=== PATIENT | male | born 1990 | race Asian ===

== ENCOUNTER 2016-03-28 11:44 | Emergency (ER) | payer MEDICAID ==
[~2016-03-28] VITALS: Wt 100.0 kg
[~2016-03-28 11:44] MED LIST: ASPI-664 PO; DOXA4TAB2 PO; HYDR-3671 PO; LAB200 PO; NIFE60TA11 PO; POTA8CAP PO
--- NOTE | 2016-03-28 14:29 | RADRPT ---
PROCEDURE: XR Chest. CLINICAL INDICATION: Shortness of breath. TECHNIQUE: Single PA chest x-ray. COMPARISON: None available FINDINGS: The lungs are clear. No focal opacification is seen. No pneumothorax or pleural effusion is seen. The cardiomediastinal silhouette is unremarkable. The osseous structures are grossly unremarkable. IMPRESSION: No evidence of acute cardiopulmonary disease. RPTAT: JJ .Lee Lipscomb MD, MD Date Time Electronically viewed and signed by .Lee Lipscomb MD, on 03/28/2016 14:29 .A/
[2016-03-28 15:39] LABS: BASOPHILS % 0.2 % (0.0-2.0); EOSINOPHILS # 0.1 10^3/ul (0.0-0.5); EOSINOPHILS % 0.9 % (0.0-7.0); HEMATOCRIT 44.4 % (42.0-52.0); HEMOGLOBIN 14.9 g/dl (14.0-18.0); LYMPHOCYTES # 0.9 10^3/ul (0.8-2.9); MEAN CORPUSCULAR HGB CONC 33.6 g/dl (32.0-37.0); MEAN CORPUSCULAR VOLUME 83.3 fl (82.0-101.0); MEAN PLATELET VOLUME 9.1 fl (7.4-10.4); MONOCYTES % 7.9 % (0.0-11.0); PLATELET COUNT 266 10^3/UL (140-440); RED BLOOD COUNT 5.33 10^6/ul (4.70-6.10); RED CELL DISTRIBUTION WIDTH 15.6 % (11.5-14.5); UNCORRECTED WBC 13.1 10^3/ul (4.8-10.8); WHITE BLOOD COUNT 13.1 10^3/ul (4.8-10.8)
[2016-03-28 15:41] LABS: CONDITION 1; LH ANALYZER COMMENTS 1
[2016-03-28 15:50] LABS: INR 0.94; PROTIME 12.6 Sec (12.2-14.2)
[2016-03-28 15:51] LABS: PARTIAL THROMBOPLASTIN TIME 26.6 Sec (25.0-35.0)
[2016-03-28 15:53] LABS: CHLORIDE 102 mmol/L (97-110); POTASSIUM 3.9 mmol/L (3.5-5.1); SODIUM 143 mmol/L (135-144)
[2016-03-28 15:55] LABS: ANION GAP 18 (8-16); BILIRUBIN,INDIRECT 0.9 mg/dl (0-1.1); BILIRUBIN,TOTAL 0.9 mg/dl (0.2-1.3); CARBON DIOXIDE 27 mmol/L (21-31); CREATININE 2.58 mg/dl (0.61-1.24)
[2016-03-28 15:56] LABS: ALANINE AMINOTRANSFERASE 23 IU/L (13-69); ALBUMIN/GLOBULIN RATIO 1.05; ALKALINE PHOSPHATASE 140 IU/L (42-121); ASPARTATE AMINO TRANSFERASE 21 IU/L (15-46); BLOOD UREA NITROGEN 23 mg/dl (7-20); CALCIUM 9.4 mg/dl (8.4-10.2); GLUCOSE 101 mg/dl (70-220); TOTAL PROTEIN 7.8 g/dl (6.1-8.1)
[2016-03-28 16:05] LABS: TROPONIN-I < 0.012 ng/ml (0.00-0.12)
[2016-03-28] MEDS ORDERED: ASPI325T4 PO (16:27)
--- NOTE | 2016-03-28 17:52 | ERD ---
DATE OF SERVICE: 03/28/2016 HISTORY OF PRESENT ILLNESS: The patient is a 25-year-old male complaining of chest pain with mild s hortness of breath since this morning. Patient has a history of NSTEMI and kidney disease. He feel s that his blood pressure is high. He has had a history of admissions with hypertensive emergency i n the past. Patient states he has had a productive cough, no history of pneumonia or asthma. He martinez s also had a runny nose. He states that he has had chest pain intermittently over the last 3 days w ith associated shortness of breath. He states that he occasionally has some numbness down his left arm and it was concerning because he has a history of cardiac problems in the past. He states he fe els mildly dizzy. Denies any changes in urination or bowel movements. No fevers, no vomiting. MEDICAL HISTORY: Cardiomegaly and kidney disease. ALLERGIES TO MEDICATIONS: Denies. SURGICAL HISTORY: Denies. SOCIAL HISTORY: Smokes marijuana. REVIEW OF SYSTEMS: A 12-point review of systems was done. Refer to HPI for positives, all other sy stems negative. PHYSICAL EXAMINATION VITAL SIGNS: Temperature is 98.4, pulse 94, blood pressure is 133/81, respiratory rate 20, O2 sat 9 5% on room air. Pain intensity is 6/10. GENERAL: Patient is well-appearing, well-nourished, no acute distress. HEENT: Atraumatic. Conjunctivae are pink. Pupils equal, round, and reactive to light. There is no s cleral icterus. Tympanic membranes clear bilaterally. Oropharynx clear. No nystagmus or photophobia . NECK: C-spine is soft and supple. There is no meningismus. There is no cervical lymphadenopathy. No JVD. No bruits. No goiter. CHEST: Clear to auscultation bilaterally. There are no rales, wheezes or rhonchi. HEART: Regular rate and rhythm. No murmurs, clicks, rubs or gallops. No S3 or S4. ABDOMEN: Soft, nontender and nondistended. Good bowel sounds. No rebound or guarding. No gross sae tonitis. No gross organomegaly or masses. No Silva sign or McBurney point tenderness. EXTREMITIES: Equal pulses bilaterally. There is no peripheral clubbing, cyanosis or edema. No focal swelling or erythema. Full range of motion. Grossly neurovascularly intact. NEURO: Alert and oriented. Cranial nerves 2-12 intact. Motor strength in all 4 extremities with 5/5 strength. Sensation grossly intact. Normal speech and gait. Babinski negative. DTR 2+ throughout. SKIN: There is no apparent rash or petechia. The skin is warm and dry. HEMATOLOGIC AND LYMPHATIC: There is no evidence of excessive bruising or lymphedema. No gross cervi camilla, axillary, or inguinal lymphadenopathy. PSYCHIATRIC: The patient does not appear anxious or depressed. Normal orientation and judgment. EMERGENCY ROOM COURSE: The patient had an EKG done in the ER which showed normal sinus rhythm. He does have some T-wave abnormality, although when compared to EKG on 10/18/2015, T-wave inversions ar e the same. No ST elevations, no T-wave inversions, reviewed and signed off by Dr. Adams and again reviewed and signed off by Dr. Mercedes. The patient had blood work done in the ER. CBC showed an el evated white count of 13.1 with a shift of 84. CMP showed elevated creatinine of 2.58 but when comp ared to previous creatinines that were similar, his troponin was less than 0.012 and otherwise wendie l CMP. Coags were within normal limits. The patient had a 1-view chest x-ray done in the ER which showed no evidence of acute cardiopulmonary disease. The case was reviewed with Dr. Mercedes and toget her we reevaluated the patient. The states he no longer felt symptoms and no longer felt chest pres sure or chest pain. Patient does not have reproducible chest pain. DIAGNOSIS: Chest pain, atypical. MEDICAL DECISION MAKING: I have low suspicion for acute cardiac syndrome at this time. Low suspici on for pulmonary emergency. Low suspicion for hypertension emergency, as the patient's vital signs are stable. The patient's symptoms have improved and vitals are stable while in the ER. Patient martinez s a history of kidney disease and I do not feel that there is concern for acute changes at this time as his creatinine is similar to previous visits. The case was discussed extensively with Dr. Mercedes upon discharge and felt that patient was stable for discharge and not admission. DISCHARGE: The patient is discharged stable. Patient given prescription for aspirin and told to fo llow up with primary care within 1 to 2 days for reevaluation. The patient was told if symptoms garo nge or worsen, to return to the ER. The patient was given strict ER precautions. All other questio ns answered at time of discharge. Discharge summary given at the time of departure. Patient unders tood and complied with plan. Dictated By: DANY PICKARD for GABINO COYNE/AMELIE Conf#: [id number] DID#: [id number]
== END 2016-03-28 16:50 | disposition home or self-care (01) ==
LOC: FTE 11:44
DX: R07.89 Other chest pain (principal); I12.9 Hypertensive chronic kidney disease with stage 1 through stage 4 chronic kidney disease, or unspecified chronic kidney disease; N18.9 Chronic kidney disease, unspecified; E66.9 Obesity, unspecified
CPT/HCPCS: 71010; 80053; 84484; 85025; 85610; 85730; 93005; Z7502

== ENCOUNTER 2016-07-14 14:58 | Emergency (ER) | payer SELFPAY ==
[~2016-07-14] VITALS: Wt 97.5 kg
[~2016-07-14 14:58] MED LIST changes: +ASPI325T4 PO; -LAB200 PO; +LABE200T43 PO
[2016-07-14] MEDS ORDERED: LABE200T25 PO (23:52)
[2016-07-14] MEDS ORDERED: BENA20TA48 PO (23:52)
[2016-07-14] MEDS ORDERED: ATOR80TA75 PO (23:52)
[2016-07-14] MEDS ORDERED: HYDR-3672 PO (23:52)
[2016-07-14] MEDS ORDERED: NIFE60TA7 PO (23:52)
== END 2016-07-14 21:37 | disposition left against medical advice (07) ==
LOC: E/R 14:58
DX: Z53.21 Procedure and treatment not carried out due to patient leaving prior to being seen by health care provider (principal)

== ENCOUNTER 2016-07-14 21:30 | Inpatient (IN) | payer MEDICAID, OTHER ==
[~2016-07-14] VITALS: Ht 170.2 cm; Wt 97.2 kg
[2016-07-14 22:52] LABS: ADD SCAN DIFF NO
[2016-07-14 22:53] LABS: BASOPHIL # 0.1 10^3/ul (0.0-0.1); BASOPHILS % 0.4 % (0.0-2.0); EOSINOPHILS # 0.6 10^3/ul (0.0-0.5); EOSINOPHILS % 4.4 % (0.0-7.0); HEMATOCRIT 45.7 % (42.0-52.0); HEMOGLOBIN 14.8 g/dl (14.0-18.0); LYMPHOCYTES % 21.5 % (15.0-51.0); MEAN CORPUSCULAR HEMOGLOBIN 27.9 pg (29.0-33.0); MEAN CORPUSCULAR HGB CONC 32.4 g/dl (32.0-37.0); MEAN CORPUSCULAR VOLUME 86.2 fl (82.0-101.0); MEAN PLATELET VOLUME 10.9 fl (7.4-10.4); MONOCYTES % 7.1 % (0.0-11.0); NEUTROPHIL # 9.2 10^3/ul (1.6-7.5); NEUTROPHILS % 66.2 % (39.0-77.0); PLATELET COUNT 251 10^3/UL (140-415); RED CELL DISTRIBUTION WIDTH 13.8 % (11.5-14.5); WHITE BLOOD COUNT 13.9 10^3/ul (4.8-10.8)
[2016-07-14] MEDS ORDERED: LABETALOL HCL 20MG INJ IV ONE (23:00)
[2016-07-14 23:07] LABS: ALBUMIN 4.3 g/dl (3.3-4.9); POTASSIUM 3.2 mmol/L (3.5-5.1)
[2016-07-14 23:09] LABS: BILIRUBIN,INDIRECT 1.2 mg/dl (0-1.1); BILIRUBIN,TOTAL 1.2 mg/dl (0.2-1.3); CREATININE 3.03 mg/dl (0.61-1.24)
[2016-07-14 23:10] LABS: ALBUMIN/GLOBULIN RATIO 1.07; TOTAL PROTEIN 8.3 g/dl (6.1-8.1)
[2016-07-14 23:11] LABS: CALCIUM 9.1 mg/dl (8.4-10.2)
[2016-07-14 23:13] LABS: INR 0.98
[2016-07-14 23:14] LABS: PARTIAL THROMBOPLASTIN TIME 26.5 Sec (25.0-35.0)
[2016-07-14 23:22] LABS: TROPONIN-I 0.015 ng/ml (0.00-0.12)
--- NOTE | 2016-07-14 23:25 | RADRPT ---
PROCEDURE: CT Brain without contrast. CLINICAL INDICATION: Headache and numbness. TECHNIQUE: A multiplanar CT of the brain was performed on a CT scanner utilizing axial imaging fro m the skull base through the vertex without IV contrast. The CTDIvol is 43.95 mGy and the DLP is 72 0.23 mGycm. One or more of the following dose reduction techniques were utilized: Automated exposu re control, adjustment of the mA and/or kV according to patient size, use of iterative reconstructio n technique. COMPARISON: None FINDINGS: No evidence of intracranial hemorrhage or abnormal extra-axial fluid collection. The brain parenchyma is normal attenuation morphology with preservation of boss white differentiatio n and age appropriate size of the ventricles and subarachnoid spaces. The basal cisterns, posterior fossa contents, brainstem, craniocervical junction, orbits, pituitary axis, paranasal sinuses, mastoid air cells, and calvarium are unremarkable. IMPRESSION: 1. No intracranial hemorrhage or acute intracranial abnormality. MRI may be considered for further evaluation. RPTAT:AAJJ Physician Lindsey Date Time Electronically viewed and signed by Physician Lindsey on 07/14/2016 23:25 LOI/
--- NOTE | 2016-07-14 23:25 | RADRPT ---
PROCEDURE: XR Chest. CLINICAL INDICATION: Chest pain TECHNIQUE: Single AP portable chest COMPARISON: 03/28/2016 Chest x-ray FINDINGS: The cardiomediastinal silhouette is within normal limits of size. Atherosclerotic calcification of t he aorta. The lungs are clear without pleural effusion or focal consolidation. No pneumothorax. The osseous structures and soft tissues are unremarkable. IMPRESSION: 1. No evidence for active cardiopulmonary disease. RPTAT:AAJJ Marlen Orozco Physician Date Time Electronically viewed and signed by Marlen Orozco Physician on 07/14/2016 23:25 LOI/
[2016-07-14] MEDS ORDERED: morphine 4 MG/ML VIAL IV STA (23:40)
[2016-07-14] MEDS ORDERED: ONDANSETRON 4 MG INJ IV STA (23:40)
[2016-07-14] MEDS ORDERED: ATOR80TA75 PO (23:52)
[2016-07-14] MEDS ORDERED: BENA20TA48 PO (23:52)
[2016-07-14] MEDS ORDERED: NIFE60TA7 PO (23:52)
[2016-07-14] MEDS ORDERED: LABE200T25 PO (23:52)
[2016-07-14] MEDS ORDERED: HYDR-3672 PO (23:52)
[2016-07-15] VITALS (13 sets, daily range): BP systolic 159–243; BP diastolic 81–144; PULSE 75–105; RESP 17–20; Ht 170.2 cm; Wt 97.2 kg
--- NOTE | 2016-07-15 01:21 | ERA ---
ER Documentation Chief Complaint Date/Time DATE: 07/15/16 TIME: 01:19 Chief Complaint RT FACIAL NUMBNESS X1 DAY. HX HTN NO MEDS TODAY. DENIES CP/SOB HPI 25-year-old male with right facial numbness for 1 day. Patient has a history of high blood pressure but did not take his meds today. Blood pressure was noted to be near 250 systolic in triage. Denies any sandra chest pain. Denies any shortness of breath. Denies any nausea vomiting. Denies any other current issues. ROS All systems reviewed and are negative except as per history of present illness. Medications Home Meds Active Scripts Potassium Chloride* (Potassium Chloride*) 8 Meq Capsule.er, 8 MEQ PO DAILY for 30 Days, CAP Prov:MANINDER MCMANUS NP 10/22/15 Reported Medications Benazepril Hcl* (Benazepril Hcl*) 20 Mg Tablet, 20 MG PO DAILY for HTN, #30 TAB 07/14/16 Atorvastatin* (Atorvastatin*) 80 Mg Tablet, 80 MG PO QHS, #30 TAB 07/14/16 Nifedipine* (Nifedipine ER*) 60 Mg Tablet.sa, 60 MG PO DAILY, TAB.SA 07/14/16 Hydralazine Hcl* (Hydralazine Hcl*) 50 Mg Tab, 50 MG PO Q8, #90 TAB 07/14/16 Labetalol Hcl* (Labetalol Hcl*) 200 Mg Tablet, 400 MG PO BID, TAB 07/14/16 Discontinued Scripts Aspirin* (Aspirin*) 325 Mg Tablet, 325 MG PO DAILY, #30 TAB Prov:LONG RAHMAN PA-C 03/28/16 Nifedipine (Nifedical Xl) 60 Mg Tab.er.24, 60 MG PO BID for 30 Days, TAB Prov:MANINDER MCMANUS NP 10/22/15 Hydralazine Hcl* (Hydralazine Hcl*) 25 Mg Tab, 75 MG PO TID for 30 Days, TAB Prov:MANINDER MCMANUS NP 10/22/15 Doxazosin Mesylate* (Cardura*) 4 Mg Tablet, 4 MG PO HS for 30 Days, TAB Prov:MANINDER MCMANUS NP 10/22/15 Aspirin* (Aspirin* EC) 81 Mg Tablet.dr, 81 MG PO DAILY for 30 Days Prov:MANINDER MCMANUS NP 10/22/15 Labetalol Hcl* (Normodyne*) 200 Mg Tab, 600 MG PO BID, #60 TAB 3 Refills Prov:ASTER DRAKE 11/09/14 Hydralazine Hcl* (Hydralazine Hcl*) 25 Mg Tab, 75 MG PO BID, #60 TAB 3 Refills Prov:ASTER DRAKE 11/09/14 Allergies Allergies: Coded Allergies: No Known Allergies (Unverified Allergy, Unknown, 07/14/16) PMhx/Soc History of Surgery: No Anesthesia Reaction: No Hx Neurological Disorder: No Hx Respiratory Disorders: No Hx Cardiac Disorders: Yes (htn, high cholesterol) Hx Psychiatric Problems: No Hx Miscellaneous Medical Probl: Yes (obesity) Hx Alcohol Use: Yes (socially) Hx Substance Use: Yes (pot, used meth a yr ago) Hx Tobacco Use: No Smoking Status: Former smoker Physical Exam Vitals Vital Signs Date Time Temp Pulse Resp B/P Pulse Ox O2 Delivery O2 Flow Rate FiO2 07/14/16 23:27 73 17 203/124 98 07/14/16 21:32 98.2 76 18 248/154 97 Physical Exam Const: [] Head: Atraumatic Eyes: Normal Conjunctiva ENT: Normal External Ears, Nose and Mouth. Neck: Full range of motion..~ No meningismus. Resp: Clear to auscultation bilaterally Cardio: Regular rate and rhythm, no murmurs Abd: Soft, non tender, non distended. Normal bowel sounds Skin: No petechiae or rashes Back: No midline or flank tenderness Ext: No cyanosis, or edema Neur: Awake and alert Psych: Normal Mood and Affect Result Diagram: 07/14/16223907/14/162239 Results 24 hrs Laboratory Tests Test 07/14/16 22:40 White Blood Count 13.910^3/ul Red Blood Count 5.3010^6/ul Hemoglobin 14.8g/dl Hematocrit 45.7% Mean Corpuscular Volume 86.2fl Mean Corpuscular Hemoglobin 27.9pg Mean Corpuscular Hemoglobin Concent 32.4g/dl Red Cell Distribution Width 13.8% Platelet Count 32032^3/UL Mean Platelet Volume 10.9fl Neutrophils % 66.2% Lymphocytes % 21.5% Monocytes % 7.1% Eosinophils % 4.4% Basophils % 0.4% Nucleated Red Blood Cells % 0.0/100WBC Neutrophils # 9.210^3/ul Lymphocytes # 3.010^3/ul Monocytes # 1.010^3/ul Eosinophils # 0.610^3/ul Basophils # 0.110^3/ul Nucleated Red Blood Cells # 0.010^3/ul Prothrombin Time 13.0Sec Prothrombin Time Ratio 1.0 INR International Normalized Ratio 0.98 Activated Partial Thromboplast Time 26.5Sec Sodium Level 142mmol/L Potassium Level 3.2mmol/L Chloride Level 105mmol/L Carbon Dioxide Level 26mmol/L Anion Gap 14 Blood Urea Nitrogen 20mg/dl Creatinine 3.03mg/dl Glucose Level 90mg/dl Calcium Level 9.1mg/dl Total Bilirubin 1.2mg/dl Direct Bilirubin 0.00mg/dl Indirect Bilirubin 1.2mg/dl Aspartate Amino Transf (AST/SGOT) 25IU/L Alanine Aminotransferase (ALT/SGPT) 35IU/L Alkaline Phosphatase 124IU/L Troponin I 0.015ng/ml B-Type Natriuretic Peptide 901PG/ML Total Protein 8.3g/dl Albumin 4.3g/dl Globulin 4.00g/dl Albumin/Globulin Ratio 1.07 Current Medications Medications (Trade) Dose Ordered Sig/Lm Route PRN Reason Start Time Stop Time Status Last Admin Dose Admin Labetalol HCl (Labetalol) 20 mg ONCE ONCE IV 07/14/16 23:00 07/14/16 23:01 DC 07/14/16 22:52 Morphine Sulfate (morphine) 4 mg ONCE STAT IV 07/14/16 23:40 07/14/16 23:42 DC 07/14/16 23:48 Ondansetron HCl (Zofran Inj) 4 mg ONCE STAT IV 07/14/16 23:40 07/14/16 23:42 DC 07/14/16 23:47 Procedures/MDM EKG: Rate/Rhythm: Normal Sinus Rhythm QRS, ST, T-waves: No changes consistent w/ acute ischemia Impression: No evidence of ischemia or arrhythmia Chest X-ray 1V Interpreted by me: Soft Tissue: No acute abnormalities Bones: No acute abnormalities Mediastinum/Cardiac Silhouette/Lungs: No acute abnormalities Medical decision making: This is a 25-year-old male who has what looks to be hypertensive emergency. His blood pressures been treated. At this point is clinically stable. He will be admitted for telemetric setting for observation. Hospitalist will be made aware. Critical Care: Time: 45 minutes Treatments/Evaluations: Close monitoring and treatment of unstable vital signs, cardiorespiratory, and neurologic status, while maintaining tight balance of fluid, respiratory, and cardiac interventions. Departure Diagnosis: Primary Impression: Hypertensive emergency Condition: Critical THAI WATTS July 15, 2016 01:21
[2016-07-15] MEDS ORDERED: hydrALAzine 20 MG INJ ONE (02:45)
[2016-07-15] MEDS: ACETAMINOPHEN 325 MG TAB PO PRN ×2 (02:56→20:17)
[2016-07-15] MEDS ORDERED: hydrALAzine 20 MG INJ IV ONE (03:00)
[2016-07-15] MEDS ORDERED: POTASSIUM CHLORIDE (SR) 20 MEQ TAB PO STA (03:23)
[2016-07-15] MEDS: LABETALOL 200 MG TAB PO SCH ×3 (03:43→20:17)
[2016-07-15] MEDS ORDERED: LABETALOL HCL 20MG INJ IV ONE (04:00)
[2016-07-15] MEDS: DEXAMETHASONE 4 MG/ML 1 ML INJ IV SCH ×3 (06:15→20:17)
[2016-07-15 07:46] LABS: ADD SCAN DIFF NO
[2016-07-15 07:50] LABS: BASOPHIL # 0.1 10^3/ul (0.0-0.1); BASOPHILS % 0.5 % (0.0-2.0); EOSINOPHILS # 0.6 10^3/ul (0.0-0.5); EOSINOPHILS % 4.9 % (0.0-7.0); HEMATOCRIT 46.4 % (42.0-52.0); HEMOGLOBIN 14.7 g/dl (14.0-18.0); LYMPHOCYTES # 2.3 10^3/ul (0.8-2.9); LYMPHOCYTES % 18.5 % (15.0-51.0); MEAN CORPUSCULAR HEMOGLOBIN 27.4 pg (29.0-33.0); MEAN CORPUSCULAR HGB CONC 31.7 g/dl (32.0-37.0); MEAN CORPUSCULAR VOLUME 86.4 fl (82.0-101.0); MEAN PLATELET VOLUME 11.5 fl (7.4-10.4); MONOCYTES % 8.4 % (0.0-11.0); NEUTROPHIL # 8.3 10^3/ul (1.6-7.5); NEUTROPHILS % 67.4 % (39.0-77.0); PLATELET COUNT 245 10^3/UL (140-415); RED BLOOD COUNT 5.37 10^6/ul (4.70-6.10); RED CELL DISTRIBUTION WIDTH 14.1 % (11.5-14.5); WHITE BLOOD COUNT 12.3 10^3/ul (4.8-10.8)
--- NOTE | 2016-07-15 07:54 | HP ---
DATE OF ADMISSION: 07/15/2016 TIME SEEN: 4 a.m. CHIEF COMPLAINT: "My right side of my face is weak." HISTORY OF PRESENT ILLNESS: The patient is a 25-year-old male with a history of hypertension and ch ronic kidney disease who presented to the emergency department with the above-stated chief complaint . He said on Thursday he noted that he is not able to move the right side of his face and also not able to close his right eye completely. He denied similar problems in the past. He also denied any arm or leg weakness, slurred speech, visual disturbance, any other symptom of stroke that mattered. He also denied seizure-like activity. He denied chest pain, shortness of breath, fevers, chills, nausea, vomiting, abdominal pain, or urinary symptoms. He also denied trauma to the face or head. When he presented to the ER, his blood pressure was severely elevated with a systolic blood pressure around 230. The patient was given IV antihypertensives in the ER without any significant improveme nt, actually with worsening blood pressure with systolic almost 250 at the time of examination. Hea d CT was done and it was negative for any acute processes. A chest x-ray also was negative for any acute processes. Laboratory value was notable for a WBC of almost 50,000, potassium 3.2, creatinine just a little over 3, and a BNP was around 900. The patient has resistant hypertension and he was actually admitted here a few times in the past, the last one being about a year ago. He has had a w orkup for renal artery stenosis which was negative. Abdominal MRI results, sign of pheochromocytoma . He also had a nuclear stress test in 2014 that was negative with an EF during the stress of 52%. His echocardiogram, however, showed a normal ejection fraction. He said he is compliant with his m edication, but he did not take any of his blood pressure medications on Thursday because of fear that it would make his right side facial weakness worse. Normally he said his blood pressure at home is around 200 and rarely his systolic is around /150. REVIEW OF SYSTEMS: A 12-point review was performed, negative except as mentioned in the HPI. PAST MEDICAL HISTORY: Hypertension and chronic kidney disease. SOCIAL HISTORY: He smokes marijuana. ALLERGIES: NO KNOWN DRUG ALLERGIES. HOME MEDICATIONS: Nifedipine 50 mg daily, hydralazine 50 mg t.i.d., and labetalol 400 mg twice a da y. PHYSICAL EXAMINATION: VITAL SIGNS: Blood pressure 248/120s. GENERAL: The patient was very sleepy, but arousable and he is answering questions appropriately and able to speak in full sentences. HEENT: Normocephalic, atraumatic. There is an asymmetric smile with notable paralysis over the rig ht side of his face. CARDIOVASCULAR: Slightly tachycardic with regular rhythm. LUNGS: Clear. ABDOMEN: Soft, nontender, nondistended. Positive bowel sounds. EXTREMITIES: No edema. NEUROLOGIC: No focal deficit. He has 5/5 strength in both upper and lower extremities, and sensati ons are intact and equal bilaterally. He does have right-sided facial paralysis. LABORATORY: Pertinent positive results as mentioned in the HPI. IMAGING: Brain CT and chest x-ray results as mentioned in the HPI. IMPRESSION: 1. 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 2. Hypertensive urgency. 3. Chronic kidney disease, likely secondary to hypertensive nephrosclerosis. 4. Leukocytosis. Likely stress-induced reaction. 5. Hypokalemia. PLAN: The patient's right-sided paralysis seems to be consistent with Bryant's palsy. He does not martinez ve any other symptom of stroke. Head CT is negative for any acute processes. Will consider MRI of the brain. We will place a neurology consult. I will put him on steroids. We will resume his home antihypertensives with additional on IV medications for a better blood pressure control. As far as kidney function is concerned, it has slightly worsened compared to last year. He has had a workup with renal artery stenosis which was negative in the past and a renal ultrasound previously shows bi lateral small kidneys consistent with chronic kidney disease. We will place and nephrology consult. I have advised him the importance of better blood pressure control and for him to follow up with h is primary care doctor closely. I did tell him that the possibility of him being dialysis dependent , his blood pressure continues to be severely elevated with resultant worsening of his kidney functi on. Further workup and management will be per clinical course. Dictated By: THAI GOLDSTEIN/AMELIE Conf#: [id number] DID#: [id number]
[2016-07-15 08:07] LABS: ALBUMIN 3.8 g/dl (3.3-4.9); BILIRUBIN,INDIRECT 1.2 mg/dl (0-1.1); BILIRUBIN,TOTAL 1.2 mg/dl (0.2-1.3); CREATININE 2.5 mg/dl (0.61-1.24); POTASSIUM 3.4 mmol/L (3.5-5.1); TOTAL PROTEIN 7.6 g/dl (6.1-8.1)
[2016-07-15] MEDS ORDERED: NIFEdipine (XL) 60 MG TAB PO SCH (09:00)
[2016-07-15] MEDS: ONDANSETRON 4 MG INJ IV PRN (09:15)
--- NOTE | 2016-07-15 15:15 | PN ---
Date/Time of Note Date/Time of Note DATE: 07/15/16 TIME: 15:08 Assessment/Plan VTE Prophylaxis VTE Prophylaxis Intervention: heparin Lines/Catheters IV Catheter Type (from Nrsg): Peripheral IV Assessment/Plan Assessment/Plan 1. Right Bryant's palsy, on steroid acyclovir 2. Hypertensive urgency. improving, increase procardia 3. Chronic kidney disease, likely secondary to hypertensive nephrosclerosis. 4. Leukocytosis. Likely stress-induced reaction. 5. Hypokalemia. Subjective 24 Hr Interval Summary Free Text/Dictation right facial weakness including the eye Exam/Review of Systems Vital Signs Vitals Vital Signs Date Time Temp Pulse Resp B/P Pulse Ox O2 Delivery O2 Flow Rate FiO2 07/15/16 12:31 85 07/15/16 11:47 97.5 17 159/81 98 07/15/16 07:50 Nasal Cannula 2.0 Exam Constitutional: alert, oriented, well developed Psych: nl mood/affect, no complaints Head: atraumatic, normocephalic Eyes: EOMI, PERRL, nl conjunctiva, nl lids ENMT: nl external ears & nose, nl lips & teeth, nl nasal mucosa & septum Neck: supple Respiratory: clear to auscultation, normal air movement, No congested cough, No crackles/rales, No diminished breath sounds, No intercostal retraction, No labored breathing, No other, No respirations, No tactile fremitus, No wheezing Cardiovascular: nl pulses, regular rate and rhythm, No S3, No S4, No bruits, No diastolic murmur, No edema, No gallop, No irregular rhythm, No jugular venous distention (JVD), No murmurs/extra sounds, No other, No rub, No systolic murmur Gastrointestinal: nl liver, spleen, non-tender, soft, No ascites, No bowel sounds, No distended, No firm, No hepatomegaly, No mass , No other, No rebound or guarding, No splenomegaly, No surgical scars, No tender Musculoskeletal: nl extremities to inspection Extremities: normal pulses, No calf tenderness, No clubbing, No cyanosis, No edema, No other, No palpable cord, No pitting pedal edema, No tenderness Neurological: nl mental status, nl speech, nl strength, other (weakness on right eye lids and right facial drooping) Skin: nl turgor Lymph: nl lymph nodes Results Result Diagram: 07/15/16 0626 07/15/16 0656 Results 24 hrs Laboratory Tests Test 07/14/16 22:40 07/15/16 06:26 07/15/16 06:56 White Blood Count 13.9 H 12.3 H Red Blood Count 5.30 5.37 Hemoglobin 14.8 14.7 Hematocrit 45.7 46.4 Mean Corpuscular Volume 86.2 86.4 Mean Corpuscular Hemoglobin 27.9 L 27.4 L Mean Corpuscular Hemoglobin Concent 32.4 31.7 L Red Cell Distribution Width 13.8 14.1 Platelet Count 251 245 Mean Platelet Volume 10.9 H 11.5 H Neutrophils % 66.2 67.4 Lymphocytes % 21.5 18.5 Monocytes % 7.1 8.4 Eosinophils % 4.4 4.9 Basophils % 0.4 0.5 Nucleated Red Blood Cells % 0.0 0.0 Neutrophils # 9.2 H 8.3 H Lymphocytes # 3.0 H 2.3 Monocytes # 1.0 H 1.0 H Eosinophils # 0.6 H 0.6 H Basophils # 0.1 0.1 Nucleated Red Blood Cells # 0.0 0.0 Prothrombin Time 13.0 Prothrombin Time Ratio 1.0 INR International Normalized Ratio 0.98 Activated Partial Thromboplast Time 26.5 Sodium Level 142 140 Potassium Level 3.2 L 3.4 L Chloride Level 105 107 Carbon Dioxide Level 26 26 Anion Gap 14 10 Blood Urea Nitrogen 20 18 Creatinine 3.03 H 2.50 H Glucose Level 90 101 Calcium Level 9.1 9.0 Total Bilirubin 1.2 1.2 Direct Bilirubin 0.00 0.00 Indirect Bilirubin 1.2 H 1.2 H Aspartate Amino Transf (AST/SGOT) 25 22 Alanine Aminotransferase (ALT/SGPT) 35 34 Alkaline Phosphatase 124 H 105 Troponin I 0.015 B-Type Natriuretic Peptide 901 H Total Protein 8.3 H 7.6 Albumin 4.3 3.8 Globulin 4.00 H 3.80 H Albumin/Globulin Ratio 1.07 1.00 Medications Medications Current Medications Atorvastatin Calcium (Lipitor) 80 mg QHS PO ; Start 07/15/16 at 21:00 Hydralazine HCl (Apresoline) 50 mg Q8 PO Last administered on 07/15/16t 12:51; Admin Dose 50 MG; Start 07/15/16 at 06:00 Labetalol HCl (Normodyne) 400 mg BID PO Last administered on 07/15/16 08:29; Admin Dose 400 MG; Start 07/15/16 at 02:30 Nifedipine (Procardia Xl) 60 mg DAILY PO Last administered on 07/15/16 08:29; Admin Dose 60 MG; Start 07/15/16 at 09:00 Ondansetron HCl (Zofran Inj) 4 mg Q6H PRN IV NAUSEA AND/OR VOMITING Last administered on 07/15/16 09:15; Admin Dose 4 MG; Start 07/15/16 at 03:00 Acetaminophen (Tylenol Tab) 650 mg Q6H PRN PO PAIN AND OR ELEVATED TEMP Last administered on 07/15/16 02:56; Admin Dose 650 MG; Start 07/15/16 at 03:00 Dexamethasone (Decadron) 4 mg Q8 IV Last administered on 07/15/16 12:51; Admin Dose 4 MG; Start 07/15/16 at 06:00 LAYNE MALIN MD July 15, 2016 15:15
[2016-07-15] MEDS: HEPARIN 5,000 UNIT/0.5 ML VIAL SC SCH (20:17)
[2016-07-15] MEDS: ACYCLOVIR 400 MG TAB PO SCH (20:17)
[2016-07-15] MEDS: ATORVASTATIN 80 MG TAB PO SCH (20:17)
[2016-07-16] VITALS (19 sets, daily range): BP systolic 159–208; BP diastolic 86–110; PULSE 76–114; RESP 18–20
[2016-07-16] MEDS: hydrALAzine 20 MG INJ IV PRN ×5 (01:33→23:06)
[2016-07-16] MEDS: DEXAMETHASONE 4 MG/ML 1 ML INJ IV SCH ×2 (05:51→11:54)
[2016-07-16] MEDS: ONDANSETRON 4 MG INJ IV PRN ×2 (05:55→12:05)
[2016-07-16 07:35] LABS: ADD SCAN DIFF NO
[2016-07-16 07:41] LABS: ABNORMAL IP MESSAGE 1; BASOPHILS % 0.1 % (0.0-2.0); HEMOGLOBIN 14.9 g/dl (14.0-18.0); LYMPHOCYTES # 1.2 10^3/ul (0.8-2.9); LYMPHOCYTES % 5.3 % (15.0-51.0); MEAN CORPUSCULAR HGB CONC 31.7 g/dl (32.0-37.0); MEAN CORPUSCULAR VOLUME 85.3 fl (82.0-101.0); MEAN PLATELET VOLUME 11.1 fl (7.4-10.4); MONOCYTE # 0.8 10^3/ul (0.3-0.9); MONOCYTES % 3.7 % (0.0-11.0); NEUTROPHILS % 90.3 % (39.0-77.0); PLATELET COUNT 283 10^3/UL (140-415); RED BLOOD COUNT 5.51 10^6/ul (4.70-6.10); RED CELL DISTRIBUTION WIDTH 14.1 % (11.5-14.5); WHITE BLOOD COUNT 22.2 10^3/ul (4.8-10.8)
[2016-07-16 08:04] LABS: CALCIUM 9.5 mg/dl (8.4-10.2); CREATININE 2.64 mg/dl (0.61-1.24)
[2016-07-16] MEDS: ACYCLOVIR 400 MG TAB PO SCH ×3 (09:00→19:29)
[2016-07-16] MEDS ORDERED: NIFEdipine (XL) 60 MG TAB PO SCH (09:00)
[2016-07-16] MEDS: LABETALOL 200 MG TAB PO SCH ×2 (09:00→19:30)
[2016-07-16] MEDS: NIFEdipine (XL) 90 MG TAB PO SCH (09:00)
[2016-07-16] MEDS: HEPARIN 5,000 UNIT/0.5 ML VIAL SC SCH ×2 (09:01→19:30)
--- NOTE | 2016-07-16 14:30 | PN ---
Date/Time of Note Date/Time of Note DATE: 07/16/16 TIME: 14:27 Assessment/Plan VTE Prophylaxis VTE Prophylaxis Intervention: heparin Lines/Catheters IV Catheter Type (from Nrsg): Peripheral IV Assessment/Plan Assessment/Plan 1. ight facial weakness with vision change on right, MRI 2. Hypertensive urgency. improving, procardia 3. Chronic kidney disease, likely secondary to hypertensive nephrosclerosis. 4. Leukocytosis. Likely steroid-induced reaction. 5. Hypokalemia. corrected Subjective 24 Hr Interval Summary Free Text/Dictation still with facial weakness on right Exam/Review of Systems Vital Signs Vitals Vital Signs Date Time Temp Pulse Resp B/P Pulse Ox O2 Delivery O2 Flow Rate FiO2 07/16/16 12:00 98 07/16/16 11:58 98.4 20 181/99 95 07/15/16 07:50 Nasal Cannula 2.0 Intake and Output 07/15/16 07/15/16 07/16/16 15:00 23:00 07:00 Intake Total 950 ml 500 ml Balance 950 ml 500 ml Exam Constitutional: alert, oriented, well developed Psych: nl mood/affect, no complaints Head: atraumatic, normocephalic Eyes: EOMI, PERRL, nl conjunctiva, nl lids ENMT: nl external ears & nose, nl lips & teeth, nl nasal mucosa & septum Neck: non-tender, supple Respiratory: clear to auscultation, normal air movement, No congested cough, No crackles/rales, No diminished breath sounds, No intercostal retraction, No labored breathing, No other, No respirations, No tactile fremitus, No wheezing Cardiovascular: nl pulses, regular rate and rhythm, No S3, No S4, No bruits, No diastolic murmur, No edema, No gallop, No irregular rhythm, No jugular venous distention (JVD), No murmurs/extra sounds, No other, No rub, No systolic murmur Gastrointestinal: nl liver, spleen, soft, No ascites, No bowel sounds, No distended, No firm, No hepatomegaly, No mass , No non-tender, No other, No rebound or guarding, No splenomegaly, No surgical scars, No tender Musculoskeletal: nl extremities to inspection Extremities: normal pulses, No calf tenderness, No clubbing, No cyanosis, No edema, No other, No palpable cord, No pitting pedal edema, No tenderness Neurological: nl mental status, nl speech, nl strength, other (facial drooping on right) Results Result Diagram: 07/16/16 0715 07/16/16 0715 Results 24 hrs Laboratory Tests Test 07/16/16 07:15 White Blood Count 22.2 #H Red Blood Count 5.51 Hemoglobin 14.9 Hematocrit 47.0 Mean Corpuscular Volume 85.3 Mean Corpuscular Hemoglobin 27.0 L Mean Corpuscular Hemoglobin Concent 31.7 L Red Cell Distribution Width 14.1 Platelet Count 283 Mean Platelet Volume 11.1 H Neutrophils % 90.3 H Lymphocytes % 5.3 L Monocytes % 3.7 Eosinophils % 0.0 Basophils % 0.1 Nucleated Red Blood Cells % 0.0 Neutrophils # 20.0 H Lymphocytes # 1.2 Monocytes # 0.8 Eosinophils # 0.0 Basophils # 0.0 Nucleated Red Blood Cells # 0.0 Sodium Level 139 Potassium Level 4.0 Chloride Level 108 Carbon Dioxide Level 24 Anion Gap 11 Blood Urea Nitrogen 25 H Creatinine 2.64 H Glucose Level 127 Calcium Level 9.5 Medications Medications Current Medications Atorvastatin Calcium (Lipitor) 80 mg QHS PO Last administered on 07/15/16 20: 17; Admin Dose 80 MG; Start 07/15/16 at 21:00 Hydralazine HCl (Apresoline) 50 mg Q8 PO Last administered on 07/16/16 12:02; Admin Dose 50 MG; Start 07/15/16 at 06:00 Labetalol HCl (Normodyne) 400 mg BID PO Last administered on 07/16/16 09:00; Admin Dose 400 MG; Start 07/15/16 at 02:30 Ondansetron HCl (Zofran Inj) 4 mg Q6H PRN IV NAUSEA AND/OR VOMITING Last administered on 07/16/16 12:05; Admin Dose 4 MG; Start 07/15/16 at 03:00 Acetaminophen (Tylenol Tab) 650 mg Q6H PRN PO PAIN AND OR ELEVATED TEMP Last administered on 07/15/16 20:17; Admin Dose 650 MG; Start 07/15/16 at 03:00 Acyclovir (Zovirax) 400 mg TID PO Last administered on 07/16/16 12:02; Admin Dose 400 MG; Start 07/15/16 at 21:00 Heparin Sodium (Porcine) (Heparin (5000 Units/0.5 ml)) 5,000 unit BID SC Last administered on 07/16/16 09:01; Admin Dose 5,000 UNIT; Start 07/15/16 at 21:00 Nifedipine (Procardia Xl) 90 mg DAILY PO Last administered on 07/16/16 09:00; Admin Dose 90 MG; Start 07/16/16 at 09:00 Hydralazine HCl (Apresoline) 5 mg Q4H PRN IV ELEVATED SYSTOLIC BP Last administered on 07/16/16 11:55; Admin Dose 5 MG; Start 07/16/16 at 01:00 Prednisone (Prednisone) 60 mg DAILY PO ; Start 07/17/16 at 09:00; Status LAYNE DAVIS MD July 16, 2016 14:30
--- NOTE | 2016-07-16 16:42 | RADRPT ---
PROCEDURE: MRI Brain without contrast. CLINICAL INDICATION: Hypertensive crisis. Right facial weakness. TECHNIQUE: MRI of the brain was performed with the following sequences obtained: Sagittal, coronal and axial T1-weighted, axial T2-weighted, axial FLAIR, axial diffusion weighted (with ADC map), and coronal GRE. COMPARISON: CT brain 07/14/2016 FINDINGS: The diffusion sequence is normal with no evidence for acute infarct. No hemorrhage, mass effect or mass lesion is present. The extraaxial spaces are clear of collections. The ventricular system and sulci are normal. The axial and sagittal FLAIR sequences demonstrate subtle foci of hyperintense si gnal within the subcortical white matter of the centrum semiovale bilaterally. These findings are n on specific with possibilities including a manifestation of hypertension, small vessel chronic ische alphonse changes, vasculitis, migraine disorder and demyelination. No signal alteration is present within the brainstem or cerebellum. The fourth ventricle is midline and the craniocervical junction lesion is intact. The area of the sella is normal. The bony calvarium and skull base are intact. Trace amount of hyperintense T2 signal within the inf erior left mastoid air cells is present. The included paranasal sinuses and right mastoid air cells are clear. Physiologic flow voids within the internal carotid and vertebral arteries are maintaine d. RPTAT:HJJR IMPRESSION: 1. Tiny subtle hyperintense FLAIR foci within the centrum semiovale white matter bilaterally are no nspecific with possibilities including small vessel ischemic changes, vasculitis, migraine disorder and less likely demyelination. 2. Trace amount of fluid signal in the inferior left mastoid air cells. 3. Remainder of the examination is unremarkable. Physician Aislinn Date Time Electronically viewed and signed by Physician Aislinn on 07/16/2016 16:42 /
[2016-07-16] MEDS: ACETAMINOPHEN 325 MG TAB PO PRN ×2 (16:56→23:56)
[2016-07-16] MEDS ORDERED: LABETALOL HCL 20MG INJ IV PRN (18:30)
[2016-07-16] MEDS ORDERED: morphine 2 MG INJ IV PRN (18:30)
[2016-07-16] MEDS: ATORVASTATIN 80 MG TAB PO SCH (19:29)
[2016-07-17] VITALS (9 sets, daily range): BP systolic 146–159; BP diastolic 73–97; PULSE 86–153; RESP 16–18
[2016-07-17] MEDS: ONDANSETRON 4 MG INJ IV PRN (05:15)
[2016-07-17] MEDS: HEPARIN 5,000 UNIT/0.5 ML VIAL SC SCH (09:00)
[2016-07-17] MEDS ORDERED: predniSONE 20 MG TAB PO SCH (09:00)
[2016-07-17] MEDS: NIFEdipine (XL) 90 MG TAB PO SCH (09:57)
[2016-07-17] MEDS: ACYCLOVIR 400 MG TAB PO SCH ×2 (09:57→13:08)
[2016-07-17] MEDS: LABETALOL 200 MG TAB PO SCH (09:58)
[2016-07-17] MEDS ORDERED: MED4DP PO (13:26)
[2016-07-17] MEDS ORDERED: NIFEdipine (XL) PO (13:26)
--- NOTE | 2016-07-17 13:35 | DS ---
Date/Time of Note Date/Time of Note DATE: 07/17/16 TIME: 13:28 Discharge Summary Admission/Discharge Info Admit Date/Time July 15, 2016 at 00:56 Discharge Date/Time Final Diagnosis 1. Right side Bryant's Palsy, improving, steroid, follow up with PCP 2. Hypertensive urgency. better controlled, follow up with PCP 3. Chronic kidney disease, hypertensive nephrosclerosis. follow up with PCP 4. Leukocytosis. Likely steroid-induced reaction. Patient Condition: Stable Hospital Course The patient is a 25-year-old male with a history of hypertension and chronic kidney disease who presented to the emergency department with the above-stated chief complaint. He said on Thursday he noted that he is not able to move the right side of his face and also not able to close his right eye completely. He denied similar problems in the past. He also denied any arm or leg weakness, slurred speech, visual disturbance, any other symptom of stroke that mattered. He also denied seizure-like activity. He denied chest pain, shortness of breath , fevers, chills, nausea, vomiting, abdominal pain, or urinary symptoms. He also denied trauma to the face or head. When he presented to the ER, his blood pressure was severely elevated with a systolic blood pressure around 230. The patient was given IV antihypertensives in the ER without any significant improvement, actually with worsening blood pressure with systolic almost 250 at the time of examination. Head CT was done and it was negative for any acute processes. A chest x-ray also was negative for any acute processes. Laboratory value was notable for a WBC of almost 50, 000, potassium 3.2, creatinine just a little over 3, and a BNP was around 900. The patient has resistant hypertension and he was actually admitted here a few times in the past, the last one being about a year ago. He has had a workup for renal artery stenosis which was negative. Abdominal MRI results, sign of pheochromocytoma. He also had a nuclear stress test in 2014 that was negative with an EF during the stress of 52%. His echocardiogram, however, showed a normal ejection fraction. He said he is compliant with his medication, but he did not take any of his blood pressure medications on Thursday because of fear that it would make his right side facial weakness worse. Normally he said his blood pressure at home is around 200 and rarely his systolic is around /150. The right side facial weakness is considered Bryant's Palsy, that he is on steroid. He will be on Medrol dase pack and follow up with PCP. MRI brain does no show evidence of acute stroke. For hypertension, procardia is increased wot 90 mg po daily. Blood pressure has been stable at 150s. I will resume his benazepril that was held on admission. Patient has chronic kidney disease from chronic hypertension. Cr is 2.64 on 07/16. [place] [id number] Radiology Main Line: [phone] DIAGNOSTIC IMAGING REPORT Patient: GERALD BLOOD : 1990 Age: 25 Sex: M MR #: [id number] DOS: 07/16/16 0000 Ordering MD: LAYNE MALIN MD [place] [facility] [place] Room[place]Bed: [facility] PROCEDURE: MRI Brain without contrast. CLINICAL INDICATION: Hypertensive crisis. Right facial weakness. TECHNIQUE: MRI of the brain was performed with the following sequences obtained : Sagittal, coronal and axial T1-weighted, axial T2-weighted, axial FLAIR, axial diffusion weighted (with ADC map), and coronal GRE. COMPARISON: CT brain 07/14/2016 FINDINGS: The diffusion sequence is normal with no evidence for acute infarct. No hemorrhage, mass effect or mass lesion is present. The extraaxial spaces are clear of collections. The ventricular system and sulci are normal. The axial and sagittal FLAIR sequences demonstrate subtle foci of hyperintense signal within the subcortical white matter of the centrum semiovale bilaterally. These findings are non specific with possibilities including a manifestation of hypertension, small vessel chronic ischemic changes, vasculitis, migraine disorder and demyelination. No signal alteration is present within the brainstem or cerebellum. The fourth ventricle is midline and the craniocervical junction lesion is intact. The area of the sella is normal. The bony calvarium and skull base are intact. Trace amount of hyperintense T2 signal within the inferior left mastoid air cells is present. The included paranasal sinuses and right mastoid air cells are clear. Physiologic flow voids within the internal carotid and vertebral arteries are maintained. RPTAT:HJJR IMPRESSION: 1. Tiny subtle hyperintense FLAIR foci within the centrum semiovale white matter bilaterally are nonspecific with possibilities including small vessel ischemic changes, vasculitis, migraine disorder and less likely demyelination. 2. Trace amount of fluid signal in the inferior left mastoid air cells. 3. Remainder of the examination is unremarkable. Giovanni Shepherd Physician Date Time Electronically viewed and signed by Giovanni Shepherd Physician on 07/16/2016 16:42 JR/ Home Meds Active Scripts Methylprednisolone* (Medrol* DOSE PACK) 4 Mg/Dose-Pack Tab.ds.pk, 4 MG PO . DIRECTED, #1 PACKET Prov:LAYNE MALIN MD 07/17/16 [NIFEdipine (XL)] 90 MG TABSR No Conflict Check, 90 MG PO DAILY for 30 Days Prov:LAYNE MALIN MD 07/17/16 Potassium Chloride* (Potassium Chloride*) 8 Meq Capsule.er, 8 MEQ PO DAILY for 30 Days, CAP Prov:MANINDER MCMANUS NP 10/22/15 Reported Medications Benazepril Hcl* (Benazepril Hcl*) 20 Mg Tablet, 20 MG PO DAILY for HTN, #30 TAB 07/14/16 Atorvastatin* (Atorvastatin*) 80 Mg Tablet, 80 MG PO QHS, #30 TAB 07/14/16 Hydralazine Hcl* (Hydralazine Hcl*) 50 Mg Tab, 50 MG PO Q8, #90 TAB 07/14/16 Labetalol Hcl* (Labetalol Hcl*) 200 Mg Tablet, 400 MG PO BID, TAB 07/14/16 Discontinued Reported Medications Nifedipine* (Nifedipine ER*) 60 Mg Tablet.sa, 60 MG PO DAILY, TAB.SA 07/14/16 Discontinued Scripts Aspirin* (Aspirin*) 325 Mg Tablet, 325 MG PO DAILY, #30 TAB Prov:LONG RAHMAN PA-C 03/28/16 Nifedipine (Nifedical Xl) 60 Mg Tab.er.24, 60 MG PO BID for 30 Days, TAB Prov:MANINDER MCMANUS NP 10/22/15 Hydralazine Hcl* (Hydralazine Hcl*) 25 Mg Tab, 75 MG PO TID for 30 Days, TAB Prov:MCMANUS,MANINDER V. PROPERTY MAINTENANCE TECHNICIAN 10/22/15 Doxazosin Mesylate* (Cardura*) 4 Mg Tablet, 4 MG PO HS for 30 Days, TAB Prov:MANINDER MCMANUS V. PROPERTY MAINTENANCE TECHNICIAN 10/22/15 Aspirin* (Aspirin* EC) 81 Mg Tablet.dr, 81 MG PO DAILY for 30 Days Prov:MANINDER MCMANUS V. PROPERTY MAINTENANCE TECHNICIAN 10/22/15 Labetalol Hcl* (Normodyne*) 200 Mg Tab, 600 MG PO BID, #60 TAB 3 Refills Prov:ASTER DRAKE 11/09/14 Hydralazine Hcl* (Hydralazine Hcl*) 25 Mg Tab, 75 MG PO BID, #60 TAB 3 Refills Prov:ASTER DRAKE 11/09/14 Follow-up Plan PCP in one week Primary Care Provider [facility] LAYNE Bustamante MD July 17, 2016 13:35
== END 2016-07-17 15:25 | disposition home or self-care (01) | DRG 305 ==
LOC: E/R 21:30 → MS4 07-15 00:56
PROVIDERS: ADMIT Internal Medicine; ATTEND Internal Medicine
DX: I16.1 Hypertensive emergency (principal); N18.4 Chronic kidney disease, stage 4 (severe); I12.9 Hypertensive chronic kidney disease with stage 1 through stage 4 chronic kidney disease, or unspecified chronic kidney disease; E87.6 Hypokalemia; G51.0 Bell's palsy
CPT/HCPCS: 36415; 70450; 70551; 71010; 80048; 80053; 83880; 84484; 85025; 85610; 85730; 93005; 96374; 96375; J0360; J1100; J1644; J2270; J2405; J7512

== ENCOUNTER 2017-02-08 16:11 | Inpatient (IN) | payer MEDICAID, OTHER ==
[~2017-02-08] VITALS: Ht 170.2 cm; Wt 96.5 kg
[~2017-02-08 16:11] MED LIST changes: -ASPI-664 PO; -ASPI325T4 PO; +ATOR80TA75 PO; +BENA20TA48 PO; -DOXA4TAB2 PO; -HYDR-3671 PO; +HYDR-3672 PO; +LABE200T25 PO; -LABE200T43 PO; +MED4DP PO; -NIFE60TA11 PO; +NIFEdipine (XL) PO; -POTA8CAP PO
--- NOTE | 2017-02-08 16:48 | ERD ---
ER Documentation Chief Complaint Chief Complaint chest pain only when walks HPI The patient is a 26-year-old male, presenting to the ER because of left-sided chest pain with exertion for 1 week, dyspnea on exertion, no radiation. He had similar symptoms previously. He denies fever, chills, palpitation, diaphoresis , abdominal pain, vomiting, dysuria, diarrhea. He does not smoke denies drinking denies any illicit drug Medical history: Chronic kidney disease, hypertension, CAD, history of non-STEMI , dyslipidemia Surgical history: Stent PCI ROS All systems reviewed and are negative except as per history of present illness. Medications Home Meds Reported Medications Nifedipine* (Nifedipine ER*) 90 Mg Tablet.er, 90 MG PO DAILY, TAB 02/08/17 Atorvastatin* (Atorvastatin*) 80 Mg Tablet, 80 MG PO QHS, #30 TAB 07/14/16 Hydralazine Hcl* (Hydralazine Hcl*) 50 Mg Tab, 50 MG PO Q8, #90 TAB 07/14/16 Labetalol Hcl* (Labetalol Hcl*) 200 Mg Tablet, 400 MG PO BID, TAB 07/14/16 Discontinued Reported Medications Benazepril Hcl* (Benazepril Hcl*) 20 Mg Tablet, 20 MG PO DAILY for HTN, #30 TAB 07/14/16 Discontinued Scripts Methylprednisolone* (Medrol* DOSE PACK) 4 Mg/Dose-Pack Tab.ds.pk, 4 MG PO . DIRECTED, #1 PACKET Prov:LAYNE MALIN MD 07/17/16 [NIFEdipine (XL)] 90 MG TABSR No Conflict Check, 90 MG PO DAILY for 30 Days Prov:LAYNE MALIN MD 07/17/16 Allergies Allergies: Coded Allergies: No Known Allergies (Unverified Allergy, Unknown, 02/08/17) PMhx/Soc History of Surgery: No Anesthesia Reaction: No Hx Neurological Disorder: No Hx Respiratory Disorders: No Hx Cardiac Disorders: Yes (HTN) Hx Psychiatric Problems: No Hx Miscellaneous Medical Probl: No Hx Alcohol Use: Yes (occasionally) Hx Substance Use: No Hx Tobacco Use: No Physical Exam Vitals Vital Signs Date Time Temp Pulse Resp B/P Pulse Ox O2 Delivery O2 Flow Rate FiO2 02/08/17 16:26 98.5 110 18 184/121 99 Physical Exam Const: No acute distress. Head: Atraumatic. Eyes: Normal Conjunctiva. ENT: Normal External Ears, Nose and Mouth. Neck: Full range of motion. No meningismus. Resp: Clear to auscultation bilaterally. Cardio: Regular rate and rhythm. Abd: Soft, non distended, normal bowel sounds, non tender. Skin: No petechiae or rashes. Back: No midline or flank tenderness. Ext: No cyanosis, or edema. Neur: Awake and alert. No focal deficit Psych: Normal Mood and Affect. Result Diagram: 02/08/17 1700 02/08/17 1700 Results 24 hrs Laboratory Tests Test 02/08/17 17:00 White Blood Count 18.010^3/ul Red Blood Count 5.1210^6/ul Hemoglobin 14.5g/dl Hematocrit 43.7% Mean Corpuscular Volume 85.4fl Mean Corpuscular Hemoglobin 28.3pg Mean Corpuscular Hemoglobin Concent 33.2g/dl Red Cell Distribution Width 13.4% Platelet Count 99331^3/UL Mean Platelet Volume 10.0fl Neutrophils % 70.1% Lymphocytes % 16.7% Monocytes % 7.2% Eosinophils % 4.6% Basophils % 0.8% Nucleated Red Blood Cells % 0.0/100WBC Neutrophils # 12.610^3/ul Lymphocytes # 3.010^3/ul Monocytes # 1.310^3/ul Eosinophils # 0.810^3/ul Basophils # 0.210^3/ul Nucleated Red Blood Cells # 0.010^3/ul Sodium Level 138mmol/L Potassium Level 3.1mmol/L Chloride Level 100mmol/L Carbon Dioxide Level 26mmol/L Anion Gap 15 Blood Urea Nitrogen 28mg/dl Creatinine 3.25mg/dl Glucose Level 104mg/dl Calcium Level 9.0mg/dl Troponin I 0.017ng/ml Current Medications Medications (Trade) Dose Ordered Sig/Lm Route PRN Reason Start Time Stop Time Status Last Admin Dose Admin Aspirin (Aspirin) 162 mg ONCE ONCE PO 02/08/17 17:00 02/08/17 17:01 DC 02/08/17 17:17 Nitroglycerin (Nitroglycerin 2% Oint) 1 inch ONCE ONCE TD 02/08/17 17:00 02/08/17 17:01 DC 02/08/17 17:17 Procedures/MDM [place] [address] Rad[place] Main Line: [phone] DIAGNOSTIC IMAGING REPORT Patient: GERALD BLOOD : 1990 Age: 26 Sex: M MR #: [id number] DOS: 02/08/17 1648 Ordering MD: EUFEMIA WALSH MD Location: E/R Room/Bed: PROCEDURE: XR Chest. CLINICAL INDICATION: Chest Pain. TECHNIQUE: Single frontal view of the chest was obtained COMPARISON: 07/14/2016 FINDINGS: The heart and mediastinum are within normal limits. The lungs are clear. There is no pleural effusion or pneumothorax. The bones and soft tissue show no acute change. IMPRESSION: No definite abnormalities are identified. RPTAT:AAJJ Tomas Her Physician Date Time Electronically viewed and signed by Tomas Her Physician on 02/08/2017 17: 24 MC/ CC: EUFEMIA WALSH MD EKG: Read by emergency physician Rate/Rhythm: Normal Sinus Rhythm 89 beats/min QRS, ST, T-waves: No ST elevation, no T inversion, RWA, inferolateral ST and T abnormality Impression: Abnormal EKG MEDICAL MAKING DECISION: The patient is a 26-year-old male, presenting with acute chest pain, acute hypokalemia, acute leukocytosis of unclear significance , substance abuse. He was treated with aspirin 160 mg p.o., insulin nitroglycerin ointment for acute chest pain and potassium chloride 10 mEq p.o. for acute hypokalemia The differential diagnoses considered include but are not limited to acute coronary syndrome, acute myocardial infarction, pericarditis, pulmonary embolism , aortic dissection, pneumonia, pleural effusion, pneumothorax, GERD, chest wall pain, endocarditis. Departure Diagnosis: Primary Impression: Chest pain Additional Impressions: Hypokalemia Leukocytosis Substance abuse Condition: Stable Comments I discussed the findings with the patient. I discussed the patient with the hospitalist Dr. Christensen at 6 PM who was made aware of the lab, the treatment, the patient condition. The patient is admitted to [facility] Disclaimer: Inadvertent spelling and grammatical errors are likely due to EHR/ dictation software use and do not reflect on the overall quality of patient care. Also, please note that the electronic time recorded on this note does not necessarily reflect the actual time of the patient encounter. EUFEMIA WALSH MD Feb 08, 2017 16:48
[2017-02-08] MEDS ORDERED: NITROGLYCERIN 2% 1 GM OINT PKT TD ONE (17:00)
[2017-02-08] MEDS ORDERED: ASPIRIN 81 MG TAB PO ONE (17:00)
[2017-02-08 17:07] LABS: BASOPHIL # 0.2 10^3/ul (0.0-0.1); BASOPHILS % 0.8 % (0.0-2.0); EOSINOPHILS # 0.8 10^3/ul (0.0-0.5); EOSINOPHILS % 4.6 % (0.0-7.0); HEMATOCRIT 43.7 % (42.0-52.0); HEMOGLOBIN 14.5 g/dl (14.0-18.0); LYMPHOCYTES % 16.7 % (15.0-51.0); MEAN CORPUSCULAR HEMOGLOBIN 28.3 pg (29.0-33.0); MEAN CORPUSCULAR HGB CONC 33.2 g/dl (32.0-37.0); MEAN CORPUSCULAR VOLUME 85.4 fl (82.0-101.0); MONOCYTE # 1.3 10^3/ul (0.3-0.9); MONOCYTES % 7.2 % (0.0-11.0); NEUTROPHIL # 12.6 10^3/ul (1.6-7.5); NEUTROPHILS % 70.1 % (39.0-77.0); PLATELET COUNT 372 10^3/UL (140-415); RED BLOOD COUNT 5.12 10^6/ul (4.70-6.10); RED CELL DISTRIBUTION WIDTH 13.4 % (11.5-14.5)
--- NOTE | 2017-02-08 17:24 | RADRPT ---
PROCEDURE: XR Chest. CLINICAL INDICATION: Chest Pain. TECHNIQUE: Single frontal view of the chest was obtained COMPARISON: 07/14/2016 FINDINGS: The heart and mediastinum are within normal limits. The lungs are clear. There is no pleural effusion or pneumothorax. The bones and soft tissue show no acute change. IMPRESSION: No definite abnormalities are identified. RPTAT:AAJJ Physician Silviano Date Time Electronically viewed and signed by Tomas Her Physician on 02/08/2017 17:24 /
[2017-02-08] MEDS ORDERED: NIFE90TA11 PO (17:26)
[2017-02-08 17:27] LABS: CREATININE 3.25 mg/dl (0.61-1.24); POTASSIUM 3.1 mmol/L (3.5-5.1)
[2017-02-08 17:38] LABS: TROPONIN-I 0.017 ng/ml (0.00-0.12)
[2017-02-08] MEDS ORDERED: POTASSIUM CHLORIDE (SR) 10 MEQ TAB PO ONE (18:30)
[2017-02-08 18:58] LABS: BARBITURATES Negative (NEGATIVE); BENZODIAZEPINES Negative (NEGATIVE); CANNABINOIDS Positive (NEGATIVE); COCAINE Positive (NEGATIVE); OPIATES Negative (NEGATIVE)
[2017-02-08 19:47] VITALS: PULSE 90
[2017-02-08 20:00] VITALS: BP 192/116; PULSE 90; RESP 20
[2017-02-08] MEDS ORDERED: ACETAMINOPHEN 325 MG TAB PO PRN (20:00)
[2017-02-08] MEDS ORDERED: NITROGLYCERIN (SL) 0.4 MG TAB SL PRN (20:00)
[2017-02-08] MEDS ORDERED: BISACODYL (EC) 5 MG TAB PO PRN (20:00)
[2017-02-08] MEDS ORDERED: NACL 0.9% 3 ML SYG IV SCH (20:00)
[2017-02-08] MEDS ORDERED: ONDANSETRON 4 MG INJ IV PRN (20:00)
[2017-02-08] MEDS ORDERED: LORAZEPAM 2 MG INJ IV PRN (20:00)
[2017-02-08] MEDS ORDERED: DOCUSATE SODIUM 100 MG CAP PO PRN (20:00)
[2017-02-08 20:30] VITALS: Ht 170.2 cm; Wt 96.5 kg
[2017-02-08] MEDS: ATORVASTATIN 80 MG TAB PO SCH (21:09)
[2017-02-08] MEDS ORDERED: POTASSIUM CHLORIDE (SR) 20 MEQ TAB PO STA (21:18)
[2017-02-08] MEDS: NIFEdipine (XL) 90 MG TAB PO SCH (22:26)
--- NOTE | 2017-02-08 23:06 | HP ---
Date/Time of Note Date/Time of Note DATE: 02/08/17 TIME: 23:06 Assessment/Plan VTE Prophylaxis VTE Prophylaxis Intervention: SCD's Lines/Catheters IV [facility]ter [facility] (from [facility] Saline Lock Assessment/Plan Chief Complaint/Hosp Course This is a 26-year-old male being admitted to the telemetry floor for: #1 chest pain: ACS versus exertional angina versus secondary to drug use. Patient was found to be positive for marijuana and cocaine though he denies use of cocaine. At the current time will trend cardiac enzymes 3. First set was negative. Will check an echocardiogram. Findings will consult cardiology if indicated. #2 acute on chronic kidney disease: Creatinine today is 3.25 which is elevated from his previous one in June. Likely is a component of mild dehydration in this as well. At the current time provide patient with IV fluid hydration with normal saline. Will obtain a renal ultrasound. Will order urine/renal studies. Will consult nephrology. Will avoid nephrotoxic agents. #3 Uncontrolled hypertension: At the current time patient's blood pressure is elevated as well however I do feel like this may be secondary to patient's withdrawal symptoms from his drug use. Patient though does state that at home his blood pressures are not well-controlled either at times. At the current time will provide as needed hydralazine. Will continue the patient's home Procardia. As well as hydralazine. Will hold off labetalol right now secondary to patient's positive cocaine In his urine drug screen. will also provide as needed hydralazine. Of note patient was also seen by endocrinology during the point of his previous visits and workup for hyperaldosteronism was also supposed to be initiated and possibly followed up as an outpatient. Patient at this time does not endorse this. We will need to review the medical chart in the a.m. to see if any workup was done or whether this could be done as an outpatient. He did of note have arterial studies done at that time did not show any signs of renal artery stenosis. #4 polypharmacy abuse: Patient appears to be withdrawing to a certain degree from his medication at this time. He does appear to be jittery and anxious. Will provide him with as needed Ativan's. We will also manage his blood pressures as indicated per #3. #5 hyperlipidemia: We will check a panel. Continue atorvastatin #6: Coronary artery disease: This was seen based on the patient's medical record however patient did not endorse this to be himself. Will continue at the current time the workup as per #1. Will consult cardiology if indicated. #7 hypokalemia: Etiology of this at this time is unknown. There was mention in the medical record that this could be secondary to hyperaldosteronism however I am unsure whether this was worked up as an outpatient. Again this could be a definite consideration for his uncontrolled hypertension. He did of note have arterial studies done at that time did not show any signs of renal artery stenosis. #7: Leukocytosis: At the current time I do not see any signs of infection. He does not have any fevers. Chest x-ray within normal values. Will check a urinalysis. Will also order a blood cultures. This likely could could be reactive in nature and stress related. Nonetheless we will follow this and monitor for any signs of infection. #7 DVT GI prophylaxis: SCDs, no GI prophylaxis indicated Further treatment strategy will be implemented as per the clinical course Problems: HPI/ROS Admit Date/Time Admit Date/Time Feb 08, 2017 at 18:13 Hx of Present Illness cc: chest pain The patient is a 26-year-old male, presenting to the ER because of left-sided chest pain with exertion for 1 week, dyspnea on exertion, no radiation. He had similar symptoms previously. He denies fever, chills, palpitation, diaphoresis , abdominal pain, vomiting, dysuria, diarrhea. Of note his urine drug screen was positive for cocaine and marijuana. When questioned about this patient states that he was smoking marijuana but denied cocaine states that it may have been "laced." Allergies: NKDA Medications: See GRABIEL BYERS Const: Negative for fever, chills, weight gain or weight loss, fatigue, or diaphoresis Eyes : No pain discharge or redness or change in visual acuity ENT: No pain, sore throat, congestion, congestion, dysphagia or discharge Respiratory: No shortness of breath, cough, sputum, wheezing, or pleuritic pain Cardiovascular: No chest pain, palpitation, PND, or edema GI : no change in appetite, abdominal pain, nausea, vomiting, diarrhea, constipation, or change in the color his stool Genitourinary: No dysuria, hematuria, flank pain , discharge or CVA tenderness Musculoskeletal: No joint pain, back pain, neck pain, restricted range of motion in neck or joints Skin: No rash, bruising or hives Neuro: No headache, dizziness, syncope, seizure, focal weakness Endocrine: No polyuria, polydipsia, temperature intolerance Psych: No hallucination, depression, anxiety or suicidal ideation PMH/Family/Social Past Medical History Chronic kidney disease, hypertension, CAD, history of non-STEMI, dyslipidemia Past Surgical History Past Surgical Hx: no surgical history Family History Significant Family History: no pertinent family hx Social History Alcohol Use: none Smoking Status: Never smoker Drug Use: cocaine, marijuana Exam/Review of Systems Vital Signs Vitals Vital Signs Date Time Temp Pulse Resp B/P Pulse Ox O2 Delivery O2 Flow Rate FiO2 02/08/17 20:00 97.7 84 20 192/116 96 02/08/17 18:56 Room Air Exam Exam General: Currently lying in bed in no acute distress, he does appear slightly jittery. HEENT: Atraumatic, normocephalic. The pupils are equal, round and reactive. Extraocular motor are intact Neck: Supple with full range of motion. No rigidity or meningismus Chest: Nontender Lungs: Clear to auscultation bilaterally no crackles rales or wheezing Heart: Sinus tachycardia, no overt murmurs appreciated Abdomen: Soft , nontender, nondistended , bowel sounds are present. No guarding no rebound tenderness , No masses or organomegaly. No costovertebral temporal angle mass Extremities: Normal to inspection, no edema no cyanosis Neurologic: Normal mental status, speech normal, cranial nerves II through XII are intact, motor and sensory are intact, no focal weakness, Psych: Patient does appear slightly jittery/anxious. he does not appear to have be having any hallucinations. Additional Comments PROCEDURE: XR Chest. CLINICAL INDICATION: Chest Pain. TECHNIQUE: Single frontal view of the chest was obtained COMPARISON: 07/14/2016 FINDINGS: The heart and mediastinum are within normal limits. The lungs are clear. There is no pleural effusion or pneumothorax. The bones and soft tissue show no acute change. IMPRESSION: No definite abnormalities are identified. RPTAT:AAJJ Tomas Her, Physician Date Time Electronically viewed and signed by Tomas Her Physician on 02/08/2017 17: 24 MC/ CC: EUFEMIA WALSH MD EKG: Rate/Rhythm: Normal Sinus Rhythm 89 beats/min QRS, ST, T-waves: No ST elevation, no T inversion, RWA, inferolateral ST and T abnormality Above as per ED physician documentation Labs Result Diagram: 02/08/17 1700 02/08/17 1700 Medications Medications Current Medications Ondansetron HCl (Zofran Inj) 4 mg Q6H PRN IV NAUSEA AND/OR VOMITING; Start at 20:00 Nitroglycerin (Nitroglycerin (Sl Tab) 0.4 Mg) 1 tab Q5M PRN SL CHEST PAIN; Start 02/08/17 at 20:00 Acetaminophen (Tylenol Tab) 650 mg Q6H PRN PO PAIN LEVEL 1-3 OR FEVER; Start 02/08/17 at 20:00 Docusate Sodium (Colace) 100 mg Q12H PRN PO CONSTIPATION; Start 02/08/17 at 20 :00 Bisacodyl (Dulcolax) 5 mg DAILY PRN PO CONSTIPATION; Start 02/08/17 at 20:00 Atorvastatin Calcium (Lipitor) 80 mg QHS PO Last administered on 02/08/17 21: 09; Admin Dose 80 MG; Start 02/08/17 at 21:00 Hydralazine HCl (Apresoline) 50 mg Q8 PO Last administered on 02/08/17 21:09 ; Admin Dose 50 MG; Start 02/08/17 at 22:00 Nifedipine (Procardia Xl) 90 mg DAILY PO Last administered on 02/08/17 22:26 ; Admin Dose 90 MG; Start 02/08/17 at 20:00 Lorazepam (Ativan) 2 mg Q2H PRN PO WITHDRAWAL/AGITATION; Start 02/08/17 at 20: 30 DONOVAN QUISPE Feb 08, 2017 23:06
[2017-02-08 23:35] VITALS: BP 171/101; PULSE 92; RESP 18
[2017-02-09] VITALS (15 sets, daily range): BP systolic 157–176; BP diastolic 83–104; PULSE 100–158; RESP 18–20
[2017-02-09] MEDS ORDERED: LORAZEPAM 1 MG TAB PO ONE
[2017-02-09 00:21] LABS: CALCIUM 8.8 mg/dl (8.4-10.2); CREATININE 2.99 mg/dl (0.61-1.24); MAGNESIUM 2.2 mg/dl (1.7-2.5); POTASSIUM 3.3 mmol/L (3.5-5.1)
[2017-02-09 00:32] LABS: TROPONIN-I 0.021 ng/ml (0.00-0.12)
[2017-02-09 00:43] LABS: CK-MB 1.59 ng/ml (0.0-2.4)
[2017-02-09] MEDS: hydrALAzine 20 MG INJ IV PRN ×3 (02:45→20:25)
[2017-02-09 03:20] LABS: ADD UMIC YES; UR ASCORBIC ACID NEGATIVE (NEGATIVE); UR BILIRUBIN (Dip) NEGATIVE (NEGATIVE); UR BLOOD (Dip) 1+ mg/dL (NEGATIVE); UR CLARITY CLEAR (CLEAR); UR COLOR YELLOW (YELLOW); UR GLUCOSE (Dip) 1+ mg/dL (NEGATIVE); UR KETONES (Dip) NEGATIVE (NEGATIVE); UR LEUKOCYTE ESTERASE (Dip) NEGATIVE Leu/ul (NEGATIVE); UR NITRITE (Dip) NEGATIVE (NEGATIVE); UR RBC 1 /HPF (0-5); UR TOTAL PROTEIN (Dip) 3+ mg/dl (NEGATIVE); UR UROBILINOGEN (Dip) NEGATIVE (NEGATIVE)
[2017-02-09] MEDS: LORAZEPAM 1 MG TAB PO PRN ×2 (04:39→22:45)
[2017-02-09] MEDS: NIFEdipine (XL) 90 MG TAB PO SCH ×2 (08:19→20:25)
[2017-02-09 09:25] LABS: BASOPHIL # 0.2 10^3/ul (0.0-0.1); BASOPHILS % 0.9 % (0.0-2.0); EOSINOPHILS # 0.9 10^3/ul (0.0-0.5); EOSINOPHILS % 4.8 % (0.0-7.0); HEMATOCRIT 43.4 % (42.0-52.0); HEMOGLOBIN 14.6 g/dl (14.0-18.0); LYMPHOCYTES # 1.8 10^3/ul (0.8-2.9); LYMPHOCYTES % 10.3 % (15.0-51.0); MEAN CORPUSCULAR HEMOGLOBIN 28.3 pg (29.0-33.0); MEAN CORPUSCULAR HGB CONC 33.6 g/dl (32.0-37.0); MEAN CORPUSCULAR VOLUME 84.3 fl (82.0-101.0); MEAN PLATELET VOLUME 10.1 fl (7.4-10.4); MONOCYTE # 0.9 10^3/ul (0.3-0.9); MONOCYTES % 5.2 % (0.0-11.0); NEUTROPHIL # 13.8 10^3/ul (1.6-7.5); NEUTROPHILS % 78.2 % (39.0-77.0); PLATELET COUNT 368 10^3/UL (140-415); RED BLOOD COUNT 5.15 10^6/ul (4.70-6.10); RED CELL DISTRIBUTION WIDTH 13.4 % (11.5-14.5); WHITE BLOOD COUNT 17.6 10^3/ul (4.8-10.8)
[2017-02-09 09:36] LABS: ALBUMIN 3.9 g/dl (3.3-4.9); ALBUMIN/GLOBULIN RATIO 1.08; BILIRUBIN,INDIRECT 0.8 mg/dl (0-1.1); BILIRUBIN,TOTAL 0.8 mg/dl (0.2-1.3); CALCIUM 9.2 mg/dl (8.4-10.2); CREATININE 2.67 mg/dl (0.61-1.24); MAGNESIUM 2.2 mg/dl (1.7-2.5); POTASSIUM 3.5 mmol/L (3.5-5.1); TOTAL PROTEIN 7.5 g/dl (6.1-8.1)
[2017-02-09 09:48] LABS: TROPONIN-I 0.016 ng/ml (0.00-0.12)
[2017-02-09 09:51] LABS: CK-MB 1.69 ng/ml (0.0-2.4)
--- NOTE | 2017-02-09 11:43 | RADRPT ---
PROCEDURE: US Renal CLINICAL INDICATION: Acute renal insufficiency. TECHNIQUE: Multiple sonographic images of the kidneys and bladder were obtained. Evaluation of th e kidneys and bladder was performed as well with boss scale and color and Doppler evaluation using a curved array transducer. The images were reviewed on a high-resolution PACS workstation. COMPARISON: 10/21/2015. FINDINGS: The right kidney measures 8.5 cm. The left kidney measures 9.7 cm. There is normal echogenicity within the parenchyma of the kidneys bilaterally. There is no mass, calculus, or obstructive uropathy. No perinephric fluid collection is seen. Evaluation of the urinary bladder is unremarkable. IMPRESSION: 1. Unremarkable renal ultrasound. RPTAT: [facility] Physician Kwabena Date Time Electronically viewed and signed by Physician Kwabena on 02/09/2017 11:43 /
[2017-02-09 12:55] LABS: THYROID STIMULATING HORMONE 1.35 MIU/L (0.465-4.680)
[2017-02-09] MEDS ORDERED: LABETALOL HCL 20MG INJ IV ONE (13:30)
--- NOTE | 2017-02-09 15:08 | RADRPT ---
Echocardiogram Report Patient Name: GERALD BLOOD Gender: Male Date: 1990 Study Date: 09-Feb-2017 Client Account Representative: Analy Platt [facility] Location: 5554 Ref. Physician: DONOVAN QUISPE Quality: Good Procedures: Transthoracic echocardiogram with complete 2D, M-Mode, and doppler examination. Indications: Chest Pain. 2D/M Mode Doppler Measurement Value Normal Ranges Measurement Value Normal Ranges LVIDd 2D 4.3 3.5 - 5.6 cm AV Peak Jaime 1.6 m/sec LVIDs 2D 2.3 2.1 - 4.1 cm AV Peak PG 10.4 mmHg LVPWd 2D 1.3 0.6 - 1.1 cm LVOT Peak Jaime 1.5 m/sec IVSd 2D 1.3 0.6 - 1.1 cm LVOT Peak PG 9.0 mmHg AoR Diam 2D 2.9 2.0 - 3.7 cm EDV 2D 83.6 cm3 ESV 2D 11.5 cm3 LA Dimen 2D 4.1 2.3 - 4.0 cm Findings Left Ventricle: Hyperdynamic left ventricular systolic function. Normal left ventricular cavity size. Mild concentric left ventricular hypertrophy. Ejection fraction is visually estimated at 65 %. Abnormal Diastolic Function. Right Ventricle: Normal right ventricular size. Normal right ventricular systolic function. Left Atrium: The left atrium is normal in size. Right Atrium: The right atrium is normal in size. Mitral Valve: Normal appearance and function of the mitral valve with trace physiologic regurgitation. Aortic Valve: Normal appearance of the aortic valve. No significant aortic stenosis or insufficiency. Tricuspid Valve: Normal appearance of the tricuspid valve. Unable to obtain RVSP due to minimal presence of tricuspid regurgitation. Pulmonic Valve: Normal pulmonic valve appearance. Pericardium: Normal pericardium with no significant pericardial effusion. Aorta: Normal aortic root. IVC: Normal size and normal respiratory collapse consistent with normal right atrial pressure. Conclusions 1.Hyperdynamic left ventricular systolic function. Normal left ventricular cavity size. Mild concentric left ventricular hypertrophy. Ejection fraction is visually estimated at 65 %. Abnormal Diastolic Function. 2.Normal appearance and function of the mitral valve with trace physiologic regurgitation. 3.Normal appearance of the tricuspid valve. Unable to obtain RVSP due to minimal presence of tricuspid regurgitation. Electronically Signed By: Marvin Merchant 09-Feb-2017 15:08:24 -0800 Patient Name: GERALD BLOOD Study Date: 09-Feb-2017 [id number]
[2017-02-09] MEDS ORDERED: NIFEdipine (XL) 90 MG TAB PO SCH (16:00)
--- NOTE | 2017-02-09 16:04 | PN ---
Date/Time of Note Date/Time of Note DATE: 02/09/17 TIME: 16:03 Assessment/Plan VTE Prophylaxis VTE Prophylaxis Intervention: ambulation, SCD's Lines/Catheters IV Catheter Type (from Nrs): Saline Lock Urinary Cath still in place: No Assessment/Plan Assessment/Plan This is a 26-year-old male being admitted to the telemetry floor for: #1 chest pain: likely starin from HTN + drug use : improved #2 acute on chronic kidney disease: nephro following, indices improved, continue current regimen, Will avoid nephrotoxic agents. #3 Uncontrolled hypertension: control still suboptimal, titrate meds for improved control. 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 #4 polysubstance abuse: counselling done for >3mins #5 hyperlipidemia: continue atorvastatin #6: Leukocytosis: reactive, f/u cultures #7 DVT GI prophylaxis: SCDs, no GI prophylaxis indicated Further treatment strategy will be implemented as per the clinical course Subjective 24 Hr Interval Summary Free Text/Dictation No further chest pain Exam/Review of Systems Vital Signs Vitals Vital Signs Date Time Temp Pulse Resp B/P Pulse Ox O2 Delivery O2 Flow Rate FiO2 02/09/17 15:50 98.1 107 20 176/95 96 02/09/17 04:42 Room Air Intake and Output 02/08/17 02/08/17 02/09/17 15:00 23:00 07:00 Intake Total 900 ml Balance 900 ml Exam GENERAL: Patient is alert, oriented x 3, in no apparent distress; does not appear acutely or chronically ill. Patient is able to sit up unassisted.Patient makes good eye contact, is conversant, interactive, coherent. Patient appears calm and comfortable and is able to follow commands. HEENT: Oropharynx is clear. There is no carotid bruit, no masses. Patient's pupils are equal, round and reactive to light bilaterally. Extraocular motions are intact. There is no scleral icterus. There is no facial asymmetry. NECK: Supple. LUNGS: Clear to auscultation bilaterally with good air entry. No Wheezes or crackles. HEART: S1, S2. No murmur, gallops or rubs. Regular rhythm with tachycardia. ABDOMEN: Soft, nontender. Normoactive bowel sounds. There are no stigmata of chronic liver disease. BACK: no costovertebral angle tenderness. GENITOURINARY: Deferred. EXTREMITIES: No edema. There is no cyanosis, clubbing. There are 2+ pulses bilaterally distally. NEUROLOGIC: The patient has no lateralizing signs. Cranial nerves II-XII are intact. SKIN: Otherwise, unremarkable. Results Result Diagram: 02/09/17 0834 02/09/17 0834 Results 24 hrs Laboratory Tests Test 02/08/17 17:00 02/08/17 18:20 02/08/17 23:24 02/09/17 08:34 White Blood Count 18.0 H 17.6 H Red Blood Count 5.12 5.15 Hemoglobin 14.5 14.6 Hematocrit 43.7 43.4 Mean Corpuscular Volume 85.4 84.3 Mean Corpuscular Hemoglobin 28.3 L 28.3 L Mean Corpuscular Hemoglobin Concent 33.2 33.6 Red Cell Distribution Width 13.4 13.4 Platelet Count 372 # 368 Mean Platelet Volume 10.0 10.1 Neutrophils % 70.1 78.2 H Lymphocytes % 16.7 10.3 L Monocytes % 7.2 5.2 Eosinophils % 4.6 4.8 Basophils % 0.8 0.9 Nucleated Red Blood Cells % 0.0 0.0 Neutrophils # 12.6 H 13.8 H Lymphocytes # 3.0 H 1.8 Monocytes # 1.3 H 0.9 Eosinophils # 0.8 H 0.9 H Basophils # 0.2 H 0.2 H Nucleated Red Blood Cells # 0.0 0.0 Sodium Level 138 140 141 Potassium Level 3.1 L 3.3 L 3.5 Chloride Level 100 102 104 Carbon Dioxide Level 26 29 27 Anion Gap 15 12 14 Blood Urea Nitrogen 28 H 29 H 25 H Creatinine 3.25 H 2.99 H 2.67 H Glucose Level 104 95 89 Calcium Level 9.0 8.8 9.2 Troponin I 0.017 0.021 0.016 Urine Color YELLOW Urine Clarity CLEAR Urine pH 5.0 Urine Specific [place] 1.010 Urine Ketones NEGATIVE Urine Nitrite NEGATIVE Urine Bilirubin NEGATIVE Urine Urobilinogen NEGATIVE Urine Leukocyte Esterase NEGATIVE Urine Microscopic RBC 1 Urine Microscopic WBC 0 Urine Hemoglobin 1+ H Urine Glucose 1+ H Urine Total Protein 3+ H Urine Opiates Screen Negative Urine Barbiturates Negative Urine Amphetamines Screen Negative Urine Benzodiazepines Screen Negative Urine Cocaine Screen Positive Urine Cannabinoids Positive Magnesium Level 2.2 2.2 Creatine Kinase 139 140 Creatine Kinase Index 1.1 1.2 Creatinine Kinase MB (Mass) 1.59 1.69 C-Reactive Protein 1.2 H Erythrocyte Sedimentation Rate 18 H Hemoglobin A1c 5.0 Total Bilirubin 0.8 Direct Bilirubin 0.00 Indirect Bilirubin 0.8 Aspartate Amino Transf (AST/SGOT) 21 Alanine Aminotransferase (ALT/SGPT) 36 Alkaline Phosphatase 115 Total Protein 7.5 Albumin 3.9 Globulin 3.60 H Albumin/Globulin Ratio 1.08 Triglycerides Level 102 Cholesterol Level 198 LDL Cholesterol, Calculated 129 HDL Cholesterol 49 Cholesterol/HDL Ratio 4.0 Thyroid Stimulating Hormone (TSH) 1.350 Medications Medications Current Medications Ondansetron HCl (Zofran Inj) 4 mg Q6H PRN IV NAUSEA AND/OR VOMITING; Start at 20:00 Nitroglycerin (Nitroglycerin (Sl Tab) 0.4 Mg) 1 tab Q5M PRN SL CHEST PAIN; Start 02/08/17 at 20:00 Acetaminophen (Tylenol Tab) 650 mg Q6H PRN PO PAIN LEVEL 1-3 OR FEVER; Start 02/08/17 at 20:00 Docusate Sodium (Colace) 100 mg Q12H PRN PO CONSTIPATION; Start 02/08/17 at 20 :00 Bisacodyl (Dulcolax) 5 mg DAILY PRN PO CONSTIPATION; Start 02/08/17 at 20:00 Atorvastatin Calcium (Lipitor) 80 mg QHS PO Last administered on 02/08/17 21: 09; Admin Dose 80 MG; Start 02/08/17 at 21:00 Hydralazine HCl (Apresoline) 50 mg Q8 PO Last administered on 02/08/17 21:09 ; Admin Dose 50 MG; Start 02/08/17 at 22:00; Status Future Hold Lorazepam (Ativan) 2 mg Q2H PRN PO WITHDRAWAL/AGITATION Last administered on 04:39; Admin Dose 2 MG; Start 02/08/17 at 20:30 Hydralazine HCl (Apresoline) 10 mg Q4H PRN IV HIGH BLOOD PRESSURE Last administered on 02/09/17 11:53; Admin Dose 10 MG; Start 02/09/17 at 02:30 Nifedipine (Procardia Xl) 90 mg DAILY PO ; Start 02/09/17 at 16:00; Status UNV Labetalol HCl (Normodyne) 400 mg BID PO ; Start 02/09/17 at 21:00; Status CÉSAR NASH Feb 09, 2017 16:04 Thyroid Stimulating Hormone (TSH) 1.350 Medications Medications Current Medications Ondansetron HCl (Zofran Inj) 4 mg Q6H PRN IV NAUSEA AND/OR VOMITING; Start at 20:00 Nitroglycerin (Nitroglycerin (Sl Tab) 0.4 Mg) 1 tab Q5M PRN SL CHEST PAIN; Start 02/08/17 at 20:00 Acetaminophen (Tylenol Tab) 650 mg Q6H PRN PO PAIN LEVEL 1-3 OR FEVER; Start 02/08/17 at 20:00 Docusate Sodium (Colace) 100 mg Q12H PRN PO CONSTIPATION; Start 02/08/17 at 20 :00 Bisacodyl (Dulcolax) 5 mg DAILY PRN PO CONSTIPATION; Start 02/08/17 at 20:00 Atorvastatin Calcium (Lipitor) 80 mg QHS PO Last administered on 02/08/17 21: 09; Admin Dose 80 MG; Start 02/08/17 at 21:00 Hydralazine HCl (Apresoline) 50 mg Q8 PO Last administered on 02/08/17 21:09 ; Admin Dose 50 MG; Start 02/08/17 at 22:00; Status Future Hold Lorazepam (Ativan) 2 mg Q2H PRN PO WITHDRAWAL/AGITATION Last administered on 04:39; Admin Dose 2 MG; Start 02/08/17 at 20:30 Hydralazine HCl (Apresoline) 10 mg Q4H PRN IV HIGH BLOOD PRESSURE Last administered on 02/09/17 11:53; Admin Dose 10 MG; Start 02/09/17 at 02:30 Nifedipine (Procardia Xl) 90 mg DAILY PO ; Start 02/09/17 at 16:00; Status UNV Labetalol HCl (Normodyne) 400 mg BID PO ; Start 02/09/17 at 21:00; Status CÉSAR NASH Feb 09, 2017 16:04
[2017-02-09] MEDS: SOD CHLORIDE 0.45% 1,000 ML IV SCH (16:20)
--- NOTE | 2017-02-09 20:22 | CONS ---
DATE OF ADMISSION: 02/08/2017 DATE OF CONSULTATION: NEPHROLOGY CONSULTATION REASON FOR CONSULTATION: Acute kidney injury. PHYSICIAN REQUESTING CONSULT: Dr. Quispe HISTORY OF PRESENT ILLNESS: This is a 26-year-old male with an unknown past medical history, who pr esents to [facility] Emergency Room with left-sided chest pain on exertion for 1 w [place], dyspnea on exertion. The patient states that he has been using narcotics, cocaine, marijuana. The patient's symptoms have been ongoing intermittently. There has been no associated hemoptysis, hematemesis, hematochezia. The patient, upon arrival to the emergency room, was noted to be hyperte nsive with systolic pressures in the 170s. The patient's urinalysis shows +3 proteinuria, no pyuria , no hematuria. In the emergency room, the patient was given antihypertensive medications. He was also given potassium chloride and admitted to telemetry for evaluation. Upon my evaluation of the patient at this time, he currently is lethargic, able to answer minimal qu estions. Denies any previous history of kidney disease. Denies any family history of kidney diseas e. Denies any frothy urine, any rashes. PAST MEDICAL HISTORY: None. ALLERGIES: NO KNOWN DRUG ALLERGIES. FAMILY HISTORY: Noncontributory. SOCIAL HISTORY: Positive drug abuse. MEDICATIONS: The patient's medications were reviewed. REVIEW OF SYSTEMS: A 14-point review of systems was conducted. Pertinent positives stated in HPI, otherwise negative. PHYSICAL EXAMINATION: VITALS: Blood pressure is 165/72, respirations 16, temperature 98.6. HEENT: Head is normocephalic. NECK: Supple. HEART: Regular rate. LUNGS: Show diminished breath sounds at the base. ABDOMEN: Soft, nontender to palpation. No rebound or guarding. EXTREMITIES: Negative for clubbing, cyanosis, no edema. DERMATOLOGIC: No rashes. MUSCULOSKELETAL: No joint effusions. NEUROLOGIC: No change in exam. LABORATORY DATA: Shows sodium 140, potassium 3.3, chloride 102, BUN 29, creatinine 2.99. Repeat BM P shows BUN 25, creatinine 2.67. CBC was reviewed. IMAGING STUDIES: Reviewed. The renal ultrasound was unremarkable. ASSESSMENT AND PLAN: This is a 26-year-old male who presents with: 1. Nonoliguric acute kidney injury with unknown baseline creatinine. Etiology of acute kidney inju ry is unclear, possibly related to hemodynamics. The possibility of cocaine-associated acute tubula r necrosis is a consideration. Other possibilities include interstitial nephritis. The patient's i nitial urinalysis does show positive proteinuria, but no pyuria or hematuria. Plan at this point, i s to get a renal ultrasound. We will follow up patient's urine electrolytes. Would recommend to co ntinue current treatment plan, continue supportive care. Continue current blood pressure medication s. However, would monitor closely to avoid significant hemodynamic fluctuations. Would otherwise c ontinue supportive care and renally dose all meds. 2. Hypertension. Etiology is likely secondary to cocaine. Continue current blood pressure regimen . Avoid CURT inhibitor at this time. Monitor for hemodynamic fluctuations. 3. Mineral bone disorder. Monitor calcium and phosphorus levels. 4. Chest pain, etiology is likely due to demand ischemia from cocaine use. Continue current medica l management. Follow up with cardiology. Check serial troponins. 5. Polypharmacy abuse. Continue supportive care. 6. Leukocytosis . Etiology is likely reactive. Continue to monitor. Follow up cultures. 7. Hypokalemia. Replete potassium chloride. 8. Dyslipidemia. Continue statin therapy. Thank you, Dr. Quispe, for this interesting consult. It will be a pleasure to follow patient with you throughout the hospital course. Dictated By: SOPHIA COLIN DO NR/NTS Conf#: [id number] DID#: [id number] CC: TANESHA ZAYAS MD; DONOVAN QUISPE MD;*End*
[2017-02-09] MEDS: ATORVASTATIN 80 MG TAB PO SCH (20:25)
[2017-02-09] MEDS ORDERED: LABETALOL 200 MG TAB PO SCH (21:00)
[2017-02-10] VITALS (13 sets, daily range): BP systolic 152–176; BP diastolic 87–109; PULSE 79–130; RESP 19–21
[2017-02-10] MEDS: SOD CHLORIDE 0.45% 1,000 ML IV SCH (02:48)
[2017-02-10] MEDS: NIFEdipine (XL) 90 MG TAB PO SCH (08:37)
[2017-02-10 09:08] LABS: BASOPHIL # 0.2 10^3/ul (0.0-0.1); EOSINOPHILS # 0.6 10^3/ul (0.0-0.5); EOSINOPHILS % 3.7 % (0.0-7.0); HEMATOCRIT 41.9 % (42.0-52.0); HEMOGLOBIN 14.1 g/dl (14.0-18.0); LYMPHOCYTES # 2.2 10^3/ul (0.8-2.9); LYMPHOCYTES % 14.2 % (15.0-51.0); MEAN CORPUSCULAR HEMOGLOBIN 28.3 pg (29.0-33.0); MEAN CORPUSCULAR HGB CONC 33.7 g/dl (32.0-37.0); MEAN CORPUSCULAR VOLUME 84.1 fl (82.0-101.0); MEAN PLATELET VOLUME 10.2 fl (7.4-10.4); MONOCYTES % 6.4 % (0.0-11.0); NEUTROPHIL # 11.6 10^3/ul (1.6-7.5); NEUTROPHILS % 74.3 % (39.0-77.0); PLATELET COUNT 377 10^3/UL (140-415); RED BLOOD COUNT 4.98 10^6/ul (4.70-6.10); RED CELL DISTRIBUTION WIDTH 13.6 % (11.5-14.5); WHITE BLOOD COUNT 15.6 10^3/ul (4.8-10.8)
[2017-02-10 09:28] LABS: CALCIUM 9.3 mg/dl (8.4-10.2); CREATININE 2.44 mg/dl (0.61-1.24); MAGNESIUM 2.2 mg/dl (1.7-2.5); POTASSIUM 3.5 mmol/L (3.5-5.1)
--- NOTE | 2017-02-10 11:46 | PN ---
Date/Time of Note Date/Time of Note DATE: 02/10/17 TIME: 11:43 Assessment/Plan Lines/Catheters IV Catheter Type (from Nrs): Peripheral IV Urinary Cath still in place: No Assessment/Plan Assessment/Plan This is a 26-year-old male being admitted to the telemetry floor for: #1 chest pain: likely from uncontrolled HTN + drug use : improved #2 acute on chronic kidney disease: nephro following, indices improved, continue current regimen, Will avoid nephrotoxic agents. #3 Uncontrolled hypertension: control still suboptimal, titrate meds for improved control. patient has had usp hx of difficult to control BP reviewed case with cardiology: they recommend d/c procardia, use diltiazem instead to help with tachycardia and add minoxidil for further BP control agree with avoid hydralazine for reflex tachycardia and avoid BB in setting of cocaine use. #4 polysubstance abuse: counselling done for >3mins #5 hyperlipidemia: continue atorvastatin #6: Leukocytosis: reactive, improving / no evidence of infection #7 DVT GI prophylaxis: SCDs, no GI prophylaxis indicated Further treatment strategy will be implemented as per the clinical course Exam/Review of Systems Vital Signs Vitals Vital Signs Date Time Temp Pulse Resp B/P Pulse Ox O2 Delivery O2 Flow Rate FiO2 02/10/17 08:01 97.4 103 20 176/109 93 02/09/17 04:42 Room Air Intake and Output 02/09/17 02/09/17 02/10/17 15:00 23:00 07:00 Intake Total 960 ml 2800 ml Balance 960 ml 2800 ml Results Result Diagram: 02/10/1718 02/10/17 0818 Results 24 hrs Laboratory Tests Test 02/10/17 08:18 White Blood Count 15.6 H Red Blood Count 4.98 Hemoglobin 14.1 Hematocrit 41.9 L Mean Corpuscular Volume 84.1 Mean Corpuscular Hemoglobin 28.3 L Mean Corpuscular Hemoglobin Concent 33.7 Red Cell Distribution Width 13.6 Platelet Count 377 Mean Platelet Volume 10.2 Neutrophils % 74.3 Lymphocytes % 14.2 L Monocytes % 6.4 Eosinophils % 3.7 Basophils % 1.0 Nucleated Red Blood Cells % 0.0 Neutrophils # 11.6 H Lymphocytes # 2.2 Monocytes # 1.0 H Eosinophils # 0.6 H Basophils # 0.2 H Nucleated Red Blood Cells # 0.0 Sodium Level 141 Potassium Level 3.5 Chloride Level 103 Carbon Dioxide Level 28 Anion Gap 14 Blood Urea Nitrogen 21 H Creatinine 2.44 H Glucose Level 94 Calcium Level 9.3 Phosphorus Level 4.0 Magnesium Level 2.2 Medications Medications Current Medications Ondansetron HCl (Zofran Inj) 4 mg Q6H PRN IV NAUSEA AND/OR VOMITING; Start at 20:00 Nitroglycerin (Nitroglycerin (Sl Tab) 0.4 Mg) 1 tab Q5M PRN SL CHEST PAIN; Start 02/08/17 at 20:00 Acetaminophen (Tylenol Tab) 650 mg Q6H PRN PO PAIN LEVEL 1-3 OR FEVER; Start 02/08/17 at 20:00 Docusate Sodium (Colace) 100 mg Q12H PRN PO CONSTIPATION; Start 02/08/17 at 20 :00 Bisacodyl (Dulcolax) 5 mg DAILY PRN PO CONSTIPATION; Start 02/08/17 at 20:00 Atorvastatin Calcium (Lipitor) 80 mg QHS PO Last administered on 02/09/17 20: 25; Admin Dose 80 MG; Start 02/08/17 at 21:00 Lorazepam (Ativan) 2 mg Q2H PRN PO WITHDRAWAL/AGITATION Last administered on 22:45; Admin Dose 2 MG; Start 02/08/17 at 20:30 Hydralazine HCl (Apresoline) 10 mg Q4H PRN IV HIGH BLOOD PRESSURE Last administered on 02/09/17 20:25; Admin Dose 10 MG; Start 02/09/17 at 02:30 Nifedipine (Procardia Xl) 90 mg BID PO Last administered on 02/10/17 08:37; Admin Dose 90 MG; Start 02/09/17 at 21:00 Hydralazine HCl (Apresoline) 75 mg TID PO ; Start 02/09/17 at 21:00; Status Future Hold Clonidine (Catapres) 0.1 mg Q4H PRN PO HIGH BLOOD PRESSURE Last administered on 02/10/17 03:09; Admin Dose 0.1 MG; Start 02/09/17 at 22:00 Clonidine (Catapres) 0.2 mg Q6 PO Last administered on 02/10/17 06:41; Admin Dose 0.2 MG; Start 02/10/17 at 06:00 CÉSAR GOYAL Feb 10, 2017 11:46
[2017-02-10] MEDS: DILTIAZEM 60 MG TAB PO SCH ×2 (13:13→21:29)
[2017-02-10] MEDS: MINOXIDIL 2.5 MG TAB PO SCH ×2 (13:14→21:28)
[2017-02-10] MEDS: ATORVASTATIN 80 MG TAB PO SCH (21:29)
[2017-02-11] VITALS (7 sets, daily range): BP systolic 135–155; BP diastolic 84–93; PULSE 65–75; RESP 17–21
[2017-02-11] MEDS ORDERED: AL HYDROX/MG HYDROX/SIMETH 30 ML CUP PO PRN (02:00)
--- NOTE | 2017-02-11 07:16 | PN ---
DATE: 02/10/2017 SUBJECTIVE: The patient is stable. No events overnight. No fevers, chills, nausea, vomiting. No shortness of breath. OBJECTIVE: VITAL SIGNS: Blood pressure is 176/109, respirations 20, pulse 103, temperature 97.4. HEENT: Head is normocephalic. NECK: Supple. HEART: Regular rate. LUNGS: Show diminished breath sounds at the base. ABDOMEN: Soft, nontender to palpation. No rebound or guarding. EXTREMITIES: Negative for clubbing, cyanosis. No edema. DERMATOLOGIC: No rashes. MUSCULOSKELETAL: No joint effusions. NEUROLOGIC: No change in exam. MEDICATIONS: The patient's medications have been reviewed. LABORATORY DATA: From 02/10/2017 is pending. ASSESSMENT AND PLAN: 1. Nonoliguric acute kidney injury with unknown baseline creatinine. Etiology of acute kidney inju ry is concerning for possible acute tubular necrosis, hemodynamics, nephrotoxicity from cocaine. Th e patient's renal function has been improving with supportive care. Lower suspicion for acute glome rulonephritis or vasculitis given the patient's clinical presentation. The patient's renal ultrasou nd was reviewed and unremarkable. Plan at this point would be to continue current treatment plan, s upportive care, renally dose all meds, monitor blood pressure closely, avoid significant hemodynamic fluctuations, avoid angiotensin-converting enzyme inhibitor at this time in the setting of acute ki dney injury. 2. Hypertension. Etiology is likely multifactorial secondary to underlying cocaine. Continue curr ent blood pressure regimen, avoiding angiotensin-converting enzyme inhibitor. Will discontinue intr avenous fluids and monitor. 3. Mineral bone disorder. Monitor calcium and phosphorus levels. 4. Leukocytosis, likely reactive. Continue to monitor. 5. Chest pain secondary to demand ischemia, cocaine use. Continue to monitor. 6. Polysubstance abuse. Continue supportive care. Dictated By: SOPHIA COLIN DO NR/NTS Conf#: [id number] DID#: [id number] CC: TANESHA ZAYAS MD;*EndCC*
[2017-02-11] MEDS: MINOXIDIL 2.5 MG TAB PO SCH ×2 (08:54→13:22)
[2017-02-11] MEDS: DILTIAZEM 60 MG TAB PO SCH ×2 (08:54→13:22)
[2017-02-11 09:23] LABS: BASOPHIL # 0.1 10^3/ul (0.0-0.1); EOSINOPHILS # 0.7 10^3/ul (0.0-0.5); EOSINOPHILS % 5.6 % (0.0-7.0); HEMATOCRIT 41.5 % (42.0-52.0); MEAN CORPUSCULAR HEMOGLOBIN 28.4 pg (29.0-33.0); MEAN CORPUSCULAR HGB CONC 33.7 g/dl (32.0-37.0); MEAN CORPUSCULAR VOLUME 84.2 fl (82.0-101.0); MONOCYTE # 0.9 10^3/ul (0.3-0.9); MONOCYTES % 7.6 % (0.0-11.0); NEUTROPHIL # 8.1 10^3/ul (1.6-7.5); NEUTROPHILS % 68.4 % (39.0-77.0); PLATELET COUNT 379 10^3/UL (140-415); RED BLOOD COUNT 4.93 10^6/ul (4.70-6.10); RED CELL DISTRIBUTION WIDTH 13.4 % (11.5-14.5); WHITE BLOOD COUNT 11.9 10^3/ul (4.8-10.8)
--- NOTE | 2017-02-11 09:51 | PN ---
DATE: 02/11/2017 SUBJECTIVE: The patient is stable. No events overnight. OBJECTIVE: VITAL SIGNS: Blood pressure is 137/84, pulse 65, respirations 18, temperature 98.5. HEENT: Head is normocephalic. NECK: Supple. HEART: Regular rate. LUNGS: Show diminished breath sounds at the base. ABDOMEN: Soft, nontender to palpation. No rebound or guarding. EXTREMITIES: Negative for clubbing, cyanosis, edema. DERMATOLOGIC: No rashes. MUSCULOSKELETAL: No joint effusions. NEUROLOGIC: No change in exam. MEDICATIONS: The patient's medications have been reviewed. LABORATORY DATA: From 02/10/2017, shows BUN 21, creatinine 2.44. MEDICATIONS: The patient's medications have been reviewed. ASSESSMENT AND PLAN: 1. Nonoliguric acute kidney injury with unknown baseline creatinine. Etiology is likely secondary to acute tubular necrosis due to hemodynamics and nephrotoxicity from recent cocaine abuse. The pat ient's renal function has slowly been improving with supportive care. At this point, will continue current treatment plan, continue to renally dose all medications, avoid nephrotoxins. 2. Hypertension. Blood pressure is slowly improving. Continue current medical management. Contin ue current blood pressure regimen. Avoid CURT inhibitor or ARB. 3. Mineral bone disorder. Monitor calcium and phosphorus levels. 4. Leukocytosis, improved. 5. Chest pain secondary to demand ischemia, improving. 6. Polysubstance abuse. Continue supportive care. Dictated By: SOPHIA COLIN DO NR/NTS Conf#: [id number] DID#: [id number] CC: TANESHA ZAYAS MD;*EndCC*
[2017-02-11 09:58] LABS: CALCIUM 9.4 mg/dl (8.4-10.2); CREATININE 2.76 mg/dl (0.61-1.24); MAGNESIUM 2.2 mg/dl (1.7-2.5); POTASSIUM 3.6 mmol/L (3.5-5.1)
[2017-02-11] MEDS ORDERED: MINO2.5T16 PO (11:34)
[2017-02-11] MEDS ORDERED: DILT60TA29 PO (11:34)
--- NOTE | 2017-02-11 11:40 | PDOCDIS ---
Discharge Instructions DIAGNOSIS Discharge Diagnosis This is a 26-year-old male being admitted to the telemetry floor for: #1 chest pain: likely from uncontrolled HTN + drug use : improved #2 acute on chronic kidney disease: nephro following, indices improved, continue current regimen, Will avoid nephrotoxic agents. #3 Uncontrolled hypertension: control still suboptimal, titrate meds for improved control. patient has had alf hx of difficult to control BP reviewed case with cardiology: they recommend d/c procardia, use diltiazem instead to help with tachycardia and add minoxidil for further BP control agree with avoid hydralazine for reflex tachycardia and avoid BB in setting of cocaine use. #4 polysubstance abuse: counselling done for >3mins #5 hyperlipidemia: continue atorvastatin #6: Leukocytosis: reactive, improving / no evidence of infection CONDITION Patient Condition: Stable HOME CARE INSTRUCTIONS: Diet Instructions: Low Fat /CholesterolYour diet recommendation is: renal OTHER ORDERS: Other Orders: Please ensure you follow-up with your primary care doctor within 1-2 weeks. You need close monitoring of your blood pressure as well as of your renal function. Also please quit cocaine use as well as smoking in general. You have chronic kidney disease as well as difficult to control blood pressure, and the use of these agents and these actions may further deteriorate your overall health status. You may call Dr Roberth Wesley's office if he does not have a primary care doctor. he's accepting new patients Name, Degree: Roberth Wesley MD Specialty: Internal Medicine Comments: Office Address: [address] [place] [address] Office Office Review your medication list with your nurse before leaving and if you need new prescriptions please let your nurse know. I have made changes to your home medications or given you new prescriptions, please let your primary doctor know as well. Stay compliant with your medications and report any side effects to your PCP or pharmacist. Return to the ER if you have any concerns and cannot reach your doctors or call your insurance company, they usually have a nurse that can help you. CÉSAR GOYAL Feb 11, 2017 11:40
--- NOTE | 2017-02-11 13:59 | DS ---
Date/Time of Note Date/Time of Note DATE: 02/11/17 TIME: 13:58 Discharge Summary Admission/Discharge Info Admit Date/Time Feb 10, 2017 at 13:13 Discharge Date/Time 02/11/17 . Discharge Diagnosis This is a 26-year-old male being admitted to the telemetry floor for: #1 chest pain: likely from uncontrolled HTN + drug use : improved #2 acute on chronic kidney disease: nephro following, indices improved, continue current regimen, Will avoid nephrotoxic agents. #3 Uncontrolled hypertension: control still suboptimal, titrate meds for improved control. patient has had halfway hx of difficult to control BP reviewed case with cardiology: they recommend d/c procardia, use diltiazem instead to help with tachycardia and add minoxidil for further BP control agree with avoid hydralazine for reflex tachycardia and avoid BB in setting of cocaine use. #4 polysubstance abuse: counselling done for >3mins #5 hyperlipidemia: continue atorvastatin #6: Leukocytosis: reactive, improving / no evidence of infection Patient Condition: Stable Consults Nephrology: Cait . Procedures See hospital course . Hospital Course 26-year-old male who had presented to the emergency room with complaints of left -sided chest pain on exertion as well as some dyspnea found to be with severely uncontrolled hypertension, elevated creatinine from baseline, as well as the drug screen positive for cocaine and marijuana. Patient was admitted and seen by nephrology, he underwent repeat renal ultrasound was unremarkable chest x- ray that also did not show any acute deficits as well as a 2D echocardiogram showed ejection fraction of 65% with abnormal diastolic function but no significant valvular deficits. Of note is that there was hyperdynamic left ventricular systolic function. Patient is difficult to control blood pressure was likely attributable to a combination of his chronic kidney disease as well as other drug use. However when advised about this the patient disagreed. Of note is the patient was also found to be significantly tachycardic in the 130s. He was maintained on IV fluids to help clean out his system, but also had to have reevaluation of his antihypertensives based on his history and physical condition. Hydralazine was held because of concern for reflex tachycardia, and patient was not started on a beta-jazmín because of his history of cocaine use. His regimen was switched to a combination of minoxidil as well as diltiazem, and patient responded to this quite well. At this time we have good blood pressure control, renal function seems back to baseline, patient is physically in the lateral stable condition, chest pain has resolved, and patient is stable for discharge at this time. . Home Meds Active Scripts Minoxidil* (Lonitin*) 2.5 Mg Tab, 5 MG PO TID for 30 Days, #90 TAB 2 Refills Prov:CÉSAR GOYAL. 02/11/17 Diltiazem Hcl* (Cardizem*) 60 Mg Tablet, 60 MG PO TID for 30 Days, #90 TAB 2 Refills Prov:CÉSAR GOYAL. 02/11/17 Reported Medications Atorvastatin* (Atorvastatin*) 80 Mg Tablet, 80 MG PO QHS, #30 TAB 07/14/16 Discontinued Reported Medications Nifedipine* (Nifedipine ER*) 90 Mg Tablet.er, 90 MG PO DAILY, TAB 02/08/17 Hydralazine Hcl* (Hydralazine Hcl*) 50 Mg Tab, 50 MG PO Q8, #90 TAB 07/14/16 Labetalol Hcl* (Labetalol Hcl*) 200 Mg Tablet, 400 MG PO BID, TAB 07/14/16 Benazepril Hcl* (Benazepril Hcl*) 20 Mg Tablet, 20 MG PO DAILY for HTN, #30 TAB 07/14/16 Discontinued Scripts Methylprednisolone* (Medrol* DOSE PACK) 4 Mg/Dose-Pack Tab.ds.pk, 4 MG PO . DIRECTED, #1 PACKET Prov:LAYNE MALIN MD 07/17/16 [NIFEdipine (XL)] 90 MG TABSR No Conflict Check, 90 MG PO DAILY for 30 Days Prov:LAYNE MALIN MD 07/17/16 Follow-up Plan Followup with your primary doctor within the next 1-2 weeks. If you don't have one please let someone know, we can give you resources that may help you pick one. You may call Dr Roberth Wesley's office. he's accepting new patients Name, Degree: Roberth Wesley MD Specialty: Internal Medicine Comments: Office Address: [address] [place], [place] [id number] Office Office You may also call your insurance company to assign one to you. Review your medication list with your nurse before leaving and if you need new prescriptions please let your nurse know. I may have made changes to your home medications or given you new prescriptions, please let your primary doctor know as well. Stay compliant with your medications and report any side effects to your PCP or pharmacist. Return to the ER if you have any concerns and cannot reach your doctors or call your insurance company, they usually have a nurse that can help you. Primary Care Provider Care Physician No Primary Time spent on discharge: > 30 minutes Pending Labs Laboratory Tests Test 02/11/17 08:41 White Blood Count 11.910^3/ul (4.8-10.8) Red Blood Count 4.9310^6/ul (4.70-6.10) Hemoglobin 14.0g/dl (14.0-18.0) Hematocrit 41.5% (42.0-52.0) Mean Corpuscular Volume 84.2fl (82.0-101.0) Mean Corpuscular Hemoglobin 28.4pg (29.0-33.0) Mean Corpuscular Hemoglobin Concent 33.7g/dl (32.0-37.0) Red Cell Distribution Width 13.4% (11.5-14.5) Platelet Count 45254^3/UL (140-415) Mean Platelet Volume 10.0fl (7.4-10.4) Neutrophils % 68.4% (39.0-77.0) Lymphocytes % 17.0% (15.0-51.0) Monocytes % 7.6% (0.0-11.0) Eosinophils % 5.6% (0.0-7.0) Basophils % 1.0% (0.0-2.0) Nucleated Red Blood Cells % 0.0/100WBC (0.0-0.0) Neutrophils # 8.110^3/ul (1.6-7.5) Lymphocytes # 2.010^3/ul (0.8-2.9) Monocytes # 0.910^3/ul (0.3-0.9) Eosinophils # 0.710^3/ul (0.0-0.5) Basophils # 0.110^3/ul (0.0-0.1) Nucleated Red Blood Cells # 0.010^3/ul (0.0-0.0) Sodium Level 141mmol/L (135-144) Potassium Level 3.6mmol/L (3.5-5.1) Chloride Level 103mmol/L (97-110) Carbon Dioxide Level 27mmol/L (21-31) Anion Gap 15 (8-16) Blood Urea Nitrogen 25mg/dl (7-20) Creatinine 2.76mg/dl (0.61-1.24) Glucose Level 95mg/dl (70-220) Calcium Level 9.4mg/dl (8.4-10.2) Phosphorus Level 4.0mg/dl (2.5-4.9) Magnesium Level 2.2mg/dl (1.7-2.5) CÉSAR GOYAL Feb 11, 2017 13:59
[2017-02-12] MEDS ORDERED: DILT180C75 PO (11:29)
== END 2017-02-11 14:20 | disposition home or self-care (01) | DRG 683 ==
LOC: E/R 16:11 → MS4 18:13 → OBSVTOIN 02-10 13:13
PROVIDERS: ADMIT Internal Medicine; ATTEND Internal Medicine
DX: I12.9 Hypertensive chronic kidney disease with stage 1 through stage 4 chronic kidney disease, or unspecified chronic kidney disease (principal); N17.9 Acute kidney failure, unspecified; I24.8 Other forms of acute ischemic heart disease; N25.0 Renal osteodystrophy; N18.9 Chronic kidney disease, unspecified; E78.5 Hyperlipidemia, unspecified; I25.10 Atherosclerotic heart disease of native coronary artery without angina pectoris; D72.829 Elevated white blood cell count, unspecified; I25.2 Old myocardial infarction; F12.10 Cannabis abuse, uncomplicated; F14.10 Cocaine abuse, uncomplicated; E83.89 Other disorders of mineral metabolism; E87.6 Hypokalemia
CPT/HCPCS: 36415; 71010; 76775; 80048; 80053; 80061; 80307; 81001; 82550; 82553; 83036; 83735; 84100; 84443; 84484; 85025; 85651; 86140; 93005; 93306; G0378; J0360

== ENCOUNTER 2017-09-02 02:14 | Inpatient (IN) | END 2017-09-04 15:18 | disposition home or self-care (01) | DRG 280 ==

== ENCOUNTER 2018-03-13 20:58 | Inpatient (IN) | payer OTHER ==
[~2018-03-13] VITALS: Ht 170.2 cm; Wt 106.1 kg
[~2018-03-13 20:58] MED LIST changes: -ATOR80TA75 PO; -BENA20TA48 PO; +LEVO500T48 PO; -MED4DP PO; +NIFE60TA2 PO; -NIFEdipine (XL) PO
[2018-03-13] MEDS ORDERED: LORAZEPAM 2 MG INJ IV STA (21:25)
[2018-03-13] MEDS ORDERED: hydrALAzine 20 MG INJ IV ONE (21:30)
[2018-03-13] MEDS ORDERED: IPRATROPIUM (NEB) 0.5 MG/2.5 ML AMP NEB ONE (21:40)
[2018-03-13] MEDS ORDERED: ALBUTEROL 0.5% (NEB) 2.5 MG/0.5 ML AMP NEB ONE (21:40)
[2018-03-13] MEDS ORDERED: NITROGLYCERIN 50 MG/D5W (PMX) 250 ML IV STA (21:40)
[2018-03-13] MEDS ORDERED: FUROSEMIDE 40 MG INJ IV ONE (22:00)
[2018-03-13] MEDS ORDERED: morphine 4 MG/ML VIAL IV ONE (23:00)
[2018-03-13] MEDS ORDERED: ONDANSETRON 4 MG INJ IV ONE (23:00)
--- NOTE | 2018-03-13 23:06 | HP ---
Date/Time of Note Date/Time of Note DATE: 03/13/18 TIME: 23:06 Assessment/Plan VTE Prophylaxis SCD applied (from Nsg): Yes Pharmacological prophylaxis: NA/contraindicated Pharm contraindication: other (Severely elevated blood pressure and headache. Fear of bleeding) Lines/Catheters IV Catheter Type (from Nrsg): Saline Lock Assessment/Plan Assessment/Plan 1. Hypertensive emergency -Continue nitro drip. -Continue his oral medication and also additional medication as needed 2. Possible sepsis, as evidenced by leukocytosis and tachycardia: Possibly from community-acquired pneumonia -IV antibiotic -Follow-up culture results 3. Diastolic CHF: Exacerbated by severely elevated blood pressure -Monitor blood pressure for now 4. CKD: Nephrology consult Result Diagram: 03/13/18215103/13/182151 Results 24hrs Laboratory Tests Test 03/13/18 21:52 03/13/18 21:53 White Blood Count 15.5 H Red Blood Count 4.20 L Hemoglobin 11.9 L Hematocrit 36.9 L Mean Corpuscular Volume 87.9 Mean Corpuscular Hemoglobin 28.3 L Mean Corpuscular Hemoglobin Concent 32.2 Red Cell Distribution Width 14.6 H Platelet Count 232 # Mean Platelet Volume 11.0 H Immature Granulocytes % 0.400 Neutrophils % 72.3 Lymphocytes % 14.5 L Monocytes % 7.1 Eosinophils % 5.0 Basophils % 0.7 Nucleated Red Blood Cells % 0.0 Immature Granulocytes # 0.060 H Neutrophils # 11.2 H Lymphocytes # 2.3 Monocytes # 1.1 H Eosinophils # 0.8 H Basophils # 0.1 Nucleated Red Blood Cells # 0.0 Urine Color YELLOW Urine Clarity CLEAR Urine pH 5.0 Urine Specific Tracy 1.011 Urine Ketones NEGATIVE Urine Nitrite NEGATIVE Urine Bilirubin NEGATIVE Urine Urobilinogen NEGATIVE Urine Leukocyte Esterase NEGATIVE Urine Microscopic RBC 2 Urine Microscopic WBC 2 Urine Hemoglobin 1+ H Urine Glucose NEGATIVE Urine Total Protein 3+ H Sodium Level 138 Potassium Level 3.4 L Chloride Level 106 Carbon Dioxide Level 23 Anion Gap 9 Blood Urea Nitrogen 44 H Creatinine 4.44 H Est Glomerular Filtrat Rate mL/min 16 L Glucose Level 113 Calcium Level 8.4 Total Bilirubin 1.2 Direct Bilirubin 0.00 Indirect Bilirubin 1.2 H Aspartate Amino Transf (AST/SGOT) 18 Alanine Aminotransferase (ALT/SGPT) 14 Alkaline Phosphatase 107 B-Type Natriuretic Peptide 7540 H Total Protein 7.0 Albumin 3.6 Globulin 3.40 H Albumin/Globulin Ratio 1.05 Amylase Level 83 Lipase 115 Salicylates Level < 1.0 L Urine Opiates Screen Negative Acetaminophen Level < 10.0 L Urine Barbiturates Negative Urine Amphetamines Screen Negative Urine Benzodiazepines Screen Negative Urine Cocaine Screen Negative Urine Cannabinoids Positive Ethyl Alcohol Level < 10.0 H Prothrombin Time 12.3 Prothrombin Time Ratio 1.0 INR International Normalized Ratio 0.90 Activated Partial Thromboplast Time 27.5 HPI/ROS Admit Date/Time Admit Date/Time Hx of Present Illness This is a 27-year-old male with a history of resistant hypertension and CKD, non-compliant with meds who presented to ER complaining of shortness of breath and headache. Symptoms been progressively when getting worse for the past few days. Patient has been admitted here multiple times, last admission was in September of last year related to elevated blood pressure. When he presented to ER today, BP was 266/173 with a heart rate of around 120. He said he only takes his BP meds occasionally. Head CT was negative for acute findings. Labs shows a creatinine greater than 4 and WBC around 15,000. Chest x-ray shows mild cardiomegaly with pulmonary vascular congestion and bilateral perihilar and lower lobe infiltrates. U tox only positive for marijuana. PMH/Family/Social Past Medical History Medical History: hypertension, renal disease Medications Current Medications Nitroglycerin/ Dextrose 250 ml @ 12 mls/hr ONCE STAT IV Last administered on 03/13/18at 22:19; Admin Dose 12 MLS/HR; Start 03/13/18 at 21:40; Stop 03/14/18 at 18:29 Coded Allergies: No Known Allergies (Unverified Allergy, Unknown, 09/02/17) Past Surgical History Past Surgical Hx: no surgical history Family History Significant Family History: no pertinent family hx Social History Smoking Status: Current every day smoker Drug Use: marijuana Exam/Review of Systems Vital Signs Vitals Vital Signs Date Temp Pulse Resp B/P (MAP) Pulse Ox O2 O2 Flow FiO2 Time Delivery Rate 03/13/18 98 2.0 22:19 03/13/18 117 22 22:18 03/13/18 Nasal 22:08 Cannula 03/13/18 99.3 266/173 21:00 (204) Exam Constitutional: other (Mild distress from headache) Head: normocephalic, atraumatic Eyes: EOMI, PERRL Respiratory: other (Slightly decreased breath sounds at the bases) Cardiovascular: other (Tachycardic regular rhythm) Gastrointestinal: soft, non-tender Extremities: normal pulses THAI EVANS MD Mar 13, 2018 23:06
--- NOTE | 2018-03-13 23:28 | ERD ---
ER Documentation Chief Complaint Chief Complaint SOB X'S 2 DAYS, HYPER TENSION HPI This is a 19-year-old male with a history of hypertension and renal failure not on dialysis. The patient indicates for the past 2 days he has been experiencing severe difficulty breathing and shortness of breath. He states his had swelling of his lower extremities. He denies any chest pain or pressure. He has had no recent travel or prolonged immobilization. He denies tobacco use but utilizes cannabinoids. He denies alcohol use. The patient indicated in August 2017 he had similar symptoms and had been admitted to the hospital. He did get his blood pressure was very difficult to control during his hospital stay but he has been compliant with his medications at home. Indicates that he has been having a bandlike headache but denies neck pain, changes in vision and states this is not the worst headache of his life. Indicates that shortness of breath is worse with exertion. ROS All systems reviewed and are negative except as per history of present illness. Medications Home Meds Active Scripts Levofloxacin* (Levaquin*) 500 Mg Tablet, 500 MG PO Q48H for 4 Days, #3 TAB Prov:NOEL ESCOBAR MD 09/04/17 Hydralazine Hcl* (Apresoline*) 50 Mg Tab, 50 MG PO Q8 for 30 Days, #90 TAB 5 Refills Prov:NOEL ESCOBAR MD 09/04/17 Nifedipine (Procardia Xl) 60 Mg Tab.er.24, 60 MG PO BID for 60 Days, #120 TAB 5 Refills Prov:NOEL ESCOBAR MD 09/04/17 Labetalol Hcl* (Labetalol Hcl*) 200 Mg Tablet, 400 MG PO BID for 60 Days, #120 TAB 5 Refills Prov:NOEL ESCOBAR MD 09/04/17 Allergies Allergies: Coded Allergies: No Known Allergies (Unverified Allergy, Unknown, 09/02/17) PMhx/Soc Medical and Surgical Hx: pt denies Surgical Hx History of Surgery: No Anesthesia Reaction: No Hx Neurological Disorder: No Hx Respiratory Disorders: No Hx Cardiac Disorders: Yes (HTN, HLD, CHF) Hx Psychiatric Problems: No Hx 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 Well-nourished. HEENT:Normocephalic. Atraumatic.Pupils were equal round reactive to light. Moist mucous membranes.No tonsillar exudates. Funduscopy exam shows sharp optic disks and venous pulsations are present Neck: No nuchal rigidity. No lymphadenopathy. No posterior cervical spine tenderness or step-offs. Respiratory: Not using accessory muscles of respiration.Lungs were clear to auscultation bilaterally. Bilateral rhonchi. No rales. No wheezing. Cardiovascular: Regular rate regular rhythm.No murmurs. No rubs were appreciated .S1, S2 normal. Distal pulses are palpable 2+ bilaterally. GI: Abdomen was soft. Nontender. Non Distended. No pulsatile abdominal masses or bruits. No rebound. No guarding. Bowel sounds were present and normal. Muscle skeletal: Full range of motion of both the upper and lower extremities bilaterally.Normal muscle tone.No assymetrical calf tenderness however there is 2+ pitting edema. Skin: No petechia, no purpura. No lesions on the palms or the soles of the feet. No maculopapular rash. NEURO: Patient was alert, awake, orientated x3.No facial droop. Gait observed and normal with no ataxia.Speech had regular rate and rhythm. No focal neurological deficits. Result Diagram: 03/13/18215103/13/182151 Results 24 hrs Laboratory Tests Test 03/13/18 21:52 03/13/18 21:53 White Blood Count 15.5 10^3/ul Red Blood Count 4.20 10^6/ul Hemoglobin 11.9 g/dl Hematocrit 36.9 % Mean Corpuscular Volume 87.9 fl Mean Corpuscular Hemoglobin 28.3 pg Mean Corpuscular Hemoglobin Concent 32.2 g/dl Red Cell Distribution Width 14.6 % Platelet Count 232 10^3/UL Mean Platelet Volume 11.0 fl Immature Granulocytes % 0.400 % Neutrophils % 72.3 % Lymphocytes % 14.5 % Monocytes % 7.1 % Eosinophils % 5.0 % Basophils % 0.7 % Nucleated Red Blood Cells % 0.0 /100WBC Immature Granulocytes # 0.060 10^3/ul Neutrophils # 11.2 10^3/ul Lymphocytes # 2.3 10^3/ul Monocytes # 1.1 10^3/ul Eosinophils # 0.8 10^3/ul Basophils # 0.1 10^3/ul Nucleated Red Blood Cells # 0.0 10^3/ul Urine Color YELLOW Urine Clarity CLEAR Urine pH 5.0 Urine Specific [place] 1.011 Urine Ketones NEGATIVE mg/dL Urine Nitrite NEGATIVE mg/dL Urine Bilirubin NEGATIVE mg/dL Urine Urobilinogen NEGATIVE mg/dL Urine Leukocyte Esterase NEGATIVE Samantha/ul Urine Microscopic RBC 2 /HPF Urine Microscopic WBC 2 /HPF Urine Hemoglobin 1+ mg/dL Urine Glucose NEGATIVE mg/dL Urine Total Protein 3+ mg/dl Sodium Level 138 mmol/L Potassium Level 3.4 mmol/L Chloride Level 106 mmol/L Carbon Dioxide Level 23 mmol/L Anion Gap 9 Blood Urea Nitrogen 44 mg/dl Creatinine 4.44 mg/dl Est Glomerular Filtrat Rate mL/min 16 mL/min Glucose Level 113 mg/dl Calcium Level 8.4 mg/dl Total Bilirubin 1.2 mg/dl Direct Bilirubin 0.00 mg/dl Indirect Bilirubin 1.2 mg/dl Aspartate Amino Transf (AST/SGOT) 18 IU/L Alanine Aminotransferase (ALT/SGPT) 14 IU/L Alkaline Phosphatase 107 IU/L B-Type Natriuretic Peptide 7540 PG/ML Total Protein 7.0 g/dl Albumin 3.6 g/dl Globulin 3.40 g/dl Albumin/Globulin Ratio 1.05 Amylase Level 83 U/L Lipase 115 U/L Salicylates Level < 1.0 mg/dl Urine Opiates Screen Negative Acetaminophen Level < 10.0 ug/ml Urine Barbiturates Negative Urine Amphetamines Screen Negative Urine Benzodiazepines Screen Negative Urine Cocaine Screen Negative Urine Cannabinoids Positive Ethyl Alcohol Level < 10.0 mg/dl Prothrombin Time 12.3 Sec Prothrombin Time Ratio 1.0 INR International Normalized Ratio 0.90 Activated Partial Thromboplast Time 27.5 Sec Current Medications Medications Dose Sig/Lm Start Time Status Last (Trade) Ordered Route PRN Stop Time Admin Dose Reason Admin Lorazepam 1 mg ONCE STAT 03/13/18 DC 03/13/18 (Ativan) IV 21:25 22:01 03/13/18 21:26 Hydralazine 20 mg ONCE ONCE 03/13/18 DC 03/13/18 HCl IV 21:30 22:01 (Apresoline) 03/13/18 21:31 250 ml @ ONCE STAT 03/13/18 03/13/18 Nitroglycerin 12 mls/hr IV 21:40 22:19 / Dextrose 03/14/18 18:29 Albuterol 10 mg ONCE ONCE 03/13/18 DC 03/13/18 (Proventil NEB 21:40 22:18 0.5% (Neb)) 03/13/18 21:43 Ipratropium 0.5 mg ONCE ONCE 03/13/18 DC 03/13/18 [place] NEB 21:40 22:18 (Atrovent 03/13/18 21:43 0.02% (Neb)) Furosemide 40 mg ONCE ONCE 03/13/18 DC 03/13/18 (Lasix) IV 22:00 22:01 03/13/18 22:01 Morphine 4 mg ONCE ONCE 03/13/18 DC 03/13/18 Sulfate IV 23:00 23:06 (morphine) 03/13/18 23:01 Ondansetron 4 mg ONCE ONCE 03/13/18 DC 03/13/18 HCl (Zofran IV 23:00 23:07 Inj) 03/13/18 23:01 Ondansetron 4 mg Q6H PRN 03/13/18 HCl (Zofran IV NAUSEA 23:30 Inj) AND/OR VOMITING Albuterol/ 3 ml Q2H RESP 03/13/18 Ipratropium THERAPY PRN 23:30 (Duoneb) NEB SHORTNESS OF BREATH 650 mg Q6H PRN 03/13/18 Acetaminophen PO PAIN 23:30 (Tylenol LEVEL 1-3 OR Liquid) FEVER 250 ml @ PER 03/13/18 Nitroglycerin 1.5 mls/hr PROTOCOL IV 23:30 / Dextrose Procedures/MDM The patient presented to the emergency department with shortness of breath. My differential diagnosis included but was not limited to upper airway obstruction, CHF, pulmonary embolism, cardiac ischemia, pneumonia, pneumothorax, anemia, drug overdose, pulmonary edema, COPD or asthma. The patient was immediately placed on a playground monitor continuous pulse oximetry and IV access was stopped by nursing. The patient's physical exam findings did appear to be result of a congestive heart failure exacerbation. The patient was immediately given IV Lasix and started on nebulizer treatments. Was also given aspirin and nitroglycerin. This patient also presented to the emergency department with severely elevated blood pressure. My differential diagnosis included but was not limited to conditions that could end-organ damage such as acute coronary syndrome, acute pulmonary edema, aortic dissection, subarachnoid hemorrhage, intracerebral hemorrhage, cerebral infarction, withdrawal syndromes from beta blockers, or states of catecholamine excess such as pheochromocytoma or drug intoxication. The patient had uncontrolled hypertensive with end-organ damage to suggest hy pertensive emergency. The treatment goal was immediate reduction of the mean arterial blood pressure. This was done in a controlled, graded manor, using improvement of the patient's condition as a guide. The patient's blood pressure reduction did not exceed more then a 20-25 percent reduction within the first 30 to 60 minutes. The patient was put on a playground monitor, continuous pulse oximetry, and IV access was established by nursing staff. The antihypertensive agent used was nitroglycerin which significantly improved his blood pressure. I did obtain a CT scan of the patient's head but there is no signs of intracerebral hemorrhage mass-effect or malacia. The patient was given morphine and Zofran and his headache had resolved. 12 Lead EKG tracing ordered and reviewed by myself showed: Sinus tachycardia 105 bpm and no arrhythmia. OH interval normal. QRS duration normal. No ST segment elevation No ST segment depression. No changes consistent with acute ischemia. The patient will be admitted to the intensive care unit in serious condition to the hospitalist Dr. Hernandez Critical Care: Time: 80 minutes Treatments/Evaluations: Close monitoring and treatment of unstable vital signs, cardiorespiratory, and neurologic status, while maintaining tight balance of fluid, respiratory, and cardiac interventions. Time does not include performing any of the above billable procedures. Departure Diagnosis: Primary Impression: CHF exacerbation Heart failure type: unspecified Qualified Codes: I50.9 - Heart failure, unspecified Additional Impressions: Hypertensive emergency Renal failure (ARF), acute on chronic Acute renal failure type: unspecified Chronic kidney disease stage: unspecified stage Qualified Codes: N17.9 - Acute kidney failure, unspecified; N18.9 - Chronic kidney disease, unspecified Condition: Serious IKER ALEGRE MD Mar 13, 2018 23:28
[2018-03-14] VITALS (82 sets, daily range): BP systolic 109–217; BP diastolic 47–143; PULSE 93–133; RESP 13–38; Ht 170.2 cm; Wt 106.1 kg
[2018-03-14] MEDS: ACETAMINOPHEN 650MG/20.3ML CUP PO PRN ×2 (00:11→13:41)
[2018-03-14] MEDS ORDERED: LABETALOL HCL 20MG INJ IV ONE (00:30)
[2018-03-14] MEDS: niCARdipine-NS 0.1MG/ML DRIP 200 ML IV SCH ×3 (02:24→08:12)
[2018-03-14] MEDS ORDERED: METOPROLOL 5 MG INJ IV ONE ×2 (03:00→04:42)
[2018-03-14] MEDS: NITROGLYCERIN 50 MG/D5W (PMX) 250 ML IV SCH ×2 (03:29→07:56)
[2018-03-14] MEDS ORDERED: LORAZEPAM 2 MG INJ IV ONE (03:39)
--- NOTE | 2018-03-14 04:40 | NUR ---
ADMIT TO ICU ROOM 102 Pt. arrived on unit @ 0055 escorted by RN and transportation services. Dr. Hernandez made aware of pts. arrival Pt. A&Ox4, saturating well on 2L NC, complaints of headache. Upon arrival BP @ 194/130 on Nitro drip max @ 200. Will continue to monitor for remainder of shift.
[2018-03-14] MEDS ORDERED: LEVOFLOXACIN 500MG/D5W (PMX) 100 ML IVPB ONE (07:00)
--- NOTE | 2018-03-14 07:48 | NUR ---
EOSS: Pt. is A&Ox4, sinus tachy 110's-120's. Pts. lungs sound clear but diminished at bases, saturating well on 2L NC, pt. did desaturate from +98% to 92% while sleeping. During admission questions pt. told me that he does have sleep apnea and wears a BiPAP at night however he was unsure of his settings. Pt. had one bowel movement shortly after admission. Pt. has been voiding via urinal since admit to ICU and has voided x2. Noticed Kidney function labs were elevated, pt. stated that he was told his "kidney labs were increasing a while back" but nothing was ever done or followed up. Pt. had some complaints of a headache upon arrival to the unit however it has since been relieved (ER had administered medications). Current drips: NITROGLYCERIN @ 200 and CARDENE @ [address] Hernandez frequently overnight. Per pt. he was unsure if CARDENE was the medication that makes his heart race, he was hospitalized last year for similar diagnosis. Heart Rate became slightly elevated however there were no changes when we stopped medication from [id number]. Pt. was complaining of some anxiety, 0.5mls of Ativan given per Dr. Hernandez. Pt. said he felt more relax after administration but could still feel heart pounding. Metoprolol 5mg IV push was given x2 per Dr. Hernandez @ [address] Hernandez made aware that pt. consistently shakes legs, asked pt. about it and said "i just always do it, if I stop I feel a numb feeling," Dr. Hernandez also made aware of his sleep apnea. All information has been endorsed to day shift nurse- HARISH ROY
[2018-03-14] MEDS: NIFEdipine (XL) 60 MG TAB PO SCH ×2 (08:15→20:26)
[2018-03-14] MEDS: ONDANSETRON 4 MG INJ IV PRN (08:47)
[2018-03-14] MEDS ORDERED: POTASSIUM CHLORIDE (SR) 20 MEQ TAB PO STA (08:48)
--- NOTE | 2018-03-14 08:58 | PN ---
Date/Time of Note Date/Time of Note DATE: 03/14/18 TIME: 08:47 Assessment/Plan VTE Prophylaxis SCD applied (from Nsg): Yes Pharmacological prophylaxis: other Lines/Catheters IV Catheter Type (from Nrsg): Peripheral IV Urinary Cath still in place: No Assessment/Plan Hospital Course S: Patient still on antihypertensive drips. Blood pressure appears to be improved. Still with some headache symptoms. Waiting to be seen by renal team. O: VS - see below PE: General:, Lying in bed HEENT:Normocephalic. Atraumatic.Pupils were equal round reactive to light. Neck: Supple Respiratory:Lungs were clear to auscultation bilaterally. No wheezing. Cardiovascular: Regular rate regular rhythm, S1, S2 normal. Distal pulses are palpable 2+ bilaterally. GI: Abdomen was soft. Nontender. Non Distended. No rebound. No guarding. Bowel sounds were present and normal. Muscle skeletal: Full range of motion of both the upper and lower extremities bilaterally.1+ pitting edema. Skin: No petechia, no purpura. No maculopapular rash. NEURO: No focal neurological deficits. 2D echo August 2017: Conclusions Normal left ventricular systolic function. Normal left ventricular cavity size. Moderate concentric left ventricular hypertrophy. Ejection fraction is visually estimated at 60-65 %. Tissue Doppler/Mitral Doppler indices are consistent with impaired relaxation (Stage I diastolic dysfunction). Mitral valve leaflets appear mildly thickened. Mild mitral annular calcification. Trace mitral regurgitation. Normal appearance of the tricuspid valve. Unable to obtain RVSP due to minimal presence of tricuspid regurgitation. Assessment/Plan: 27-year-old male who presents with: 1. Hypertensive emergency -improving now, patient admitted back in August 2017 f or similar issue. -For now continue nitro drip and Cardene drips -Continue his oral medication and also additional medication as needed 2. Mild sepsis- as evidenced by leukocytosis and tachycardia: Possibly from community-acquired pneumonia -based on chest x-ray findings. White blood cell count is elevated, however no fevers. -For now continue IV antibiotic -Follow-up final culture results 3. Possible diastolic CHF: BNP elevated this admission 6-7,000 range. CHF exacerbated by severely elevated blood pressure most likely. Echo results from September 2017 reviewed. Ejection fraction 60-65% at that time -Monitor blood pressure for now, continue current medications, consider IV Lasix. 4. CKD: Creatinine more elevated this admission, however patient making urine. -Monitor urine output, BUN/creatinine levels, will obtain nephrology consult Critical care time spent on patient care today equals 45 minutes. Result Diagram: 03/14/1820 03/14/18 0520 Results 24hrs Laboratory Tests Test 03/13/18 21:52 03/13/18 21:53 03/14/18 05:20 White Blood Count 15.5 H 16.8 H Red Blood Count 4.20 L 4.08 L Hemoglobin 11.9 L 11.6 L Hematocrit 36.9 L 35.8 L Mean Corpuscular Volume 87.9 87.7 Mean Corpuscular Hemoglobin 28.3 L 28.4 L Mean Corpuscular Hemoglobin Concent 32.2 32.4 Red Cell Distribution Width 14.6 H 14.6 H Platelet Count 232 # 242 Mean Platelet Volume 11.0 H 11.2 H Immature Granulocytes % 0.400 0.600 H Neutrophils % 72.3 74.3 Lymphocytes % 14.5 L 12.1 L Monocytes % 7.1 9.1 Eosinophils % 5.0 3.3 Basophils % 0.7 0.6 Nucleated Red Blood Cells % 0.0 0.0 Immature Granulocytes # 0.060 H 0.100 H Neutrophils # 11.2 H 12.5 H Lymphocytes # 2.3 2.0 Monocytes # 1.1 H 1.5 H Eosinophils # 0.8 H 0.6 H Basophils # 0.1 0.1 Nucleated Red Blood Cells # 0.0 0.0 Urine Color YELLOW Urine Clarity CLEAR Urine pH 5.0 Urine Specific [place] 1.011 Urine Ketones NEGATIVE Urine Nitrite NEGATIVE Urine Bilirubin NEGATIVE Urine Urobilinogen NEGATIVE Urine Leukocyte Esterase NEGATIVE Urine Microscopic RBC 2 Urine Microscopic WBC 2 Urine Hemoglobin 1+ H Urine Glucose NEGATIVE Urine Total Protein 3+ H Sodium Level 138 137 Potassium Level 3.4 L 3.2 L Chloride Level 106 103 Carbon Dioxide Level 23 23 Anion Gap 9 11 Blood Urea Nitrogen 44 H 45 H Creatinine 4.44 H 4.49 H Est Glomerular Filtrat Rate mL/min 16 L 16 L Glucose Level 113 106 Calcium Level 8.4 8.4 Total Bilirubin 1.2 1.1 Direct Bilirubin 0.00 0.00 Indirect Bilirubin 1.2 H 1.1 Aspartate Amino Transf (AST/SGOT) 18 14 L Alanine Aminotransferase (ALT/SGPT) 14 15 Alkaline Phosphatase 107 91 Troponin I 0.054 B-Type Natriuretic Peptide 7540 H Total Protein 7.0 7.0 Albumin 3.6 3.6 Globulin 3.40 H 3.40 H Albumin/Globulin Ratio 1.05 1.05 Amylase Level 83 Lipase 115 Salicylates Level < 1.0 L Urine Opiates Screen Negative Acetaminophen Level < 10.0 L Urine Barbiturates Negative Urine Amphetamines Screen Negative Urine Benzodiazepines Screen Negative Urine Cocaine Screen Negative Urine Cannabinoids Positive Ethyl Alcohol Level < 10.0 H Prothrombin Time 12.3 Prothrombin Time Ratio 1.0 INR International Normalized Ratio 0.90 Activated Partial Thromboplast Time 27.5 Exam/Review of Systems Vital Signs Vitals Vital Signs Date Temp Pulse Resp B/P (MAP) Pulse Ox O2 O2 Flow FiO2 Time Delivery Rate 03/14/18 127 25 157/80 98 06:45 (105) 03/14/18 Nasal 2.0 06:00 Cannula 03/14/18 98.2 04:00 Intake and Output 03/13/18 03/13/18 03/14/18 1515:00 23:00 07:00 IntakeIntake Total 1350 ml OutputOutput Total 750 ml BalanceBalance 600 ml Medications Medications Current Medications Nitroglycerin/ Dextrose 250 ml @ 12 mls/hr ONCE STAT IV Last administered on 03/13/18at 22:19; Admin Dose 12 MLS/HR; Start 03/13/18 at 21:40; Stop 03/14/18 at 18:29 Ondansetron HCl (Zofran Inj) 4 mg Q6H PRN IV NAUSEA AND/OR VOMITING; Start 03/13/18 at 23:30 Albuterol/ Ipratropium (Duoneb) 3 ml Q2H RESP THERAPY PRN NEB SHORTNESS OF BREATH; Start 03/13/18 at 23:30 Acetaminophen (Tylenol Liquid) 650 mg Q6H PRN PO PAIN LEVEL 1-3 OR FEVER Last administered on 03/14/18at 00:11; Admin Dose 650 MG; Start 03/13/18 at 23:30 Nitroglycerin/ Dextrose 250 ml @ 1.5 mls/hr PER PROTOCOL IV Last administered on 03/14/18at 07:56; Admin Dose 60 MLS/HR; Start 03/13/18 at 23:30 Nicardipine HCl 200 ml @ 50 mls/hr TITRATE IV Last administered on 03/14/18at 08:12; Admin Dose 100 MLS/HR; Start 03/14/18 at 00:30 Hydralazine HCl (Apresoline) 50 mg Q8 PO Last administered on 03/14/18at 07:47; Admin Dose 50 MG; Start 03/14/18 at 07:00 Labetalol HCl (Normodyne) 400 mg BID PO Last administered on 03/14/18at 08:15; Admin Dose 400 MG; Start 03/14/18 at 09:00 Nifedipine (Procardia Xl) 60 mg BID PO Last administered on 03/14/18at 08:15; Admin Dose 60 MG; Start 03/14/18 at 09:00 Levofloxacin/ Dextrose 50 ml @ 50 mls/hr Q24H IVPB ; Start 03/15/18 at 07:00 ABDI WILSON Mar 14, 2018 08:57
[2018-03-14] MEDS ORDERED: LABETALOL 200 MG TAB PO SCH (09:00)
--- NOTE | 2018-03-14 10:10 | CONS ---
Date/Time of Note Date/Time of Note DATE: 03/14/18 TIME: 10:04 Assessment/Plan Assessment/Plan Hospital Course TYPE OF CONSULTATION: Nephrology. REASON FOR CONSULTATION: Acute kidney injury, hypertensive urgency. PHYSICIAN REQUESTING CONSULT: Dr Kidd HISTORY OF PRESENT ILLNESS: This is a 27-year-old male with a past medical history of hypertension, history of chronic kidney disease with a baseline creatinine around 2.5 to 3 mg/dL, history of polysubstance abuse, who presents to [facility] with complaints dyspnea and headache. The patient also describes having elevated blood pressure at home. The patient has been noncompliant with his blood pressure medications. Upon arrival to the emergency room, the patient had a blood pressure of 260/140. He denies any hemoptysis, hemetemesis or hematochezia. The patient in the emergency room was given antihypertensive medication and was admitted to telemetry for further evaluation. The patient has underlying CKD likely due to hypertensive nephrosclerosis. The patient's baseline creatinine is around 2.5 to 3 mg/dL. The patient currently denies any frothy urine, any hematuria, any rashes. on this admission he has ARF on ckd. has good uop with lasix PAST MEDICAL HISTORY: As stated above, history of chronic kidney disease, history of hypertension, history of anemia. PAST SURGICAL HISTORY: None. ALLERGIES: NO KNOWN DRUG ALLERGIES. SOCIAL HISTORY: History of marijuana use. FAMILY HISTORY: No family history of kidney disease. MEDICATIONS: Have been reviewed. REVIEW OF SYSTEMS: A 14-point review of systems was conducted. Pertinent positives as stated in HPI, otherwise negative. PHYSICAL EXAMINATION: HEENT: Head is normocephalic. NECK: Supple. HEART: Regular rate. LUNGS: Show diminished breath sounds at base. ABDOMEN: Soft, nontender to palpation without rebound or guarding. EXTREMITIES: Negative for clubbing, cyanosis. No edema. DERMATOLOGIC: No rashes. MUSCULOSKELETAL: No joint effusion. NEUROLOGIC: No change in exam. ASSESSMENT AND PLAN: This is a 26-year-old male who presents with: 1. Nonoliguric acute kidney injury on top of chronic kidney disease stage IV with a baseline creatinine of 2.5 to 3.0 mg/dL. Etiology of acute kidney injury is secondary to hemodynamics, questionable tubular injury due to hypertensive urgency. His BP is decreasing during appropriate intervals. will wean off NGT drip. I had a long discussion with the patient regarding medication compliance and fluid restriction. no indication for acute HD yet. continue supportive care, renally dose meds, avoid nephrotoxins. We would defer any CURT inhibitor at this time. 2. Severe hypertension. In the past the patient had CT scan of abdomen and pelvis which was negative for any adrenal adenoma. We will monitor closely to avoid hypotensive episode and to prevent a decrease of greater than 25% of systolic blood pressure. will wean off NTG drip. no acei or arb at this point 3. Leukocytosis and systemic inflammatory response syndrome. Etiology is unclear. The patient had underlying viral syndrome. Follow up cultures. Thank you, Dr. Kidd for the consult. It will be a pleasure to follow the patient with you throughout the hospital course. Result Diagram: 03/14/18 0520 03/14/18 0520 Results 24hrs Laboratory Tests Test 03/13/18 21:52 03/13/18 21:53 03/14/18 05:20 White Blood Count 15.5 H 16.8 H Red Blood Count 4.20 L 4.08 L Hemoglobin 11.9 L 11.6 L Hematocrit 36.9 L 35.8 L Mean Corpuscular Volume 87.9 87.7 Mean Corpuscular Hemoglobin 28.3 L 28.4 L Mean Corpuscular Hemoglobin Concent 32.2 32.4 Red Cell Distribution Width 14.6 H 14.6 H Platelet Count 232 # 242 Mean Platelet Volume 11.0 H 11.2 H Immature Granulocytes % 0.400 0.600 H Neutrophils % 72.3 74.3 Lymphocytes % 14.5 L 12.1 L Monocytes % 7.1 9.1 Eosinophils % 5.0 3.3 Basophils % 0.7 0.6 Nucleated Red Blood Cells % 0.0 0.0 Immature Granulocytes # 0.060 H 0.100 H Neutrophils # 11.2 H 12.5 H Lymphocytes # 2.3 2.0 Monocytes # 1.1 H 1.5 H Eosinophils # 0.8 H 0.6 H Basophils # 0.1 0.1 Nucleated Red Blood Cells # 0.0 0.0 Urine Color YELLOW Urine Clarity CLEAR Urine pH 5.0 Urine Specific Delano 1.011 Urine Ketones NEGATIVE Urine Nitrite NEGATIVE Urine Bilirubin NEGATIVE Urine Urobilinogen NEGATIVE Urine Leukocyte Esterase NEGATIVE Urine Microscopic RBC 2 Urine Microscopic WBC 2 Urine Hemoglobin 1+ H Urine Glucose NEGATIVE Urine Total Protein 3+ H Sodium Level 138 137 Potassium Level 3.4 L 3.2 L Chloride Level 106 103 Carbon Dioxide Level 23 23 Anion Gap 9 11 Blood Urea Nitrogen 44 H 45 H Creatinine 4.44 H 4.49 H Est Glomerular Filtrat Rate mL/min 16 L 16 L Glucose Level 113 106 Calcium Level 8.4 8.4 Total Bilirubin 1.2 1.1 Direct Bilirubin 0.00 0.00 Indirect Bilirubin 1.2 H 1.1 Aspartate Amino Transf (AST/SGOT) 18 14 L Alanine Aminotransferase (ALT/SGPT) 14 15 Alkaline Phosphatase 107 91 Troponin I 0.054 B-Type Natriuretic Peptide 7540 H Total Protein 7.0 7.0 Albumin 3.6 3.6 Globulin 3.40 H 3.40 H Albumin/Globulin Ratio 1.05 1.05 Amylase Level 83 Lipase 115 Salicylates Level < 1.0 L Urine Opiates Screen Negative Acetaminophen Level < 10.0 L Urine Barbiturates Negative Urine Amphetamines Screen Negative Urine Benzodiazepines Screen Negative Urine Cocaine Screen Negative Urine Cannabinoids Positive Ethyl Alcohol Level < 10.0 H Prothrombin Time 12.3 Prothrombin Time Ratio 1.0 INR International Normalized Ratio 0.90 Activated Partial Thromboplast Time 27.5 Consultation Date/Type/Reason Admit Date/Time Past Medical History Medical History: hypertension, renal disease Medications Current Medications Nitroglycerin/ Dextrose 250 ml @ 12 mls/hr ONCE STAT IV Last administered on 03/13/18at 22:19; Admin Dose 12 MLS/HR; Start 03/13/18 at 21:40; Stop 03/14/18 at 18:29 Ondansetron HCl (Zofran Inj) 4 mg Q6H PRN IV NAUSEA AND/OR VOMITING Last administered on 03/14/18at 08:47; Admin Dose 4 MG; Start 03/13/18 at 23:30 Albuterol/ Ipratropium (Duoneb) 3 ml Q2H RESP THERAPY PRN NEB SHORTNESS OF BREATH; Start 03/13/18 at 23:30 Acetaminophen (Tylenol Liquid) 650 mg Q6H PRN PO PAIN LEVEL 1-3 OR FEVER Last administered on 03/14/18at 00:11; Admin Dose 650 MG; Start 03/13/18 at 23:30 Nitroglycerin/ Dextrose 250 ml @ 1.5 mls/hr PER PROTOCOL IV Last administered on 03/14/18 07:56; Admin Dose 60 MLS/HR; Start 03/13/18 at 23:30 Nicardipine HCl 200 ml @ 50 mls/hr TITRATE IV Last administered on 03/14/18at 08:12; Admin Dose 100 MLS/HR; Start 03/14/18 at 00:30 Hydralazine HCl (Apresoline) 50 mg Q8 PO Last administered on 03/14/18at 07:47; Admin Dose 50 MG; Start 03/14/18 at 07:00 Labetalol HCl (Normodyne) 400 mg BID PO Last administered on 03/14/18 08:15; Admin Dose 400 MG; Start 03/14/18 at 09:00 Nifedipine (Procardia Xl) 60 mg BID PO Last administered on 03/14/18at 08:15; Admin Dose 60 MG; Start 03/14/18 at 09:00 Levofloxacin/ Dextrose 50 ml @ 50 mls/hr Q24H IVPB ; Start 03/15/18 at 07:00 Allergies: Coded Allergies: No Known Allergies (Unverified Allergy, Unknown, 09/02/17) Past Surgical History Past Surgical Hx: no surgical history Social History Smoking Status: Never smoker Drug Use: marijuana Exam/Review of Systems Vital Signs Vitals Vital Signs Date Temp Pulse Resp B/P (MAP) Pulse Ox O2 O2 Flow FiO2 Time Delivery Rate 03/14/18 93 21 122/68 99 Nasal 09:00 (86) Cannula 03/14/18 98.9 08:00 03/14/18 2.0 08:00 Intake and Output 03/13/18 03/13/18 03/14/18 1515:00 23:00 07:00 IntakeIntake Total 1350 ml OutputOutput Total 750 ml BalanceBalance 600 ml Medications Medications Current Medications Nitroglycerin/ Dextrose 250 ml @ 12 mls/hr ONCE STAT IV Last administered on 03/13/18at 22:19; Admin Dose 12 MLS/HR; Start 03/13/18 at 21:40; Stop 03/14/18 at 18:29 Ondansetron HCl (Zofran Inj) 4 mg Q6H PRN IV NAUSEA AND/OR VOMITING Last administered on 03/14/18at 08:47; Admin Dose 4 MG; Start 03/13/18 at 23:30 Albuterol/ Ipratropium (Duoneb) 3 ml Q2H RESP THERAPY PRN NEB SHORTNESS OF BREATH; Start 03/13/18 at 23:30 Acetaminophen (Tylenol Liquid) 650 mg Q6H PRN PO PAIN LEVEL 1-3 OR FEVER Last administered on 03/14/18at 00:11; Admin Dose 650 MG; Start 03/13/18 at 23:30 Nitroglycerin/ Dextrose 250 ml @ 1.5 mls/hr PER PROTOCOL IV Last administered on 03/14/18at 07:56; Admin Dose 60 MLS/HR; Start 03/13/18 at 23:30 Nicardipine HCl 200 ml @ 50 mls/hr TITRATE IV Last administered on 03/14/18at 08:12; Admin Dose 100 MLS/HR; Start 03/14/18 at 00:30 Hydralazine HCl (Apresoline) 50 mg Q8 PO Last administered on 03/14/18at 07:47; Admin Dose 50 MG; Start 03/14/18 at 07:00 Labetalol HCl (Normodyne) 400 mg BID PO Last administered on 03/14/18 08:15; Admin Dose 400 MG; Start 03/14/18 at 09:00 Nifedipine (Procardia Xl) 60 mg BID PO Last administered on 03/14/18 08:15; Admin Dose 60 MG; Start 03/14/18 at 09:00 Levofloxacin/ Dextrose 50 ml @ 50 mls/hr Q24H IVPB ; Start 03/15/18 at 07:00 JOSEPH NIX DO Mar 14, 2018 10:09
[2018-03-14] MEDS ORDERED: hydrALAzine 20 MG INJ IV PRN (16:00)
[2018-03-14] MEDS ORDERED: LABETALOL HCL 20MG INJ IV PRN (16:00)
[2018-03-14] MEDS: HYDROCODONE/APAP (5/325) TAB PO PRN (16:16)
--- NOTE | 2018-03-14 20:25 | NUR ---
END OF SHIFT: All needs attended. Patient's condition improved. Nitroglycerine & Cardene drip discontinued as ordered. Patient's SBP < 160 maintained. Patient's vital signs stable. All needs attended. No significant change in condition. Endorse to incoming RN: Mike.
[2018-03-14] MEDS: LABETALOL 200 MG TAB PO SCH (20:26)
[2018-03-14] MEDS ORDERED: NIFEdipine (XL) 60 MG TAB PO SCH (22:00)
[2018-03-15] VITALS (27 sets, daily range): BP systolic 132–165; BP diastolic 61–100; PULSE 81–119; RESP 16–39
[2018-03-15] MEDS ORDERED: LORAZEPAM 2 MG INJ IV ONE (02:00)
[2018-03-15] MEDS: ALBUTEROL/IPRATROPIUM (NEB) 3 ML AMP NEB PRN (04:04)
[2018-03-15] MEDS: LEVOFLOXACIN 250MG/D5W (PMX) 50 ML IVPB SCH (06:09)
--- NOTE | 2018-03-15 06:28 | NUR ---
EOSS: PATIENT REMAINED STABLE THIS SHIFT. A+O X4, NSR/ST ON THE MONITOR, ORDER FOR BIPAP PUT IN,PATIENT ON AND OFF BIPAP AND NC ALL NIGHT. DESATURATES PRETTY QUICKLY ONCE HE FALLS ASLEEP IF THE BIPAP IS NOT ON. PATIENT HAD AN EPISODE OF PANIC A ATTACK AND FEELING ANXIOUS, DR EVANS NOTIFIED AND ADMIN ATIVAN ONCE. BP HAS BEEN OKAY, NO NEED FOR PRN HYDRALAZINE THIS SHIFT. ALL QUESTIONS AND CONCERNS ADDRESSED AT THIS TIME. CHECKED ON PATIENT HOURLY AND PRN BY NURSING STAFF.
--- NOTE | 2018-03-15 08:51 | PN ---
Date/Time of Note Date/Time of Note DATE: 03/15/18 TIME: 08:39 Assessment/Plan VTE Prophylaxis Risk score (from Ns)>0 risk: 2 SCD applied (from Ns): No SCD contraindicated: low risk/ambulating Pharmacological prophylaxis: NA/contraindicated Pharm contraindication: low risk/ambulating Lines/Catheters IV [facility]from [facility] Peripheral IV Urinary Cath still in place: No Assessment/Plan Assessment/Plan 27 yo man presents in hypertensive urgency. # Hypertensive emergency - improving now, patient admitted back in August 2017 for similar issue. - Now off nitro gtt, will transfer to [facility]. - Continue his oral medication and also additional medication as needed #Hemoptysis - With history of homelessness, hemoptysis, night sweats, there is mild to moderate risk of tuberculosis - Airborne isolation, AFB sputum x3, PCR x2, culture x1. - Also will repeat CT chest to eval for upper lobe scarring. # Mild sepsis- as evidenced by leukocytosis and tachycardia: - Possibly from community-acquired pneumonia based on chest x-ray findings. - White blood cell count is elevated, however no fevers. - For now continue IV antibiotics - Follow-up final culture results # Possible diastolic CHF: - BNP elevated this admission 6-7,000 range. CHF exacerbated by severely elevated blood pressure most likely. Echo results from September 2017 reviewed. Ejection fraction 60-65% at that time - Monitor blood pressure for now, continue current medications. Currently appears euvolemic, will hold off on diuresis. # CKD: Creatinine more elevated this admission, however patient making urine. - Monitor urine output, BUN/creatinine levels, nephrology is following. Result Diagram: 03/15/1870403/15/18704 Results 24hrs Laboratory Tests Test 03/14/18 23:30 03/15/18 07:05 Blood Gas Specimen Source Blood arterial Arterial Blood Date Drawn 03/15/2018 12:00:02 AM Arterial Blood pH (Temp corrected) 7.394 Arterial Blood pCO2 (Temp correct) 39.1 Arterial Blood pO2 (Temp corrected) 75.9 L Arterial Blood HCO3 23.4 Arterial Blood Base Excess -1.3 Arterial Blood Oxygen Saturation 94.7 L Cesar Test ACCEPTAB Arterial Blood Gas Puncture Site Right Radial Arterial Blood Carboxyhemoglobin 0.4 Arterial Blood Methemoglobin 0.3 Blood Gas A-a O2 Differential 128.2 H Oxyhemoglobin Percent 94.0 Blood Gas Temperature 37.0 Blood Gas Respiration Rate 12.0 Blood Gas Actual Respiration Rate 23 Blood Gas Modality MASK - BIPAP FiO2 35.0 Blood Gas Pressure Support 10 Blood Gas IPAP/EPAP Ratio 15/5 Blood Gas Notified Whom PAULA LUO Blood Gas Notified Time 03/15/2018 12:09:31 AM White Blood Count 22.2 #H Red Blood Count 4.03 L Hemoglobin 11.5 L Hematocrit 35.4 L Mean Corpuscular Volume 87.8 Mean Corpuscular Hemoglobin 28.5 L Mean Corpuscular Hemoglobin Concent 32.5 Red Cell Distribution Width 14.3 Platelet Count 245 Mean Platelet Volume 10.9 H Immature Granulocytes % 0.600 H Neutrophils % 84.6 H Lymphocytes % 4.2 L Monocytes % 7.9 Eosinophils % 2.3 Basophils % 0.4 Nucleated Red Blood Cells % 0.0 Immature Granulocytes # 0.130 H Neutrophils # 18.7 H Lymphocytes # 0.9 Monocytes # 1.8 H Eosinophils # 0.5 Basophils # 0.1 Nucleated Red Blood Cells # 0.0 Sodium Level 137 Potassium Level 3.9 Chloride Level 105 Carbon Dioxide Level 21 Anion Gap 11 Blood Urea Nitrogen 45 H Creatinine 4.64 H Est Glomerular Filtrat Rate mL/min 15 L Glucose Level 120 Calcium Level 9.2 Phosphorus Level 4.1 Magnesium Level 2.1 Subjective 24 Hr Interval Summary Free Text/Dictation Patient went hypoxic last night to mid 80s, placed on BiPAP (which he uses at home) with good response. This morning the patient complains of coughing up blood. Says he has had episodes of this for the past few months which last a few days and resolve spontaneously. Also complains of occasional drenching night sweats. He has been homeless in the past. He was born in [place], never travelled outside of the country. Exam/Review of Systems Vital Signs Vitals Vital Signs Date Temp Pulse Resp B/P (MAP) Pulse Ox O2 O2 Flow FiO2 Time Delivery Rate 03/15/18 Nasal 4.0 08:00 Cannula 03/15/18 98.0 119 34 152/68 96 08:00 (96) 03/15/18 31 04:59 Intake and Output 03/14/18 03/14/18 03/15/18 1515:00 23:00 07:00 IntakeIntake Total 1920 ml 680 ml 200 ml OutputOutput Total 1250 ml 300 ml 700 ml BalanceBalance 670 ml 380 ml -500 ml Exam General: Well developed man lying in bed in no acute distress. HEENT:Normocephalic. Atraumatic.Pupils were equal round reactive to light. Neck: Supple Respiratory:Lungs were clear to auscultation bilaterally. No wheezing. Cardiovascular: Regular rate regular rhythm, S1, S2 normal. Distal pulses are palpable 2+ bilaterally. GI: Abdomen was soft. Nontender. Non Distended. No rebound. No guarding. Bowel sounds were present and normal. Muscle skeletal: Full range of motion of both the upper and lower extremities bilaterally.1+ pitting edema. Skin: No petechia, no purpura. No maculopapular rash. Medications Medications Current Medications Ondansetron HCl (Zofran Inj) 4 mg Q6H PRN IV NAUSEA AND/OR VOMITING Last administered on 03/14/18 08:47; Admin Dose 4 MG; Start 03/13/18 at 23:30 Albuterol/ Ipratropium (Duoneb) 3 ml Q2H RESP THERAPY PRN NEB SHORTNESS OF AWILDA TH Last administered on 03/15/18 04:04; Admin Dose 3 ML; Start 03/13/18 at 23:30 Acetaminophen (Tylenol Liquid) 650 mg Q6H PRN PO PAIN LEVEL 1-3 OR FEVER Last administered on 03/14/18 13:41; Admin Dose 650 MG; Start 03/13/18 at 23:30 Nifedipine (Procardia Xl) 60 mg BID PO Last administered on 03/14/18 20:26; Admin Dose 60 MG; Start 03/14/18 at 09:00 Levofloxacin/ Dextrose 50 ml @ 50 mls/hr Q24H IVPB Last administered on 03/15/18 06:09; Admin Dose 50 MLS/HR; Start 03/15/18 at 07:00 Acetaminophen/ Hydrocodone Bitart ([place] (5/325)) 1 tab Q6H PRN PO MODERATE PAIN LEVEL 4-6 Last administered on 03/14/18 16:16; Admin Dose 1 TAB; Start 03/14/18 at 14:00 Labetalol HCl (Normodyne) 400 mg TID PO Last administered on 1/20/19at 20:26; Admin Dose 400 MG; Start 03/14/18 at 21:00 Labetalol HCl (Labetalol) 10 mg Q4H PRN IV ELEVATED SYSTOLIC BP >160 Last administered on 03/14/18at 16:14; Admin Dose 10 MG; Start 03/14/18 at 16:00 Hydralazine HCl (Apresoline) 10 mg Q4H PRN IV ELEVATED BLOOD PRESSURE; Start 03/14/18 at 16:00 Hydralazine HCl (Apresoline) 75 mg Q8 PO Last administered on 03/14/18at 21:21; Admin Dose 75 MG; Start 03/14/18 at 22:00 MARTHA AVILA MD Mar 15, 2018 08:51
--- NOTE | 2018-03-15 09:14 | NUR ---
CM NOTES: PT IS A 28 YRS OLD WIING H ADMITTING DX OF HYPERTENSIVE EMERGENCY AND CHF. PT HAD H/O HOMELESSNESS. INFORMED ASSIGNED ALANNA LEAL ABOUT THE PT AND SHE WILL FOLLOW UP. THIS CM FAXED CLINICAL UPDATE TO [facility], INCLUDING ALL MD NOTES. PT IS CURRENTLY BEING R/O TB AND STILL ON BIPAP. TALIA RUELAS CM [id number] Addendum: 03/15/18 at 0916 by TALIA GARCIA CM Amended: Links added.
[2018-03-15] MEDS: LABETALOL 200 MG TAB PO SCH ×3 (09:40→20:54)
[2018-03-15] MEDS: NIFEdipine (XL) 60 MG TAB PO SCH ×2 (09:41→20:54)
--- NOTE | 2018-03-15 11:00 | NUR ---
SS NOTE: THIS SW MET WITH PT WHO HAS A H/O OF HOMELESSNESS PER REPORT. PT ALERT & ORIENTED X 4. PT SHARES THAT HE LIVES WITH HIS MOTHER HARSHAL TURCIOS LOCATED AT [address] [place] [address] [address] [place] [address], DENIES HOMELESSNESS. PT IS UNMARRIED, WITH NO CHILDREN. PT HAS APPOINTED HIS MOTHER HARSHAL TURCIOS THE SURROGATE DECISION MAKER. 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 PT DENIES ANY ILLICIT DRUG USE, TOBACCO OR ETOH. PT SHARES THAT HE USES MEDICATION MARIJUANA FOR ANXIETY. PT DENIES ANY OTHER MENTAL HEALTH ISSUES. PT DECLINED ANY MENTAL HEALTH RESOURCES. SW PROVIDED SUPPORT & ENCOURAGEMENT AND WILL FOLLOW UP NEEDED. PLAN: PT WILL TRANSFER TO TELEMETRY. PT SAY HIS FRIEND WILL PROVIDE TRANSPORATION WHEN DISCHARGED.
[2018-03-15] MEDS: ONDANSETRON 4 MG INJ IV PRN (13:18)
--- NOTE | 2018-03-15 13:46 | PN ---
DATE: 03/15/2018 SUBJECTIVE: The patient is currently stable. No events overnight. I spoke with the patient about h is current renal history and his acute kidney injury. The patient himself denies any uremic signs or symptoms. Denies any fatigue. Denies any metallic taste in his mouth. OBJECTIVE: VITAL SIGNS: Blood pressure is 144/86, pulse is 93, respirations 29, temperature 98.0. HEENT: Head is normocephalic. NECK: Supple. HEART: Regular rate. LUNGS: Show diminished breath sounds at the base. ABDOMEN: Soft, nontender to palpation without rebound or guarding. EXTREMITIES: Negative for clubbing, cyanosis. Positive edema. DERMATOLOGIC: No rashes. MUSCULOSKELETAL: No joint effusions. NEUROLOGIC: No change in exam. MEDICATIONS: Reviewed. LABORATORY DATA: Shows a sodium of 137, potassium 3.9, BUN 45, creatinine 4.64. White count 22, hem oglobin 11.5, platelet count is 245. IMAGING STUDIES: Reviewed. CT scan of the chest is reviewed. It shows diffuse ground glass opaciti es indicative of infectious inflammatory process including atypical pneumonia pneumocystis, CMV pneum onitis. Urinalysis showed no pyuria, no hematuria +3 proteinuria. ASSESSMENT AND PLAN: 1. Nonoliguric acute kidney injury on top of chronic kidney disease stage IV with previous baseline creatinine around 3.0 mg/dL in August of 2017. Etiology of current acute kidney injury is concerning f or ATN due to hypertensive urgency, hemodynamics. The possibility of an acute glomerulonephritis is less likely as the patient has a bland urinary sediment. However, the patient's CT findings does lucita w evidence of possible pneumonitis as well as hilar adenopathy. Plan at this point would be to repea t UA with microanalysis. Will evaluate the urine under microscopy. Will check urine electrolytes. We will discuss the findings with pulmonary and consider serological workup. Will otherwise continue current blood pressure regimen. Monitor hemodynamics closely, avoiding hypotensive episodes. Will c onsider starting patient on low-dose diuretic therapy. The patient denies any overt signs of uremia. Please note I spoke in detail with the patient about his progression of chronic kidney disease, acu te kidney injury and the possibility of dialysis if patient should develop signs of uremia and worsen ing renal function. We will continue to monitor closely. 2. Hypertensive urgency. The patient has had refractory hypertension, concerning for secondary caus es i.e., renal vascular disease, hyperaldosteronism. The patient had previous CT scan of abdomen and pelvis which was negative for any adrenal adenoma. Additionally, aldosterone and rennin levels have been checked and have been within normal limits. However, given the patient's refractory hypertensi on, will repeat a random aldosterone level. We will check a cortisol level. Continue current blood pressure regimen, consider adding Aldactone and as stated above, will monitor blood pressures closely to avoid significant hemodynamic fluctuations. 4. Anemia. Monitor hemoglobin and hematocrit levels. 5. Mineral bone disorder. We will check calcium and phosphorus level, check PTH, vitamin D25 level. 6. Acute hypoxemic respiratory failure secondary to pneumonia. Continue supplemental oxygen. Yu nue current antibiotic therapy. 7. Hemoptysis, likely secondary to underlying pneumonia. Continue current treatment plan. A CT sca n was reviewed. 8. Sepsis secondary to bilateral pneumonia. The patient's CT scan was reviewed. Continue current b road spectrum antibiotics. Will discuss with pulmonary. May consider a bronchoscopy. 9. History of diastolic heart dysfunction. The patient appears euvolemic on exam. There is noted l ower extremity edema. This may be secondary to calcium channel blockers. We will continue medical m anagement. Dictated By: SOPHIA COLIN DO NR/NTS Conf#: [id number] DID#: [id number] CC: THAI EVANS MD; MARTHA AVILA MD;*End*
[2018-03-15] MEDS: CALCIUM CARBONATE 500 MG CHEW TAB PO PRN (18:32)
[2018-03-15] MEDS: ACETAMINOPHEN 650MG/20.3ML CUP PO PRN (18:32)
--- NOTE | 2018-03-15 19:39 | NUR ---
END OF SHIFT: Patient transferred from 102 to 113 (due to airborne isolation precaution r/o TB). AFB culture & smear sputum collected and sent #1, sputum #2 endorsed to incoming RN: Nicola to collect. Patient stable during the shift. Vital stable. Tele status at this time. No room available at this time.
[2018-03-15] MEDS ORDERED: traZODone 50 MG TAB PO ONE (20:00)
[2018-03-16] VITALS (25 sets, daily range): BP systolic 125–160; BP diastolic 70–99; PULSE 79–111; RESP 15–31
[2018-03-16] MEDS: LEVOFLOXACIN 250MG/D5W (PMX) 50 ML IVPB SCH (06:04)
--- NOTE | 2018-03-16 08:02 | PN ---
DATE: 03/16/2018 SUBJECTIVE: The patient currently is in isolation room being ruled out for tuberculosis. The patien t's blood pressures have improved. Urinary output has been adequate per patient. He denies any over t uremic symptoms of lethargy, weakness, metallic taste in his mouth. No other events noted. The pa sigrid continues to have episodes of hemoptysis. OBJECTIVE: VITAL SIGNS: Blood pressure is 142/77, pulse 99, respirations 23, temperature 97.5. HEENT: Head is normocephalic. NECK: Supple. HEART: Regular rate. LUNGS: Show diminished breath sounds at the base. ABDOMEN: Soft, nontender to palpation. No rebound or guarding. EXTREMITIES: Negative for clubbing, cyanosis, no edema. DERMATOLOGIC: No rashes. MUSCULOSKELETAL: No joint effusion. NEUROLOGIC: No change in exam. MEDICATIONS: Reviewed. LABORATORY DATA: Shows white count 6.9, hemoglobin 10.8, platelet count is 268. Sodium 137, potassi um 3.6, chloride 105, BUN 51, creatinine 5.48. Urinalysis shows a protein creatinine ratio approxima tely 3 grams per gram of creatinine, FENa of approximately 1%. IMAGING STUDIES: Reviewed. MICROBIOLOGY: Pending. ASSESSMENT AND PLAN: 1. Nonoliguric acute kidney injury on top of chronic kidney disease stage IV with previous baseline creatinine of 3.0 mg/dL in 08/2017. Etiology of current acute kidney injury is likely secondary to a cute tubular necrosis due to hypertensive urgency, hemodynamic fluctuations. The possibility of acut e glomerulonephritis or vasculitis is less likely given the patient's bland urinary sediment and clin ical presentation. However, the patient's CT scan does show possibility of pneumonitis in conjunctio n with hemoptysis. These findings raised the possibility of pulmonary renal type syndrome, i.e. ANCA vasculitis. We will therefore check serologies. The patient still remains in injury phase of acute tubular necrosis as renal function continues to decline. The patient denies overt uremic symptoms. There is no immediate need for renal replacement therapy at this time. At this point, continue curr ent treatment plan, continue antibiotic therapy, continue blood pressure medications, avoiding signif icant hemodynamic fluctuations. Monitor renal function closely. Otherwise, continue supportive care , renally dose all medicines and avoid nephrotoxins. 2. Hypertensive urgency. The patient has history of refractory hypertension, etiology may be multif actorial secondary to medical noncompliance, i.e. secondary causes including renal vascular disease, chronic kidney disease, and pheochromocytoma are considerations. The patient's previous CT scan show ed no evidence of adrenal adenoma; however, this does not rule out the possibility of the bilateral u nilateral adrenal hyperplasia. Currently, a repeat random aldosterone level is pending. Also, check cortisol level, urine fractionated metanephrines. Continue current blood pressure regimen, consider adding Aldactone. Monitor closely. 3. Anemia. Continue to monitor hemoglobin and hematocrit levels. 4. Mineral bone disorder. Monitor calcium and phosphorus levels. 5. Hemoptysis concerning for pneumonia, the patient being ruled out for TB. Follow up sputum AFB sm ears. Continue to monitor. Continue antibiotic therapy. 6. Sepsis secondary to pneumonia. Continue current antibiotic regimen. Consider pulmonary evaluati on. 7. Acute hypoxemic respiratory failure secondary to pneumonia. Continue to monitor. 8. Diastolic dysfunction. Continue medical management. 9. Questionable history of sleep apnea, consider a pulmonary evaluation. Dictated By: SOPHIA COLIN DO NR/NTS Conf#: [id number] DID#: [id number] CC: THAI EVANS MD; MARTHA AVILA MD;*EndCC*
[2018-03-16] MEDS: LABETALOL 200 MG TAB PO SCH ×3 (08:49→23:23)
[2018-03-16] MEDS: NIFEdipine (XL) 60 MG TAB PO SCH ×2 (08:49→21:19)
[2018-03-16] MEDS: HYDROCODONE/APAP (5/325) TAB PO PRN (11:17)
--- NOTE | 2018-03-16 13:29 | PN ---
Date/Time of Note Date/Time of Note DATE: 03/16/18 TIME: 13:25 Assessment/Plan VTE Prophylaxis Risk score (from Ns)>0 risk: 1 SCD applied (from Ns): No SCD contraindicated: other (none) Pharmacological prophylaxis: NA/contraindicated Pharm contraindication: low risk/ambulating Lines/Catheters IV Catheter Type (from [facility] Peripheral IV Urinary Cath still in place: No Assessment/Plan Assessment/Plan 27 yo man presents in hypertensive urgency. #LUCIA - With LUCIA and hemoptysis, a pulmonary-renal syndrome like anti-GBM or GPA is very possible. Appreciate workup done by Dr. Chavira. - Currently not requiring dialysis, but renal function continues to worsen. # Hypertension - improving now, patient admitted back in August 2017 for similar issue. - Now off nitro gtt, stable for transfer to [facility] - Continue his oral medication, doses increased. #Hemoptysis - With history of homelessness, hemoptysis, night sweats, there is mild to mode rate risk of tuberculosis - Airborne isolation, AFB sputum x3, PCR x2, culture x1. - CT chest with diffuse bilateral ground-glass opacities. - With LUCIA and hemoptysis, a pulmonary-renal syndrome like anti-GBM or GPA is very possible. Appreciate workup done by Dr. Chavira. # Mild sepsis- as evidenced by leukocytosis and tachycardia: - Possibly from community-acquired pneumonia based on chest x-ray findings. - White blood cell count is elevated, however no fevers. - For now continue IV antibiotics, will complete 7-10 day course. # Possible diastolic CHF: - BNP elevated this admission 6-7,000 range. CHF exacerbated by severely elevated blood pressure most likely. Echo results from September 2017 reviewed. Ejection fraction 60-65% at that time - Monitor blood pressure for now, continue current medications. Currently appears euvolemic, will hold off on diuresis. DVT: SCDs, ambulation GI: None Result Diagram: 03/16/18 0438 03/16/18 0438 Results 24hrs Laboratory Tests Test 03/16/18 04:38 03/16/18 08:10 03/16/18 08:15 White Blood Count 16.9 #H Red Blood Count 3.80 L Hemoglobin 10.8 L Hematocrit 33.8 L Mean Corpuscular Volume 88.9 Mean Corpuscular Hemoglobin 28.4 L Mean Corpuscular Hemoglobin Concent 32.0 Red Cell Distribution Width 14.5 Platelet Count 268 Mean Platelet Volume 11.5 H Immature Granulocytes % 0.500 H Neutrophils % 69.3 Lymphocytes % 12.5 L Monocytes % 9.7 Eosinophils % 7.5 H Basophils % 0.5 Nucleated Red Blood Cells % 0.0 Immature Granulocytes # 0.080 H Neutrophils # 11.7 H Lymphocytes # 2.1 Monocytes # 1.6 H Eosinophils # 1.3 H Basophils # 0.1 Nucleated Red Blood Cells # 0.0 Sodium Level 137 Potassium Level 3.6 Chloride Level 104 Carbon Dioxide Level 25 Anion Gap 8 Blood Urea Nitrogen 51 H Creatinine 5.48 H Est Glomerular Filtrat Rate mL/min 12 L Glucose Level 99 Calcium Level 8.8 Phosphorus Level 6.6 #H Magnesium Level 2.4 Random Cortisol 8.5 Complement C3 116 Complement C4 40 Hepatitis B Surface Antigen NEGATIVE Hepatitis B Core Total Antibody NEGATIVE Hepatitis C Antibody NEGATIVE Subjective 24 Hr Interval Summary Free Text/Dictation No acute overnight events. The patient does have copious yellow and blood-streaked sputum in emesis bag at bedside. Currently denies any chest pain, hematuria, dysuria, SOB. Able to ambulate without problems. Exam/Review of Systems Vital Signs Vitals Vital Signs Date Temp Pulse Resp B/P (MAP) Pulse Ox O2 O2 Flow FiO2 Time Delivery Rate 03/16/18 91 12:00 03/16/18 23 133/74 90 Nasal 11:00 (93) Cannula 03/16/18 98.8 08:00 03/16/18 4.0 08:00 03/16/18 35 03:01 Intake and Output 03/15/18 03/15/18 03/16/18 1414:59 22:59 06:59 IntakeIntake Total 725 ml 920 ml 200 ml OutputOutput Total 450 ml 0 ml 400 ml BalanceBalance 275 ml 920 ml -200 ml Exam General: Well developed man lying in bed in no acute distress. HEENT:Normocephalic. Atraumatic.Pupils were equal round reactive to light. Neck: Supple Respiratory:Lungs were clear to auscultation bilaterally. No wheezing. Cardiovascular: Regular rate regular rhythm, S1, S2 normal. Distal pulses are palpable 2+ bilaterally. GI: Abdomen was soft. Nontender. Non Distended. No rebound. No guarding. Bowel sounds were present and normal. Muscle skeletal: Full range of motion of both the upper and lower extremities bilaterally.1+ pitting edema. Skin: No petechia, no purpura. No maculopapular rash. Medications Medications Current Medications Ondansetron HCl (Zofran Inj) 4 mg Q6H PRN IV NAUSEA AND/OR VOMITING Last administered on 03/15/18 13:18; Admin Dose 4 MG; Start 03/13/18 at 23:30 Albuterol/ Ipratropium (Duoneb) 3 ml Q2H RESP THERAPY PRN NEB SHORTNESS OF BREATH Last administered on 03/15/18 04:04; Admin Dose 3 ML; Start 03/13/18 at 23:30 Acetaminophen (Tylenol Liquid) 650 mg Q6H PRN PO PAIN LEVEL 1-3 OR FEVER Last administered on 03/15/18 18:32; Admin Dose 650 MG; Start 03/13/18 at 23:30 Nifedipine (Procardia Xl) 60 mg BID PO Last administered on 03/16/18 08:49; Admin Dose 60 MG; Start 03/14/18 at 09:00 Levofloxacin/ Dextrose 50 ml @ 50 mls/hr Q24H IVPB Last administered on 03/16/18 06:04; Admin Dose 50 MLS/HR; Start 03/15/18 at 07:00 Acetaminophen/ Hydrocodone Bitart ([place] (5/325)) 1 tab Q6H PRN PO MODERATE PAIN LEVEL 4-6 Last administered on 03/16/18 11:17; Admin Dose 1 TAB; Start 03/14/18 at 14:00 Labetalol HCl (Normodyne) 400 mg TID PO Last administered on 03/16/18 08:49; Admin Dose 400 MG; Start 03/14/18 at 21:00 Labetalol HCl (Labetalol) 10 mg Q4H PRN IV ELEVATED SYSTOLIC BP >160 Last administered on 03/14/18 16:14; Admin Dose 10 MG; Start 03/14/18 at 16:00 Hydralazine HCl (Apresoline) 10 mg Q4H PRN IV ELEVATED BLOOD PRESSURE; Start 03/14/18 at 16:00 Hydralazine HCl (Apresoline) 75 mg Q8 PO Last administered on 03/16/18 06:04; Admin Dose 75 MG; Start 03/14/18 at 22:00 Calcium Carbonate (Tums) 500 mg Q4H PRN PO DYSPEPSIA Last administered on 03/15/18at 18:32; Admin Dose 500 MG; Start 03/15/18 at 18:00 MARTHA AVILA MD Mar 16, 2018 13:29
--- NOTE | 2018-03-16 17:12 | NUR ---
GAVE REPORT RN GAVE REPORT RAQUEL RN IN TELE. PT IN STABLE CONDITION. PT IS AO4, SR, HEMODYNAMICALLY STABLE, AFEBRILE, AND IN NO RESPIRATORY DISTRESS. NO SIGNIFICANT EVENTS OCCURRED DURING SHIFT. ALL OF PT NEEDS CARED FOR. ENDORSING CARE TO RAQUEL IN TELE.
--- NOTE | 2018-03-16 18:50 | NUR ---
EOSS: Pt AO x 4, transferred from ICU. VSS, NSR on tele. Accompanied by family, oriented to unit and updated on POC. All questions answered. Ambulates with steady gait. Skin pictures done. Will endorse accordingly to oncoming shift.
[2018-03-16] MEDS: CALCIUM CARBONATE 500 MG CHEW TAB PO PRN (21:27)
[2018-03-16] MEDS ORDERED: LORAZEPAM 2 MG INJ IV ONE (22:00)
[2018-03-17] VITALS (15 sets, daily range): BP systolic 140–154; BP diastolic 80–90; PULSE 85–107; RESP 17–20
[2018-03-17] MEDS: ALBUTEROL/IPRATROPIUM (NEB) 3 ML AMP NEB PRN (04:34)
[2018-03-17] MEDS: LEVOFLOXACIN 250MG/D5W (PMX) 50 ML IVPB SCH (06:03)
--- NOTE | 2018-03-17 07:07 | NUR ---
Pt. was on the BIpap since around 2300, got Ativan 1 mg IV X1 & Slept; at around 0500 , pt. complained of difficulty breathing, RT gave breathing tx w/ some relief. No untoward rxn to IV Levaquin, agreed to SCD's, had around 900 cc urine output, BP 150's systolic, SR.
--- NOTE | 2018-03-17 08:19 | PN ---
DATE: 03/17/2018 SUBJECTIVE: The patient was transferred from intensive care unit to telemetry. The patient continue s to have shortness of breath. The patient is also now describing poor p.o. and appetite. He denies any metallic taste in his mouth. I discussed again with the patient about the possibility of dialys is if renal function does not stabilize or improve. The patient understood. All questions were answ ered. OBJECTIVE: VITAL SIGNS: Blood pressure is 159/90, respirations 20, temperature 98.3, pulse 96. HEENT: Head is normocephalic. NECK: Supple. HEART: Regular rate. LUNGS: Show diminished breath sounds at the base. ABDOMEN: Soft, nontender to palpation. No rebound or guarding. EXTREMITIES: Negative for clubbing, cyanosis, no edema. DERMATOLOGIC: No rashes. MUSCULOSKELETAL: No joint effusions. NEUROLOGIC: No change in exam. MEDICATIONS: The patient's medications have been reviewed. LABORATORY DATA: From 03/17/2018 is pending. The patient's neurologic workup has been negative to fidelina ate. ASSESSMENT AND PLAN: 1. Nonoliguric acute kidney injury on top of chronic kidney disease stage IV with previous baseline creatinine of 3.0 mg/dL. Etiology of acute kidney injury is likely secondary to acute tubular necros is due to hypertensive urgency, hemodynamic fluctuations. The possibility of an acute glomerulonephr itis or vasculitis is less likely given the patient's bland urinary sediment. However, as the patien t has developed hemoptysis, possible pulmonary renal syndrome is a consideration. Serologies have be en sent out for KIRSTEN, ANCA and anti-GBM antibody. The patient currently continues to remain in injury phase of acute tubular necrosis. As stated above if patient should continue to develop worsening ur emic symptoms, we would consider initiating renal replacement therapy. Otherwise, continue current t reatment plan, supportive care, renally dose all medicines. 2. Hypertensive urgency. The patient's blood pressures have improved with reintroduction of blood p ressure medications. This raises a strong consideration that the patient was not compliant with his medications. Secondary workup is ongoing. The patient's cortisol level is within normal limits. Re peat random aldosterone levels are pending. Urinary metanephrines are pending. Continue current blo od pressure regimen. Monitor closely. Avoid significant and rapid improvement in blood pressure, wh ich would further hyper perfuse kidneys and exacerbate acute kidney injury. 3. Anemia. Monitor hemoglobin and hematocrit levels. 4. Mineral bone disorder. Monitor calcium and phosphorus levels. 5. Hemoptysis, likely secondary to pneumonia. The patient is being ruled out for TB. Continue to m onitor. 6. Acute hypoxemic respiratory failure secondary to pneumonia. 7. Diastolic dysfunction. Continue medical management. 8. Questionable history of sleep apnea, possibly related to underlying hypertension. Continue to mo nitor. Consider pulmonary evaluation. Dictated By: SOPHIA COLIN DO NR/NTS Conf#: [id number] DID#: [id number] CC: MARTHA AVILA MD; THAI EVANS MD;*EndCC*
[2018-03-17] MEDS: NIFEdipine (XL) 60 MG TAB PO SCH ×2 (09:06→21:51)
--- NOTE | 2018-03-17 11:24 | CONS ---
Date/Time of Note Date/Time of Note DATE: 03/17/18 TIME: 11:16 Assessment/Plan Assessment/Plan Assessment/Plan Chest x-ray was reviewed which is showing cardiomegaly with pulmonary vascular congestion. CT chest showing sandra pulmonary edema. Assessment recommendations; 1. Patient with history of severe hypertension as well as chronic renal insufficiency admitted for shortness of breath with chest x-ray and CT scan findings suggestive of pulmonary edema with interval improvement based upon symptoms. 2. Currently there is no indication to suggest pulmonary renal syndrome. Like vasculitis etc. 3. History of sleep apnea. 4. Diastolic dysfunction exacerbating pulmonary edema. Continue current supportive care. Optimize blood pressure control. Obtain follow-up chest x-ray in 48 hours. Result Diagram: 03/17/18 0749 03/17/18 0749 Results 24hrs Laboratory Tests Test 03/17/18 07:49 White Blood Count 17.0 H Red Blood Count 3.85 L Hemoglobin 11.0 L Hematocrit 34.0 L Mean Corpuscular Volume 88.3 Mean Corpuscular Hemoglobin 28.6 L Mean Corpuscular Hemoglobin Concent 32.4 Red Cell Distribution Width 14.6 H Platelet Count 302 Mean Platelet Volume 13.3 H Immature Granulocytes % 0.500 H Neutrophils % 78.5 H Lymphocytes % 6.0 L Monocytes % 8.5 Eosinophils % 6.0 Basophils % 0.5 Nucleated Red Blood Cells % 0.0 Immature Granulocytes # 0.080 H Neutrophils # 13.3 H Lymphocytes # 1.0 Monocytes # 1.5 H Eosinophils # 1.0 H Basophils # 0.1 Nucleated Red Blood Cells # 0.0 Sodium Level 137 Potassium Level 3.9 Chloride Level 105 Carbon Dioxide Level 20 L Anion Gap 12 Blood Urea Nitrogen 50 H Creatinine 5.39 H Est Glomerular Filtrat Rate mL/min 13 L Glucose Level 102 Calcium Level 9.1 Phosphorus Level 4.8 Consultation Date/Type/Reason Admit Date/Time Date of Consultation: Mar 17, 2018 Type of Consult Pulmonary Reason for Consultation Patient is a pleasant 27-year-old male who came into the hospital 3 days ago with complaints of shortness of breath and coughing up of reddish sputum. Patient was found to be quite hypertensive and was admitted and started on nicardipine drip. Patient has improved significantly and according to him shor tness of breath has resolved, there is no further hemoptysis with only minimal amount of avis colored sputum now. Patient denies any fever, chills, chest pain, wheezing. Past medical history; 1. History of severe hypertension. History of noncompliance with medications due to lack of health care. 2. Chronic renal insufficiency with baseline creatinine of 3. 3. Likely underlying sleep apnea. Medications; reviewed. Allergies; none. Social history; patient smokes marijuana. Family history; noncontributory. 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 Review of systems; denies any headache, seizures, visual changes. Denies any further hemoptysis. Denies any shortness of breath. Denies any coughing, wheezing, chest pain. Denies any abdominal pain, nausea vomiting. Patient passing adequate amounts of urine. Denies any edema, orthopnea. Denies any weight gain. Complains of snoring and excessive daytime sleepiness. Denies any epistaxis. General exam; young male, morbidly obese. Awake alert. Currently in no distress. Past Medical History Medical History: hypertension, renal disease Medications Current Medications Ondansetron HCl (Zofran Inj) 4 mg Q6H PRN IV NAUSEA AND/OR VOMITING Last administered on 03/15/18 13:18; Admin Dose 4 MG; Start 03/13/18 at 23:30 Albuterol/ Ipratropium (Duoneb) 3 ml Q2H RESP THERAPY PRN NEB SHORTNESS OF BREATH Last administered on 03/17/18 04:34; Admin Dose 3 ML; Start 03/13/18 at 23:30 Acetaminophen (Tylenol Liquid) 650 mg Q6H PRN PO PAIN LEVEL 1-3 OR FEVER Last administered on 03/15/18 18:32; Admin Dose 650 MG; Start 03/13/18 at 23:30 Nifedipine (Procardia Xl) 60 mg BID PO Last administered on 03/17/18 09:06; Admin Dose 60 MG; Start 03/14/18 at 09:00 Levofloxacin/ Dextrose 50 ml @ 50 mls/hr Q24H IVPB Last administered on 03/17/18 06:03; Admin Dose 50 MLS/HR; Start 03/15/18 at 07:00 Acetaminophen/ Hydrocodone Bitart ([place] (5/325)) 1 tab Q6H PRN PO MODERATE PAIN LEVEL 4-6 Last administered on 03/16/18 11:17; Admin Dose 1 TAB; Start 03/14/18 at 14:00 Labetalol HCl (Normodyne) 400 mg TID PO Last administered on 03/16/18at 23:23; Admin Dose 400 MG; Start 03/14/18 at 21:00 Labetalol HCl (Labetalol) 10 mg Q4H PRN IV ELEVATED SYSTOLIC BP >160 Last administered on 03/14/18at 16:14; Admin Dose 10 MG; Start 03/14/18 at 16:00 Hydralazine HCl (Apresoline) 10 mg Q4H PRN IV ELEVATED BLOOD PRESSURE; Start 03/14/18 at 16:00 Hydralazine HCl (Apresoline) 75 mg Q8 PO Last administered on 03/17/18at 06:03; Admin Dose 75 MG; Start 03/14/18 at 22:00 Calcium Carbonate (Tums) 500 mg Q4H PRN PO DYSPEPSIA Last administered on 03/16/18at 21:27; Admin Dose 500 MG; Start 03/15/18 at 18:00 Allergies: Coded Allergies: No Known Allergies (Unverified Allergy, Unknown, 09/02/17) Past Surgical History Past Surgical Hx: no surgical history Social History Smoking Status: Never smoker Drug Use: marijuana Exam/Review of Systems Vital Signs Vitals Vital Signs Date Temp Pulse Resp B/P (MAP) Pulse Ox O2 O2 Flow FiO2 Time Delivery Rate 03/17/18 107 24 09:43 03/17/18 98.6 140/86 89 07:58 (104) 03/17/18 21 04:38 03/17/18 3.0 04:34 03/17/18 Room Air 04:26 Intake and Output 03/16/18 03/16/18 03/17/18 1515:00 23:00 07:00 IntakeIntake Total 230 ml 125 ml 50 ml OutputOutput Total 400 ml 275 ml 750 ml BalanceBalance -170 ml -150 ml -700 ml Exam HEENT exam; supple neck, positive JVD. No lymphadenopathy. Midline trachea. No thyromegaly. Patient has fair dentition. No neck masses. Pharynx is clear. Chest exam; clear to auscultation. S1-S2 audible, no murmurs. Regular rhythm. Abdomen exam; soft, protuberant. Nontender. Bowel sounds audible. Extremity exam; no peripheral edema or clubbing. Pulses 2+. DIRECTOR OF PROPERTY MANAGEMENT exam; no focal deficit. Medications Medications Current Medications Ondansetron HCl (Zofran Inj) 4 mg Q6H PRN IV NAUSEA AND/OR VOMITING Last administered on 03/15/18 13:18; Admin Dose 4 MG; Start 03/13/18 at 23:30 Albuterol/ Ipratropium (Duoneb) 3 ml Q2H RESP THERAPY PRN NEB SHORTNESS OF BREATH Last administered on 03/17/18 04:34; Admin Dose 3 ML; Start 03/13/18 at 23:30 Acetaminophen (Tylenol Liquid) 650 mg Q6H PRN PO PAIN LEVEL 1-3 OR FEVER Last administered on 03/15/18 18:32; Admin Dose 650 MG; Start 03/13/18 at 23:30 Nifedipine (Procardia Xl) 60 mg BID PO Last administered on 03/17/18 09:06; Admin Dose 60 MG; Start 03/14/18 at 09:00 Levofloxacin/ Dextrose 50 ml @ 50 mls/hr Q24H IVPB Last administered on 03/17/18 06:03; Admin Dose 50 MLS/HR; Start 03/15/18 at 07:00 Acetaminophen/ Hydrocodone Bitart ([place] (5/325)) 1 tab Q6H PRN PO MODERATE PAIN LEVEL 4-6 Last administered on 03/16/18at 11:17; Admin Dose 1 TAB; Start 03/14/18 at 14:00 Labetalol HCl (Normodyne) 400 mg TID PO Last administered on 03/16/18at 23:23; Admin Dose 400 MG; Start 03/14/18 at 21:00 Labetalol HCl (Labetalol) 10 mg Q4H PRN IV ELEVATED SYSTOLIC BP >160 Last administered on 03/14/18at 16:14; Admin Dose 10 MG; Start 03/14/18 at 16:00 Hydralazine HCl (Apresoline) 10 mg Q4H PRN IV ELEVATED BLOOD PRESSURE; Start 03/14/18 at 16:00 Hydralazine HCl (Apresoline) 75 mg Q8 PO Last administered on 03/17/18 06:03; Admin Dose 75 MG; Start 03/14/18 at 22:00 Calcium Carbonate (Tums) 500 mg Q4H PRN PO DYSPEPSIA Last administered on 03/16/18at 21:27; Admin Dose 500 MG; Start 03/15/18 at 18:00 LEO LYLES Mar 17, 2018 11:24
--- NOTE | 2018-03-17 11:26 | PN ---
Date/Time of Note Date/Time of Note DATE: 03/17/18 TIME: 11:22 Assessment/Plan VTE Prophylaxis Risk score (from Ns)>0 risk: 1 SCD applied (from Ns): Yes Pharmacological prophylaxis: NA/contraindicated Pharm contraindication: low risk/ambulating Lines/Catheters IV C[facility] Type (from [facility] Saline Lock Urinary Cath still in place: No Assessment/Plan Assessment/Plan 27 yo man presents in hypertensive urgency, LUCIA. #LUCIA - With LUCIA and hemoptysis, a pulmonary-renal syndrome like anti-GBM or GPA is very possible. Appreciate workup done by Dr. Chavira. - Currently not requiring dialysis, will carefully watch renal function. # Hypertension - improving now, patient admitted back in August 2017 for similar issue. - Continue his oral medication, doses increased. #Hemoptysis - With history of homelessness, hemoptysis, night sweats, there is mild to moderate risk of tuberculosis - TB ruleout: AFB neg x3, PCR neg x1. Second required order was cancelled by Ibeth Eaton in lab for unclear reason. Lab says they will send this second PCR. Culture in lab as well. - CT chest with diffuse bilateral ground-glass opacities. - With LUCIA and hemoptysis, a pulmonary-renal syndrome like anti-GBM or GPA is very possible. # Mild sepsis- as evidenced by leukocytosis and tachycardia: - Possibly from community-acquired pneumonia based on chest x-ray findings. - White blood cell count is elevated, however no fevers. - For now continue IV antibiotics, will complete 7-10 day course. # Possible diastolic CHF: - BNP elevated this admission 6-7,000 range. CHF exacerbated by severely elevated blood pressure most likely. Echo results from September 2017 reviewed. Ejection fraction 60-65% at that time - Monitor blood pressure for now, continue current medications. Currently appears euvolemic, will hold off on diuresis. DVT: SCDs, ambulation GI: None Result Diagram: 03/17/18 0749 03/17/18 0749 Results 24hrs Laboratory Tests Test 03/17/18 07:49 White Blood Count 17.0 H Red Blood Count 3.85 L Hemoglobin 11.0 L Hematocrit 34.0 L Mean Corpuscular Volume 88.3 Mean Corpuscular Hemoglobin 28.6 L Mean Corpuscular Hemoglobin Concent 32.4 Red Cell Distribution Width 14.6 H Platelet Count 302 Mean Platelet Volume 13.3 H Immature Granulocytes % 0.500 H Neutrophils % 78.5 H Lymphocytes % 6.0 L Monocytes % 8.5 Eosinophils % 6.0 Basophils % 0.5 Nucleated Red Blood Cells % 0.0 Immature Granulocytes # 0.080 H Neutrophils # 13.3 H Lymphocytes # 1.0 Monocytes # 1.5 H Eosinophils # 1.0 H Basophils # 0.1 Nucleated Red Blood Cells # 0.0 Sodium Level 137 Potassium Level 3.9 Chloride Level 105 Carbon Dioxide Level 20 L Anion Gap 12 Blood Urea Nitrogen 50 H Creatinine 5.39 H Est Glomerular Filtrat Rate mL/min 13 L Glucose Level 102 Calcium Level 9.1 Phosphorus Level 4.8 Subjective 24 Hr Interval Summary Free Text/Dictation No acute overnight events. Patient still coughing up avis-colored sputum. Otherwise feeling well, no fevers. Exam/Review of Systems Vital Signs Vitals Vital Signs Date Temp Pulse Resp B/P (MAP) Pulse Ox O2 O2 Flow FiO2 Time Delivery Rate 03/17/18 107 24 09:43 03/17/18 98.6 140/86 89 07:58 (104) 03/17/18 21 04:38 03/17/18 3.0 04:34 03/17/18 Room Air 04:26 Intake and Output 03/16/18 03/16/18 03/17/18 1515:00 23:00 07:00 IntakeIntake Total 230 ml 125 ml 50 ml OutputOutput Total 400 ml 275 ml 750 ml BalanceBalance -170 ml -150 ml -700 ml Exam General: Well developed man lying in bed in no acute distress. HEENT:Normocephalic. Atraumatic.Pupils were equal round reactive to light. Neck: Supple Respiratory:Lungs were clear to auscultation bilaterally. No wheezing. Cardiovascular: Regular rate regular rhythm, S1, S2 normal. Distal pulses are palpable 2+ bilaterally. GI: Abdomen was soft. Nontender. Non Distended. No rebound. No guarding. Bowel sounds were present and normal. Muscle skeletal: Full range of motion of both the upper and lower extremities b ilaterally.1+ pitting edema. Skin: No petechia, no purpura. No maculopapular rash. Medications Medications Current Medications Ondansetron HCl (Zofran Inj) 4 mg Q6H PRN IV NAUSEA AND/OR VOMITING Last administered on 03/15/18 13:18; Admin Dose 4 MG; Start 03/13/18 at 23:30 Albuterol/ Ipratropium (Duoneb) 3 ml Q2H RESP THERAPY PRN NEB SHORTNESS OF BREATH Last administered on 03/17/18 04:34; Admin Dose 3 ML; Start 03/13/18 at 23:30 Acetaminophen (Tylenol Liquid) 650 mg Q6H PRN PO PAIN LEVEL 1-3 OR FEVER Last administered on 03/15/18 18:32; Admin Dose 650 MG; Start 03/13/18 at 23:30 Nifedipine (Procardia Xl) 60 mg BID PO Last administered on 03/17/18 09:06; Admin Dose 60 MG; Start 03/14/18 at 09:00 Levofloxacin/ Dextrose 50 ml @ 50 mls/hr Q24H IVPB Last administered on 03/17/18 06:03; Admin Dose 50 MLS/HR; Start 03/15/18 at 07:00 Acetaminophen/ Hydrocodone Bitart ([place] (5/325)) 1 tab Q6H PRN PO MODERATE PAIN LEVEL 4-6 Last administered on 03/16/18 11:17; Admin Dose 1 TAB; Start 03/14/18 at 14:00 Labetalol HCl (Normodyne) 400 mg TID PO Last administered on 03/16/18 23:23; Admin Dose 400 MG; Start 03/14/18 at 21:00 Labetalol HCl (Labetalol) 10 mg Q4H PRN IV ELEVATED SYSTOLIC BP >160 Last administered on 03/14/18 16:14; Admin Dose 10 MG; Start 03/14/18 at 16:00 Hydralazine HCl (Apresoline) 10 mg Q4H PRN IV ELEVATED BLOOD PRESSURE; Start 03/14/18 at 16:00 Hydralazine HCl (Apresoline) 75 mg Q8 PO Last administered on 03/17/18 06:03; Admin Dose 75 MG; Start 03/14/18 at 22:00 Calcium Carbonate (Tums) 500 mg Q4H PRN PO DYSPEPSIA Last administered on 03/16/18 21:27; Admin Dose 500 MG; Start 03/15/18 at 18:00 MARTHA AVILA MD Mar 17, 2018 11:26
[2018-03-17] MEDS: LABETALOL 200 MG TAB PO SCH ×3 (11:35→21:52)
[2018-03-17] MEDS: ACETAMINOPHEN 650MG/20.3ML CUP PO PRN (17:58)
[2018-03-17] MEDS: ONDANSETRON 4 MG INJ IV PRN (18:05)
--- NOTE | 2018-03-17 18:05 | NUR ---
assumed pt care
--- NOTE | 2018-03-17 18:35 | NUR ---
eoss pt denies hemoptysis. denies chest pain. c/o n/v, zofran was given.afb x 3 are neg. will f/u with infection control re isolation.
[2018-03-17] MEDS ORDERED: LORAZEPAM 0.5 MG TAB PO PRN (22:00)
[2018-03-18] VITALS (13 sets, daily range): BP systolic 148–159; BP diastolic 78–93; PULSE 83–102; RESP 18–20
--- NOTE | 2018-03-18 05:41 | NUR ---
eoss: No major event this shift. BP controlled. Denies pain. c/o anxiety started on ativan PO as needed. No signs of respiratory distress. chart reviewed. safety measures followed. encouraged mobility. Plan of care remains the same.
[2018-03-18] MEDS: LEVOFLOXACIN 250MG/D5W (PMX) 50 ML IVPB SCH (06:00)
[2018-03-18] MEDS: NIFEdipine (XL) 60 MG TAB PO SCH ×2 (08:58→21:08)
[2018-03-18] MEDS: LABETALOL 200 MG TAB PO SCH ×3 (08:58→21:09)
--- NOTE | 2018-03-18 08:58 | PN ---
DATE: 03/18/2018 SUBJECTIVE: The patient remains short of breath on BiPAP. The patient continues to have some nausea with medications. No other events noted. OBJECTIVE: VITAL SIGNS: Blood pressure is 152/84, respiration 18, pulse 102, temperature 98.6. HEENT: Head is normocephalic. NECK: Supple. HEART: Regular rate. LUNGS: Show diminished breath sounds at the base. ABDOMEN: Soft, nontender to palpation without rebound or guarding. EXTREMITIES: Negative for clubbing, cyanosis, no edema. DERMATOLOGIC: No rashes. MUSCULOSKELETAL: No joint effusion. NEUROLOGIC: No change in exam. MEDICATIONS: Reviewed. LABORATORY DATA: From 03/17/2018 was reviewed. The patient's serology is negative, normal complemen ts. Microbiology was reviewed. ASSESSMENT AND PLAN: 1. Nonoliguric acute kidney injury on top of chronic kidney disease stage IV with previous baseline creatinine of 3.0 mg/dL. Etiology of acute kidney injury is likely secondary to acute tubular necros is due to hypertensive urgency. Consideration for acute glomerulonephritis, vasculitis was considere d, but a consideration for acute glomerulonephritis vasculitis was made given the patient's presentat ion and possible pneumonitis and hemoptysis. The patient's serological workup has been negative to d ate. The patient had normal complements, negative and anti-double stranded DNA, negative KIRSTEN. At th is point, would continue to monitor renal function closely. Patient may be entering maintenance phas e of acute tubular necrosis, avoid hemodynamic fluctuations. The patient does have some mild uremic symptoms. No immediate need for renal replacement therapy at this time. 2. Hypertensive urgency, improving. Etiology is likely due to medical noncompliance. Continue curr ent medical management, secondary workup is ongoing pending a renin level. The patient's aldosterone level was within normal limits. 3. Anemia. Monitor hemoglobin and hematocrit levels. 4. Mineral bone disorder. Monitor calcium and phosphorus levels. 5. Hemoptysis likely from pneumonia. The patient is being ruled out for TB. Continue to monitor. 6. Acute hypoxemic respiratory failure. 7. Sleep apnea. Continue CPAP. 8. Diastolic dysfunction. Dictated By: SOPHIA COLIN DO NR/NTS Conf#: [id number] DID#: [id number] CC: THAI EVANS MD;*EndCC*
[2018-03-18] MEDS: ONDANSETRON 4 MG INJ IV PRN (10:10)
--- NOTE | 2018-03-18 11:11 | CONS ---
Assessment/Plan Assessment/Plan Assessment/Plan Chest x-ray showing persistent bilateral pulmonary edema. Recommendations; 1. patient with history of chronic renal insufficiency with acute worsening admitted for shortness of breath due to pulmonary edema with history of severe hypertension causing diastolic dysfunction which in combination with chronic renal failure is causing recurrent pulmonary edema. 2. Clinical findings are not consistent with pulmonary renal syndrome. 3. Possibly superimposed pneumonia. Continue current supportive care. Optimize blood pressure control. Add cefepime 1 g every 12 hours. Continue Levaquin. Obtain follow-up chest x-ray 24 hours. Further recommendations per inspector and mender. Result Diagram: 03/18/18 0859 03/18/18 0859 Results 24hrs Laboratory Tests Test 03/17/18 12:09 03/18/18 08:59 Lab Scanned Report REFERENCE LAB White Blood Count 15.1 H Red Blood Count 3.81 L Hemoglobin 10.7 L Hematocrit 33.4 L Mean Corpuscular Volume 87.7 Mean Corpuscular Hemoglobin 28.1 L Mean Corpuscular Hemoglobin Concent 32.0 Red Cell Distribution Width 14.1 Platelet Count 360 Mean Platelet Volume 11.2 H Immature Granulocytes % 0.500 H Neutrophils % 77.1 H Lymphocytes % 7.4 L Monocytes % 9.2 Eosinophils % 5.3 Basophils % 0.5 Nucleated Red Blood Cells % 0.0 Immature Granulocytes # 0.070 H Neutrophils # 11.7 H Lymphocytes # 1.1 Monocytes # 1.4 H Eosinophils # 0.8 H Basophils # 0.1 Nucleated Red Blood Cells # 0.0 Sodium Level 139 Potassium Level 4.0 Chloride Level 106 Carbon Dioxide Level 22 Anion Gap 11 Blood Urea Nitrogen 50 H Creatinine 5.19 H Est Glomerular Filtrat Rate mL/min 13 L Glucose Level 102 Calcium Level 9.2 Phosphorus Level 5.1 H Magnesium Level 2.5 Consultation Date/Type/Reason Admit Date/Time Mar 13, 2018 at 22:37 Initial Consult Date 03/17/18 Type of Consult Pulmonary 24 HR Interval Summary Free Text/Dictation Patient's condition is stable overall denies any significant shortness of breath. Denies any further hemoptysis. Any fever or chills. General exam; young male, awake alert, currently in no distress. Exam/Review of Systems Vital Signs Vitals Vital Signs Date Temp Pulse Resp B/P (MAP) Pulse Ox O2 O2 Flow FiO2 Time Delivery Rate 03/18/18 101 08:37 1/24/19 98.6 18 152/84 92 08:20 (106) 03/18/18 35 08:09 03/17/18 3.0 16:46 03/17/18 Room Air 04:26 Intake and Output 03/17/18 03/17/18 03/18/18 1414:59 22:59 06:59 IntakeIntake Total 1100 ml 200 ml OutputOutput Total 950 ml 700 ml BalanceBalance 150 ml -500 ml Exam H HEENT exam; supple neck, no JVD. No lymphadenopathy. Midline trachea. No thyromegaly. Pharynx is clear. Patient has fair dentition. Chest exam; diminished but clear breath sounds. S1-S2 audible, no murmurs. Regular rhythm. Abdomen exam; soft, nontender. No organomegaly. Bowel sounds audible. Extremity exam; trace edema. 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 Medications Medications Current Medications Ondansetron HCl (Zofran Inj) 4 mg Q6H PRN IV NAUSEA AND/OR VOMITING Last administered on 03/18/18 10:10; Admin Dose 4 MG; Start 03/13/18 at 23:30 Albuterol/ Ipratropium (Duoneb) 3 ml Q2H RESP THERAPY PRN NEB SHORTNESS OF B REATH Last administered on 03/17/18 04:34; Admin Dose 3 ML; Start 03/13/18 at 23:30 Acetaminophen (Tylenol Liquid) 650 mg Q6H PRN PO PAIN LEVEL 1-3 OR FEVER Last administered on 03/15/18 18:32; Admin Dose 650 MG; Start 03/13/18 at 23:30 Nifedipine (Procardia Xl) 60 mg BID PO Last administered on 03/18/18 08:58; Admin Dose 60 MG; Start 03/14/18 at 09:00 Levofloxacin/ Dextrose 50 ml @ 50 mls/hr Q24H IVPB Last administered on 03/18/18 06:00; Admin Dose 50 MLS/HR; Start 03/15/18 at 07:00 Acetaminophen/ Hydrocodone Bitart ([place] (5/325)) 1 tab Q6H PRN PO MODERATE PAIN LEVEL 4-6 Last administered on 03/16/18 11:17; Admin Dose 1 TAB; Start 03/14/18 at 14:00 Labetalol HCl (Normodyne) 400 mg TID PO Last administered on 03/18/18 08:58; Admin Dose 400 MG; Start 03/14/18 at 21:00 Labetalol HCl (Labetalol) 10 mg Q4H PRN IV ELEVATED SYSTOLIC BP >160 Last administered on 03/14/18at 16:14; Admin Dose 10 MG; Start 03/14/18 at 16:00 Hydralazine HCl (Apresoline) 10 mg Q4H PRN IV ELEVATED BLOOD PRESSURE; Start 03/14/18 at 16:00 Hydralazine HCl (Apresoline) 75 mg Q8 PO Last administered on 03/18/18at 05:54; Admin Dose 75 MG; Start 03/14/18 at 22:00 Calcium Carbonate (Tums) 500 mg Q4H PRN PO DYSPEPSIA Last administered on 03/16/18at 21:27; Admin Dose 500 MG; Start 03/15/18 at 18:00 Lorazepam (Ativan) 0.5 mg Q8H PRN PO ANXIETY Last administered on 03/17/18at 21:51; Admin Dose 0.5 MG; Start 03/17/18 at 22:00 Date/Time of Note Date/Time of Note DATE: 03/18/18 TIME: 11:09 LEO LYLES Mar 18, 2018 11:11
[2018-03-18] MEDS: CEFEPIME 1GM/50 ML (PMX) 50 ML IVPB SCH ×2 (12:23→21:09)
--- NOTE | 2018-03-18 17:59 | PN ---
Date/Time of Note Date/Time of Note DATE: 03/18/18 TIME: 17:55 Assessment/Plan VTE Prophylaxis Risk score (from Ns)>0 risk: 2 [place] [facility]CD contraindicated: other (no) Pharmacological prophylaxis: NA/contraindicated Pharm contraindication: low risk/ambulating Lines/Catheters IV [facility] (from [facility] Peripheral IV Urinary Cath still in place: No Assessment/Plan Assessment/Plan 27 yo man presents in hypertensive urgency, LUCIA. #LUCIA - Currently not requiring dialysis, will carefully watch renal function. - Slightly improved today. # Hypertension - improving now, patient admitted back in August 2017 for similar issue. - Continue his oral medication, doses increased. #Hemoptysis - With history of homelessness, hemoptysis, night sweats, there is mild to moderate risk of tuberculosis - TB ruleout: AFB neg x3, PCR neg x2 - CT chest with diffuse bilateral ground-glass opacities. - With LUCIA and hemoptysis, a pulmonary-renal syndrome like anti-GBM or GPA is very possible. # Sepsis- as evidenced by leukocytosis and tachycardia: - Possibly from community-acquired pneumonia based on chest x-ray findings. - White blood cell count is elevated, however no fevers. - For now continue IV antibiotics, will complete 7-10 day course. # Possible diastolic CHF: - BNP elevated this admission 6-7,000 range. CHF exacerbated by severely elevated blood pressure most likely. Echo results from September 2017 reviewed. Ejection fraction 60-65% at that time - Monitor blood pressure for now, continue current medications. Currently appears euvolemic, will hold off on diuresis. DVT: SCDs, ambulation GI: None Dispo: Anticipate renal function improvement and resolution of hypoxia. Result Diagram: 03/18/18 0859 03/18/18 0859 Results 24hrs Laboratory Tests Test 03/18/18 08:59 White Blood Count 15.1 H Red Blood Count 3.81 L Hemoglobin 10.7 L Hematocrit 33.4 L Mean Corpuscular Volume 87.7 Mean Corpuscular Hemoglobin 28.1 L Mean Corpuscular Hemoglobin Concent 32.0 Red Cell Distribution Width 14.1 Platelet Count 360 Mean Platelet Volume 11.2 H Immature Granulocytes % 0.500 H Neutrophils % 77.1 H Lymphocytes % 7.4 L Monocytes % 9.2 Eosinophils % 5.3 Basophils % 0.5 Nucleated Red Blood Cells % 0.0 Immature Granulocytes # 0.070 H Neutrophils # 11.7 H Lymphocytes # 1.1 Monocytes # 1.4 H Eosinophils # 0.8 H Basophils # 0.1 Nucleated Red Blood Cells # 0.0 Sodium Level 139 Potassium Level 4.0 Chloride Level 106 Carbon Dioxide Level 22 Anion Gap 11 Blood Urea Nitrogen 50 H Creatinine 5.19 H Est Glomerular Filtrat Rate mL/min 13 L Glucose Level 102 Calcium Level 9.2 Phosphorus Level 5.1 H Magnesium Level 2.5 Subjective 24 Hr Interval Summary Free Text/Dictation No acute overnight events. Patient reports cough has resolved. No longer producing sputum. Exam/Review of Systems Exam Vitals General: Well developed man lying in bed in no acute distress. HEENT:Normocephalic. Atraumatic.Pupils were equal round reactive to light. Neck: Supple Respiratory:Lungs were clear to auscultation bilaterally. No wheezing. Cardiovascular: Regular rate regular rhythm, S1, S2 normal. Distal pulses are palpable 2+ bilaterally. GI: Abdomen was soft. Nontender. Non Distended. No rebound. No guarding. Bowel sounds were present and normal. Muscle skeletal: Full range of motion of both the upper and lower extremities bilaterally.1+ pitting edema. Skin: No petechia, no purpura. No maculopapular rash. Results Results 24hrs Laboratory Tests Test 03/18/18 08:59 White Blood Count 15.1 H Red Blood Count 3.81 L Hemoglobin 10.7 L Hematocrit 33.4 L Mean Corpuscular Volume 87.7 Mean Corpuscular Hemoglobin 28.1 L Mean Corpuscular Hemoglobin Concent 32.0 Red Cell Distribution Width 14.1 Platelet Count 360 Mean Platelet Volume 11.2 H Immature Granulocytes % 0.500 H Neutrophils % 77.1 H Lymphocytes % 7.4 L Monocytes % 9.2 Eosinophils % 5.3 Basophils % 0.5 Nucleated Red Blood Cells % 0.0 Immature Granulocytes # 0.070 H Neutrophils # 11.7 H Lymphocytes # 1.1 Monocytes # 1.4 H Eosinophils # 0.8 H Basophils # 0.1 Nucleated Red Blood Cells # 0.0 Sodium Level 139 Potassium Level 4.0 Chloride Level 106 Carbon Dioxide Level 22 Anion Gap 11 Blood Urea Nitrogen 50 H Creatinine 5.19 H Est Glomerular Filtrat Rate mL/min 13 L Glucose Level 102 Calcium Level 9.2 Phosphorus Level 5.1 H Magnesium Level 2.5 MARTHA AVILA MD Mar 18, 2018 17:59
--- NOTE | 2018-03-18 18:35 | NUR ---
EOSS: PT AO x 4, VSS, NSR/ST on tele. Poor appetite, c/o nausea, PRN meds administered - effective. Pt taken off isolation precautions- TB has been ruled out, AFB negative x 3. Will endorse accordingly to oncoming shift.
[2018-03-19] VITALS (10 sets, daily range): BP systolic 121–153; BP diastolic 66–90; PULSE 83–104; RESP 19–20
[2018-03-19] MEDS: ALBUTEROL/IPRATROPIUM (NEB) 3 ML AMP NEB PRN (05:40)
--- NOTE | 2018-03-19 06:15 | NUR ---
PT REMAIN IN STABLE CONDITION DURING SHIFT. NO SIGN OF ACUTE DISTRESS NOTED. VITAL SIGNS WITHIN NORMAL. PT REFUSED AM LAB DRAW. ALL NEEDS, CONCERNS, ADDRESSED. WILL ENDORSE TO DAY SHIFT FOR CONTINUITY OF CARE.
[2018-03-19] MEDS: LEVOFLOXACIN 250MG/D5W (PMX) 50 ML IVPB SCH (06:25)
[2018-03-19] MEDS: HYDROCODONE/APAP (5/325) TAB PO PRN ×2 (06:32→13:54)
[2018-03-19] MEDS: CEFEPIME 1GM/50 ML (PMX) 50 ML IVPB SCH (08:36)
[2018-03-19] MEDS: LABETALOL 200 MG TAB PO SCH ×2 (08:37→12:47)
[2018-03-19] MEDS: NIFEdipine (XL) 60 MG TAB PO SCH (08:37)
--- NOTE | 2018-03-19 08:45 | PN ---
DATE: 03/19/2018 SUBJECTIVE: The patient is clinically improving. Shortness of breath has improved. No other events noted. OBJECTIVE: VITAL SIGNS: Blood pressure is 153/90, respirations 20, pulse 90, temperature 98.0. HEENT: Head is normocephalic. NECK: Supple. HEART: Regular rate. LUNGS: Show diminished breath sounds at the base. ABDOMEN: Soft, nontender to palpation. No rebound or guarding. EXTREMITIES: Negative for clubbing, cyanosis, no edema. DERMATOLOGIC: No rashes. MUSCULOSKELETAL: No joint effusions. NEUROLOGIC: No change in exam. MEDICATIONS: The patient's medications have been reviewed. LABORATORY DATA: Currently pending. ASSESSMENT AND PLAN: 1. Nonoliguric acute kidney injury on top of chronic kidney disease stage IV with previous baseline creatinine of 3.0 mg/dL. Etiology of acute kidney injury is likely secondary to acute tubular necros is due to hypertensive urgency. The patient has no evidence of pulmonary renal syndrome at this time . The patient's serological workup has been negative to date. The patient appears to be in recovery phase and/maintenance phase of acute tubular necrosis. At this point, continue current treatment pl an, supportive care, renally dose all medicines. No immediate need for renal placement therapy. 2. Hypertension. Blood pressures have been stable. Continue current management. Secondary workup is ongoing. 3. Anemia. Continue to monitor hemoglobin and hematocrit levels. 4. Mineral bone disorder. Monitor calcium and phosphorus levels. 5. Hemoptysis, likely from pneumonia. Continue to monitor. 6. Acute respiratory failure, improving. 7. Sleep apnea. Continue CPAP. 8. Diastolic dysfunction. Dictated By: SOPHIA COLIN DO NR/NTS Conf#: [id number] DID#: [id number] CC: JANNIE AMAYA MD; MARTHA AVILA MD; THAI EVANS MD;*EndCC*
[2018-03-19] MEDS: ONDANSETRON 4 MG INJ IV PRN (09:40)
--- NOTE | 2018-03-19 11:18 | CONS ---
Consult Date/Type/Reason Admit Date/Time Mar 13, 2018 at 22:37 Initial Consult Date 03/17/18 Type of Consult Pulmonary Date/Time of Note DATE: 03/19/18 TIME: 11:16 Subjective Patient comfortable this morning. Denies shortness of breath sitting up eating.No respiratory distress. Objective Vital Signs Date Temp Pulse Resp B/P (MAP) Pulse Ox O2 O2 Flow FiO2 Time Delivery Rate 03/19/18 104 08:00 03/19/18 98.0 20 153/90 93 Room Air 07:41 (111) 03/19/18 2.0 06:00 03/19/18 21 05:40 Intake and Output 03/18/18 03/18/18 03/19/18 1515:00 23:00 07:00 IntakeIntake Total 50 ml 600 ml 1200 ml OutputOutput Total 900 ml 900 ml BalanceBalance 50 ml -300 ml 300 ml Exam GENERAL: Well-nourished well-developed gentleman comfortable at rest no acute distress VITAL SIGNS: per chart NECK: Supple. No JVD or lymphadenopathy. CARDIAC EXAM: S1, S2. No added sounds or murmurs. CHEST: clear bilaterally, No added sounds, rales or wheezes ABDOMEN: Soft, nontender. No guarding or rebound. EXTREMITIES: No cyanosis, clubbing or edema. NEUROLOGIC: Generalized weakness. No focal deficits. Vent Setting Fraction of Inspired Oxygen pe: 21 Results/Medications Result Diagram: 03/18/18 0859 03/19/18 0955 Results 24 hrs Laboratory Tests Test 03/19/18 09:55 Sodium Level 139 Potassium Level 3.9 Chloride Level 105 Carbon Dioxide Level 23 Anion Gap 11 Blood Urea Nitrogen 47 H Creatinine 5.29 H Est Glomerular Filtrat Rate mL/min 13 L Glucose Level 105 Calcium Level 9.2 Phosphorus Level 4.6 Magnesium Level 2.6 H Medications Current Medications Ondansetron HCl (Zofran Inj) 4 mg Q6H PRN IV NAUSEA AND/OR VOMITING Last administered on 03/19/18at 09:40; Admin Dose 4 MG; Start 03/13/18 at 23:30 Albuterol/ Ipratropium (Duoneb) 3 ml Q2H RESP THERAPY PRN NEB SHORTNESS OF BREATH Last administered on 03/19/18at 05:40; Admin Dose 3 ML; Start 03/13/18 at 23:30 Acetaminophen (Tylenol Liquid) 650 mg Q6H PRN PO PAIN LEVEL 1-3 OR FEVER Last administered on 03/15/18 18:32; Admin Dose 650 MG; Start 03/13/18 at 23:30 Nifedipine (Procardia Xl) 60 mg BID PO Last administered on 03/19/18 08:37; Admin Dose 60 MG; Start 03/14/18 at 09:00 Levofloxacin/ Dextrose 50 ml @ 50 mls/hr Q24H IVPB Last administered on 03/19/18 06:25; Admin Dose 50 MLS/HR; Start 03/15/18 at 07:00 Acetaminophen/ Hydrocodone Bitart ([place] (5/325)) 1 tab Q6H PRN PO MODERATE PAIN LEVEL 4-6 Last administered on 03/19/18 06:32; Admin Dose 1 TAB; Start 03/14/18 at 14:00 Labetalol HCl (Normodyne) 400 mg TID PO Last administered on 03/19/18 08:37; Admin Dose 400 MG; Start 03/14/18 at 21:00 Labetalol HCl (Labetalol) 10 mg Q4H PRN IV ELEVATED SYSTOLIC BP >160 Last administered on 03/14/18 16:14; Admin Dose 10 MG; Start 03/14/18 at 16:00 Hydralazine HCl (Apresoline) 10 mg Q4H PRN IV ELEVATED BLOOD PRESSURE; Start 03/14/18 at 16:00 Hydralazine HCl (Apresoline) 75 mg Q8 PO Last administered on 03/19/18 05:35; Admin Dose 75 MG; Start 03/14/18 at 22:00 Calcium Carbonate (Tums) 500 mg Q4H PRN PO DYSPEPSIA Last administered on 03/16/18 21:27; Admin Dose 500 MG; Start 03/15/18 at 18:00 Lorazepam (Ativan) 0.5 mg Q8H PRN PO ANXIETY Last administered on 03/17/18 21:51; Admin Dose 0.5 MG; Start 03/17/18 at 22:00 Cefepime HCl 50 ml @ 100 mls/hr Q12 IVPB Last administered on 03/19/18 08:36; Admin Dose 100 MLS/HR; Start 03/18/18 at 11:30 Assessment/Plan Hospital Course (Demo Recall) Assessment 1. Status post acute hypoxemic respiratory failure likely secondary to peroneal with a low possible component of tracheobronchitis 2. End-stage renal failure on hemodialysis Plan 1. Continue renal recommendations 2. Discharge okay from pulmonary standpoint Follow-up with primary care physician and nephrology JANNIE AMAYA MD, [facility] Mar 19, 2018 11:18
[2018-03-19] MEDS ORDERED: NIFE60TA2 PO (14:04)
[2018-03-19] MEDS ORDERED: HYDR-3672 PO (14:04)
[2018-03-19] MEDS ORDERED: LABE200T25 PO (14:04)
--- NOTE | 2018-03-19 14:06 | PDOCDIS ---
Discharge Instructions DIAGNOSIS Discharge Diagnosis Acute on chronic renal failure; community-acquired pneumonia CONDITION [id number] Patient Condition: [id number] Good HOME CARE INSTRUCTIONS: [id number] Diet Instructions: [id number] Reduced Sodium ACTIVITY: [id number] Activity Restrictions: [id number] No Restrictions FOLLOW UP/APPOINTMENTS Follow-up Plan 1. Take all medications as prescribed. 2. Monitor your blood pressure daily. If it is persistently above 150/90, make an appointment with your primary care doctor to increase your blood pressure regimen. 3. Go to the emergency room for systolic blood pressure >200, or if you have very high blood pressure associated with dizziness, vision changes, or severe headache. 4. See your kidney doctor in 1 week. MARTHA AVILA MD Mar 19, 2018 14:05
--- NOTE | 2018-03-19 15:17 | NUR ---
Discharge: PT discharge in stable condition. IV removed w/ tip intact. Tele monitor removed. All belongings with patient.
--- NOTE | 2018-03-19 17:00 | DS ---
Date/Time of Note Date/Time of Note DATE: 03/19/18 TIME: 16:57 Discharge Summary Admission/Discharge Info Admit Date/Time Mar 13, 2018 at 22:37 Discharge Date/Time Mar 19, 2018 at 15:32 Discharge Diagnosis Acute on chronic renal failure; community-acquired pneumonia Patient Condition: Fair Consults Dr. Chavira, nephrology Dr. Anglin, pulmonary and criticalcare Hx of Present Illness This is a 27-year-old male with a history of resistant hypertension and CKD, non-compliant with meds who presented to ER complaining of shortness of breath and headache. Symptoms been progressively when getting worse for the past few days. Patient has been admitted here multiple times, last admission was in September of last year related to elevated blood pressure. When he presented to ER today, BP was 266/173 with a heart rate of around 120. He said he only takes his BP meds occasionally. Head CT was negative for acute findings. Labs shows a creatinine greater than 4 and WBC around 15,000. Chest x-ray shows mild cardiomegaly with pulmonary vascular congestion and bilateral perihilar and lower lobe infiltrates. U tox only positive for marijuana. Hospital Course He was admitted to the ICU on BiPAP with aggressive diuresis. His renal function worsened, with GFR <15. He was treated aggressively for hypertension. His home antihypertensive doses were increased and blood pressure came under control. He did not require dialysis. He was treated with levofloxacin for suspected pneumonia. He will finish a 7 day course of this. His oxygenation improved significantly and now he is ambulating comfortably on room air. Unfortunately his renal function is still very poor, with GFR 13. He will need careful blood pressure control and close management with his outpatient bad cloth checker. Home Meds Active Scripts Hydralazine Hcl* (Apresoline*) 50 Mg Tab, 75 MG PO Q8 for 30 Days, #90 TAB 5 Refills Prov:MARTHA AVILA MD 03/19/18 Nifedipine (Procardia Xl) 60 Mg Tab.er.24, 60 MG PO BID for 60 Days, #120 TAB 5 Refills Prov:MARTHA AVILA MD 03/19/18 Labetalol Hcl* (Labetalol Hcl*) 200 Mg Tablet, 400 MG PO TID for 60 Days, #120 TAB 5 Refills Prov:MARTHA AVILA MD 03/19/18 Levofloxacin* (Levaquin*) 500 Mg Tablet, 500 MG PO Q48H for 4 Days, #3 TAB Prov:NOEL ESCOBAR MD 09/04/17 Follow-up Plan 1. Take all medications as prescribed. 2. Monitor your blood pressure daily. If it is persistently above 150/90, make an appointment with your primary care doctor to increase your blood pressure regimen. 3. Go to the emergency room for systolic blood pressure >200, or if you have very high blood pressure associated with dizziness, vision changes, or severe headache. 4. See your kidney doctor in 1 week. Primary Care Provider Not On Staff Doctor Time spent on discharge: > 30 minutes Pending Labs Laboratory Tests Test 03/19/18 09:55 Sodium Level 139 mmol/L (135-144) Potassium Level 3.9 mmol/L (3.5-5.1) Chloride Level 105 mmol/L (97-110) Carbon Dioxide Level 23 mmol/L (21-31) Anion Gap 11 (5-13) Blood Urea Nitrogen 47 mg/dl (7-20) Creatinine 5.29 mg/dl (0.61-1.24) Est Glomerular Filtrat Rate mL/min 13 mL/min (>60) Glucose Level 105 mg/dl (70-220) Calcium Level 9.2 mg/dl (8.4-10.2) Phosphorus Level 4.6 mg/dl (2.5-4.9) Magnesium Level 2.6 mg/dl (1.7-2.5) MARTHA AVILA MD Mar 19, 2018 17:00
[2018-03-20] MEDS ORDERED: LEVOFLOXACIN 250 MG TAB PO SCH (06:00)
== END 2018-03-19 15:32 | disposition home or self-care (01) | DRG 871 ==
LOC: E/R 20:58 → ICU 22:37 → 6WM 03-16 18:42
PROVIDERS: ADMIT Internal Medicine; ATTEND Internal Medicine
PROC: 5A09457 Assistance with Respiratory Ventilation, 24-96 Consecutive Hours, Continuous Positive Airway Pressure (ICD-10-PCS; principal; 2018-03-14)
DX: A41.9 Sepsis, unspecified organism (principal); I50.33 Acute on chronic diastolic (congestive) heart failure; N17.0 Acute kidney failure with tubular necrosis; J18.9 Pneumonia, unspecified organism; J96.01 Acute respiratory failure with hypoxia; I16.1 Hypertensive emergency; I13.0 Hypertensive heart and chronic kidney disease with heart failure and stage 1 through stage 4 chronic kidney disease, or unspecified chronic kidney disease; N18.4 Chronic kidney disease, stage 4 (severe); R04.2 Hemoptysis; I11.0 Hypertensive heart disease with heart failure; R65.20 Severe sepsis without septic shock; F17.210 Nicotine dependence, cigarettes, uncomplicated; Z91.14 Patient's other noncompliance with medication regimen
CPT/HCPCS: 36600; 70450; 71045; 71250; 76775; 80048; 80053; 80307; 81001; 81003; 82043; 82088; 82150; 82533; 82595; 82803; 83690; 83735; 83835; 83880; 84100; 84155; 84244; 84300; 84484; 85025; 85610; 85730; 86021; 86038; 86160; 86226; 86430; 86704; 86709; 86803; 87070; 87081; 87116; 87340; 87556; 89220; 93005; 94640; 94644; 94660; 94664; 96365; 96375; J0360; J0692; J1940; J1956; J2060; J2270; J2405

== ENCOUNTER 2018-06-23 17:48 | Inpatient (IN) | payer OTHER ==
[~2018-06-23] VITALS: Ht 167.6 cm; Wt 95.0 kg
--- NOTE | 2018-06-23 19:43 | ERD ---
ER Documentation Chief Complaint Chief Complaint diarrhea x4d, AP 'all over' and vomiting started today. HPI 27-year-old male, presents the emergency department, complaining of 4 days with diarrhea, associated with diffuse abdominal pain ROS All systems reviewed and are negative except as per history of present illness. Medications Home Meds Active Scripts Hydralazine Hcl* (Apresoline*) 50 Mg Tab, 75 MG PO Q8 for 30 Days, #90 TAB 5 Refills Prov:MARTHA AVILA MD 03/19/18 Nifedipine (Procardia Xl) 60 Mg Tab.er.24, 60 MG PO BID for 60 Days, #120 TAB 5 Refills Prov:MARTHA AVILA MD 03/19/18 Labetalol Hcl* (Labetalol Hcl*) 200 Mg Tablet, 400 MG PO TID for 60 Days, #120 TAB 5 Refills Prov:MARTHA AVILA MD 03/19/18 Levofloxacin* (Levaquin*) 500 Mg Tablet, 500 MG PO Q48H for 4 Days, #3 TAB Prov:NOEL ESCOBAR MD 09/04/17 Allergies Allergies: Coded Allergies: No Known Allergies (Unverified Allergy, Unknown, 09/02/17) PMhx/Soc History of Surgery: No Anesthesia Reaction: No Hx Neurological Disorder: No Hx Respiratory Disorders: Yes (sleep apnea) Hx Cardiac Disorders: Yes ([place], HTN) Hx Psychiatric Problems: No Hx Miscellaneous Medical Probl: Yes (PBESE) Hx Alcohol Use: Yes (socially) Hx Substance Use: Yes (smokes marijuana) Hx Tobacco Use: No Smoking Status: Never smoker Physical Exam Vitals Vital Signs Date Temp Pulse Resp B/P (MAP) Pulse Ox O2 O2 Flow FiO2 Time Delivery Rate 06/23/18 98.6 93 20 140/101 98 17:57 (114) Physical Exam Const: No acute distress Head: Atraumatic Eyes: Normal Conjunctiva ENT: Normal External Ears, Nose and Mouth. Neck: Full range of motion. No meningismus. Resp: Clear to auscultation bilaterally Cardio: Regular rate and rhythm, no murmurs Abd: Soft, non tender, non distended. Normal bowel sounds Skin: No petechiae or rashes Back: No midline or flank tenderness Ext: No cyanosis, or edema Neur: Awake and alert Psych: Normal Mood and Affect Results 24 hrs Current Medications Medications Dose Sig/Lm Start Time Status Last (Trade) Ordered Route PRN Stop Time Admin Dose Reason Admin Lactated 1,000 ml @ Q1H STAT 06/23/18 Ringer's 1,000 mls/hr IV 19:45 06/23/18 20:44 Morphine 2 mg ONCE STAT 06/23/18 DC Sulfate IV 19:45 06/23/18 (morphine) 19:48 Ondansetron 4 mg ONCE STAT 06/23/18 DC HCl (Zofran IV 19:45 06/23/18 Inj) 19:49 Departure Diagnosis: Primary Impression: Abdominal pain CARROL CANELA MD June 23, 2018 19:43
[2018-06-23] MEDS ORDERED: LACTATED RINGER'S 1,000 ML IV STA (19:45)
[2018-06-23] MEDS ORDERED: morphine 2 MG INJ IV STA (19:45)
[2018-06-23] MEDS ORDERED: ONDANSETRON 4 MG INJ IV STA (19:45)
[2018-06-23] MEDS ORDERED: morphine 4 MG/ML VIAL IV STA (20:00)
[2018-06-23] MEDS ORDERED: PIPER-TAZO 3.375 GM IV (PMX) 100 ML IVPB STA (20:50)
[2018-06-23] MEDS ORDERED: SODIUM CHLORIDE 0.9% 1L BAG IV* STA (20:50)
[2018-06-23] MEDS ORDERED: hydrALAzine 20 MG INJ IV ONE (21:00)
[2018-06-23] MEDS ORDERED: LABETALOL HCL 20MG INJ IV ONE (22:00)
[2018-06-23] MEDS ORDERED: ACETAMINOPHEN 325 MG TAB PO PRN (22:00)
[2018-06-23] MEDS ORDERED: ONDANSETRON 4 MG INJ IV PRN (22:00)
[2018-06-23] MEDS: niCARdipine-NS 0.1MG/ML DRIP 200 ML IV SCH (22:40)
[2018-06-23] MEDS ORDERED: IPRATROPIUM (NEB) 0.5 MG/2.5 ML AMP NEB PRN (23:00)
[2018-06-23] MEDS: HEPARIN 5,000 UNIT/1 ML VIAL SC SCH (23:00)
[2018-06-23] MEDS ORDERED: NITROGLYCERIN (SL) 0.4 MG TAB SL PRN (23:00)
[2018-06-23] MEDS ORDERED: ACETAMINOPHEN 650MG/20.3ML CUP PO PRN (23:00)
[2018-06-23] MEDS: ONDANSETRON 4 MG INJ IV PRN (23:07)
[2018-06-23] MEDS: morphine 2 MG INJ IV PRN (23:07)
[2018-06-24] VITALS (72 sets, daily range): BP systolic 141–200; BP diastolic 78–137; PULSE 85–136; RESP 8–31; Ht 167.6 cm; Wt 95.0 kg
--- NOTE | 2018-06-24 00:14 | ERD ---
ER Documentation Chief Complaint Chief Complaint diarrhea x4d, AP 'all over' and vomiting started today. HPI 27-year-old male with a history of CHF and CKD presenting with abdominal pain all over his abdomen, but mostly in the epigastric and right upper quadrant area stabbing, 10 out of 10, radiating to his back, with associated diarrhea that is nonbloody. He is also vomiting, also nonbloody and nonbilious. He has had no associated fevers or chills. Pain or shortness of breath. Patient does state that he is noncompliant with his medications for unclear reasons. ROS All systems reviewed and are negative except as per history of present illness. Medications Home Meds Active Scripts Hydralazine Hcl* (Apresoline*) 50 Mg Tab, 75 MG PO Q8 for 30 Days, #90 TAB 5 Refills Prov:MARTHA AVILA MD 03/19/18 Nifedipine (Procardia Xl) 60 Mg Tab.er.24, 60 MG PO BID for 60 Days, #120 TAB 5 Refills Prov:MARTHA AVILA MD 03/19/18 Labetalol Hcl* (Labetalol Hcl*) 200 Mg Tablet, 400 MG PO TID for 60 Days, #120 TAB 5 Refills Prov:MARTHA AVILA MD 03/19/18 Discontinued Scripts Levofloxacin* (Levaquin*) 500 Mg Tablet, 500 MG PO Q48H for 4 Days, #3 TAB Prov:NOEL ESCOBAR MD 09/04/17 Allergies Allergies: Coded Allergies: No Known Allergies (Unverified Allergy, Unknown, 09/02/17) PMhx/Soc History of Surgery: No Anesthesia Reaction: No Hx Neurological Disorder: No Hx Respiratory Disorders: Yes (sleep apnea) Hx Cardiac Disorders: Yes ([place], HF, HTN) Hx Psychiatric Problems: No Hx Miscellaneous Medical Probl: Yes (KIDNEY FAILURE, OBESE) Hx Alcohol Use: Yes (socially) Hx Substance Use: Yes (smokes marijuana) Hx Tobacco Use: No Smoking Status: Never smoker FmHx Family History: No diabetes Physical Exam Vitals Physical Exam Const: Ill-appearing, in distress secondary to pain, retching Head: Atraumatic Eyes: Normal Conjunctiva ENT: Normal External Ears, Nose and Mouth. Neck: Full range of motion. No meningismus. Resp: Clear to auscultation bilaterally Cardio: Regular rate and rhythm, no murmurs Abd: Soft, tender to palpation the upper abdomen going on the right voluntary guarding but no rebound. No masses. Non distended. Normal bowel sounds Skin: No petechiae or rashes Back: No midline or flank tenderness Ext: No cyanosis, or edema Neur: Awake and alert Psych: Normal Mood and Affect Result Diagram: 06/27/18 0852 06/28/18 1014 Results 24 hrs Laboratory Tests Test 06/23/18 20:10 06/23/18 20:55 06/23/18 21:31 White Blood Count 22.5 10^3/ul Red Blood Count 5.20 10^6/ul Hemoglobin 13.4 g/dl Hematocrit 41.8 % Mean Corpuscular Volume 80.4 fl Mean Corpuscular Hemoglobin 25.8 pg Mean Corpuscular Hemoglobin Concent 32.1 g/dl Red Cell Distribution Width 14.6 % Platelet Count 463 10^3/UL Mean Platelet Volume 9.7 fl Immature Granulocytes % 0.700 % Neutrophils % 93.5 % Lymphocytes % 3.5 % Monocytes % 1.9 % Eosinophils % 0.0 % Basophils % 0.4 % Nucleated Red Blood Cells % 0.0 /100WBC Immature Granulocytes # 0.160 10^3/ul Neutrophils # 21.0 10^3/ul Lymphocytes # 0.8 10^3/ul Monocytes # 0.4 10^3/ul Eosinophils # 0.0 10^3/ul Basophils # 0.1 10^3/ul Nucleated Red Blood Cells # 0.0 10^3/ul Prothrombin Time 12.5 Sec Prothrombin Time Ratio 1.0 INR International Normalized Ratio 0.92 Urine Color YELLOW Urine Clarity SLIGHTLY CLOUDY Urine pH 5.0 Urine Specific [place] 1.020 Urine Ketones TRACE mg/dL Urine Nitrite NEGATIVE mg/dL Urine Bilirubin NEGATIVE mg/dL Urine Urobilinogen NEGATIVE mg/dL Urine Leukocyte Esterase NEGATIVE Samantha/ul Urine Microscopic RBC 3 /HPF Urine Microscopic WBC 10 /HPF Urine Hemoglobin 1+ mg/dL Urine Glucose NEGATIVE mg/dL Urine Total Protein 3+ mg/dl Sodium Level 140 mmol/L Potassium Level 3.8 mmol/L Chloride Level 108 mmol/L Carbon Dioxide Level 20 mmol/L Anion Gap 12 Blood Urea Nitrogen 43 mg/dl Creatinine 5.63 mg/dl Est Glomerular Filtrat Rate mL/min 12 mL/min Glucose Level 136 mg/dl Calcium Level 9.4 mg/dl Total Bilirubin 1.1 mg/dl Direct Bilirubin 0.00 mg/dl Indirect Bilirubin 1.1 mg/dl Aspartate Amino Transf (AST/SGOT) 17 IU/L Alanine Aminotransferase (ALT/SGPT) 18 IU/L Alkaline Phosphatase 135 IU/L Troponin I 0.035 ng/ml Total Protein 7.6 g/dl Albumin 3.7 g/dl Globulin 3.90 g/dl Albumin/Globulin Ratio 0.94 Lipase 42 U/L Urine Opiates Screen Negative Urine Barbiturates Negative Urine Amphetamines Screen Negative Urine Benzodiazepines Screen Negative Urine Cocaine Screen Negative Urine Cannabinoids Positive Ethyl Alcohol Level < 10.0 mg/dl POC Venous Lactate 1.4 mmol/L Lactic Acid Level 2.0 mmol/L Current Medications Medications Dose Sig/Lm Start Time Status Last (Trade) Ordered Route PRN Stop Time Admin Dose Reason Admin Lactated 1,000 ml @ Q1H STAT 06/23/18 DC 06/23/18 Ringer's 1,000 mls/hr IV 19:45 06/23/18 20:14 20:44 Morphine 2 mg ONCE STAT 06/23/18 DC Sulfate IV 19:45 06/23/18 (morphine) 20:01 Ondansetron 4 mg ONCE STAT 06/23/18 DC 06/23/18 HCl (Zofran IV 19:45 06/23/18 20:14 Inj) 19:49 Morphine 4 mg ONCE STAT 06/23/18 DC 06/23/18 Sulfate IV 20:00 06/23/18 20:14 (morphine) 20:01 Sodium 1,910 ml BOLUS OVER 2 06/23/18 DC 06/23/18 Chloride HOURS STAT 20:50 06/23/18 21:03 (NS) IV* 20:51 Piperacillin 100 ml @ ONCE STAT 06/23/18 DC 06/23/18 Sod/ 200 mls/hr IVPB 20:50 06/23/18 21:02 Tazobactam 21:19 Sod Hydralazine 10 mg ONCE ONCE 06/23/18 DC 06/23/18 HCl IV 21:00 06/23/18 21:07 (Apresoline) 21:01 Labetalol 20 mg ONCE ONCE 06/23/18 DC 06/23/18 HCl IV 22:00 06/23/18 21:38 (Labetalol) 22:01 Ondansetron 4 mg ER BRIDGE 06/23/18 DC HCl (Zofran PRN IV 22:00 06/23/18 Inj) NAUSEA/VOMITI 22:52 NG 650 mg ER BRIDGE 06/23/18 DC Acetaminophen PRN PO 22:00 06/23/18 (Tylenol .MILD PAIN 22:54 Tab) 1-3 OR TEMP Nicardipine 200 ml @ TITRATE IV 06/23/18 DC 06/24/18 HCl 50 mls/hr 22:30 06/24/18 00:48 02:38 Procedures/MDM EMERGENT LABS AND DIAGNOSTIC STUDIES: Lab Results above were reviewed and interpreted by me. CBC: Acute psychosis, thrombocytosis, concerning for infection CMP: Elevated BUN and creatinine, consistent with known history of renal failure. Mild acidosis. No evidence of clinically significant electrolyte abnormality, hypoglycemia, liver disease, or biliary obstruction Lipase: no evidence of pancreatitis Troponin within normal limits, not indicative of cardiac ischemia Lactate within normal limits without evidence of sepsis or tissue hypoperfusion UA: no evidence of infection. Microscopic hematuria and proteinuria noted 12-lead EKG was interpreted by Iesha Ball MD: Normal sinus rhythm at 91 bpm Rightward axis Prolonged at [address] or T wave changes suggestive of acute ischemia or STEMI. Radiology Results as interpreted by Radiology below were reviewed by SPascale Ball MD: CT abdomen and pelvis shows evidence of enteritis Initial Nursing notes reviewed. Previous Medical Records requested via the Electronic Health Record. EMERGENCY DEPARTMENT COURSE / MEDICAL DECISION MAKING: Admit MDM: Patient's infectious symptoms have not stabilized, and the patient is at risk of rapid decompensation. The patient will be admitted for careful hydration, antibiotic therapy, an infectious source control. Severe Sepsis criteria: Infectious source: Intra-abdominal infection, enteritis End organ damage indicated by: Residential Caregiver > 2.0 Sepsis Management: Time of recognition of severe sepsis: 20:50 Within 3 hours of recognition: Blood cultures x 2 before broad-spectrum antibiotics: Yes 30 ml/kg NS bolus Completed Initial lactate normal Repeat lactate Not indicated as initial lactate < 2.0 Septic Shock Assessment: Any lactic acid > 4.0 No Persistent hypotension (SBP < 90 or 40 mmHg drop, MAP < 65) despite 30 mL/kg IV fluid bolusNo Accepting Care Team Current data and ongoing care discussed. Admitting Physician: Shaquille Line Therapist(s): Critical Care Time: 60 minutes Treatments/Evaluations: Close monitoring and treatment of unstable vital signs, cardiorespiratory, and neurologic status, while maintaining tight balance of fluid, respiratory, and cardiac interventions. This includes the administration of emergency fluid management while maintaining close respiratory support as well as the provision of immediate and broad-spectrum antibiotic therapy, while performing a simultaneous assessment for possible sources in order to direct targeted therapy. This time includes discussing the case with the patient and the patients family.This time also includes the consideration for invasive and chemical support to prevent cardiopulmonary collapse. This time does not include all procedures stated elsewhere in this record. This time also includes reviewing old records, labs and radiological studies. This time includes examining and reexamining the patient. Additionally, this time also includes arranging care with admitting and consulting physicians. Departure Diagnosis: Primary Impression: Hypertensive crisis Additional Impressions: Enteritis CKD (chronic kidney disease) Chronic kidney disease stage: unspecified stage Qualified Codes: N18.9 - Chronic kidney disease, unspecified Condition: Serious SANJUANA BALL MD June 24, 2018 00:14
[2018-06-24] MEDS ORDERED: AL HYDROX/MG HYDROX/SIMETH 30 ML CUP PO PRN (00:30)
[2018-06-24] MEDS: LINEZOLID 600 MG/D5W (PMX) 300 ML IVPB SCH ×3 (00:47→20:08)
[2018-06-24] MEDS: niCARdipine-NS 0.1MG/ML DRIP 200 ML IV SCH ×2 (00:48→02:27)
[2018-06-24] MEDS: HEPARIN 5,000 UNIT/1 ML VIAL SC SCH ×4 (00:53→21:09)
[2018-06-24] MEDS: ONDANSETRON 4 MG INJ IV PRN ×4 (01:01→17:40)
[2018-06-24] MEDS ORDERED: FUROSEMIDE 40 MG INJ IV ONE (02:30)
[2018-06-24] MEDS ORDERED: METOPROLOL 5 MG INJ IV ONE ×2 (03:00→04:30)
[2018-06-24] MEDS ORDERED: NITROGLYCERIN 50 MG/D5W (PMX) 250 ML IV SCH (03:00)
--- NOTE | 2018-06-24 03:40 | HP ---
Date/Time of Note Date/Time of Note DATE: 06/24/18 TIME: 03:38 Assessment/Plan VTE Prophylaxis Pharmacological prophylaxis: heparin Lines/Catheters IV [facility]from [facility] Peripheral IV Urinary Cath still in place: No Assessment/Plan Hospital Course This is a 27-year-old male being admitted to the ICU floor for: #1 hypertensive emergency: Secondary to noncompliance, CKD stage IV. Patient reports that he takes hydralazine labetalol, nifedipine when he feels like his blood pressure is high at home but he does not check his blood pressures on a regular basis. Patient did have systolic blood pressure in the 260s in the emergency department. Was initiated on nicardipine drip in the emergency department, goal is to not decreased more than 25% in the first 24 hours. Will maintain a blood pressure around 180/110 and titrate lower as clinically indicated. Will consult nephrology. Patient was educated on the importance of medication compliance. #2 Possible sepsis: The patient is afebrile, he did have a white blood cell count of approximately 22,000, he presented tachycardic. He does report nausea vomiting and diarrhea. CT scan of the abdomen pelvis showed Circumferential wall thickening in the proximal jejunum without adjacent fat stranding or distension may represent infectious or autoimmune enteritis. Heidi and Eloisa will consult GI. #3 bilateral lower extremity nonpitting edema: Likely volume overload in the setting of chronic kidney disease. Patient was given fluid bolus in the ED. At the current time will give the patient Lasix 60 mg IV x1. Monitor urine output. #4. non-oliguric, acute on chronic kidney disease stage IV: Creatinine appears to be relatively at baseline. There is a slight metabolic acidosis. Patient did receive IV fluids in the ED however given that he likely is volume overloaded will diurese the patient with Lasix. Control patient's blood pressures. Will consult nephrology. #5 Enteritis: Infectious versus autoimmune based on CT scan, currently on antibiotics. Will consult GI. #6 obesity: We will check a hemoglobin A1c, lipid panel, TSH #7 medication noncompliance: Patient was counseled on the importance of medication compliance and the risk that the patient does run if he does not actively monitor his blood pressures at home and take his medications. He likely will need repeated counseling. #8 DVT and GI prophylaxis: Heparin, SCDs Further treatment strategy will be implemented as per the clinical course Greater than 45 minutes of critical care time was spent in the care and management of this patient. Result Diagram: 06/23/18200906/23/182009 Results 24hrs Laboratory Tests Test 06/23/18 20:10 06/23/18 20:55 06/23/18 21:31 06/24/18 00:27 White Blood Count 22.5 #H Red Blood Count 5.20 # Hemoglobin 13.4 #L Hematocrit 41.8 #L Mean Corpuscular 80.4 L Volume Mean Corpuscular 25.8 L Hemoglobin Mean Corpuscular 32.1 Hemoglobin Concent Red Cell 14.6 H Distribution Width Platelet Count 463 #H Mean Platelet 9.7 Volume Immature 0.700 H Granulocytes % Neutrophils % 93.5 H Lymphocytes % 3.5 L Monocytes % 1.9 Eosinophils % 0.0 Basophils % 0.4 Nucleated Red 0.0 Blood Cells % Immature 0.160 H Granulocytes # Neutrophils # 21.0 H Lymphocytes # 0.8 Monocytes # 0.4 Eosinophils # 0.0 Basophils # 0.1 Nucleated Red 0.0 Blood Cells # Prothrombin Time 12.5 Prothrombin Time 1.0 Ratio INR International 0.92 Normalized Ratio Urine Color YELLOW Urine Clarity SLIGHTLY CLOUDY A Urine pH 5.0 Urine Specific 1.020 [place] Urine Ketones TRACE A Urine Nitrite NEGATIVE Urine Bilirubin NEGATIVE Urine Urobilinogen NEGATIVE Urine Leukocyte NEGATIVE Esterase Urine Microscopic 3 RBC Urine Microscopic 10 H WBC Urine Hemoglobin 1+ H Urine Glucose NEGATIVE Urine Total 3+ H Protein Sodium Level 140 Potassium Level 3.8 Chloride Level 108 Carbon Dioxide 20 L Level Anion Gap 12 Blood Urea 43 H Nitrogen Creatinine 5.63 H Est Glomerular 12 L Filtrat Rate mL/min Glucose Level 136 Calcium Level 9.4 Total Bilirubin 1.1 Direct Bilirubin 0.00 Indirect Bilirubin 1.1 Aspartate Amino 17 Transf (AST/SGOT) Alanine 18 Aminotransferase ( ALT/SGPT) Alkaline 135 H Phosphatase Troponin I 0.035 Total Protein 7.6 Albumin 3.7 Globulin 3.90 H Albumin/Globulin 0.94 Ratio Lipase 42 Urine Opiates Negative Screen Urine Barbiturates Negative Urine Amphetamines Negative Screen Urine Negative Benzodiazepines Screen Urine Cocaine Negative Screen Urine Cannabinoids Positive Ethyl Alcohol < 10.0 H Level POC Venous Lactate 1.4 Lactic Acid Level 2.0 1.0 HPI/ROS Admit Date/Time Admit Date/Time June 23, 2018 at 22:33 Hx of Present Illness Chief complaint: Nausea vomiting abdominal pain This is a 27-year-old male with a past medical history of CKD, hypertension and medical noncompliance who presented to the emergency department complaining of nausea vomiting abdominal pain. She reports that he had nausea and had diarrhea at home. But he denied any fevers. Today he did have an episode of vomiting. He has been reporting that he felt short of breath. He does not usually check his blood pressure at home and he does not usually take his medications. He only takes them occasionally when he feels like his blood pressure is high. Allergies: NKDA Medications: Noncompliant Labetalol Nifedipine Hydralazine ROS Const: As per HPI Eyes : No pain discharge or redness or change in visual acuity ENT: No pain, sore throat, congestion, congestion, dysphagia or discharge Respiratory: No shortness of breath, cough, sputum, wheezing, or pleuritic pain Cardiovascular: No chest pain, palpitation, PND, or edema GI : As per HPI Genitourinary: No dysuria, hematuria, flank pain , discharge or CVA tenderness Musculoskeletal: No joint pain, back pain, neck pain, restricted range of motion in neck or joints Skin: No rash, bruising or hives Neuro: No headache, dizziness, syncope, seizure, focal weakness Endocrine: No polyuria, polydipsia, temperature intolerance Psych: No hallucination, depression, anxiety or suicidal ideation PMH/Family/Social Past Medical History Hypertension, chronic kidney disease stage IV, Medications Current Medications Ondansetron HCl (Zofran Inj) 4 mg Q6H PRN IV NAUSEA AND/OR VOMITING Last administered on 06/24/18at 01:01; Admin Dose 4 MG; Start 06/23/18 at 23:00 Ipratropium [place] (Atrovent 0.02% (Neb)) 0.5 mg Q2H RESP THERAPY PRN NEB SHORTNESS OF BREATH; Start 06/23/18 at 23:00 Nitroglycerin (Nitroglycerin (Sl Tab) 0.4 Mg) 1 tab Q5M PRN SL CHEST PAIN; Start 06/23/18 at 23:00 Acetaminophen (Tylenol Liquid) 650 mg Q6H PRN PO PAIN LEVEL 1-3 OR FEVER; Start 06/23/18 at 23:00 Morphine Sulfate (morphine) 2 mg Q4H PRN IV PAIN LEVEL 7-10 Last administered on 06/23/18at 23:07; Admin Dose 2 MG; Start 06/23/18 at 23:00 Pantoprazole (Protonix Iv) 40 mg DAILY@06 IV ; Start 06/24/18 at 06:00 Heparin Sodium (Porcine) (Heparin (5000 Units/1ml)) 5,000 unit Q8 SC ; Start 06/23/18 at 23:00 Linezolid 300 ml @ 300 mls/hr Q12 IVPB Last administered on 06/24/18at 00:47; Admin Dose 300 MLS/HR; Start 06/23/18 at 23:00 Piperacillin Sod/ Tazobactam Sod 50 ml @ 100 mls/hr Q8 IVPB ; Start 06/24/18 at 06:00 Al Hydrox/Mg Hydrox/Simethicone (Mag-Al Plus) 30 ml Q6H PRN PO GASTROINTESTINAL UPSET Last administered on 06/24/18at 00:48; Admin Dose 30 ML; Start 06/24/18 at 00:30 Nitroglycerin/ Dextrose 250 ml @ 1.5 mls/hr TITRATE IV Last administered on 06/24/18at 03:09; Admin Dose 1.5 MLS/HR; Start 06/24/18 at 03:00 Coded Allergies: No Known Allergies (Unverified Allergy, Unknown, 09/02/17) Past Surgical History Past Surgical Hx: no surgical history Family History Significant Family History: no pertinent family hx Social History Alcohol Use: occasionally Smoking Status: Never smoker Drug Use: marijuana Exam/Review of Systems Vital Signs Vitals Vital Signs Date Temp Pulse Resp B/P (MAP) Pulse Ox O2 O2 Flow FiO2 Time Delivery Rate 06/24/18 116 98 30 02:30 06/24/18 21 185/113 Room Air 02:00 (137) 06/24/18 98.8 00:00 Intake and Output 06/23/18 06/23/18 06/24/18 1515:00 23:00 07:00 IntakeIntake Total 940 ml OutputOutput Total 360 ml BalanceBalance 580 ml Exam Exam General: Patient is currently sitting in bed he does not appear to be in acute distress after being put on a nicardipine drip. HEENT: Atraumatic, normocephalic. The pupils are equal, round and reactive. Extraocular motor are intact Neck: Supple with full range of motion. No rigidity or meningismus Chest: Nontender Lungs: Clear to auscultation bilaterally no crackles rales or wheezing Heart: Normal S1-S2, Regular rhythm and rate. No murmur, S3, or S4 Abdomen: Soft , nontender, nondistended , bowel sounds are present. No guarding no rebound tenderness , No masses or organomegaly. No costovertebral temporal angle mass Extremities: Trace bilateral lower extremity nonpitting edema Neurologic: Normal mental status, speech normal, cranial nerves II through XII are intact, motor and sensory are intact, Additional Comments PROCEDURE: CT Abdomen and Pelvis without contrast. CLINICAL INDICATION: Abdominal pain TECHNIQUE: CT scan of the abdomen and pelvis without contrast was performed on a multidetector high-resolution CT scanner.. The patient was scanned without intravenous contrast. Coronal and sagittal reformatted images were obtained from the axial source images. DICOM images are available. The total exam CTDI equals 20.27 mGy and the total exam DLP equals 12 89.73 mGy- cm. One or more of the following dose reduction techniques were utilized: Automated exposure control, adjustment of the mA and/or kV according to patient size, use of iterative reconstruction technique. COMPARISON: CT chest 03/15/2018, ultrasound abdomen 03/16/2018 FINDINGS: Pulmonary: Visualized lung bases contain scattered nodular opacities and tree in bud opacities, significantly improved compared to 03/15/2018. No pleural effusion. Cardiac: Normal heart size. Liver: Normal noncontrast appearance of the liver. No intrahepatic or extrahepatic biliary dilatation. Gallbladder: Normal appearance of the gallbladder without stones or wall thickening. Spleen: Normal noncontrast appearance. Pancreas: Normal noncontrast appearance without ductal dilation. Adrenal glands: Normal morphology without thickening or mass. Genitourinary: Normal noncontrast appearance of the kidneys. No renal stone or hydronephrosis. Nondistended urinary bladder. Vascular: The aorta is normal in caliber. Gastrointestinal: Stomach is partially distended. Circumferential wall thickening in the proximal jejunum without adjacent fat stranding. Nondilated small bowel and colon. Normal appendix. Peritoneum: No peritoneal free fluid or free air. No adenopathy. Pelvic organs: No pelvic mass. Normal prostate gland. Osseous structures: No suspicious osseous lesions. IMPRESSION: Circumferential wall thickening in the proximal jejunum without adjacent fat stranding or distension may represent infectious or autoimmune enteritis. Visualized lung bases contain scattered nodular opacities and tree in bud opacities representing infection or inflammation, significantly improved compared to 03/15/2018. RPTAT:AAJJ Matt Taylor, Physician Date Time Electronically viewed and signed by Matt Taylor, Physician on 06/23/2018 2 0:45 MH/ CC: CARROL CANELA MD [id number] DONOVAN QUISPE June 24, 2018 03:40
[2018-06-24] MEDS: morphine 2 MG INJ IV PRN ×2 (04:06→20:27)
[2018-06-24] MEDS ORDERED: niCARdipine-NS 0.1MG/ML DRIP 200 ML IV SCH (04:30)
[2018-06-24] MEDS: PANTOPRAZOLE 40 MG INJ IV SCH (05:39)
[2018-06-24] MEDS: PIPER-TAZO 2.25 GM/NS 50 ML IVPB SCH ×3 (05:40→23:15)
[2018-06-24] MEDS ORDERED: PIPER-TAZO 3.375 GM IV (PMX) 100 ML IVPB SCH (06:00)
--- NOTE | 2018-06-24 09:05 | PN ---
Date/Time of Note Date/Time of Note DATE: 06/24/18 TIME: 08:57 Assessment/Plan VTE Prophylaxis SCD applied (from [facility]): Yes Pharmacological prophylaxis: NA/contraindicated Pharm contraindication: low risk/ambulating Lines/Catheters IV Catheter Type (from Nrsg): Peripheral IV Urinary Cath still in place: No Assessment/Plan Assessment/Plan 27 yo man history of meth use and cardiomyopathy presents with vomiting and diarrhea #Hypertension - Noncomplaint with home meds, BP 260 in the ED. - Will resume home hydralazine, labetalol, nifedipine. Patient tolerating PO. - Currently on nicardipine gtt, will titrate off. - Got IV lasix x1 in the ED also. - Nephrology consulted. # Possible sepsis #Nausea and vomiting - The patient is afebrile, he did have a white blood cell count of approximately 22,000, he presented tachycardic. - He does report nausea vomiting and diarrhea. - CT scan of the abdomen pelvis showed Circumferential wall thickening in the proximal jejunum without adjacent fat stranding or distension may represent infectious or autoimmune enteritis. - Empiric Vanco and Zosyn for now. - will consult GI. - Will resume diet, advance as tolerated. # non-oliguric chronic kidney disease stage IV: - Creatinine at baseline. - There is a slight metabolic acidosis. - Nephrology consulted # obesity: We will check a hemoglobin A1c, lipid panel, TSH # DVT and GI prophylaxis: Heparin, SCDs # medication noncompliance: Patient was counseled on the importance of medication compliance and the risk that the patient does run if he does not actively monitor his blood pressures at home and take his medications. He likely will need repeated counseling. Greater than 45 minutes of critical care time was spent in the care and management of this patient. Result Diagram: 06/23/18200906/24/18 0713 Subjective 24 Hr Interval Summary Free Text/Dictation Patient on BiPAP overnight. This morning breathing comfortably, saturating well on room air. Patient reports feeling well overall. No diarrhea or nausea since admission, he's hungry. Exam/Review of Systems Exam Vitals Vital Signs Date Temp Pulse Resp B/P (MAP) Pulse Ox O2 O2 Flow FiO2 Time Delivery Rate 06/24/18 112 15 185/120 06:30 (141) 06/24/18 Room Air 06:00 06/24/18 99 03:00 06/24/18 30 02:30 06/24/18 98.8 00:00 Intake and Output 06/23/18 06/23/18 06/24/18 1515:00 23:00 07:00 IntakeIntake Total 2110 ml OutputOutput Total 1160 ml BalanceBalance 950 ml Exam General: Obese man supine in bed awake and alert, no distress. HEENT: Atraumatic, normocephalic. The pupils are equal, round and reactive. Extraocular motor are intact Neck: Supple with full range of motion. No rigidity or meningismus Chest: Nontender Lungs: Clear to auscultation bilaterally no crackles rales or wheezing Heart: Normal S1-S2, Regular rhythm and rate. No murmur, S3, or S4 Abdomen: Soft , nontender, nondistended , bowel sounds are present. No guarding no rebound tenderness. Extremities: Trace bilateral lower extremity nonpitting edema Results Results 24hrs Laboratory Tests Test 06/23/18 20:10 06/23/18 20:55 06/23/18 21:31 06/24/18 00:27 White Blood Count 22.5 #H Red Blood Count 5.20 # Hemoglobin 13.4 #L Hematocrit 41.8 #L Mean Corpuscular 80.4 L Volume Mean Corpuscular 25.8 L Hemoglobin Mean Corpuscular 32.1 Hemoglobin Concent Red Cell 14.6 H Distribution Width Platelet Count 463 #H Mean Platelet 9.7 Volume Immature 0.700 H Granulocytes % Neutrophils % 93.5 H Lymphocytes % 3.5 L Monocytes % 1.9 Eosinophils % 0.0 Basophils % 0.4 Nucleated Red 0.0 Blood Cells % Immature 0.160 H Granulocytes # Neutrophils # 21.0 H Lymphocytes # 0.8 Monocytes # 0.4 Eosinophils # 0.0 Basophils # 0.1 Nucleated Red 0.0 Blood Cells # Prothrombin Time 12.5 Prothrombin Time 1.0 Ratio INR International 0.92 Normalized Ratio Urine Color YELLOW Urine Clarity SLIGHTLY CLOUDY A Urine pH 5.0 Urine Specific 1.020 [place] Urine Ketones TRACE A Urine Nitrite NEGATIVE Urine Bilirubin NEGATIVE Urine Urobilinogen NEGATIVE Urine Leukocyte NEGATIVE Esterase Urine Microscopic 3 RBC Urine Microscopic 10 H WBC Urine Hemoglobin 1+ H Urine Glucose NEGATIVE Urine Total 3+ H Protein Sodium Level 140 Potassium Level 3.8 Chloride Level 108 Carbon Dioxide 20 L Level Anion Gap 12 Blood Urea 43 H Nitrogen Creatinine 5.63 H Est Glomerular 12 L Filtrat Rate mL/min Glucose Level 136 Calcium Level 9.4 Total Bilirubin 1.1 Direct Bilirubin 0.00 Indirect Bilirubin 1.1 Aspartate Amino 17 Transf (AST/SGOT) Alanine 18 Aminotransferase ( ALT/SGPT) Alkaline 135 H Phosphatase Troponin I 0.035 Total Protein 7.6 Albumin 3.7 Globulin 3.90 H Albumin/Globulin 0.94 Ratio Lipase 42 Urine Opiates Negative Screen Urine Barbiturates Negative Urine Amphetamines Negative Screen Urine Negative Benzodiazepines Screen Urine Cocaine Negative Screen Urine Cannabinoids Positive Ethyl Alcohol < 10.0 H Level POC Venous Lactate 1.4 Lactic Acid Level 2.0 1.0 Test 06/24/18 07:13 White Blood Count Pending Red Blood Count Pending Hemoglobin Pending Hematocrit Pending Mean Corpuscular Pending Volume Mean Corpuscular Pending Hemoglobin Mean Corpuscular Pending Hemoglobin Concent Red Cell Pending Distribution Width Platelet Count Pending Mean Platelet Pending Volume Sodium Level 139 Potassium Level 3.7 Chloride Level 108 Carbon Dioxide 22 Level Anion Gap 9 Blood Urea 41 H Nitrogen Creatinine 5.57 H Est Glomerular 12 L Filtrat Rate mL/min Glucose Level 114 Hemoglobin A1c 4.9 Calcium Level 8.7 Phosphorus Level 5.4 H Magnesium Level 2.1 Total Bilirubin 0.9 Direct Bilirubin 0.00 Indirect Bilirubin 0.9 Aspartate Amino 13 L Transf (AST/SGOT) Alanine 18 Aminotransferase ( ALT/SGPT) Alkaline 93 Phosphatase C-Reactive Protein 1.1 H Total Protein 6.4 # Albumin 3.1 L Globulin 3.30 H Albumin/Globulin 0.93 Ratio Triglycerides 210 H Level Cholesterol Level 155 LDL Cholesterol, 87 Calculated HDL Cholesterol 26 L Cholesterol/HDL 5.9 Ratio Thyroid Pending Stimulating Hormone (TSH) Medications Medication Current Medications Ondansetron HCl (Zofran Inj) 4 mg Q6H PRN IV NAUSEA AND/OR VOMITING Last administered on 06/24/18at 05:41; Admin Dose 4 MG; Start 06/23/18 at 23:00 Ipratropium [place] (Atrovent 0.02% (Neb)) 0.5 mg Q2H RESP THERAPY PRN NEB SHOR TNESS OF BREATH; Start 06/23/18 at 23:00 Nitroglycerin (Nitroglycerin (Sl Tab) 0.4 Mg) 1 tab Q5M PRN SL CHEST PAIN; Start 06/23/18 at 23:00 Acetaminophen (Tylenol Liquid) 650 mg Q6H PRN PO PAIN LEVEL 1-3 OR FEVER; Start 06/23/18 at 23:00 Morphine Sulfate (morphine) 2 mg Q4H PRN IV PAIN LEVEL 7-10 Last administered on 06/24/18at 04:06; Admin Dose 2 MG; Start 06/23/18 at 23:00 Pantoprazole (Protonix Iv) 40 mg DAILY@06 IV Last administered on 06/24/18at 05:39; Admin Dose 40 MG; Start 06/24/18 at 06:00 Heparin Sodium (Porcine) (Heparin (5000 Units/1ml)) 5,000 unit Q8 SC ; Start 06/23/18 at 23:00 Linezolid 300 ml @ 300 mls/hr Q12 IVPB Last administered on 06/24/18at 00:47; Admin Dose 300 MLS/HR; Start 06/23/18 at 23:00 Piperacillin Sod/ Tazobactam Sod 50 ml @ 100 mls/hr Q8 IVPB Last administered on 06/24/18at 05:40; Admin Dose 100 MLS/HR; Start 06/24/18 at 06:00 Al Hydrox/Mg Hydrox/Simethicone (Mag-Al Plus) 30 ml Q6H PRN PO GASTROINTESTINAL UPSET Last administered on 06/24/18at 00:48; Admin Dose 30 ML; Start 06/24/18 at 00:30 Nitroglycerin/ Dextrose 250 ml @ 1.5 mls/hr TITRATE IV Last administered on 06/24/18at 03:09; Admin Dose 1.5 MLS/HR; Start 06/24/18 at 03:00 Nicardipine HCl 200 ml @ 50 mls/hr TITRATE IV Last administered on 06/24/18at 05:56; Admin Dose 50 MLS/HR; Start 06/24/18 at 04:30 Hydralazine HCl (Apresoline) 75 mg Q8 PO ; Start 06/24/18 at 09:00; Status UNV Labetalol HCl (Normodyne) 400 mg TID PO ; Start 06/24/18 at 09:00; Status UNV Nifedipine (Procardia Xl) 60 mg BID PO ; Start 06/24/18 at 09:00; Status UNV MARTHA AVILA MD June 24, 2018 09:05
[2018-06-24] MEDS: NIFEdipine (XL) 60 MG TAB PO SCH ×2 (09:06→20:08)
[2018-06-24] MEDS: LABETALOL 200 MG TAB PO SCH ×3 (09:06→20:10)
--- NOTE | 2018-06-24 09:21 | CONS ---
DATE OF ADMISSION: 06/23/2018 DATE OF CONSULTATION: 06/24/2018 TYPE OF CONSULTATION: Nephrology. REASON FOR CONSULTATION: Acute kidney injury, chronic kidney disease. REQUESTING PHYSICIAN: Dr. Quispe. HISTORY OF PRESENT ILLNESS: This is a 27-year-old male well known to me with a past medical history of hypertension, history of progressive chronic kidney disease stage IV with baseline creatinine arou nd 3.0 mg/dL, history of medical noncompliance, history of hypertension who presents to [facility] with nausea and vomiting. The patient reports that he has been having nausea, vomiti ng for the past several days. The patient has not been taking his blood pressure medications. As a result, he came to the emergency room for evaluation. He was noted to be in hypertensive urgency wit h systolic pressures greater than 200. The patient was placed on a Cardene drip. The patient was al so noted to have edema and respiratory failure, placed on BiPAP and admitted to the intensive care un it for further care and evaluation. 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 The patient's most recent creatinine in February 2018 was 4 . The patient now presents with a creatinine of 5.6 mg/dL. The patient remains noncompliant with mt s blood pressure medications. 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 There is no re port of any hemoptysis, hematemesis, or hematochezia. PAST MEDICAL HISTORY: History of progressive chronic kidney disease, history of hypertension, histor y of medical noncompliance. FAMILY HISTORY: No family history of chronic kidney disease. SOCIAL HISTORY: He does not drink or smoke. PAST SURGICAL HISTORY: None. ALLERGIES: NO KNOWN DRUG ALLERGIES. MEDICATIONS: The patient's medications have been reviewed. REVIEW OF SYSTEMS: A 14-point review of systems was conducted. Pertinent positives stated in HPI, o therwise negative. PHYSICAL EXAMINATION: VITAL SIGNS: Blood pressure is 185/120, respirations 15, pulse 112, temperature 98.6. HEENT: Head is normocephalic. NECK: Supple. HEART: Regular rate. LUNGS: Show diminished breath sounds at the base. ABDOMEN: Soft, nontender to palpation without rebound or guarding. EXTREMITIES: Negative for clubbing, cyanosis, positive edema. DERMATOLOGIC: No rashes. MUSCULOSKELETAL: No joint effusion. NEUROLOGIC: No change in exam. LABORATORY DATA: Reviewed. Urinalysis was reviewed. IMAGING STUDIES: Reviewed. CT scan of abdomen and pelvis was reviewed. ASSESSMENT AND PLAN: 1. Nonoliguric acute kidney injury on top of chronic kidney disease stage IV with previous baseline creatinine of 4.4 mg/dL versus progression of underlying chronic kidney disease. Etiology of acute k idney injury is possibly due to tubular injury, hemodynamics, and hypertensive urgency. The patient' s urinalysis was reviewed that showed mild pyuria, positive proteinuria. Plan at this point is to co ntinue current medical management. We would quantify the patient's proteinuria. Continue current bl ood pressure regimen. Continue Cardene drip, titrate slowly. Avoid hemodynamic fluctuations in orde r to ensure adequate renal perfusion and precipitate worsening renal failure. The patient was inform ed that if renal function should progressively worsen that he may need to be initiated on renal repla cement therapy. We will continue to monitor closely. 2. Hypertensive urgency. Etiology is multifactorial secondary to chronic kidney disease, medical no ncompliance. Continue current blood pressure regimen. Continue to titrate off Cardene drip. Contin ue oral medications of labetalol, hydralazine, and monitor closely. 3. Anemia. Continue to monitor hemoglobin and hematocrit levels. We will give Epogen as needed. 4. Mineral bone disorder. Monitor calcium and phosphorus levels. 5. Systemic inflammatory response syndrome, possible sepsis. The patient has a markedly elevated wh ite count. The patient is on empiric antibiotics and will continue. Follow up cultures. 6. Volume overload. The patient has noted lower extremity edema, pulmonary congestion. Continue di uretic therapy, monitor volume status closely. 7. Enteritis. Continue current medical management. 8. Obesity. Continue dietary modification. Thank you, Dr. Quispe, for this interesting consult. It will be a pleasure to follow the patient wi th you throughout the hospital course. Dictated By: SOPHIA COLIN DO NR/NTS Conf#: [id number] DID#: [id number] CC: SOPHIA COLIN DO; MARTHA AVILA MD; DONOVAN QUISPE MD;*EndCC*
--- NOTE | 2018-06-24 15:02 | CONS ---
Assessment/Plan Assessment/Plan Hospital Course (Demo Recall) Assessment: Hypertensive crisis Abdominal pain Persistent nausea/vomiting -Cannabinoid cyclic vomiting syndrome versus infectious process versus other Diarrhea-improved Enteritis noted on CT scan -Infectious versus autoimmune Leukocytosis Normocytic anemia Heart failure Chronic kidney disease Chronic marijuana use Scattered nodular opacities and tree in bud opacities -representing infection or inflammation -significantly improved compared to 03/15/2018. Plan Obtain stool studies No obstruction noted on CT scan- continue Zofran- Will not order Reglan and interaction with Linezolid-severe reaction- may result in hypertensive crisis Continue PPI If symptoms do not improve and stool studies are neg- will move forward with EGD/colon when medically optimized Continue clear liquid diet- currently tolerating fairly Pt currently on ABX Patient seen in collaboration with Dr. Hernandez CC: LIZETH HERNANDEZ MD ; Consultation Date/Type/Reason Admit Date/Time June 23, 2018 at 22:33 Date of Consultation: June 24, 2018 Type of Consult GI Date/Time of Note DATE: 06/24/18 TIME: 14:39 Hx of Present Illness This a 27-year-old male with past medical history of chronic kidney disease, hypertension, heart failure, high cholesterol who presented to the hospital with complaints of nausea, non-bloody vomiting, and significant upper abdominal pain x1 day. Work-up in the ED included CT abdomen pelvis without contrast which revealed circumferential wall thickening in the proximal jejunum without adjacent fat stranding or distention may represent infectious or autoimmune enteritis additionally visualized lung bases contain scattered nodule opacities and tree-in-bud opacities representing infection or inflammation, significantly improved from 03/15/2018. GI has been consulted for further evaluation regarding abdominal pain nausea vomiting diarrhea. Patient states he denies recent antibiotic use, travel outside [place], or contact with his that he is aware of. He denies nonsteroidal anti-inflammatory drug use he uses Tylenol occasionally. Patient notes he is a chronic marijuana user smokes daily additionally he drinks about 440 ounce beers per week. Evaluation patient states diarrhea has resolved abdominal pain slightly improved and currently no nausea and vomiting however he was not able to tolerate clear liquid breakfast this morning. Labs show significant leukocytosis with WBC of 24.0, normocytic anemia hemoglobin 11.4, elevated ESR 22. Pt was admitted to the ICU with Hypertensive crisis. Review of Systems: A 12 system, review was conducted and is negative except as noted in the HPI or here. Past Medical History Home Meds Active Scripts Hydralazine Hcl* (Apresoline*) 50 Mg Tab, 75 MG PO Q8 for 30 Days, #90 TAB 5 Refills Prov:MARTHA AVILA MD 03/19/18 Nifedipine (Procardia Xl) 60 Mg Tab.er.24, 60 MG PO BID for 60 Days, #120 TAB 5 Refills Prov:MARTHA AVILA MD 03/19/18 Labetalol Hcl* (Labetalol Hcl*) 200 Mg Tablet, 400 MG PO TID for 60 Days, #120 TAB 5 Refills Prov:MARTHA AVILA MD 03/19/18 Discontinued Scripts Levofloxacin* (Levaquin*) 500 Mg Tablet, 500 MG PO Q48H for 4 Days, #3 TAB Prov:NOEL ESCOBAR MD 09/04/17 Medications Current Medications Ondansetron HCl (Zofran Inj) 4 mg Q6H PRN IV NAUSEA AND/OR VOMITING Last administered on 06/24/18at 09:39; Admin Dose 4 MG; Start 06/23/18 at 23:00 Ipratropium [place] (Atrovent 0.02% (Neb)) 0.5 mg Q2H RESP THERAPY PRN NEB SHORTNESS OF BREATH; Start 06/23/18 at 23:00 Nitroglycerin (Nitroglycerin (Sl Tab) 0.4 Mg) 1 tab Q5M PRN SL CHEST PAIN; Start 06/23/18 at 23:00 Acetaminophen (Tylenol Liquid) 650 mg Q6H PRN PO PAIN LEVEL 1-3 OR FEVER; Start 06/23/18 at 23:00 Morphine Sulfate (morphine) 2 mg Q4H PRN IV PAIN LEVEL 7-10 Last administered on 06/24/18at 04:06; Admin Dose 2 MG; Start 06/23/18 at 23:00 Pantoprazole (Protonix Iv) 40 mg DAILY@06 IV Last administered on 06/24/18at 05:39; Admin Dose 40 MG; Start 06/24/18 at 06:00 Heparin Sodium (Porcine) (Heparin (5000 Units/1ml)) 5,000 unit Q8 SC Last administered on 06/24/18at 13:50; Admin Dose 5,000 UNIT; Start 06/23/18 at 23:00 Linezolid 300 ml @ 300 mls/hr Q12 IVPB Last administered on 06/24/18 09:06; Admin Dose 300 MLS/HR; Start 06/23/18 at 23:00 Piperacillin Sod/ Tazobactam Sod 50 ml @ 100 mls/hr Q8 IVPB Last administered on 06/24/18at 13:04; Admin Dose 100 MLS/HR; Start 06/24/18 at 06:00 Al Hydrox/Mg Hydrox/Simethicone (Mag-Al Plus) 30 ml Q6H PRN PO GASTROINTESTINAL UPSET Last administered on 06/24/18at 00:48; Admin Dose 30 ML; Start 06/24/18 at 00:30 Nitroglycerin/ Dextrose 250 ml @ 1.5 mls/hr TITRATE IV Last administered on 06/24/18 03:09; Admin Dose 1.5 MLS/HR; Start 06/24/18 at 03:00 Nicardipine HCl 200 ml @ 50 mls/hr TITRATE IV Last administered on 06/24/18at 05:56; Admin Dose 50 MLS/HR; Start 06/24/18 at 04:30 Hydralazine HCl (Apresoline) 75 mg Q8 PO Last administered on 06/24/18 13:48; Admin Dose 75 MG; Start 06/24/18 at 09:00 Labetalol HCl (Normodyne) 400 mg TID PO Last administered on 06/24/18 13:04; Admin Dose 400 MG; Start 06/24/18 at 09:00 Nifedipine (Procardia Xl) 60 mg BID PO Last administered on 06/24/18 09:06; Admin Dose 60 MG; Start 06/24/18 at 09:00 Allergies: Coded Allergies: No Known Allergies (Unverified Allergy, Unknown, 09/02/17) Past Surgical History Past Surgical Hx: no surgical history Social History Alcohol Use: occasionally Smoking Status: Never smoker Drug Use: marijuana Exam/Review of Systems Exam Vitals Vital Signs Date Temp Pulse Resp B/P (MAP) Pulse Ox O2 O2 Flow FiO2 Time Delivery Rate 06/24/18 97 13 168/100 12:15 (122) 06/24/18 100 Room Air 12:00 06/24/18 98.0 08:00 06/24/18 30 02:30 Intake and Output 06/23/18 06/23/18 06/24/18 1515:00 23:00 07:00 IntakeIntake Total 2110 ml OutputOutput Total 1160 ml BalanceBalance 950 ml Exam PHYSICAL EXAMINATION: GENERAL: Alert & oriented x 3, in no acute distress SKIN: No lesions EYES: Pupils equal reactive to light, no discharge. EARS/NOSE AND THROAT: Ears normal, nose normal. NECK: Supple, no masses. CHEST: Inspection within normal limits. CARDIOVASCULAR: Heart: Regular rate and rhythm RESPIRATORY: Lungs clear to auscultation GASTROINTESTINAL AND LIVER: Abdomen: Soft, generalized tenderness, non- distended, no hernias, no masses, no organomegaly, no ascites, no guarding, no rebound tenderness, normoactive bowel sounds. Rectal: Deferred. Results Result Diagram: 06/24/18 0713 06/24/18 0713 Results 24hrs Laboratory Tests Test 06/23/18 20:10 06/23/18 20:55 06/23/18 21:31 06/24/18 00:27 White Blood Count 22.5 #H Red Blood Count 5.20 # Hemoglobin 13.4 #L Hematocrit 41.8 #L Mean Corpuscular 80.4 L Volume Mean Corpuscular 25.8 L Hemoglobin Mean Corpuscular 32.1 Hemoglobin Concent Red Cell 14.6 H Distribution Width Platelet Count 463 #H Mean Platelet 9.7 Volume Immature 0.700 H Granulocytes % Neutrophils % 93.5 H Lymphocytes % 3.5 L Monocytes % 1.9 Eosinophils % 0.0 Basophils % 0.4 Nucleated Red 0.0 Blood Cells % Immature 0.160 H Granulocytes # Neutrophils # 21.0 H Lymphocytes # 0.8 Monocytes # 0.4 Eosinophils # 0.0 Basophils # 0.1 Nucleated Red 0.0 Blood Cells # Prothrombin Time 12.5 Prothrombin Time 1.0 Ratio INR International 0.92 Normalized Ratio Urine Color YELLOW Urine Clarity SLIGHTLY CLOUDY A Urine pH 5.0 Urine Specific 1.020 [place] Urine Ketones TRACE A Urine Nitrite NEGATIVE Urine Bilirubin NEGATIVE Urine Urobilinogen NEGATIVE Urine Leukocyte NEGATIVE Esterase Urine Microscopic 3 RBC Urine Microscopic 10 H WBC Urine Hemoglobin 1+ H Urine Glucose NEGATIVE Urine Total 3+ H Protein Sodium Level 140 Potassium Level 3.8 Chloride Level 108 Carbon Dioxide 20 L Level Anion Gap 12 Blood Urea 43 H Nitrogen Creatinine 5.63 H Est Glomerular 12 L Filtrat Rate mL/min Glucose Level 136 Calcium Level 9.4 Total Bilirubin 1.1 Direct Bilirubin 0.00 Indirect Bilirubin 1.1 Aspartate Amino 17 Transf (AST/SGOT) Alanine 18 Aminotransferase ( ALT/SGPT) Alkaline 135 H Phosphatase Troponin I 0.035 Total Protein 7.6 Albumin 3.7 Globulin 3.90 H Albumin/Globulin 0.94 Ratio Lipase 42 Urine Opiates Negative Screen Urine Barbiturates Negative Urine Amphetamines Negative Screen Urine Negative Benzodiazepines Screen Urine Cocaine Negative Screen Urine Cannabinoids Positive Ethyl Alcohol < 10.0 H Level POC Venous Lactate 1.4 Lactic Acid Level 2.0 1.0 Test 06/24/18 07:13 White Blood Count 24.0 H Red Blood Count 4.38 L Hemoglobin 11.4 L Hematocrit 35.6 L Mean Corpuscular 81.3 L Volume Mean Corpuscular 26.0 L Hemoglobin Mean Corpuscular 32.0 Hemoglobin Concent Red Cell 14.9 H Distribution Width Platelet Count 422 H Mean Platelet 10.4 Volume Immature 1.000 H Granulocytes % Neutrophils % 85.6 H Lymphocytes % 6.0 L Monocytes % 6.2 Eosinophils % 0.8 Basophils % 0.4 Nucleated Red 0.0 Blood Cells % Immature 0.250 H Granulocytes # Neutrophils # 20.5 H Lymphocytes # 1.4 Monocytes # 1.5 H Eosinophils # 0.2 Basophils # 0.1 Nucleated Red 0.0 Blood Cells # Erythrocyte 22 H Sedimentation Rate Sodium Level 139 Potassium Level 3.7 Chloride Level 108 Carbon Dioxide 22 Level Anion Gap 9 Blood Urea 41 H Nitrogen Creatinine 5.57 H Est Glomerular 12 L Filtrat Rate mL/min Glucose Level 114 Hemoglobin A1c 4.9 Calcium Level 8.7 Phosphorus Level 5.4 H Magnesium Level 2.1 Total Bilirubin 0.9 Direct Bilirubin 0.00 Indirect Bilirubin 0.9 Aspartate Amino 13 L Transf (AST/SGOT) Alanine 18 Aminotransferase ( ALT/SGPT) Alkaline 93 Phosphatase C-Reactive Protein 1.1 H Total Protein 6.4 # Albumin 3.1 L Globulin 3.30 H Albumin/Globulin 0.93 Ratio Triglycerides 210 H Level Cholesterol Level 155 LDL Cholesterol, 87 Calculated HDL Cholesterol 26 L Cholesterol/HDL 5.9 Ratio Thyroid 0.792 Stimulating Hormone (TSH) Medications Medication Current Medications Ondansetron HCl (Zofran Inj) 4 mg Q6H PRN IV NAUSEA AND/OR VOMITING Last administered on 06/24/18at 09:39; Admin Dose 4 MG; Start 5/1/19 at 23:00 Ipratropium [place] (Atrovent 0.02% (Neb)) 0.5 mg Q2H RESP THERAPY PRN NEB SHORTNESS OF BREATH; Start 06/23/18 at 23:00 Nitroglycerin (Nitroglycerin (Sl Tab) 0.4 Mg) 1 tab Q5M PRN SL CHEST PAIN; Start 06/23/18 at 23:00 Acetaminophen (Tylenol Liquid) 650 mg Q6H PRN PO PAIN LEVEL 1-3 OR FEVER; Start 06/23/18 at 23:00 Morphine Sulfate (morphine) 2 mg Q4H PRN IV PAIN LEVEL 7-10 Last administered on 06/24/18 04:06; Admin Dose 2 MG; Start 06/23/18 at 23:00 Pantoprazole (Protonix Iv) 40 mg DAILY@06 IV Last administered on 06/24/18 05:39; Admin Dose 40 MG; Start 06/24/18 at 06:00 Heparin Sodium (Porcine) (Heparin (5000 Units/1ml)) 5,000 unit Q8 SC Last administered on 06/24/18 13:50; Admin Dose 5,000 UNIT; Start 06/23/18 at 23:00 Linezolid 300 ml @ 300 mls/hr Q12 IVPB Last administered on 06/24/18 09:06; Admin Dose 300 MLS/HR; Start 06/23/18 at 23:00 Piperacillin Sod/ Tazobactam Sod 50 ml @ 100 mls/hr Q8 IVPB Last administered on 06/24/18 13:04; Admin Dose 100 MLS/HR; Start 06/24/18 at 06:00 Al Hydrox/Mg Hydrox/Simethicone (Mag-Al Plus) 30 ml Q6H PRN PO GASTROINTESTINAL UPSET Last administered on 06/24/18at 00:48; Admin Dose 30 ML; Start 06/24/18 at 00:30 Nitroglycerin/ Dextrose 250 ml @ 1.5 mls/hr TITRATE IV Last administered on 06/24/18 03:09; Admin Dose 1.5 MLS/HR; Start 06/24/18 at 03:00 Nicardipine HCl 200 ml @ 50 mls/hr TITRATE IV Last administered on 06/24/18at 05:56; Admin Dose 50 MLS/HR; Start 06/24/18 at 04:30 Hydralazine HCl (Apresoline) 75 mg Q8 PO Last administered on 06/24/18at 13:48; Admin Dose 75 MG; Start 06/24/18 at 09:00 Labetalol HCl (Normodyne) 400 mg TID PO Last administered on 06/24/18at 13:04; Admin Dose 400 MG; Start 06/24/18 at 09:00 Nifedipine (Procardia Xl) 60 mg BID PO Last administered on 06/24/18at 09:06; Admin Dose 60 MG; Start 06/24/18 at 09:00 ASHISH OTERO June 24, 2018 14:49
[2018-06-24] MEDS: LORAZEPAM 2 MG INJ IV PRN (22:46)
[2018-06-25] VITALS (15 sets, daily range): BP systolic 140–157; BP diastolic 78–86; PULSE 82–102; RESP 19–20
[2018-06-25] MEDS: PANTOPRAZOLE 40 MG INJ IV SCH (05:45)
[2018-06-25] MEDS: PIPER-TAZO 2.25 GM/NS 50 ML IVPB SCH ×2 (05:45→13:10)
[2018-06-25] MEDS: HEPARIN 5,000 UNIT/1 ML VIAL SC SCH ×3 (06:00→21:14)
[2018-06-25] MEDS: LINEZOLID 600 MG/D5W (PMX) 300 ML IVPB SCH (08:07)
[2018-06-25] MEDS: LABETALOL 200 MG TAB PO SCH ×3 (08:14→21:09)
[2018-06-25] MEDS: NIFEdipine (XL) 60 MG TAB PO SCH ×2 (08:14→21:09)
--- NOTE | 2018-06-25 08:35 | PN ---
DATE: 06/25/2018 SUBJECTIVE: The patient was transferred from intensive care unit to telemetry. The patient's blood pressures have been improving. No other acute events noted overnight. No hemoptysis, hematemesis, or hematochezia. I spoke with the patient about the possibility of starting dialysis if renal function does not improve. The patient agrees to HD if no improvement. OBJECTIVE: VITAL SIGNS: Blood pressure is 137/85, respirations 20, pulse 95, temperature 97.8. HEENT: Head is normocephalic. NECK: Supple. HEART: Regular rate. LUNGS: Show diminished breath sounds at the base. ABDOMEN: Soft, nontender to palpation. No rebound or guarding. EXTREMITIES: Negative for clubbing, cyanosis. Trace edema. DERMATOLOGIC: No rashes. MUSCULOSKELETAL: No joint effusion. NEUROLOGIC: No change in exam. MEDICATIONS: Reviewed. LABORATORY DATA: Reviewed. Urinalysis was reviewed. ASSESSMENT AND PLAN: 1. Nonoliguric acute kidney injury on top of chronic kidney disease stage IV with previous baseline creatinine of 4.4 mg/dL. Etiology of current acute kidney injury is multifactorial secondary to tubular injury and hemodynamics. The patient remains in injury phase of acute kidney injury as renal function continues to decline. Recommendations at this point would be to continue current medical management. Continue current blood pressure regimen. Avoid significant hemodynamic fluctuations to ensure adequate renal perfusion. Defer any CURT inhibitor or ARB at this time. Please note, I spoke with the patient in detail about the possibility of hemodialysis if renal function should further decline or if the patient should develop uremic signs or symptoms. The patient voiced understanding. We will continue to monitor closely. 2. Hypertensive urgency. Etiology is secondary to chronic kidney disease, medical noncompliance. The patient's blood pressures are improving. Continue current medical management. Continue labetalol, hydralazine. Continue nifedipine. Monitor blood pressures closely. 3. Chronic kidney disease stage IV, etiology is secondary to hypertensive nephrosclerosis. The patient is currently in acute kidney injury as stated above. Continue current medical management. Continue disease factor modification. 4. Anemia. Continue to monitor hemoglobin and hematocrit levels. We will give Epogen as needed. 5. Mineral bone disorder. Monitor calcium and phosphorus levels. 6. Volume overload. Etiology is secondary to chronic kidney disease, possible diastolic heart failure. The patient is clinically improving. We will give intermittent diuretic therapy as needed. 7. Systemic inflammatory response syndrome, possible sepsis. The patient has markedly elevated white count. Continue empiric antibiotic therapy. Cultures have been reviewed and negative to date. 8. Nausea, vomiting. Etiology may be secondary to medications and the patient's cannabinoids use, possibility of uremia is a consideration. Continue to monitor closely. We will follow up with GI recommendations. Continue Reglan. 9. Obese. Continue dietary modification. 10. Enteritis. Continue antibiotic therapy. Dictated By: SOPHIA COLIN DO NR/NTS Conf#: [id number] DID#: [id number] CC: SOPHIA COLIN DO; MARTHA AVILA MD; DONOVAN QUISPE MD;*EndCC* MTDD
[2018-06-25] MEDS ORDERED: POTASSIUM CHLORIDE (SR) 20 MEQ TAB PO STA (10:32)
[2018-06-25] MEDS: LORAZEPAM 2 MG INJ IV PRN (13:07)
--- NOTE | 2018-06-25 15:33 | PN ---
Date/Time of Note Date/Time of Note DATE: 06/25/18 TIME: 15:29 Assessment/Plan VTE Prophylaxis Risk score (from Ns)>0 risk: 1 SCD applied (from Ns): No SCD contraindicated: low risk/ambulating Pharmacological prophylaxis: heparin Lines/Catheters IV Catheter Type (from Nrs): Peripheral IV Urinary Cath still in place: No Assessment/Plan Assessment/Plan Assessment: Hypertensive crisis Abdominal pain Persistent nausea/vomiting -Cannabinoid cyclic vomiting syndrome versus infectious process versus other Diarrhea-improved Enteritis noted jejunal thickening on CT scan -Infectious versus autoimmune Leukocytosis Normocytic anemia Heart failure Chronic kidney disease Chronic marijuana use Scattered nodular opacities and tree in bud opacities -representing infection or inflammation -significantly improved compared to 03/15/2018. Plan Obtain stool studies No obstruction noted on CT scan- continue Zofran- Will not order Reglan and interaction with Linezolid-severe reaction- may result in hypertensive crisis Continue PPI If symptoms do not improve and stool studies are neg- will move forward with EGD/colon when medically optimized Continue clear liquid diet- currently tolerating fairly Pt currently on ABX Patient seen in collaboration with Dr. Hernandez Subjective: Patient is feeling better today. Denies abdominal pain, nausea or vomiting. Hypertension improved. Patient is tolerating clear liquid diet well. Leukocytosis improved. Continue observation. Monitor the need for endoscopic procedure. Exam PHYSICAL EXAMINATION: GENERAL: Alert & oriented x 3, in no acute distress SKIN: No lesions EYES: Pupils equal reactive to light, no discharge. EARS/NOSE AND THROAT: Ears normal, nose normal. NECK: Supple, no masses. CHEST: Inspection within normal limits. CARDIOVASCULAR: Heart: Regular rate and rhythm RESPIRATORY: Lungs clear to auscultation GASTROINTESTINAL AND LIVER: Abdomen: Soft, generalized tenderness, non-di stended, no hernias, no masses, no organomegaly, no ascites, no guarding, no rebound tenderness, normoactive bowel sounds. Rectal: Deferred. Result Diagram: 06/25/1837 06/25/1837 Results 24hrs Laboratory Tests Test 06/25/18 06:37 White Blood Count 16.5 #H Red Blood Count 4.02 L Hemoglobin 10.3 L Hematocrit 33.3 L Mean Corpuscular Volume 82.8 Mean Corpuscular Hemoglobin 25.6 L Mean Corpuscular Hemoglobin Concent 30.9 L Red Cell Distribution Width 15.2 H Platelet Count 378 Mean Platelet Volume 10.1 Immature Granulocytes % 0.500 H Neutrophils % 72.5 Lymphocytes % 15.0 Monocytes % 7.2 Eosinophils % 4.2 Basophils % 0.6 Nucleated Red Blood Cells % 0.0 Immature Granulocytes # 0.090 H Neutrophils # 11.9 H Lymphocytes # 2.5 Monocytes # 1.2 H Eosinophils # 0.7 H Basophils # 0.1 Nucleated Red Blood Cells # 0.0 Sodium Level 140 Potassium Level 3.4 L Chloride Level 107 Carbon Dioxide Level 25 Anion Gap 8 Blood Urea Nitrogen 37 H Creatinine 6.10 H Est Glomerular Filtrat Rate mL/min 11 L Glucose Level 94 Calcium Level 8.5 Phosphorus Level 6.1 H Total Bilirubin 0.5 Direct Bilirubin 0.00 Indirect Bilirubin 0.5 Aspartate Amino Transf (AST/SGOT) 11 L Alanine Aminotransferase (ALT/SGPT) 16 Alkaline Phosphatase 76 Total Protein 5.8 L Albumin 2.9 L Globulin 2.90 Albumin/Globulin Ratio 1.00 CC: LIZETH HERNANDEZ MD ; Exam/Review of Systems Exam Vitals Vital Signs Date Temp Pulse Resp B/P (MAP) Pulse Ox O2 O2 Flow FiO2 Time Delivery Rate 06/25/18 98.2 93 20 140/86 100 12:23 (104) 06/25/18 30 05:08 06/24/18 Room Air 22:40 06/24/18 2.0 13:00 Intake and Output 06/24/18 06/24/18 06/25/18 1414:59 22:59 06:59 IntakeIntake Total 1330 ml 1000 ml 240 ml OutputOutput Total 1250 ml 550 ml 650 ml BalanceBalance 80 ml 450 ml -410 ml Results Results 24hrs Laboratory Tests Test 06/25/18 06:37 White Blood Count 16.5 #H Red Blood Count 4.02 L Hemoglobin 10.3 L Hematocrit 33.3 L Mean Corpuscular Volume 82.8 Mean Corpuscular Hemoglobin 25.6 L Mean Corpuscular Hemoglobin Concent 30.9 L Red Cell Distribution Width 15.2 H Platelet Count 378 Mean Platelet Volume 10.1 Immature Granulocytes % 0.500 H Neutrophils % 72.5 Lymphocytes % 15.0 Monocytes % 7.2 Eosinophils % 4.2 Basophils % 0.6 Nucleated Red Blood Cells % 0.0 Immature Granulocytes # 0.090 H Neutrophils # 11.9 H Lymphocytes # 2.5 Monocytes # 1.2 H Eosinophils # 0.7 H Basophils # 0.1 Nucleated Red Blood Cells # 0.0 Sodium Level 140 Potassium Level 3.4 L Chloride Level 107 Carbon Dioxide Level 25 Anion Gap 8 Blood Urea Nitrogen 37 H Creatinine 6.10 H Est Glomerular Filtrat Rate mL/min 11 L Glucose Level 94 Calcium Level 8.5 Phosphorus Level 6.1 H Total Bilirubin 0.5 Direct Bilirubin 0.00 Indirect Bilirubin 0.5 Aspartate Amino Transf (AST/SGOT) 11 L Alanine Aminotransferase (ALT/SGPT) 16 Alkaline Phosphatase 76 Total Protein 5.8 L Albumin 2.9 L Globulin 2.90 Albumin/Globulin Ratio 1.00 Medications Medication Current Medications Ondansetron HCl (Zofran Inj) 4 mg Q6H PRN IV NAUSEA AND/OR VOMITING Last administered on 06/24/18at 17:40; Admin Dose 4 MG; Start 06/23/18 at 23:00 Ipratropium [place] (Atrovent 0.02% (Neb)) 0.5 mg Q2H RESP THERAPY PRN NEB SHORTNESS OF BREATH; Start 06/23/18 at 23:00 Nitroglycerin (Nitroglycerin (Sl Tab) 0.4 Mg) 1 tab Q5M PRN SL CHEST PAIN; Start 06/23/18 at 23:00 Acetaminophen (Tylenol Liquid) 650 mg Q6H PRN PO PAIN LEVEL 1-3 OR FEVER; Start 06/23/18 at 23:00 Morphine Sulfate (morphine) 2 mg Q4H PRN IV PAIN LEVEL 7-10 Last administered on 06/24/18at 20:27; Admin Dose 2 MG; Start 06/23/18 at 23:00 Pantoprazole (Protonix Iv) 40 mg DAILY@06 IV Last administered on 06/25/18at 05:45; Admin Dose 40 MG; Start 06/24/18 at 06:00 Heparin Sodium (Porcine) (Heparin (5000 Units/1ml)) 5,000 unit Q8 SC Last administered on 06/25/18at 06:00; Admin Dose 5,000 UNIT; Start 06/23/18 at 23:00 Linezolid 300 ml @ 300 mls/hr Q12 IVPB Last administered on 06/25/18 08:07; Admin Dose 300 MLS/HR; Start 06/23/18 at 23:00 Piperacillin Sod/ Tazobactam Sod 50 ml @ 100 mls/hr Q8 IVPB Last administered on 06/25/18 13:10; Admin Dose 100 MLS/HR; Start 06/24/18 at 06:00 Al Hydrox/Mg Hydrox/Simethicone (Mag-Al Plus) 30 ml Q6H PRN PO GASTROINTESTINAL UPSET Last administered on 06/24/18 00:48; Admin Dose 30 ML; Start 06/24/18 at 00:30 Hydralazine HCl (Apresoline) 75 mg Q8 PO Last administered on 06/25/18 13:41; Admin Dose 75 MG; Start 06/24/18 at 09:00 Labetalol HCl (Normodyne) 400 mg TID PO Last administered on 06/25/18 13:10; Admin Dose 400 MG; Start 06/24/18 at 09:00 Nifedipine (Procardia Xl) 60 mg BID PO Last administered on 06/25/18 08:14; Admin Dose 60 MG; Start 06/24/18 at 09:00 Lorazepam (Ativan) 1 mg Q6H PRN IV AGITATION/ANXIETY Last administered on 06/25/18 13:07; Admin Dose 1 MG; Start 06/24/18 at 21:00 NETTIE ORTIZ EM[employer]EE [employer]ATIONS DIRECT[employer] June 25, 2018 15:33
--- NOTE | 2018-06-25 15:35 | PN ---
Date/Time of Note Date/Time of Note DATE: 06/25/18 TIME: 15:32 Assessment/Plan VTE Prophylaxis Risk score (from Ns)>0 risk: 1 SCD applied (from Ns): No SCD contraindicated: other (not contraindicated) Pharmacological prophylaxis: heparin Lines/Catheters IV Catheter Type (from [facility]): Peripheral IV Urinary Cath still in place: No Assessment/Plan Assessment/Plan 27 yo man history of meth use and cardiomyopathy presents with vomiting and diarrhea #Hypertension - Noncomplaint with home meds, BP 260 in the ED. - Cont home hydralazine, labetalol, nifedipine. Patient tolerating PO. - Nephrology consulted. # Possible sepsis #Nausea and vomiting - The patient is afebrile, he did have a white blood cell count of approximately 22,000, he presented tachycardic. - He does report nausea vomiting and diarrhea. - CT scan of the abdomen pelvis showed Circumferential wall thickening in the proximal jejunum without adjacent fat stranding or distension may represent infectious or autoimmune enteritis. - Will stop antibiotics. Cultures negative so far, no evidence of sepsis. - GI following. # non-oliguric chronic kidney disease stage IV: - Creatinine at baseline. - There is a slight metabolic acidosis. - Nephrology consulted - If Cr not improving, may need dialysis on Thursday. # obesity: Low calorie diet. # DVT and GI prophylaxis: Heparin, SCDs # medication noncompliance: Patient was counseled on the importance of medication compliance and the risk that the patient does run if he does not actively monitor his blood pressures at home and take his medications. He likely will need repeated counseling. Result Diagram: 06/25/18 0637 06/25/1837 Subjective 24 Hr Interval Summary Free Text/Dictation Patient tolerated BiPAP overnight. Reports having one more episode of vomiting after dinner around 8 pm last night. This morning sitting up in bed, on room air, feeling well. Exam/Review of Systems Exam Vitals Vital Signs Date Temp Pulse Resp B/P (MAP) Pulse Ox O2 O2 Flow FiO2 Time Delivery Rate 06/25/18 98.2 93 20 140/86 100 12:23 (104) 06/25/18 30 05:08 06/24/18 Room Air 22:40 06/24/18 2.0 13:00 Intake and Output 06/24/18 06/24/18 06/25/18 1515:00 23:00 07:00 IntakeIntake Total 1280 ml 1000 ml 240 ml OutputOutput Total 1250 ml 550 ml 650 ml BalanceBalance 30 ml 450 ml -410 ml Exam General: Obese man sitting up in bed awake and alert, no distress. HEENT: Atraumatic, normocephalic. The pupils are equal, round and reactive. Ex traocular motor are intact Neck: Supple with full range of motion. No rigidity or meningismus Chest: Nontender Lungs: Clear to auscultation bilaterally no crackles rales or wheezing Heart: Normal S1-S2, Regular rhythm and rate. No murmur, S3, or S4 Abdomen: Soft , nontender, nondistended , bowel sounds are present. No guarding no rebound tenderness. Extremities: Trace bilateral lower extremity nonpitting edema Results Results 24hrs Laboratory Tests Test 06/25/18 06:37 White Blood Count 16.5 #H Red Blood Count 4.02 L Hemoglobin 10.3 L Hematocrit 33.3 L Mean Corpuscular Volume 82.8 Mean Corpuscular Hemoglobin 25.6 L Mean Corpuscular Hemoglobin Concent 30.9 L Red Cell Distribution Width 15.2 H Platelet Count 378 Mean Platelet Volume 10.1 Immature Granulocytes % 0.500 H Neutrophils % 72.5 Lymphocytes % 15.0 Monocytes % 7.2 Eosinophils % 4.2 Basophils % 0.6 Nucleated Red Blood Cells % 0.0 Immature Granulocytes # 0.090 H Neutrophils # 11.9 H Lymphocytes # 2.5 Monocytes # 1.2 H Eosinophils # 0.7 H Basophils # 0.1 Nucleated Red Blood Cells # 0.0 Sodium Level 140 Potassium Level 3.4 L Chloride Level 107 Carbon Dioxide Level 25 Anion Gap 8 Blood Urea Nitrogen 37 H Creatinine 6.10 H Est Glomerular Filtrat Rate mL/min 11 L Glucose Level 94 Calcium Level 8.5 Phosphorus Level 6.1 H Total Bilirubin 0.5 Direct Bilirubin 0.00 Indirect Bilirubin 0.5 Aspartate Amino Transf (AST/SGOT) 11 L Alanine Aminotransferase (ALT/SGPT) 16 Alkaline Phosphatase 76 Total Protein 5.8 L Albumin 2.9 L Globulin 2.90 Albumin/Globulin Ratio 1.00 Medications Medication Current Medications Ondansetron HCl (Zofran Inj) 4 mg Q6H PRN IV NAUSEA AND/OR VOMITING Last administered on 06/24/18at 17:40; Admin Dose 4 MG; Start 06/23/18 at 23:00 Ipratropium [place] (Atrovent 0.02% (Neb)) 0.5 mg Q2H RESP THERAPY PRN NEB SHORTNESS OF BREATH; Start 06/23/18 at 23:00 Nitroglycerin (Nitroglycerin (Sl Tab) 0.4 Mg) 1 tab Q5M PRN SL CHEST PAIN; Sta rt 06/23/18 at 23:00 Acetaminophen (Tylenol Liquid) 650 mg Q6H PRN PO PAIN LEVEL 1-3 OR FEVER; Start 06/23/18 at 23:00 Morphine Sulfate (morphine) 2 mg Q4H PRN IV PAIN LEVEL 7-10 Last administered on 06/24/18 20:27; Admin Dose 2 MG; Start 06/23/18 at 23:00 Pantoprazole (Protonix Iv) 40 mg DAILY@06 IV Last administered on 06/25/18 05:45; Admin Dose 40 MG; Start 06/24/18 at 06:00 Heparin Sodium (Porcine) (Heparin (5000 Units/1ml)) 5,000 unit Q8 SC Last administered on 06/25/18 06:00; Admin Dose 5,000 UNIT; Start 06/23/18 at 23:00 Linezolid 300 ml @ 300 mls/hr Q12 IVPB Last administered on 06/25/18 08:07; Admin Dose 300 MLS/HR; Start 06/23/18 at 23:00 Piperacillin Sod/ Tazobactam Sod 50 ml @ 100 mls/hr Q8 IVPB Last administered on 06/25/18 13:10; Admin Dose 100 MLS/HR; Start 06/24/18 at 06:00 Al Hydrox/Mg Hydrox/Simethicone (Mag-Al Plus) 30 ml Q6H PRN PO GASTROINTESTINAL UPSET Last administered on 06/24/18at 00:48; Admin Dose 30 ML; Start 06/24/18 at 00:30 Hydralazine HCl (Apresoline) 75 mg Q8 PO Last administered on 06/25/18 13:41; Admin Dose 75 MG; Start 06/24/18 at 09:00 Labetalol HCl (Normodyne) 400 mg TID PO Last administered on 06/25/18 13:10; Admin Dose 400 MG; Start 06/24/18 at 09:00 Nifedipine (Procardia Xl) 60 mg BID PO Last administered on 06/25/18at 08:14; Admin Dose 60 MG; Start 06/24/18 at 09:00 Lorazepam (Ativan) 1 mg Q6H PRN IV AGITATION/ANXIETY Last administered on 06/25/18at 13:07; Admin Dose 1 MG; Start 06/24/18 at 21:00 MARTHA AVILA MD June 25, 2018 15:35
[2018-06-25] MEDS: ONDANSETRON 4 MG INJ IV PRN (17:11)
[2018-06-26] VITALS (14 sets, daily range): BP systolic 130–164; BP diastolic 65–104; PULSE 81–109; RESP 18–20
[2018-06-26] MEDS: HEPARIN 5,000 UNIT/1 ML VIAL SC SCH ×3 (05:31→21:20)
[2018-06-26] MEDS: PANTOPRAZOLE 40 MG INJ IV SCH (05:31)
[2018-06-26] MEDS: NIFEdipine (XL) 60 MG TAB PO SCH ×2 (08:02→21:20)
[2018-06-26] MEDS: LABETALOL 200 MG TAB PO SCH ×3 (08:02→21:19)
--- NOTE | 2018-06-26 11:36 | CONS ---
Assessment/Plan Assessment/Plan Hospital Course (Demo Recall) 1. Nonoliguric acute kidney injury on top of chronic kidney disease stage IV with previous baseline creatinine of 4.4 mg/dL. Etiology of current acute kidney injury is multifactorial secondary to tubular injury and hemodynamics. The patient remains in injury phase of acute kidney injury as renal function continues to decline. continue current medical management. Continue current blood pressure regimen. Avoid significant hemodynamic fluctuations to ensure adequate renal perfusion. Defer any CURT inhibitor or ARB at this time. No urgent need for immediate HD. 2. Hypertensive urgency. Etiology is secondary to chronic kidney disease, medical noncompliance. The patient's blood pressures are improving. Continue current medical management. Continue labetalol, hydralazine. Continue nifedipine. Monitor blood pressures closely. 3. Chronic kidney disease stage IV, etiology is secondary to hypertensive nephrosclerosis. The patient is currently in acute kidney injury as stated above. Continue current medical management. Continue disease factor modification. 4. Anemia. Continue to monitor hemoglobin and hematocrit levels. We will give Epogen as needed. 5. Mineral bone disorder. Monitor calcium and phosphorus levels. 6. Volume overload. Etiology is secondary to chronic kidney disease, possible diastolic heart failure. The patient is clinically improving. We will give intermittent diuretic therapy as needed. 7. Systemic inflammatory response syndrome, possible sepsis. The patient has markedly elevated white count. Continue empiric antibiotic therapy. Cultures have been reviewed and negative to date. 8. Nausea, vomiting. Etiology may be secondary to medications and the patient's cannabinoids use, possibility of uremia is a consideration. Continue to monitor closely. We will follow up with GI recommendations. Continue Reglan. 9. Obese. Continue dietary modification. 10. Enteritis. Continue antibiotic therapy. Consultation Date/Type/Reason Admit Date/Time June 23, 2018 at 22:33 Initial Consult Date 06/24/18 Date/Time of Note DATE: 06/26/18 TIME: 11:35 24 HR Interval Summary Free Text/Dictation denies shortness of breath, orthopnea urinating without problems denies n/v d/w rn gen nad cv rrr pulm ctab abd soft, nd, nt +bs ext: no edema Exam/Review of Systems Exam Vitals Vital Signs Date Temp Pulse Resp B/P (MAP) Pulse Ox O2 O2 Flow FiO2 Time Delivery Rate 06/26/18 109 08:05 06/26/18 98.7 18 153/90 100 Room Air 07:31 (111) 06/26/18 30 02:10 06/24/18 2.0 13:00 Intake and Output 06/25/18 06/25/18 06/26/18 1414:59 22:59 06:59 IntakeIntake Total 840 ml 800 ml OutputOutput Total 1000 ml 400 ml BalanceBalance -160 ml 400 ml Results Result Diagram: 06/26/18 0906/26/18 09 Results 24hrs Laboratory Tests Test 06/26/18 04:00 06/26/18 09:01 Urine Color YELLOW Urine Clarity CLEAR Urine pH 5.0 Urine Specific [place] 1.011 Urine Ketones NEGATIVE Urine Nitrite NEGATIVE Urine Bilirubin NEGATIVE Urine Urobilinogen NEGATIVE Urine Leukocyte Esterase NEGATIVE Urine Microscopic RBC 1 Urine Microscopic WBC 2 Urine Hemoglobin NEGATIVE Urine Random Creatinine 153.67 Urine Random Sodium 50 Urine Glucose NEGATIVE Urine Total Protein 293.0 H White Blood Count 12.3 #H Red Blood Count 4.02 L Hemoglobin 10.5 L Hematocrit 33.5 L Mean Corpuscular Volume 83.3 Mean Corpuscular Hemoglobin 26.1 L Mean Corpuscular Hemoglobin Concent 31.3 L Red Cell Distribution Width 15.2 H Platelet Count 360 Mean Platelet Volume 9.7 Immature Granulocytes % 0.400 Neutrophils % 75.0 Lymphocytes % 11.6 L Monocytes % 4.7 Eosinophils % 7.4 H Basophils % 0.9 Nucleated Red Blood Cells % 0.0 Immature Granulocytes # 0.050 H Neutrophils # 9.2 H Lymphocytes # 1.4 Monocytes # 0.6 Eosinophils # 0.9 H Basophils # 0.1 Nucleated Red Blood Cells # 0.0 Sodium Level 139 Potassium Level 3.6 Chloride Level 107 Carbon Dioxide Level 23 Anion Gap 9 Blood Urea Nitrogen 32 H Creatinine 6.27 H Est Glomerular Filtrat Rate mL/min 11 L Glucose Level 116 Calcium Level 9.0 Phosphorus Level 4.6 Total Bilirubin 0.5 Direct Bilirubin 0.00 Indirect Bilirubin 0.5 Aspartate Amino Transf (AST/SGOT) 15 Alanine Aminotransferase (ALT/SGPT) 16 Alkaline Phosphatase 77 Total Protein 6.3 Albumin 3.2 L Globulin 3.10 Albumin/Globulin Ratio 1.03 Medications Medication Current Medications Ondansetron HCl (Zofran Inj) 4 mg Q6H PRN IV NAUSEA AND/OR VOMITING Last administered on 06/25/18at 17:11; Admin Dose 4 MG; Start 06/23/18 at 23:00 Ipratropium [place] (Atrovent 0.02% (Neb)) 0.5 mg Q2H RESP THERAPY PRN NEB SHORTNESS OF BREATH; Start 06/23/18 at 23:00 Nitroglycerin (Nitroglycerin (Sl Tab) 0.4 Mg) 1 tab Q5M PRN SL CHEST PAIN; Start 06/23/18 at 23:00 Acetaminophen (Tylenol Liquid) 650 mg Q6H PRN PO PAIN LEVEL 1-3 OR FEVER; Start 06/23/18 at 23:00 Morphine Sulfate (morphine) 2 mg Q4H PRN IV PAIN LEVEL 7-10 Last administered on 06/24/18 20:27; Admin Dose 2 MG; Start 06/23/18 at 23:00 Pantoprazole (Protonix Iv) 40 mg DAILY@06 IV Last administered on 06/26/18 05:31; Admin Dose 40 MG; Start 06/24/18 at 06:00 Heparin Sodium (Porcine) (Heparin (5000 Units/1ml)) 5,000 unit Q8 SC Last administered on 06/25/18 06:00; Admin Dose 5,000 UNIT; Start 06/23/18 at 23:00 Linezolid 300 ml @ 300 mls/hr Q12 IVPB Last administered on 06/25/18 08:07; Admin Dose 300 MLS/HR; Start 06/23/18 at 23:00; Status Hold Piperacillin Sod/ Tazobactam Sod 50 ml @ 100 mls/hr Q8 IVPB Last administered on 06/25/18 13:10; Admin Dose 100 MLS/HR; Start 06/24/18 at 06:00; Status Hold Al Hydrox/Mg Hydrox/Simethicone (Mag-Al Plus) 30 ml Q6H PRN PO GASTROINTESTINAL UPSET Last administered on 06/24/18 00:48; Admin Dose 30 ML; Start 06/24/18 at 00:30 Hydralazine HCl (Apresoline) 75 mg Q8 PO Last administered on 06/26/18 05:31; Admin Dose 75 MG; Start 06/24/18 at 09:00 Nifedipine (Procardia Xl) 60 mg BID PO Last administered on 06/26/18 08:02; Admin Dose 60 MG; Start 06/24/18 at 09:00 Lorazepam (Ativan) 1 mg Q6H PRN IV AGITATION/ANXIETY Last administered on 06/25/18at 13:07; Admin Dose 1 MG; Start 06/24/18 at 21:00 Labetalol HCl (Normodyne) 600 mg TID PO ; Start 06/26/18 at 13:00 CLAUDINE HOWARD MD June 26, 2018 11:36
[2018-06-26] MEDS: LORAZEPAM 2 MG INJ IV PRN ×2 (12:40→23:39)
--- NOTE | 2018-06-26 14:39 | PN ---
Date/Time of Note Date/Time of Note DATE: 06/26/18 TIME: 14:17 Assessment/Plan VTE Prophylaxis Risk score (from Ns)>0 risk: 1 SCD applied (from Ns): Yes Pharmacological prophylaxis: heparin Lines/Catheters IV Catheter Type (from Nrsg): Peripheral IV Urinary Cath still in place: No Assessment/Plan Assessment/Plan Assessment: Hypertensive crisis Abdominal pain Persistent nausea/vomiting -Cannabinoid cyclic vomiting syndrome versus infectious process versus other Diarrhea-improved Enteritis noted jejunal thickening on CT scan -Infectious versus autoimmune Leukocytosis Normocytic anemia Heart failure Chronic kidney disease Chronic marijuana use Scattered nodular opacities and tree in bud opacities -representing infection or inflammation -significantly improved compared to 03/15/2018. Plan: EGD/Colonoscopy on Thursday Stool studies - neg No Reglan potential interaction with Linezolid-result in hypertensive crisis - Nausea resolved Continue PPI Pt currently on ABX Patient seen in collaboration with Dr. Hernandez Subjective: Patient is feeling better today. Denies abdominal pain, nausea or vomiting. Diarrhea persists. hypertension improved, SBP in 140's. Patient is tolerating clear liquid diet well. Leukocytosis improved. We will proceed with EGD/colonoscopy on Thursday. Start bowel prep tomorrow. Continue observation. Exam PHYSICAL EXAMINATION: GENERAL: Alert & oriented x 3, in no acute distress SKIN: No lesions EYES: Pupils equal reactive to light, no discharge. EARS/NOSE AND THROAT: Ears normal, nose normal. NECK: Supple, no masses. CHEST: Inspection within normal limits. CARDIOVASCULAR: Heart: Regular rate and rhythm RESPIRATORY: Lungs clear to auscultation GASTROINTESTINAL AND LIVER: Abdomen: Soft, lower abdominal tenderness, non- distended, no hernias, no masses, no organomegaly, no ascites, no guarding, no rebound tenderness, normoactive bowel sounds. Rectal: Deferred. Result Diagram: 06/26/1890006/26/18900 Results 24hrs Laboratory Tests Test 06/26/18 04:00 06/26/18 09:01 Urine Color YELLOW Urine Clarity CLEAR Urine pH 5.0 Urine Specific [place] 1.011 Urine Ketones NEGATIVE Urine Nitrite NEGATIVE Urine Bilirubin NEGATIVE Urine Urobilinogen NEGATIVE Urine Leukocyte Esterase NEGATIVE Urine Microscopic RBC 1 Urine Microscopic WBC 2 Urine Hemoglobin NEGATIVE Urine Random Creatinine 153.67 Urine Random Sodium 50 Urine Glucose NEGATIVE Urine Total Protein 293.0 H White Blood Count 12.3 #H Red Blood Count 4.02 L Hemoglobin 10.5 L Hematocrit 33.5 L Mean Corpuscular Volume 83.3 Mean Corpuscular Hemoglobin 26.1 L Mean Corpuscular Hemoglobin Concent 31.3 L Red Cell Distribution Width 15.2 H Platelet Count 360 Mean Platelet Volume 9.7 Immature Granulocytes % 0.400 Neutrophils % 75.0 Lymphocytes % 11.6 L Monocytes % 4.7 Eosinophils % 7.4 H Basophils % 0.9 Nucleated Red Blood Cells % 0.0 Immature Granulocytes # 0.050 H Neutrophils # 9.2 H Lymphocytes # 1.4 Monocytes # 0.6 Eosinophils # 0.9 H Basophils # 0.1 Nucleated Red Blood Cells # 0.0 Sodium Level 139 Potassium Level 3.6 Chloride Level 107 Carbon Dioxide Level 23 Anion Gap 9 Blood Urea Nitrogen 32 H Creatinine 6.27 H Est Glomerular Filtrat Rate mL/min 11 L Glucose Level 116 Calcium Level 9.0 Phosphorus Level 4.6 Total Bilirubin 0.5 Direct Bilirubin 0.00 Indirect Bilirubin 0.5 Aspartate Amino Transf (AST/SGOT) 15 Alanine Aminotransferase (ALT/SGPT) 16 Alkaline Phosphatase 77 Total Protein 6.3 Albumin 3.2 L Globulin 3.10 Albumin/Globulin Ratio 1.03 CC: LIZETH HERNANDEZ MD ; Exam/Review of Systems Exam Vitals Vital Signs Date Temp Pulse Resp B/P (MAP) Pulse Ox O2 O2 Flow FiO2 Time Delivery Rate 06/26/18 97 12:05 06/26/18 97.6 18 144/87 98 Room Air 11:43 (106) 06/26/18 30 02:10 06/24/18 2.0 13:00 Intake and Output 06/25/18 06/25/18 06/26/18 1515:00 23:00 07:00 IntakeIntake Total 840 ml 800 ml OutputOutput Total 1000 ml 400 ml BalanceBalance -160 ml 400 ml Results Results 24hrs Laboratory Tests Test 06/26/18 04:00 06/26/18 09:01 Urine Color YELLOW Urine Clarity CLEAR Urine pH 5.0 Urine Specific [place] 1.011 Urine Ketones NEGATIVE Urine Nitrite NEGATIVE Urine Bilirubin NEGATIVE Urine Urobilinogen NEGATIVE Urine Leukocyte Esterase NEGATIVE Urine Microscopic RBC 1 Urine Microscopic WBC 2 Urine Hemoglobin NEGATIVE Urine Random Creatinine 153.67 Urine Random Sodium 50 Urine Glucose NEGATIVE Urine Total Protein 293.0 H White Blood Count 12.3 #H Red Blood Count 4.02 L Hemoglobin 10.5 L Hematocrit 33.5 L Mean Corpuscular Volume 83.3 Mean Corpuscular Hemoglobin 26.1 L Mean Corpuscular Hemoglobin Concent 31.3 L Red Cell Distribution Width 15.2 H Platelet Count 360 Mean Platelet Volume 9.7 Immature Granulocytes % 0.400 Neutrophils % 75.0 Lymphocytes % 11.6 L Monocytes % 4.7 Eosinophils % 7.4 H Basophils % 0.9 Nucleated Red Blood Cells % 0.0 Immature Granulocytes # 0.050 H Neutrophils # 9.2 H Lymphocytes # 1.4 Monocytes # 0.6 Eosinophils # 0.9 H Basophils # 0.1 Nucleated Red Blood Cells # 0.0 Sodium Level 139 Potassium Level 3.6 Chloride Level 107 Carbon Dioxide Level 23 Anion Gap 9 Blood Urea Nitrogen 32 H Creatinine 6.27 H Est Glomerular Filtrat Rate mL/min 11 L Glucose Level 116 Calcium Level 9.0 Phosphorus Level 4.6 Total Bilirubin 0.5 Direct Bilirubin 0.00 Indirect Bilirubin 0.5 Aspartate Amino Transf (AST/SGOT) 15 Alanine Aminotransferase (ALT/SGPT) 16 Alkaline Phosphatase 77 Total Protein 6.3 Albumin 3.2 L Globulin 3.10 Albumin/Globulin Ratio 1.03 Medications Medication Current Medications Ondansetron HCl (Zofran Inj) 4 mg Q6H PRN IV NAUSEA AND/OR VOMITING Last administered on 06/25/18at 17:11; Admin Dose 4 MG; Start 06/23/18 at 23:00 Ipratropium [place] (Atrovent 0.02% (Neb)) 0.5 mg Q2H RESP THERAPY PRN NEB SHORTNESS OF BREATH; Start 06/23/18 at 23:00 Nitroglycerin (Nitroglycerin (Sl Tab) 0.4 Mg) 1 tab Q5M PRN SL CHEST PAIN; Start 06/23/18 at 23:00 Acetaminophen (Tylenol Liquid) 650 mg Q6H PRN PO PAIN LEVEL 1-3 OR FEVER; Start 06/23/18 at 23:00 Morphine Sulfate (morphine) 2 mg Q4H PRN IV PAIN LEVEL 7-10 Last administered on 06/24/18at 20:27; Admin Dose 2 MG; Start 06/23/18 at 23:00 Pantoprazole (Protonix Iv) 40 mg DAILY@06 IV Last administered on 06/26/18at 05:31; Admin Dose 40 MG; Start 06/24/18 at 06:00 Heparin Sodium (Porcine) (Heparin (5000 Units/1ml)) 5,000 unit Q8 SC Last administered on 06/25/18 06:00; Admin Dose 5,000 UNIT; Start 06/23/18 at 23:00 Linezolid 300 ml @ 300 mls/hr Q12 IVPB Last administered on 06/25/18 08:07; Admin Dose 300 MLS/HR; Start 06/23/18 at 23:00; Status Hold Piperacillin Sod/ Tazobactam Sod 50 ml @ 100 mls/hr Q8 IVPB Last administered on 06/25/18 13:10; Admin Dose 100 MLS/HR; Start 06/24/18 at 06:00; Status Hold Al Hydrox/Mg Hydrox/Simethicone (Mag-Al Plus) 30 ml Q6H PRN PO GASTROINTESTINAL UPSET Last administered on 06/24/18at 00:48; Admin Dose 30 ML; Start 06/24/18 at 00:30 Hydralazine HCl (Apresoline) 75 mg Q8 PO Last administered on 06/26/18 12:40; Admin Dose 75 MG; Start 06/24/18 at 09:00 Nifedipine (Procardia Xl) 60 mg BID PO Last administered on 06/26/18 08:02; A dmin Dose 60 MG; Start 06/24/18 at 09:00 Lorazepam (Ativan) 1 mg Q6H PRN IV AGITATION/ANXIETY Last administered on 06/26/18 12:40; Admin Dose 1 MG; Start 06/24/18 at 21:00 Labetalol HCl (Normodyne) 600 mg TID PO Last administered on 06/26/18 12:34; Admin Dose 600 MG; Start 06/26/18 at 13:00 NETTIE ORTIZ NP June 26, 2018 14:36
--- NOTE | 2018-06-26 15:20 | PN ---
Date/Time of Note Date/Time of Note DATE: 06/26/18 TIME: 15:19 Assessment/Plan VTE Prophylaxis Risk score (from Ns)>0 risk: 1 SCD applied (from Ns): Yes Pharmacological prophylaxis: NA/contraindicated Pharm contraindication: low risk/ambulating Lines/Catheters IV Catheter Type (from Nrsg): Peripheral IV Urinary Cath still in place: No Assessment/Plan Assessment/Plan 27 yo man history of meth use and cardiomyopathy presents with vomiting and diarrhea #Hypertension - Noncomplaint with home meds, BP 260 in the ED. - Cont home hydralazine, labetalol, nifedipine. Patient tolerating PO. - Nephrology consulted. # Possible sepsis #Nausea and vomiting - The patient is afebrile, he did have a white blood cell count of approximately 22,000, he presented tachycardic. - He does report nausea vomiting and diarrhea. - CT scan of the abdomen pelvis showed Circumferential wall thickening in the proximal jejunum without adjacent fat stranding or distension may represent infectious or autoimmune enteritis. - Will stop antibiotics. Cultures negative so far, no evidence of sepsis. - GI following. # non-oliguric chronic kidney disease stage IV: - Creatinine rising. - There is a slight metabolic acidosis. - Nephrology consulted - If Cr not improving, may need dialysis on Thursday. # obesity: Low calorie diet. # DVT and GI prophylaxis: Heparin, SCDs # medication noncompliance: Patient was counseled on the importance of medication compliance and the risk that the patient does run if he does not actively monitor his blood pressures at home and take his medications. He likely will need repeated counseling. Result Diagram: 06/26/1890006/26/18900 Subjective 24 Hr Interval Summary Free Text/Dictation No more episodes of vomiting. Patient walking around the halls listening to music today. Feeling well. Exam/Review of Systems Exam Vitals Vital Signs Date Temp Pulse Resp B/P (MAP) Pulse Ox O2 O2 Flow FiO2 Time Delivery Rate 06/26/18 97 12:05 06/26/18 97.6 18 144/87 98 Room Air 11:43 (106) 06/26/18 30 02:10 06/24/18 2.0 13:00 Intake and Output 06/25/18 06/25/18 06/26/18 1515:00 23:00 07:00 IntakeIntake Total 840 ml 800 ml OutputOutput Total 1000 ml 400 ml BalanceBalance -160 ml 400 ml Exam General: Obese man walking around the halls by nursing station. HEENT: Atraumatic, normocephalic. The pupils are equal, round and reactive. Extraocular motor are intact Neck: Supple with full range of motion. No rigidity or meningismus Chest: Nontender Lungs: Clear to auscultation bilaterally no crackles rales or wheezing Heart: Normal S1-S2, Regular rhythm and rate. No murmur, S3, or S4 Abdomen: Soft , nontender, nondistended , bowel sounds are present. No guarding no rebound tenderness. Extremities: Trace bilateral lower extremity nonpitting edema Results Results 24hrs Laboratory Tests Test 06/26/18 04:00 06/26/18 09:01 Urine Color YELLOW Urine Clarity CLEAR Urine pH 5.0 Urine Specific [place] 1.011 Urine Ketones NEGATIVE Urine Nitrite NEGATIVE Urine Bilirubin NEGATIVE Urine Urobilinogen NEGATIVE Urine Leukocyte Esterase NEGATIVE Urine Microscopic RBC 1 Urine Microscopic WBC 2 Urine Hemoglobin NEGATIVE Urine Random Creatinine 153.67 Urine Random Sodium 50 Urine Glucose NEGATIVE Urine Total Protein 293.0 H White Blood Count 12.3 #H Red Blood Count 4.02 L Hemoglobin 10.5 L Hematocrit 33.5 L Mean Corpuscular Volume 83.3 Mean Corpuscular Hemoglobin 26.1 L Mean Corpuscular Hemoglobin Concent 31.3 L Red Cell Distribution Width 15.2 H Platelet Count 360 Mean Platelet Volume 9.7 Immature Granulocytes % 0.400 Neutrophils % 75.0 Lymphocytes % 11.6 L Monocytes % 4.7 Eosinophils % 7.4 H Basophils % 0.9 Nucleated Red Blood Cells % 0.0 Immature Granulocytes # 0.050 H Neutrophils # 9.2 H Lymphocytes # 1.4 Monocytes # 0.6 Eosinophils # 0.9 H Basophils # 0.1 Nucleated Red Blood Cells # 0.0 Sodium Level 139 Potassium Level 3.6 Chloride Level 107 Carbon Dioxide Level 23 Anion Gap 9 Blood Urea Nitrogen 32 H Creatinine 6.27 H Est Glomerular Filtrat Rate mL/min 11 L Glucose Level 116 Calcium Level 9.0 Phosphorus Level 4.6 Total Bilirubin 0.5 Direct Bilirubin 0.00 Indirect Bilirubin 0.5 Aspartate Amino Transf (AST/SGOT) 15 Alanine Aminotransferase (ALT/SGPT) 16 Alkaline Phosphatase 77 Total Protein 6.3 Albumin 3.2 L Globulin 3.10 Albumin/Globulin Ratio 1.03 Medications Medication Current Medications Ondansetron HCl (Zofran Inj) 4 mg Q6H PRN IV NAUSEA AND/OR VOMITING Last administered on 06/25/18 17:11; Admin Dose 4 MG; Start 06/23/18 at 23:00 Ipratropium [place] (Atrovent 0.02% (Neb)) 0.5 mg Q2H RESP THERAPY PRN NEB SHORTNESS OF BREATH; Start 06/23/18 at 23:00 Nitroglycerin (Nitroglycerin (Sl Tab) 0.4 Mg) 1 tab Q5M PRN SL CHEST PAIN; Start 06/23/18 at 23:00 Acetaminophen (Tylenol Liquid) 650 mg Q6H PRN PO PAIN LEVEL 1-3 OR FEVER; Start 06/23/18 at 23:00 Morphine Sulfate (morphine) 2 mg Q4H PRN IV PAIN LEVEL 7-10 Last administered on 06/24/18 20:27; Admin Dose 2 MG; Start 06/23/18 at 23:00 Pantoprazole (Protonix Iv) 40 mg DAILY@06 IV Last administered on 06/26/18 05:31; Admin Dose 40 MG; Start 06/24/18 at 06:00 Heparin Sodium (Porcine) (Heparin (5000 Units/1ml)) 5,000 unit Q8 SC Last administered on 06/25/18 06:00; Admin Dose 5,000 UNIT; Start 06/23/18 at 23:00 Linezolid 300 ml @ 300 mls/hr Q12 IVPB Last administered on 06/25/18 08:07; Admin Dose 300 MLS/HR; Start 06/23/18 at 23:00; Status Hold Piperacillin Sod/ Tazobactam Sod 50 ml @ 100 mls/hr Q8 IVPB Last administered on 06/25/18 13:10; Admin Dose 100 MLS/HR; Start 06/24/18 at 06:00; Status Hold Al Hydrox/Mg Hydrox/Simethicone (Mag-Al Plus) 30 ml Q6H PRN PO GASTROINTESTINAL UPSET Last administered on 06/24/18 00:48; Admin Dose 30 ML; Start 06/24/18 at 00:30 Hydralazine HCl (Apresoline) 75 mg Q8 PO Last administered on 06/26/18 12:40; Admin Dose 75 MG; Start 06/24/18 at 09:00 Nifedipine (Procardia Xl) 60 mg BID PO Last administered on 06/26/18 08:02; Admin Dose 60 MG; Start 06/24/18 at 09:00 Lorazepam (Ativan) 1 mg Q6H PRN IV AGITATION/ANXIETY Last administered on 06/26/18 12:40; Admin Dose 1 MG; Start 06/24/18 at 21:00 Labetalol HCl (Normodyne) 600 mg TID PO Last administered on 06/26/18at 12:34; Admin Dose 600 MG; Start 06/26/18 at 13:00 MARTHA AVILA MD June 26, 2018 15:20
[2018-06-26] MEDS: morphine 2 MG INJ IV PRN (23:09)
[2018-06-27] VITALS (7 sets, daily range): BP systolic 126–162; BP diastolic 69–104; PULSE 75–88; RESP 16–18
[2018-06-27] MEDS: HEPARIN 5,000 UNIT/1 ML VIAL SC SCH ×3 (06:00→22:00)
[2018-06-27] MEDS: PANTOPRAZOLE 40 MG INJ IV SCH (08:13)
[2018-06-27] MEDS: LABETALOL 200 MG TAB PO SCH ×3 (08:16→20:36)
[2018-06-27] MEDS: NIFEdipine (XL) 60 MG TAB PO SCH ×2 (08:16→20:36)
--- NOTE | 2018-06-27 12:03 | CONS ---
Assessment/Plan Assessment/Plan Hospital Course (Demo Recall) 1. Nonoliguric acute kidney injury on top of chronic kidney disease stage IV with previous baseline creatinine of 4.4 mg/dL. Etiology of current acute kidney injury is multifactorial secondary to tubular injury and hemodynamics. Renal function improving. continue current medical management. Continue current blood pressure regimen. Avoid significant hemodynamic fluctuations to ensure adequate renal perfusion. Defer any CURT inhibitor or ARB at this time. No urgent need for immediate HD. 2. Hypertensive urgency. Etiology is secondary to chronic kidney disease, medical noncompliance. The patient's blood pressures are improving. Continue current medical management. Continue labetalol, hydralazine. Continue nifedipine. Monitor blood pressures closely. 3. Chronic kidney disease stage IV, etiology is secondary to hypertensive nephrosclerosis. The patient is currently in acute kidney injury as stated above. Continue current medical management. Continue disease factor mo dification. 4. Anemia. Continue to monitor hemoglobin and hematocrit levels. We will give Epogen as needed. 5. Mineral bone disorder. Monitor calcium and phosphorus levels. 6. Volume overload. Etiology is secondary to chronic kidney disease, possible diastolic heart failure. The patient is clinically improving. We will give intermittent diuretic therapy as needed. 7. Systemic inflammatory response syndrome, possible sepsis. The patient has markedly elevated white count. Continue empiric antibiotic therapy. Cultures have been reviewed and negative to date. 8. Nausea, vomiting. Etiology may be secondary to medications and the patient's cannabinoids use, possibility of uremia is a consideration. Continue to monitor closely. We will follow up with GI recommendations. Continue Reglan. 9. Obese. Continue dietary modification. 10. Enteritis. Continue antibiotic therapy. Consultation Date/Type/Reason Admit Date/Time June 23, 2018 at 22:33 Initial Consult Date 06/24/18 Date/Time of Note DATE: 06/27/18 TIME: 12:02 24 HR Interval Summary Free Text/Dictation denies shortness of breath, n/v urinating without problems d/w rn gen nad cv rrr pulm ctab abd soft, nd, nt +bs ext: no edema Exam/Review of Systems Exam Vitals Vital Signs Date Temp Pulse Resp B/P (MAP) Pulse Ox O2 O2 Flow FiO2 Time Delivery Rate 06/27/18 97.9 75 16 162/104 100 Room Air 07:18 (123) 06/27/18 30 03:16 06/24/18 2.0 13:00 Intake and Output 06/26/18 06/26/18 06/27/18 1515:00 23:00 07:00 IntakeIntake Total 900 ml OutputOutput Total 1200 ml BalanceBalance -300 ml Results Result Diagram: 06/27/18 0852 06/27/18 0852 Results 24hrs Laboratory Tests Test 06/27/18 08:52 White Blood Count 10.9 H Red Blood Count 4.21 L Hemoglobin 10.9 L Hematocrit 35.0 L Mean Corpuscular Volume 83.1 Mean Corpuscular Hemoglobin 25.9 L Mean Corpuscular Hemoglobin Concent 31.1 L Red Cell Distribution Width 15.3 H Platelet Count 392 Mean Platelet Volume 10.1 Immature Granulocytes % 0.400 Neutrophils % 72.7 Lymphocytes % 11.3 L Monocytes % 7.0 Eosinophils % 7.9 H Basophils % 0.7 Nucleated Red Blood Cells % 0.0 Immature Granulocytes # 0.040 H Neutrophils # 7.9 H Lymphocytes # 1.2 Monocytes # 0.8 Eosinophils # 0.9 H Basophils # 0.1 Nucleated Red Blood Cells # 0.0 Sodium Level 141 Potassium Level 3.9 Chloride Level 107 Carbon Dioxide Level 25 Anion Gap 9 Blood Urea Nitrogen 33 H Creatinine 5.84 H Est Glomerular Filtrat Rate mL/min 12 L Glucose Level 125 Calcium Level 9.2 Phosphorus Level 5.1 H Total Bilirubin 0.6 Direct Bilirubin 0.00 Indirect Bilirubin 0.6 Aspartate Amino Transf (AST/SGOT) 28 # Alanine Aminotransferase (ALT/SGPT) 27 Alkaline Phosphatase 73 Total Protein 6.0 L Albumin 3.2 L Globulin 2.80 Albumin/Globulin Ratio 1.14 Medications Medication Current Medications Ondansetron HCl (Zofran Inj) 4 mg Q6H PRN IV NAUSEA AND/OR VOMITING Last administered on 06/25/18at 17:11; Admin Dose 4 MG; Start 06/23/18 at 23:00 Ipratropium [place] (Atrovent 0.02% (Neb)) 0.5 mg Q2H RESP THERAPY PRN NEB SHORTNESS OF BREATH; Start 06/23/18 at 23:00 Nitroglycerin (Nitroglycerin (Sl Tab) 0.4 Mg) 1 tab Q5M PRN SL CHEST PAIN; Start 06/23/18 at 23:00 Acetaminophen (Tylenol Liquid) 650 mg Q6H PRN PO PAIN LEVEL 1-3 OR FEVER; Start 06/23/18 at 23:00 Morphine Sulfate (morphine) 2 mg Q4H PRN IV PAIN LEVEL 7-10 Last administered on 06/26/18 23:09; Admin Dose 2 MG; Start 06/23/18 at 23:00 Pantoprazole (Protonix Iv) 40 mg DAILY@06 IV Last administered on 06/27/18 08:13; Admin Dose 40 MG; Start 06/24/18 at 06:00 Heparin Sodium (Porcine) (Heparin (5000 Units/1ml)) 5,000 unit Q8 SC Last administered on 06/25/18 06:00; Admin Dose 5,000 UNIT; Start 06/23/18 at 23:00 Al Hydrox/Mg Hydrox/Simethicone (Mag-Al Plus) 30 ml Q6H PRN PO GASTROINTESTINAL UPSET Last administered on 06/24/18 00:48; Admin Dose 30 ML; Start 06/24/18 at 00:30 Hydralazine HCl (Apresoline) 75 mg Q8 PO Last administered on 06/27/18 08:15; Admin Dose 75 MG; Start 06/24/18 at 09:00 Nifedipine (Procardia Xl) 60 mg BID PO Last administered on 06/27/18 08:16; Admin Dose 60 MG; Start 06/24/18 at 09:00 Lorazepam (Ativan) 1 mg Q6H PRN IV AGITATION/ANXIETY Last administered on 06/26/18 23:39; Admin Dose 1 MG; Start 06/24/18 at 21:00 Labetalol HCl (Normodyne) 600 mg TID PO Last administered on 06/27/18 08:16; Admin Dose 600 MG; Start 06/26/18 at 13:00 CLAUDINE HOWARD MD June 27, 2018 12:03
[2018-06-27] MEDS: LORAZEPAM 2 MG INJ IV PRN ×2 (14:32→21:53)
--- NOTE | 2018-06-27 15:16 | PN ---
Date/Time of Note Date/Time of Note DATE: 06/27/18 TIME: 15:13 Assessment/Plan VTE Prophylaxis Risk score (from Ns)>0 risk: 1 SCD applied (from Ns): No SCD contraindicated: low risk/ambulating Pharmacological prophylaxis: NA/contraindicated Pharm contraindication: low risk/ambulating Lines/Catheters IV C[facility] Type [facility]from [facility] Saline Lock Urinary Cath still in place: No Assessment/Plan Assessment/Plan 27 yo man history of meth use and cardiomyopathy presents with vomiting and diarrhea #Hypertension - Noncomplaint with home meds, BP 260 in the ED. - Cont home hydralazine, labetalol, nifedipine. Patient tolerating PO. - Nephrology consulted. # Possible sepsis #Nausea and vomiting - The patient is afebrile, he did have a white blood cell count of approximately 22,000, he presented tachycardic. - He does report nausea vomiting and diarrhea, these have all resolved now. - CT scan of the abdomen pelvis showed Circumferential wall thickening in the proximal jejunum without adjacent fat stranding or distension may represent infectious or autoimmune enteritis. - GI following. - Possible EGD+colo this admission? In my opinion this is unnecessary, clinical presentation is consistent with acute gastroenteritis. # non-oliguric chronic kidney disease stage IV: - There is a slight metabolic acidosis. - Nephrology consulted - Cr peaked, down today. If still dropping tomorrow likely discharge. # obesity: Low calorie diet. # DVT and GI prophylaxis: Heparin, SCDs Dispo: If Cr still dropping tomorrow likely discharge on Thursday. Result Diagram: 06/27/18 0852 06/27/18 0852 Subjective 24 Hr Interval Summary Free Text/Dictation Nausea has completely resolved. Diarrhea is starting to clear up. Patient feeling well. Exam/Review of Systems Exam Vitals Vital Signs Date Temp Pulse Resp B/P (MAP) Pulse Ox O2 O2 Flow FiO2 Time Delivery Rate 06/27/18 98.4 81 18 126/69 98 Room Air 14:18 (88) 06/27/18 30 03:16 06/24/18 2.0 13:00 Intake and Output 06/26/18 06/26/18 06/27/18 1414:59 22:59 06:59 IntakeIntake Total 900 ml OutputOutput Total 1200 ml BalanceBalance -300 ml Exam General: Obese man sitting up in bed watching [employer]. HEENT: Atraumatic, normocephalic. The pupils are equal, round and reactive. Extraocular motor are intact Neck: Supple with full range of motion. No rigidity or meningismus Chest: Nontender Lungs: Clear to auscultation bilaterally no crackles rales or wheezing Heart: Normal S1-S2, Regular rhythm and rate. No murmur, S3, or S4 Abdomen: Soft , nontender, nondistended , bowel sounds are present. No guarding no rebound tenderness. Extremities: Trace bilateral lower extremity nonpitting edema Results Results 24hrs Laboratory Tests Test 06/27/18 08:52 White Blood Count 10.9 H Red Blood Count 4.21 L Hemoglobin 10.9 L Hematocrit 35.0 L Mean Corpuscular Volume 83.1 Mean Corpuscular Hemoglobin 25.9 L Mean Corpuscular Hemoglobin Concent 31.1 L Red Cell Distribution Width 15.3 H Platelet Count 392 Mean Platelet Volume 10.1 Immature Granulocytes % 0.400 Neutrophils % 72.7 Lymphocytes % 11.3 L Monocytes % 7.0 Eosinophils % 7.9 H Basophils % 0.7 Nucleated Red Blood Cells % 0.0 Immature Granulocytes # 0.040 H Neutrophils # 7.9 H Lymphocytes # 1.2 Monocytes # 0.8 Eosinophils # 0.9 H Basophils # 0.1 Nucleated Red Blood Cells # 0.0 Sodium Level 141 Potassium Level 3.9 Chloride Level 107 Carbon Dioxide Level 25 Anion Gap 9 Blood Urea Nitrogen 33 H Creatinine 5.84 H Est Glomerular Filtrat Rate mL/min 12 L Glucose Level 125 Calcium Level 9.2 Phosphorus Level 5.1 H Total Bilirubin 0.6 Direct Bilirubin 0.00 Indirect Bilirubin 0.6 Aspartate Amino Transf (AST/SGOT) 28 # Alanine Aminotransferase (ALT/SGPT) 27 Alkaline Phosphatase 73 Total Protein 6.0 L Albumin 3.2 L Globulin 2.80 Albumin/Globulin Ratio 1.14 Medications Medication Current Medications Ondansetron HCl (Zofran Inj) 4 mg Q6H PRN IV NAUSEA AND/OR VOMITING Last administered on 06/25/18at 17:11; Admin Dose 4 MG; Start 06/23/18 at 23:00 Ipratropium [place] (Atrovent 0.02% (Neb)) 0.5 mg Q2H RESP THERAPY PRN NEB SHORTNESS OF BREATH; Start 06/23/18 at 23:00 Nitroglycerin (Nitroglycerin (Sl Tab) 0.4 Mg) 1 tab Q5M PRN SL CHEST PAIN; Start 06/23/18 at 23:00 Acetaminophen (Tylenol Liquid) 650 mg Q6H PRN PO PAIN LEVEL 1-3 OR FEVER; Start 06/23/18 at 23:00 Morphine Sulfate (morphine) 2 mg Q4H PRN IV PAIN LEVEL 7-10 Last administered on 06/26/18 23:09; Admin Dose 2 MG; Start 06/23/18 at 23:00 Pantoprazole (Protonix Iv) 40 mg DAILY@06 IV Last administered on 06/27/18 08:13; Admin Dose 40 MG; Start 06/24/18 at 06:00 Heparin Sodium (Porcine) (Heparin (5000 Units/1ml)) 5,000 unit Q8 SC Last administered on 06/25/18 06:00; Admin Dose 5,000 UNIT; Start 06/23/18 at 23:00 Al Hydrox/Mg Hydrox/Simethicone (Mag-Al Plus) 30 ml Q6H PRN PO GASTROINTESTINAL UPSET Last administered on 06/24/18 00:48; Admin Dose 30 ML; Start 06/24/18 at 00:30 Hydralazine HCl (Apresoline) 75 mg Q8 PO Last administered on 06/27/18 14:33; Admin Dose 75 MG; Start 06/24/18 at 09:00 Nifedipine (Procardia Xl) 60 mg BID PO Last administered on 06/27/18 08:16; Admin Dose 60 MG; Start 06/24/18 at 09:00 Lorazepam (Ativan) 1 mg Q6H PRN IV AGITATION/ANXIETY Last administered on 06/27/18 14:32; Admin Dose 1 MG; Start 06/24/18 at 21:00 Labetalol HCl (Normodyne) 600 mg TID PO Last administered on 06/27/18 12:46; Admin Dose 600 MG; Start 06/26/18 at 13:00 MARTHA AVILA MD June 27, 2018 15:15
--- NOTE | 2018-06-27 15:51 | PN ---
Date/Time of Note Date/Time of Note DATE: 06/27/18 TIME: 15:47 Assessment/Plan VTE Prophylaxis Risk score (from Ns)>0 risk: 1 SCD applied (from Ns): No SCD contraindicated: low risk/ambulating Pharmacological prophylaxis: heparin Lines/Catheters [facility] Saline Lock Urinary Cath still in place: No Assessment/Plan Assessment/Plan Assessment: Hypertensive crisis Abdominal pain Persistent nausea/vomiting -Cannabinoid cyclic vomiting syndrome versus infectious process versus other Diarrhea-improved Enteritis noted jejunal thickening on CT scan -Infectious versus autoimmune Leukocytosis Normocytic anemia Heart failure Chronic kidney disease Chronic marijuana use Scattered nodular opacities and tree in bud opacities -representing infection or inflammation -significantly improved compared to 03/15/2018. Plan: Stool studies - neg No Reglan potential interaction with Linezolid-result in hypertensive crisis - Nausea resolved Continue PPI Pt currently on ABX GI will sign off Patient seen in collaboration with Dr. Hernandez Subjective: Patient is feeling well. Denies abdominal pain, nausea or vomiting. Diarrhea resolved. Patient is tolerating diet well. Leukocytosis improved. No plan for EGD /Colonoscopy at this time. GI will sign off with no further recommendations. Exam PHYSICAL EXAMINATION: GENERAL: Alert & oriented x 3, in no acute distress SKIN: No lesions EYES: Pupils equal reactive to light, no discharge. EARS/NOSE AND THROAT: Ears normal, nose normal. NECK: Supple, no masses. CHEST: Inspection within normal limits. CARDIOVASCULAR: Heart: Regular rate and rhythm RESPIRATORY: Lungs clear to auscultation GASTROINTESTINAL AND LIVER: Abdomen: Soft, lower abdominal tenderness, non-distended, no hernias, no masses, no organomegaly, no ascites, no guarding, no rebound tenderness, normoactive bowel sounds. Rectal: Deferred. Result Diagram: 06/27/18 0852 06/27/18 0852 Results 24hrs Laboratory Tests Test 06/27/18 08:52 White Blood Count 10.9 H Red Blood Count 4.21 L Hemoglobin 10.9 L Hematocrit 35.0 L Mean Corpuscular Volume 83.1 Mean Corpuscular Hemoglobin 25.9 L Mean Corpuscular Hemoglobin Concent 31.1 L Red Cell Distribution Width 15.3 H Platelet Count 392 Mean Platelet Volume 10.1 Immature Granulocytes % 0.400 Neutrophils % 72.7 Lymphocytes % 11.3 L Monocytes % 7.0 Eosinophils % 7.9 H Basophils % 0.7 Nucleated Red Blood Cells % 0.0 Immature Granulocytes # 0.040 H Neutrophils # 7.9 H Lymphocytes # 1.2 Monocytes # 0.8 Eosinophils # 0.9 H Basophils # 0.1 Nucleated Red Blood Cells # 0.0 Sodium Level 141 Potassium Level 3.9 Chloride Level 107 Carbon Dioxide Level 25 Anion Gap 9 Blood Urea Nitrogen 33 H Creatinine 5.84 H Est Glomerular Filtrat Rate mL/min 12 L Glucose Level 125 Calcium Level 9.2 Phosphorus Level 5.1 H Total Bilirubin 0.6 Direct Bilirubin 0.00 Indirect Bilirubin 0.6 Aspartate Amino Transf (AST/SGOT) 28 # Alanine Aminotransferase (ALT/SGPT) 27 Alkaline Phosphatase 73 Total Protein 6.0 L Albumin 3.2 L Globulin 2.80 Albumin/Globulin Ratio 1.14 CC: LIZETH HERNANDEZ MD ; Exam/Review of Systems Exam Vitals Vital Signs Date Temp Pulse Resp B/P (MAP) Pulse Ox O2 O2 Flow FiO2 Time Delivery Rate 06/27/18 98.4 81 18 126/69 98 Room Air 14:18 (88) 06/27/18 30 03:16 06/24/18 2.0 13:00 Intake and Output 06/26/18 06/26/18 06/27/18 1515:00 23:00 07:00 IntakeIntake Total 900 ml OutputOutput Total 1200 ml BalanceBalance -300 ml Results Results 24hrs Laboratory Tests Test 06/27/18 08:52 White Blood Count 10.9 H Red Blood Count 4.21 L Hemoglobin 10.9 L Hematocrit 35.0 L Mean Corpuscular Volume 83.1 Mean Corpuscular Hemoglobin 25.9 L Mean Corpuscular Hemoglobin Concent 31.1 L Red Cell Distribution Width 15.3 H Platelet Count 392 Mean Platelet Volume 10.1 Immature Granulocytes % 0.400 Neutrophils % 72.7 Lymphocytes % 11.3 L Monocytes % 7.0 Eosinophils % 7.9 H Basophils % 0.7 Nucleated Red Blood Cells % 0.0 Immature Granulocytes # 0.040 H Neutrophils # 7.9 H Lymphocytes # 1.2 Monocytes # 0.8 Eosinophils # 0.9 H Basophils # 0.1 Nucleated Red Blood Cells # 0.0 Sodium Level 141 Potassium Level 3.9 Chloride Level 107 Carbon Dioxide Level 25 Anion Gap 9 Blood Urea Nitrogen 33 H Creatinine 5.84 H Est Glomerular Filtrat Rate mL/min 12 L Glucose Level 125 Calcium Level 9.2 Phosphorus Level 5.1 H Total Bilirubin 0.6 Direct Bilirubin 0.00 Indirect Bilirubin 0.6 Aspartate Amino Transf (AST/SGOT) 28 # Alanine Aminotransferase (ALT/SGPT) 27 Alkaline Phosphatase 73 Total Protein 6.0 L Albumin 3.2 L Globulin 2.80 Albumin/Globulin Ratio 1.14 Medications Medication Current Medications Ondansetron HCl (Zofran Inj) 4 mg Q6H PRN IV NAUSEA AND/OR VOMITING Last administered on 06/25/18 17:11; Admin Dose 4 MG; Start 06/23/18 at 23:00 Ipratropium [place] (Atrovent 0.02% (Neb)) 0.5 mg Q2H RESP THERAPY PRN NEB SHORTNESS OF BREATH; Start 06/23/18 at 23:00 Nitroglycerin (Nitroglycerin (Sl Tab) 0.4 Mg) 1 tab Q5M PRN SL CHEST PAIN; Start 06/23/18 at 23:00 Acetaminophen (Tylenol Liquid) 650 mg Q6H PRN PO PAIN LEVEL 1-3 OR FEVER; Start 06/23/18 at 23:00 Morphine Sulfate (morphine) 2 mg Q4H PRN IV PAIN LEVEL 7-10 Last administered on 06/26/18 23:09; Admin Dose 2 MG; Start 06/23/18 at 23:00 Pantoprazole (Protonix Iv) 40 mg DAILY@06 IV Last administered on 06/27/18 08:13; Admin Dose 40 MG; Start 06/24/18 at 06:00 Heparin Sodium (Porcine) (Heparin (5000 Units/1ml)) 5,000 unit Q8 SC Last administered on 06/25/18 06:00; Admin Dose 5,000 UNIT; Start 06/23/18 at 23:00 Al Hydrox/Mg Hydrox/Simethicone (Mag-Al Plus) 30 ml Q6H PRN PO GASTROINTESTINAL UPSET Last administered on 06/24/18 00:48; Admin Dose 30 ML; Start 06/24/18 at 00:30 Hydralazine HCl (Apresoline) 75 mg Q8 PO Last administered on 06/27/18 14:33; Admin Dose 75 MG; Start 06/24/18 at 09:00 Nifedipine (Procardia Xl) 60 mg BID PO Last administered on 06/27/18 08:16; Admin Dose 60 MG; Start 06/24/18 at 09:00 Lorazepam (Ativan) 1 mg Q6H PRN IV AGITATION/ANXIETY Last administered on 14:32; Admin Dose 1 MG; Start 06/24/18 at 21:00 Labetalol HCl (Normodyne) 600 mg TID PO Last administered on 06/27/18 12:46; Admin Dose 600 MG; Start 06/26/18 at 13:00 NETTIE ORTIZ NP June 27, 2018 15:51
[2018-06-27] MEDS: morphine 2 MG INJ IV PRN (21:53)
[2018-06-28 01:00] VITALS: PULSE 84
[2018-06-28 02:00] VITALS: BP 154/87; PULSE 77; RESP 18
[2018-06-28 03:02] VITALS: PULSE 89
[2018-06-28 05:18] VITALS: PULSE 81
[2018-06-28] MEDS: PANTOPRAZOLE (EC) 40 MG TAB PO SCH ×2 (06:00→07:19)
[2018-06-28] MEDS: HEPARIN 5,000 UNIT/1 ML VIAL SC SCH ×2 (06:00→14:00)
[2018-06-28 08:30] VITALS: BP 166/103; PULSE 86; RESP 18
[2018-06-28] MEDS: NIFEdipine (XL) 60 MG TAB PO SCH (08:46)
[2018-06-28] MEDS: LABETALOL 200 MG TAB PO SCH ×2 (08:47→14:13)
--- NOTE | 2018-06-28 10:35 | PN ---
DATE: 06/28/2018 SUBJECTIVE: The patient is stable, no events overnight. No fevers, chills, nausea, or vomiting, no shortness of breath. OBJECTIVE: VITAL SIGNS: Blood pressure is 166/103, respirations 18, pulse 86, temperature 97.5. HEENT: Head is normocephalic. NECK: Supple. HEART: Regular rate. LUNGS: Show diminished breath sounds at the base. ABDOMEN: Soft, nontender to palpation without rebound or guarding. EXTREMITIES: Negative for clubbing, cyanosis, no edema. DERMATOLOGIC: No rashes. MUSCULOSKELETAL: No joint effusion. NEUROLOGIC: No change in exam. MEDICATIONS: Reviewed. LABORATORY DATA: Reviewed. ASSESSMENT AND PLAN: 1. Nonoliguric acute kidney injury on top of chronic kidney disease stage IV with previous baseline creatinine of around 4.4 mg/dL. Etiology of acute kidney injury is secondary to hemodynamics, tubula r injury. The patient's renal function has slowly been improving. Although EGFR remains below 15 mL per minute. At this point, we will continue current treatment plan, supportive care, renally dose a ll medicines, continue current blood pressure regimen. Defer any CURT inhibitor or ARB at this time. I have spoken with the patient regarding possibility of initiating hemodialysis if renal function do es not continue to improve. The patient agrees. 2. Hypertensive urgency. Etiology is secondary to chronic kidney disease, medical noncompliance. B lood pressure is improving. Continue current blood pressure regimen. 3. Chronic kidney disease, stage IV, etiology is secondary to hypertensive nephrosclerosis. The pat ient is currently in acute kidney injury as stated above. Continue current treatment plan. Continue disease factor modification. 4. Anemia. Continue to monitor hemoglobin and hematocrit levels. We will give Epogen as needed. 5. Mineral bone disorder, monitor calcium and phosphorus levels. 6. Volume overload secondary to chronic kidney disease, heart failure, improving. Continue current medical management. Continue to give intermittent diuretic therapy as needed. 7. Systemic inflammatory response syndrome. Continue to monitor. The patient is on empiric antibio tics. 8. Nausea and vomiting. Etiology may be multifactorial secondary to cannabinoid, medications, and p ossible component of uremia. Continue to monitor. Continue antiemetics. 9. Enteritis. The patient has completed antibiotic regimen. Dictated By: SOPHIA BOYCE/AMELIE Conf#: [id number] [facility]#: [id number] CC: DONOVAN QUISPE MD; ABDI WILSON; SOPHIA COLIN DO;*End*
[2018-06-28 14:01] VITALS: BP 154/98; PULSE 71; RESP 16
[2018-06-28] MEDS: LORAZEPAM 2 MG INJ IV PRN (14:17)
--- NOTE | 2018-06-28 14:51 | PN ---
Date/Time of Note Date/Time of Note DATE: 06/28/18 TIME: 14:50 Assessment/Plan VTE Prophylaxis Risk score (from Ns)>0 risk: 1 SCD applied (from Nsg): Yes Pharmacological prophylaxis: other Lines/Catheters IV Catheter Type (from Nrsg): Saline Lock Urinary Cath still in place: No Assessment/Plan Result Diagram: 06/27/18 0852 06/28/18 1014 Results 24hrs Laboratory Tests Test 06/28/18 10:14 Sodium Level 141 Potassium Level 3.8 Chloride Level 108 Carbon Dioxide Level 23 Anion Gap 10 Blood Urea Nitrogen 36 H Creatinine 5.96 H Est Glomerular Filtrat Rate mL/min 11 L Glucose Level 109 Calcium Level 8.9 Exam/Review of Systems Exam Vitals Vital Signs Date Temp Pulse Resp B/P (MAP) Pulse Ox O2 O2 Flow FiO2 Time Delivery Rate 06/28/18 97.8 71 16 154/98 100 14:01 (116) 06/28/18 Room Air 08:30 06/28/18 30 05:18 06/24/18 2.0 13:00 Intake and Output 06/27/18 06/27/18 06/28/18 1515:00 23:00 07:00 IntakeIntake Total 720 ml 360 ml BalanceBalance 720 ml 360 ml Results Results 24hrs Laboratory Tests Test 06/28/18 10:14 Sodium Level 141 Potassium Level 3.8 Chloride Level 108 Carbon Dioxide Level 23 Anion Gap 10 Blood Urea Nitrogen 36 H Creatinine 5.96 H Est Glomerular Filtrat Rate mL/min 11 L Glucose Level 109 Calcium Level 8.9 Medications Medication Current Medications Ondansetron HCl (Zofran Inj) 4 mg Q6H PRN IV NAUSEA AND/OR VOMITING Last admini stered on 06/25/18at 17:11; Admin Dose 4 MG; Start 06/23/18 at 23:00 Ipratropium [place] (Atrovent 0.02% (Neb)) 0.5 mg Q2H RESP THERAPY PRN NEB SHORTNESS OF BREATH; Start 06/23/18 at 23:00 Nitroglycerin (Nitroglycerin (Sl Tab) 0.4 Mg) 1 tab Q5M PRN SL CHEST PAIN; Start 06/23/18 at 23:00 Acetaminophen (Tylenol Liquid) 650 mg Q6H PRN PO PAIN LEVEL 1-3 OR FEVER; Start 06/23/18 at 23:00 Morphine Sulfate (morphine) 2 mg Q4H PRN IV PAIN LEVEL 7-10 Last administered on 06/27/18 21:53; Admin Dose 2 MG; Start 06/23/18 at 23:00 Heparin Sodium (Porcine) (Heparin (5000 Units/1ml)) 5,000 unit Q8 SC Last adm inistered on 06/25/18 06:00; Admin Dose 5,000 UNIT; Start 06/23/18 at 23:00 Al Hydrox/Mg Hydrox/Simethicone (Mag-Al Plus) 30 ml Q6H PRN PO GASTROINTESTINAL UPSET Last administered on 06/24/18 00:48; Admin Dose 30 ML; Start 06/24/18 at 00:30 Hydralazine HCl (Apresoline) 75 mg Q8 PO Last administered on 06/28/18 14:11; Admin Dose 75 MG; Start 06/24/18 at 09:00 Nifedipine (Procardia Xl) 60 mg BID PO Last administered on 06/28/18 08:46; Admin Dose 60 MG; Start 06/24/18 at 09:00 Lorazepam (Ativan) 1 mg Q6H PRN IV AGITATION/ANXIETY Last administered on 06/28/18 14:17; Admin Dose 1 MG; Start 06/24/18 at 21:00 Labetalol HCl (Normodyne) 600 mg TID PO Last administered on 06/28/18 14:13; Admin Dose 600 MG; Start 06/26/18 at 13:00 Pantoprazole (Protonix Tab) 40 mg DAILY@06 PO Last administered on 06/28/18 07:19; Admin Dose 40 MG; Start 06/28/18 at 06:00 ABDI WILSON June 28, 2018 14:51
--- NOTE | 2018-06-28 14:55 | PN ---
Date/Time of Note Date/Time of Note DATE: 06/28/18 TIME: 14:53 Assessment/Plan VTE Prophylaxis Risk score (from Nsg)>0 risk: 1 SCD applied (from Nsg): Yes Pharmacological prophylaxis: other Lines/Catheters IV Catheter Type (from Nrsg): Saline Lock Urinary Cath still in place: No Assessment/Plan Hospital Course S: Patient had no acute events overnight, seen by renal team this morning. O: VS- see below PE: General: sitting, HEENT: Atraumatic, normocephalic. The pupils are equal, round and reactive. Extraocular motor are intact Neck: Supple with full range of motion. No rigidity or meningismus Chest: Nontender Lungs: Clear to auscultation bilaterally no crackles rales or wheezing Heart: Normal S1-S2, Regular rhythm and rate. No murmur, S3, or S4 Abdomen: Soft , nontender, nondistended , bowel sounds are present. No guarding no rebound tenderness. Extremities: Trace bilateral lower extremity nonpitting edema Assessment/Plan: 27 yo man history of meth use and cardiomyopathy presents with vomiting and diarrhea. #Hypertensive urgency- Noncomplaint with home meds, BP 260 in the ED-now resolved -cont home hydralazine, labetalol, nifedipine. Patient tolerating PO. # Possible sepsis -white blood cell count was elevated on admission 24,000 and was tachycardic, however trending down. The patient is afebrile- He does report nausea vomiting and diarrhea, these have all resolved now- CT scan of the abdomen pelvis showed Circumferential wall thickening in the proximal jejunum without adjacent fat stranding or distension may represent infectious or autoimmune enteritis. - GI following, per their latest recommendations no plans for EGD+colo at this time. Likely can follow-up as an outpatient # non-oliguric chronic kidney disease stage IV: There was slight metabolic acidosis which is now resolved- Nephrology consulted -Since creatinine still elevated overall is slightly higher today continue to monitor for now, follow renal recommendations # obesity: Low calorie diet. # DVT and GI prophylaxis: Heparin, SCDs Result Diagram: 06/27/18 0852 06/28/18 1014 Results 24hrs Laboratory Tests Test 06/28/18 10:14 Sodium Level 141 Potassium Level 3.8 Chloride Level 108 Carbon Dioxide Level 23 Anion Gap 10 Blood Urea Nitrogen 36 H Creatinine 5.96 H Est Glomerular Filtrat Rate mL/min 11 L Glucose Level 109 Calcium Level 8.9 Exam/Review of Systems Exam Vitals Vital Signs Date Temp Pulse Resp B/P (MAP) Pulse Ox O2 O2 Flow FiO2 Time Delivery Rate 06/28/18 97.8 71 16 154/98 100 14:01 (116) 06/28/18 Room Air 08:30 06/28/18 30 05:18 06/24/18 2.0 13:00 Intake and Output 06/27/18 06/27/18 06/28/18 1515:00 23:00 07:00 IntakeIntake Total 720 ml 360 ml BalanceBalance 720 ml 360 ml Results Results 24hrs Laboratory Tests Test 06/28/18 10:14 Sodium Level 141 Potassium Level 3.8 Chloride Level 108 Carbon Dioxide Level 23 Anion Gap 10 Blood Urea Nitrogen 36 H Creatinine 5.96 H Est Glomerular Filtrat Rate mL/min 11 L Glucose Level 109 Calcium Level 8.9 Medications Medication Current Medications Ondansetron HCl (Zofran Inj) 4 mg Q6H PRN IV NAUSEA AND/OR VOMITING Last administered on 06/25/18at 17:11; Admin Dose 4 MG; Start 06/23/18 at 23:00 Ipratropium [place] (Atrovent 0.02% (Neb)) 0.5 mg Q2H RESP THERAPY PRN NEB SHORTNESS OF BREATH; Start 06/23/18 at 23:00 Nitroglycerin (Nitroglycerin (Sl Tab) 0.4 Mg) 1 tab Q5M PRN SL CHEST PAIN; Start 06/23/18 at 23:00 Acetaminophen (Tylenol Liquid) 650 mg Q6H PRN PO PAIN LEVEL 1-3 OR FEVER; Start 06/23/18 at 23:00 Morphine Sulfate (morphine) 2 mg Q4H PRN IV PAIN LEVEL 7-10 Last administered on 06/27/18at 21:53; Admin Dose 2 MG; Start 06/23/18 at 23:00 Heparin Sodium (Porcine) (Heparin (5000 Units/1ml)) 5,000 unit Q8 SC Last administered on 06/25/18at 06:00; Admin Dose 5,000 UNIT; Start 06/23/18 at 23:00 Al Hydrox/Mg Hydrox/Simethicone (Mag-Al Plus) 30 ml Q6H PRN PO GASTROINTESTINAL UPSET Last administered on 06/24/18 00:48; Admin Dose 30 ML; Start 06/24/18 at 00:30 Hydralazine HCl (Apresoline) 75 mg Q8 PO Last administered on 06/28/18 14:11; Admin Dose 75 MG; Start 06/24/18 at 09:00 Nifedipine (Procardia Xl) 60 mg BID PO Last administered on 06/28/18 08:46; Admin Dose 60 MG; Start 06/24/18 at 09:00 Lorazepam (Ativan) 1 mg Q6H PRN IV AGITATION/ANXIETY Last administered on 06/28/18 14:17; Admin Dose 1 MG; Start 06/24/18 at 21:00 Labetalol HCl (Normodyne) 600 mg TID PO Last administered on 06/28/18 14:13; Admin Dose 600 MG; Start 06/26/18 at 13:00 Pantoprazole (Protonix Tab) 40 mg DAILY@06 PO Last administered on 06/28/18 07:19; Admin Dose 40 MG; Start 06/28/18 at 06:00 ABDI WILSON June 28, 2018 14:55
--- NOTE | 2018-06-28 18:04 | DS ---
Date/Time of Note Date/Time of Note DATE: 06/28/18 TIME: 18:04 Discharge Summary Admission/Discharge Info Admit Date/Time June 23, 2018 at 22:33 Discharge Date/Time June 28, 2018 at 17:15 Discharge Diagnosis Pt left AMA Patient Condition: Serious Hospital Course S: Patient had no acute events overnight, seen by renal team this morning. O: VS- see below PE: General: sitting, HEENT: Atraumatic, normocephalic. The pupils are equal, round and reactive. Extraocular motor are intact Neck: Supple with full range of motion. No rigidity or meningismus Chest: Nontender Lungs: Clear to auscultation bilaterally no crackles rales or wheezing Heart: Normal S1-S2, Regular rhythm and rate. No murmur, S3, or S4 Abdomen: Soft , nontender, nondistended , bowel sounds are present. No guarding no rebound tenderness. Extremities: Trace bilateral lower extremity nonpitting edema Assessment/Plan: 27 yo man history of meth use and cardiomyopathy presents with vomiting and diarrhea. #Hypertensive urgency- Noncomplaint with home meds, BP 260 in the ED-now resolved -cont home hydralazine, labetalol, nifedipine. Patient tolerating PO. # Possible sepsis -white blood cell count was elevated on admission 24,000 and was tachycardic, however trending down. The patient is afebrile- He does report nausea vomiting and diarrhea, these have all resolved now- CT scan of the abdomen pelvis showed Circumferential wall thickening in the proximal jejunum without adjacent fat stranding or distension may represent infectious or autoimmune enteritis. - GI following, per their latest recommendations no plans for EGD+colo at this time. Likely can follow-up as an outpatient # non-oliguric chronic kidney disease stage IV: There was slight metabolic acidosis which is now resolved- Nephrology consulted -Since creatinine still elevated overall is slightly higher today continue to monitor for now, follow renal recommendations # obesity: Low calorie diet. # DVT and GI prophylaxis: Heparin, SCDs Home Meds Active Scripts Hydralazine Hcl* (Apresoline*) 50 Mg Tab, 75 MG PO Q8 for 30 Days, #90 TAB 5 Refills Prov:MARTHA AVILA MD 03/19/18 Nifedipine (Procardia Xl) 60 Mg Tab.er.24, 60 MG PO BID for 60 Days, #120 TAB 5 Refills Prov:MARTHA AVILA MD 03/19/18 Labetalol Hcl* (Labetalol Hcl*) 200 Mg Tablet, 400 MG PO TID for 60 Days, #120 TAB 5 Refills Prov:MARTHA AVILA MD 03/19/18 Discontinued Scripts Levofloxacin* (Levaquin*) 500 Mg Tablet, 500 MG PO Q48H for 4 Days, #3 TAB Prov:NOEL ESCOBAR MD 09/04/17 Primary Care Provider Not On Staff Doctor Time spent on discharge: < 30 minutes Pending Labs Laboratory Tests Test 06/28/18 10:14 Sodium Level 141 mmol/L (135-144) Potassium Level 3.8 mmol/L (3.5-5.1) Chloride Level 108 mmol/L (97-110) Carbon Dioxide Level 23 mmol/L (21-31) Anion Gap 10 (5-13) Blood Urea Nitrogen 36 mg/dl (7-20) Creatinine 5.96 mg/dl (0.61-1.24) Est Glomerular Filtrat Rate mL/min 11 mL/min (>60) Glucose Level 109 mg/dl (70-220) Calcium Level 8.9 mg/dl (8.4-10.2) ABDI WILSON June 28, 2018 18:04
== END 2018-06-28 17:15 | disposition left against medical advice (07) | DRG 872 ==
LOC: FTE 17:48 → EDBEDREQSVC 22:27 → ICU 22:33 → TEL 06-24 22:06 → 2NE 06-26 23:46
PROVIDERS: ADMIT Family Medicine; ATTEND Hospitalist
DX: A41.9 Sepsis, unspecified organism (principal); I16.1 Hypertensive emergency; N18.4 Chronic kidney disease, stage 4 (severe); I42.9 Cardiomyopathy, unspecified; I13.0 Hypertensive heart and chronic kidney disease with heart failure and stage 1 through stage 4 chronic kidney disease, or unspecified chronic kidney disease; N17.9 Acute kidney failure, unspecified; I50.9 Heart failure, unspecified; E87.70 Fluid overload, unspecified; E66.9 Obesity, unspecified; Z68.33 Body mass index [BMI] 33.0-33.9, adult; K52.9 Noninfective gastroenteritis and colitis, unspecified; E78.00 Pure hypercholesterolemia, unspecified; D72.829 Elevated white blood cell count, unspecified; F12.90 Cannabis use, unspecified, uncomplicated; I16.0 Hypertensive urgency; Z91.14 Patient's other noncompliance with medication regimen; F15.21 Other stimulant dependence, in remission; R11.2 Nausea with vomiting, unspecified
CPT/HCPCS: 36415; 71045; 74176; 80048; 80053; 80061; 80307; 81001; 81003; 82043; 82306; 83036; 83605; 83690; 83735; 84100; 84155; 84300; 84443; 84484; 85025; 85610; 85651; 86140; 86674; 87045; 87075; 87081; 87177; 87205; 93005; 94660; 96374; 96375; C9113; J0360; J1644; J1940; J2060; J2270; J2405; J2543; J7030; J7120

== ENCOUNTER 2018-07-17 00:58 | Inpatient (IN) | payer OTHER ==
[~2018-07-17] VITALS: Ht 170.2 cm; Wt 100.0 kg
[2018-07-17] VITALS (36 sets, daily range): BP systolic 121–173; BP diastolic 58–115; PULSE 66–141; RESP 16–36; Ht 170.2 cm; Wt 100.0 kg
[~2018-07-17 00:58] MED LIST changes: -LEVO500T48 PO
--- NOTE | 2018-07-17 02:14 | ERD ---
ER Documentation Chief Complaint Chief Complaint midsternal CP,non-radiating,x 2 days; hx CHF,HTN HPI The patient is a 27 years old, presenting to the ER because of left-sided chest pain for the last 2 days, worse tonight after he took a shower around 12 AM, complains of some dyspnea. He had similar symptoms previously, complains of occipital headache for the last 2 days. He has been drinking for the last week and did not take any of his medication. He denies chest pain with diaphoresis, radiation. He smokes marijuana, drinks Medical history: History of CHF, hypertension, CAD, chronic kidney disease Past surgical history: None ROS All systems reviewed and are negative except as per history of present illness. Medications Home Meds Active Scripts Hydralazine Hcl* (Apresoline*) 50 Mg Tab, 75 MG PO Q8 for 30 Days, #90 TAB 5 Refills Prov:MARTHA AVILA MD 03/19/18 Nifedipine (Procardia Xl) 60 Mg Tab.er.24, 60 MG PO BID for 60 Days, #120 TAB 5 Refills Prov:MARTHA AVILA MD 03/19/18 Labetalol Hcl* (Labetalol Hcl*) 200 Mg Tablet, 400 MG PO TID for 60 Days, #120 TAB 5 Refills Prov:MARTHA AVILA MD 03/19/18 Allergies Allergies: Coded Allergies: No Known Allergies (Unverified Allergy, Unknown, 09/02/17) PMhx/Soc History of Surgery: No Anesthesia Reaction: No Hx Neurological Disorder: No Hx Respiratory Disorders: No Hx Cardiac Disorders: Yes (HTN, SD 2017) Hx Psychiatric Problems: No Hx Miscellaneous Medical Probl: No Hx Alcohol Use: Yes (socially) Hx Substance Use: Yes (marijuana) Hx Tobacco Use: No Smoking Status: Unknown if ever smoked Physical Exam Vitals Vital Signs Date Temp Pulse Resp B/P (MAP) Pulse Ox O2 O2 Flow FiO2 Time Delivery Rate 07/17/18 136 21 194/103 99 Room Air 04:00 (133) 07/17/18 137 22 198/108 99 Room Air 03:44 (138) 07/17/18 134 22 203/115 100 Room Air 03:28 (144) 07/17/18 115 25 234/158 98 Room Air 02:50 (183) 07/17/18 99.0 117 20 262/158 97 01:05 (192) Physical Exam Const: No acute distress. Head: Atraumatic. Eyes: Normal Conjunctiva. ENT: Normal External Ears, Nose and Mouth. Neck: Full range of motion. No meningismus. Resp: Bibasilar crackle Cardio: Regular tachycardic Abd: Soft, non distended, normal bowel sounds, non tender. Skin: No petechiae or rashes. Back: No midline or flank tenderness. Ext: No cyanosis, or edema. Neur: Awake and alert. No focal deficit Psych: Normal Mood and Affect. Result Diagram: 07/17/18 0204 07/17/18 0204 Results 24 hrs Laboratory Tests Test 07/17/18 02:04 07/17/18 02:20 White Blood Count 18.3 10^3/ul Red Blood Count 4.19 10^6/ul Hemoglobin 10.9 g/dl Hematocrit 34.2 % Mean Corpuscular Volume 81.6 fl Mean Corpuscular Hemoglobin 26.0 pg Mean Corpuscular Hemoglobin Concent 31.9 g/dl Red Cell Distribution Width 15.5 % Platelet Count 307 10^3/UL Mean Platelet Volume 10.3 fl Immature Granulocytes % 0.800 % Neutrophils % 71.7 % Lymphocytes % 13.1 % Monocytes % 9.1 % Eosinophils % 4.7 % Basophils % 0.6 % Nucleated Red Blood Cells % 0.0 /100WBC Immature Granulocytes # 0.140 10^3/ul Neutrophils # 13.1 10^3/ul Lymphocytes # 2.4 10^3/ul Monocytes # 1.7 10^3/ul Eosinophils # 0.9 10^3/ul Basophils # 0.1 10^3/ul Nucleated Red Blood Cells # 0.0 10^3/ul Prothrombin Time 12.3 Sec Prothrombin Time Ratio 1.0 INR International Normalized Ratio 0.90 Activated Partial Thromboplast Time 28.3 Sec Sodium Level 139 mmol/L Potassium Level 3.4 mmol/L Chloride Level 108 mmol/L Carbon Dioxide Level 20 mmol/L Anion Gap 11 Blood Urea Nitrogen 52 mg/dl Creatinine 4.84 mg/dl Est Glomerular Filtrat Rate mL/min 14 mL/min Glucose Level 99 mg/dl Calcium Level 8.2 mg/dl Troponin I 0.058 ng/ml Ethyl Alcohol Level < 10.0 mg/dl Urine Opiates Screen Negative Urine Barbiturates Negative Urine Amphetamines Screen Negative Urine Benzodiazepines Screen Negative Urine Cocaine Screen Negative Urine Cannabinoids Positive Current Medications Medications Dose Sig/Lm Start Time Status Last (Trade) Ordered Route PRN Stop Time Admin Dose Reason Admin Nicardipine 200 ml @ TITRATE IV 07/17/18 07/17/18 HCl 50 mls/hr 02:30 04:39 Furosemide 80 mg ONCE ONCE 07/17/18 DC 07/17/18 (Lasix) IV 04:00 04:13 07/17/18 04:01 Lorazepam 0.5 mg ONCE ONCE 07/17/18 DC 07/17/18 (Ativan) PO 04:30 04:42 07/17/18 04:31 Procedures/[place] [id number] Radiology Main Line: [phone] DIAGNOSTIC IMAGING REPORT Patient: GERALD BLOOD : 1990 Age: 27 Sex: M MR #: [id number] DOS: 07/17/18 0220 Ordering MD: EUFEMIA WALSH MD Location: E/R Room/Bed: PROCEDURE: XR Chest. CLINICAL INDICATION: Dyspnea. TECHNIQUE: Single frontal view of the chest. COMPARISON: 06/23/2018. FINDINGS: Mild cardiomegaly with mild pulmonary vascular congestion. The patient body habitus accentuates pulmonary vascular markings at the lung bases. Question mild patchy air space disease at the lung bases. The lungs are otherwise clear. No signs of pleural fluid or pneumothorax are seen. The osseous structures and soft tissues are unremarkable. IMPRESSION: 1. New cardiomegaly. 2. Mild pulmonary vascular congestion. 3. Question mild airspace disease at the bilateral lung bases. RPTAT: [facility] Physician Jared Date Time Electronically viewed and signed by Physician Jared on 07/17/2018 03:13 RS/ CC: EUFEMIA WALSH MD [id number] EKG: Read by emergency physician Rate/Rhythm: Normal Sinus Rhythm 97 beats/min QRS, ST, T-waves: No ST elevation, non specific T abnormality, prolonged QT Impression: Abnormal EKG MEDICAL MAKING DECISION: The patient is a 27-year-old male, presenting with acute hypertensive emergency, acute CHF exacerbation, acute hypokalemia. He was treated with Cardene drip for acute hypertensive emergency and Lasix 80 mg IV for acute CHF with good response The differential diagnoses considered include but are not limited to asthma, COPD, pneumonia, pulmonary embolus, pleural effusion, congestive heart failure. Critical Care: Time: 35 minutes excluding all billable procedures. Treatments/Evaluations: Close monitoring and treatment of unstable vital signs, cardiorespiratory, and neurologic status, while maintaining tight balance of fluid, respiratory, and cardiac interventions. Departure Diagnosis: Primary Impression: Hypertensive emergency Additional Impressions: CHF (congestive heart failure) Hypokalemia Anemia Marijuana abuse Condition: Stable Comments I discussed the findings with the patient. I discussed the patient with Dr Hernandez , who was made aware of the lab, the treatment, the patient condition. The patient is admitted to ICU Disclaimer: Inadvertent spelling and grammatical errors are likely due to EHR/dictation software use and do not reflect on the overall quality of patient care. Also, please note that the electronic time recorded on this note does not necessarily reflect the actual time of the patient encounter. EUFEMIA WALSH MD July 17, 2018 02:14
[2018-07-17] MEDS: niCARdipine-NS 0.1MG/ML DRIP 200 ML IV SCH ×3 (02:35→06:31)
[2018-07-17] MEDS ORDERED: FUROSEMIDE 40 MG INJ IV ONE (04:00)
[2018-07-17] MEDS ORDERED: LORAZEPAM 0.5 MG TAB PO ONE (04:30)
[2018-07-17] MEDS ORDERED: ACETAMINOPHEN 650MG/20.3ML CUP PO PRN (05:30)
[2018-07-17] MEDS ORDERED: niCARdipine 25 MG in SOD CHLORIDE 0.9% 240 ML IV SCH (05:30)
[2018-07-17] MEDS ORDERED: NITROGLYCERIN (SL) 0.4 MG TAB SL PRN (05:30)
[2018-07-17] MEDS: LABETALOL 200 MG TAB PO SCH ×3 (06:41→20:02)
[2018-07-17] MEDS ORDERED: LORAZEPAM 2 MG INJ IV ONE (07:00)
[2018-07-17] MEDS ORDERED: LORAZEPAM 2 MG INJ IV PRN (07:30)
[2018-07-17] MEDS ORDERED: SOD CHLORIDE 0.9% 1,000 ML IV SCH (07:30)
[2018-07-17] MEDS: ONDANSETRON 4 MG INJ IV PRN (07:56)
[2018-07-17] MEDS: HEPARIN 5,000 UNIT/1 ML VIAL SC SCH ×2 (09:00→20:05)
[2018-07-17] MEDS ORDERED: IPRATROPIUM (NEB) 0.5 MG/2.5 ML AMP NEB SCH (09:00)
[2018-07-17] MEDS: CHLORDIAZEPOXIDE 25 MG CAP PO SCH ×2 (10:00→16:59)
[2018-07-17] MEDS: FAMOTIDINE 20 MG INJ IV SCH (10:00)
[2018-07-17] MEDS: MULTIVITAMINS 10 ML, THIAMINE 100 MG, FOLIC ACID 1 MG in SOD CHLORIDE 0.9% 1,000 ML IVPB SCH (10:00)
[2018-07-17] MEDS: NIFEdipine (XL) 60 MG TAB PO SCH ×2 (10:02→20:01)
--- NOTE | 2018-07-17 11:27 | PN ---
Date/Time of Note Date/Time of Note DATE: 07/17/18 TIME: 11:23 Assessment/Plan VTE Prophylaxis Pharmacological prophylaxis: heparin Lines/Catheters IV Catheter Type (from Nrs): Peripheral IV Assessment/Plan Hospital Course 1. Alcohol withdrawal with tachycardia Patient now weaned off nicardipine Banana bag Downgrade Patient with prior hospitalizations for meth use U tox is currently negative except for marijuana 2. Hypertension Patient has a history of noncompliance Home meds 3. CKD Monitor 4. Obesity Lifestyle changes Prophylaxis: Heparin DC planning: Anticipate DC home tomorrow Result Diagram: 07/17/18 0204 07/17/18 0204 Results 24hrs Laboratory Tests Test 07/17/18 02:04 07/17/18 02:20 White Blood Count 18.3 #H Red Blood Count 4.19 L Hemoglobin 10.9 L Hematocrit 34.2 L Mean Corpuscular Volume 81.6 L Mean Corpuscular Hemoglobin 26.0 L Mean Corpuscular Hemoglobin Concent 31.9 L Red Cell Distribution Width 15.5 H Platelet Count 307 # Mean Platelet Volume 10.3 Immature Granulocytes % 0.800 H Neutrophils % 71.7 Lymphocytes % 13.1 L Monocytes % 9.1 Eosinophils % 4.7 Basophils % 0.6 Nucleated Red Blood Cells % 0.0 Immature Granulocytes # 0.140 H Neutrophils # 13.1 H Lymphocytes # 2.4 Monocytes # 1.7 H Eosinophils # 0.9 H Basophils # 0.1 Nucleated Red Blood Cells # 0.0 Prothrombin Time 12.3 Prothrombin Time Ratio 1.0 INR International Normalized Ratio 0.90 Activated Partial Thromboplast Time 28.3 Sodium Level 139 Potassium Level 3.4 L Chloride Level 108 Carbon Dioxide Level 20 L Anion Gap 11 Blood Urea Nitrogen 52 H Creatinine 4.84 H Est Glomerular Filtrat Rate mL/min 14 L Glucose Level 99 Calcium Level 8.2 L Troponin I 0.058 Ethyl Alcohol Level < 10.0 H Urine Opiates Screen Negative Urine Barbiturates Negative Urine Amphetamines Screen Negative Urine Benzodiazepines Screen Negative Urine Cocaine Screen Negative Urine Cannabinoids Positive Subjective 24 Hr Interval Summary Constitutional: disoriented Exam/Review of Systems Exam Vitals Vital Signs Date Temp Pulse Resp B/P (MAP) Pulse Ox O2 O2 Flow FiO2 Time Delivery Rate 07/17/18 137/83 10:30 (101) 07/17/18 105 29 95 10:00 07/17/18 98.1 Nasal 2.0 08:00 Cannula Intake and Output 07/16/18 07/16/18 07/17/18 1515:00 23:00 07:00 IntakeIntake Total 10 ml BalanceBalance 10 ml Psych: confusion Respiratory: clear to auscultation Cardiovascular: regular rate and rhythm Gastrointestinal: soft; No distended Musculoskeletal: nl extremities to inspection Results Results 24hrs Laboratory Tests Test 07/17/18 02:04 07/17/18 02:20 White Blood Count 18.3 #H Red Blood Count 4.19 L Hemoglobin 10.9 L Hematocrit 34.2 L Mean Corpuscular Volume 81.6 L Mean Corpuscular Hemoglobin 26.0 L Mean Corpuscular Hemoglobin Concent 31.9 L Red Cell Distribution Width 15.5 H Platelet Count 307 # Mean Platelet Volume 10.3 Immature Granulocytes % 0.800 H Neutrophils % 71.7 Lymphocytes % 13.1 L Monocytes % 9.1 Eosinophils % 4.7 Basophils % 0.6 Nucleated Red Blood Cells % 0.0 Immature Granulocytes # 0.140 H Neutrophils # 13.1 H Lymphocytes # 2.4 Monocytes # 1.7 H Eosinophils # 0.9 H Basophils # 0.1 Nucleated Red Blood Cells # 0.0 Prothrombin Time 12.3 Prothrombin Time Ratio 1.0 INR International Normalized Ratio 0.90 Activated Partial Thromboplast Time 28.3 Sodium Level 139 Potassium Level 3.4 L Chloride Level 108 Carbon Dioxide Level 20 L Anion Gap 11 Blood Urea Nitrogen 52 H Creatinine 4.84 H Est Glomerular Filtrat Rate mL/min 14 L Glucose Level 99 Calcium Level 8.2 L Troponin I 0.058 Ethyl Alcohol Level < 10.0 H Urine Opiates Screen Negative Urine Barbiturates Negative Urine Amphetamines Screen Negative Urine Benzodiazepines Screen Negative Urine Cocaine Screen Negative Urine Cannabinoids Positive Medications Medication Current Medications Nicardipine HCl 200 ml @ 50 mls/hr TITRATE IV Last administered on 07/17/18at 06:31; Admin Dose 125 MLS/HR; Start 07/17/18 at 02:30; Stop 07/17/18 at 13:00 Ondansetron HCl (Zofran Inj) 4 mg Q6H PRN IV NAUSEA AND/OR VOMITING Last administered on 07/17/18at 07:56; Admin Dose 4 MG; Start 07/17/18 at 05:30 Nitroglycerin (Nitroglycerin (Sl Tab) 0.4 Mg) 1 tab Q5M PRN SL CHEST PAIN Last administered on 07/17/18 06:37; Admin Dose 1 TAB; Start 07/17/18 at 05:30 Acetaminophen (Tylenol Liquid) 650 mg Q6H PRN PO PAIN LEVEL 1-3 OR FEVER Last administered on 07/17/18 06:37; Admin Dose 650 MG; Start 07/17/18 at 05:30 Famotidine (Pepcid Iv) 20 mg DAILY IV Last administered on 07/17/18 10:00; Admin Dose 20 MG; Start 07/17/18 at 09:00 Heparin Sodium (Porcine) (Heparin (5000 Units/1ml)) 5,000 unit Q12 SC ; Start 07/17/18 at 09:00 Nicardipine HCl 25 mg/Sodium Chloride 250 ml @ 50 mls/hr PER PROTOCOL IV ; Start 07/17/18 at 05:30 Hydralazine HCl (Apresoline) 75 mg Q8 PO Last administered on 07/17/18 06:34; Admin Dose 75 MG; Start 07/17/18 at 06:00 Labetalol HCl (Normodyne) 400 mg TID PO Last administered on 07/17/18 06:41; Admin Dose 400 MG; Start 07/17/18 at 05:30 Nifedipine (Procardia Xl) 60 mg BID PO Last administered on 07/17/18 10:02; A dmin Dose 60 MG; Start 07/17/18 at 05:31 Multivitamins 10 ml/Thiamine HCl 100 mg/Folic Acid 1 mg/Sodium Chloride 1,011.2 ml @ 125 mls/ hr DAILY@09 IVPB Last administered on 07/17/18 10:00; Admin Do se 125 MLS/HR; Start 07/17/18 at 09:00 Lorazepam (Ativan) 2 mg Q1H PRN IV ETOH W/D; Start 07/17/18 at 07:30 Chlordiazepoxide (Librium) 100 mg Q8H PO Last administered on 07/17/18 10:00; Admin Dose 100 MG; Start 07/17/18 at 08:00 Potassium Chloride/Sodium Chloride 1,000 ml @ 125 mls/hr Q8H IV ; Start 07/17/18 at 09:00 ASTER DRAKE July 17, 2018 11:27
[2018-07-17] MEDS: NS + KCL 20 MEQ 1,000 ML IV SCH ×2 (17:00→20:02)
--- NOTE | 2018-07-17 22:17 | HP ---
Date/Time of Note Date/Time of Note DATE: 07/17/18 TIME: 22:17 Assessment/Plan VTE Prophylaxis Risk score (from Ns)>0 risk: 2 SCD applied (from Ns): Yes Pharmacological prophylaxis: heparin, other Lines/Catheters IV Catheter Type (from Nrsg): Peripheral IV Urinary Cath still in place: No Assessment/Plan Assessment/Plan 1. Hypertensive emergency: Patient presented with a blood pressure of 262/158 -Continue Cardene drip -Continue his home medications. Hold hydralazine given tachycardia 2. Alcohol withdrawal -IV fluid alternating with banana bag -Librium, as needed Ativan 3. CKD: Likely secondary to hypertensive nephrosclerosis -Monitor for now. Treat BP 4. Headache: Secondary to hypertensive crisis -Check head CT Result Diagram: 07/17/1820307/17/18 0204 Results 24hrs Laboratory Tests Test 07/17/18 02:04 07/17/18 02:20 White Blood Count 18.3 #H Red Blood Count 4.19 L Hemoglobin 10.9 L Hematocrit 34.2 L Mean Corpuscular Volume 81.6 L Mean Corpuscular Hemoglobin 26.0 L Mean Corpuscular Hemoglobin Concent 31.9 L Red Cell Distribution Width 15.5 H Platelet Count 307 # Mean Platelet Volume 10.3 Immature Granulocytes % 0.800 H Neutrophils % 71.7 Lymphocytes % 13.1 L Monocytes % 9.1 Eosinophils % 4.7 Basophils % 0.6 Nucleated Red Blood Cells % 0.0 Immature Granulocytes # 0.140 H Neutrophils # 13.1 H Lymphocytes # 2.4 Monocytes # 1.7 H Eosinophils # 0.9 H Basophils # 0.1 Nucleated Red Blood Cells # 0.0 Prothrombin Time 12.3 Prothrombin Time Ratio 1.0 INR International Normalized Ratio 0.90 Activated Partial Thromboplast Time 28.3 Sodium Level 139 Potassium Level 3.4 L Chloride Level 108 Carbon Dioxide Level 20 L Anion Gap 11 Blood Urea Nitrogen 52 H Creatinine 4.84 H Est Glomerular Filtrat Rate mL/min 14 L Glucose Level 99 Calcium Level 8.2 L Troponin I 0.058 Ethyl Alcohol Level < 10.0 H Urine Opiates Screen Negative Urine Barbiturates Negative Urine Amphetamines Screen Negative Urine Benzodiazepines Screen Negative Urine Cocaine Screen Negative Urine Cannabinoids Positive HPI/ROS Admit Date/Time Admit Date/Time July 17, 2018 at 03:58 Hx of Present Illness This is a 27-year-old obese male with a history of hypertension, CKD, noncompliance who presents the ER complaining of headache, tachycardia and feeling anxious. He has been off of his BP meds. He has also been drinking on a daily basis. He was admitted here 3 weeks ago for hypertensive crisis because of medication noncompliance. When he presents the ER, his blood pressure was severely high to 262/158. He has been persistently tachycardic. He was started on Cardene drip in the ER. PMH/Family/Social Past Medical History Medical History: hypertension, renal disease Medications Current Medications Ondansetron HCl (Zofran Inj) 4 mg Q6H PRN IV NAUSEA AND/OR VOMITING Last administered on 07/17/18 07:56; Admin Dose 4 MG; Start 07/17/18 at 05:30 Nitroglycerin (Nitroglycerin (Sl Tab) 0.4 Mg) 1 tab Q5M PRN SL CHEST PAIN Last administered on 07/17/18 06:37; Admin Dose 1 TAB; Start 07/17/18 at 05:30 Acetaminophen (Tylenol Liquid) 650 mg Q6H PRN PO PAIN LEVEL 1-3 OR FEVER Last administered on 07/17/18at 06:37; Admin Dose 650 MG; Start 07/17/18 at 05:30 Famotidine (Pepcid Iv) 20 mg DAILY IV Last administered on 07/17/18at 10:00; Admin Dose 20 MG; Start 07/17/18 at 09:00 Heparin Sodium (Porcine) (Heparin (5000 Units/1ml)) 5,000 unit Q12 SC ; Start 07/17/18 at 09:00 Nicardipine HCl 25 mg/Sodium Chloride 250 ml @ 50 mls/hr PER PROTOCOL IV ; Start 07/17/18 at 05:30 Hydralazine HCl (Apresoline) 75 mg Q8 PO Last administered on 07/17/18 21:37; Admin Dose 75 MG; Start 07/17/18 at 06:00 Labetalol HCl (Normodyne) 400 mg TID PO Last administered on 07/17/18 20:02; Admin Dose 400 MG; Start 07/17/18 at 05:30 Nifedipine (Procardia Xl) 60 mg BID PO Last administered on 5/25/19at 20:01; Admin Dose 60 MG; Start 07/17/18 at 05:31 Multivitamins 10 ml/Thiamine HCl 100 mg/Folic Acid 1 mg/Sodium Chloride 1,011.2 ml @ 125 mls/ hr DAILY@09 IVPB Last administered on 07/17/18at 10:00; Admin Dose 125 MLS/HR; Start 07/17/18 at 09:00 Lorazepam (Ativan) 2 mg Q1H PRN IV ETOH W/D; Start 07/17/18 at 07:30 Chlordiazepoxide (Librium) 100 mg Q8H PO Last administered on 07/17/18at 16:59; Admin Dose 100 MG; Start 07/17/18 at 08:00 Potassium Chloride/Sodium Chloride 1,000 ml @ 125 mls/hr Q8H IV Last administered on 07/17/18at 20:02; Admin Dose 125 MLS/HR; Start 07/17/18 at 09:00 Coded Allergies: No Known Allergies (Unverified Allergy, Unknown, 09/02/17) Past Surgical History Past Surgical Hx: no surgical history Family History Significant Family History: no pertinent family hx Social History Alcohol Use: heavy Smoking Status: Current every day smoker Drug Use: other Exam/Review of Systems Vital Signs Vitals Vital Signs Date Temp Pulse Resp B/P (MAP) Pulse Ox O2 O2 Flow FiO2 Time Delivery Rate 07/17/18 97 23 134/76 98 21:00 (95) 07/17/18 98.2 Room Air 19:00 07/17/18 2.0 12:00 Intake and Output 07/16/18 07/16/18 07/17/18 1515:00 23:00 07:00 IntakeIntake Total 10 ml BalanceBalance 10 ml Exam Constitutional: other (Distress noted) Head: normocephalic, atraumatic Eyes: EOMI, PERRL Respiratory: clear to auscultation, normal air movement Cardiovascular: other (Tachycardic with regular rhythm) Gastrointestinal: soft Extremities: normal pulses THAI EVANS MD July 17, 2018 22:17
[2018-07-18] VITALS (31 sets, daily range): BP systolic 126–169; BP diastolic 73–115; PULSE 81–114; RESP 8–41
[2018-07-18] MEDS: CHLORDIAZEPOXIDE 25 MG CAP PO SCH ×3 (00:19→15:45)
[2018-07-18] MEDS: NS + KCL 20 MEQ 1,000 ML IV SCH (01:00)
[2018-07-18] MEDS: FAMOTIDINE 20 MG INJ IV SCH (08:40)
[2018-07-18] MEDS: NIFEdipine (XL) 60 MG TAB PO SCH ×2 (08:40→20:53)
[2018-07-18] MEDS: LABETALOL 200 MG TAB PO SCH ×3 (08:41→20:53)
[2018-07-18] MEDS: HEPARIN 5,000 UNIT/1 ML VIAL SC SCH ×2 (08:42→21:00)
[2018-07-18] MEDS: MULTIVITAMINS 10 ML, THIAMINE 100 MG, FOLIC ACID 1 MG in SOD CHLORIDE 0.9% 1,000 ML IVPB SCH (08:50)
[2018-07-18] MEDS ORDERED: POTASSIUM CHLORIDE (SR) 20 MEQ TAB PO STA (13:34)
--- NOTE | 2018-07-18 16:21 | CONS ---
DATE OF ADMISSION: 07/17/2018 DATE OF CONSULTATION: TYPE OF CONSULTATION: Nephrology. REASON FOR CONSULTATION: Acute kidney injury, CKD. PHYSICIAN REQUESTING CONSULT: Aster Montano MD HISTORY OF PRESENT ILLNESS: This is a 27-year-old male well known to me with a past medical history of CKD stage IV, history of hypertension, history of medical noncompliance, who presents to [facility] with worsening left-sided chest pain for 2 days. The patient states that at home he has been noncompliant with his blood pressure regimen. He states he has been having headache for 2 days with left-sided pain. The patient also states that he has been drinking. Upon arrival to [facility] emergency room, the patient was noted to be in hypertensive urgency. He was placed Cardene drip. He was transferred to intensive care unit. In terms of patient's renal history, the patient has a progressive CKD stage IV/V. The patient on ad mission had a creatinine of 4.84 mg/dL which is increased to 5.2 mg/dL. The patient describes mild m etallic taste in his mouth. Denies any hemoptysis, hematemesis, hematochezia. PAST MEDICAL HISTORY: History of progressive CKD stage IV/V, history of medical noncompliance, histo ry of hypertension, history of mineral bone disorder. PAST SURGICAL HISTORY: None. ALLERGIES: NO KNOWN DRUG ALLERGIES. FAMILY HISTORY: No family history of kidney disease. SOCIAL HISTORY: Positive alcohol use. MEDICATIONS: Have been reviewed. REVIEW OF SYSTEMS: A 14-point review of systems was conducted. Pertinent positives as stated in the HPI, otherwise negative. PHYSICAL EXAMINATION: VITAL SIGNS: Blood pressure is 133/77, respirations 30, pulse 93, temperature 97.9. HEENT: Head is normocephalic. NECK: Supple. HEART: Regular rate. LUNGS: Show diminished breath sounds at the base. ABDOMEN: Soft, nontender to palpation without rebound or guarding. EXTREMITIES: Negative for clubbing, cyanosis. No edema. DERMATOLOGIC: No rashes. MUSCULOSKELETAL: No joint effusion. NEUROLOGIC: No change in exam. LABORATORY DATA: Have been reviewed. ASSESSMENT AND PLAN: 1. Nonoliguric acute kidney injury on top of chronic kidney disease stage IV/V. Etiology is current acute kidney injury is likely secondary to hemodynamics, possible tubular injury. The patient is ex periencing some mild uremic symptoms. Plan at this point is to check UA with microanalysis. We woul d recommend to continue current blood pressure regimen. Avoid significant hemodynamic fluctuations, which were adequate renal perfusion. We would otherwise continue supportive care, renally dose all m eds. Please note if the patient's renal function should further decline and the patient should devel op uremic symptoms, we would initiate patient on renal replacement therapy. 2. Hypertensive urgency. Etiology is likely due to medical noncompliance. Blood pressure is improv ing. Continue current blood pressure regimen. Continue oral medications and adjust as needed. 3. Anemia. Monitor hemoglobin and hematocrit levels. We will give Epogen as needed. 4. Mineral bone disorder. Monitor calcium and phosphorus levels. 5. Hypokalemia. We will replete potassium chloride. 6. Systemic inflammatory response syndrome, possible sepsis. The patient's white count is slightly elevated. Continue medical management. Follow cultures. 7. Volume overload. Etiology is likely multifactorial secondary to advanced chronic kidney disease and diastolic heart failure. Continue current medical management. Continue diuretic therapy. 8. Obesity. Continue dietary modification. Dictated By: SOPHIA COLIN DO NR/NTS Conf#: [id number] DID#: [id number] CC: THAI EVANS MD; ASTER MONTANO MD;*End*
--- NOTE | 2018-07-18 17:43 | PN ---
Date/Time of Note Date/Time of Note DATE: 07/18/18 TIME: 17:40 Assessment/Plan VTE Prophylaxis Risk score (from Nsg)>0 risk: 4 Pharmacological prophylaxis: heparin Lines/Catheters IV Catheter Type (from Nrsg): Peripheral IV Urinary Cath still in place: No Assessment/Plan Hospital Course 1. Alcohol withdrawal with tachycardia-improved Patient now weaned off nicardipine Banana bag Patient with prior hospitalizations for meth use U tox is currently negative except for marijuana No signs of delirium at this time 2. Hypertensive emergency-BP now stable Patient now weaned off nicardipine Patient has a history of noncompliance Continue home labetalol, nifedipine and hydralazine 3. Acute on chronic kidney disease Nephrology consultation appreciated Renal function has worsened, continue to monitor 4. Obesity Lifestyle changes Prophylaxis: Heparin DC planning: Monitor renal function Result Diagram: 07/18/18 0437 07/18/18 0437 Results 24hrs Laboratory Tests Test 07/18/18 04:37 07/18/18 13:55 White Blood Count 19.4 H Red Blood Count 3.76 L Hemoglobin 9.7 L Hematocrit 31.2 L Mean Corpuscular Volume 83.0 Mean Corpuscular Hemoglobin 25.8 L Mean Corpuscular Hemoglobin Concent 31.1 L Red Cell Distribution Width 15.9 H Platelet Count 289 Mean Platelet Volume 10.6 H Immature Granulocytes % 0.800 H Neutrophils % 76.8 Lymphocytes % 12.1 L Monocytes % 6.2 Eosinophils % 3.6 Basophils % 0.5 Nucleated Red Blood Cells % 0.0 Immature Granulocytes # 0.150 H Neutrophils # 14.9 H Lymphocytes # 2.4 Monocytes # 1.2 H Eosinophils # 0.7 H Basophils # 0.1 Nucleated Red Blood Cells # 0.0 Sodium Level 141 Potassium Level 3.3 L Chloride Level 111 H Carbon Dioxide Level 20 L Anion Gap 10 Blood Urea Nitrogen 47 H Creatinine 5.24 H Est Glomerular Filtrat Rate mL/min 13 L Glucose Level 108 Calcium Level 8.4 Phosphorus Level 5.4 H Magnesium Level 2.1 Urine Color YELLOW Urine Clarity SLIGHTLY CLOUDY A Urine pH 5.0 Urine Specific [place] 1.012 Urine Ketones NEGATIVE Urine Nitrite NEGATIVE Urine Bilirubin NEGATIVE Urine Urobilinogen NEGATIVE Urine Leukocyte Esterase NEGATIVE Urine Microscopic RBC 1 Urine Microscopic WBC 4 Urine Bacteria FEW A Urine Hemoglobin NEGATIVE Urine Random Creatinine 132.10 Urine Random Sodium 41 Urine Glucose 1+ H Urine Total Protein 449.0 H Subjective 24 Hr Interval Summary Constitutional: no complaints Exam/Review of Systems Exam Vitals Vital Signs Date Temp Pulse Resp B/P (MAP) Pulse Ox O2 O2 Flow FiO2 Time Delivery Rate 07/18/18 96 16:18 07/18/18 97.9 19 133/77 98 15:12 (95) 07/18/18 Room Air 14:48 07/17/18 2.0 12:00 Intake and Output 07/17/18 07/17/18 07/18/18 1515:00 23:00 07:00 IntakeIntake Total 985 ml 1555 ml 525 ml OutputOutput Total 1275 ml 750 ml 850 ml BalanceBalance -290 ml 805 ml -325 ml Constitutional: alert, oriented Respiratory: clear to auscultation Cardiovascular: regular rate and rhythm Gastrointestinal: soft; No distended Musculoskeletal: nl extremities to inspection Results Results 24hrs Laboratory Tests Test 07/18/18 04:37 07/18/18 13:55 White Blood Count 19.4 H Red Blood Count 3.76 L Hemoglobin 9.7 L Hematocrit 31.2 L Mean Corpuscular Volume 83.0 Mean Corpuscular Hemoglobin 25.8 L Mean Corpuscular Hemoglobin Concent 31.1 L Red Cell Distribution Width 15.9 H Platelet Count 289 Mean Platelet Volume 10.6 H Immature Granulocytes % 0.800 H Neutrophils % 76.8 Lymphocytes % 12.1 L Monocytes % 6.2 Eosinophils % 3.6 Basophils % 0.5 Nucleated Red Blood Cells % 0.0 Immature Granulocytes # 0.150 H Neutrophils # 14.9 H Lymphocytes # 2.4 Monocytes # 1.2 H Eosinophils # 0.7 H Basophils # 0.1 Nucleated Red Blood Cells # 0.0 Sodium Level 141 Potassium Level 3.3 L Chloride Level 111 H Carbon Dioxide Level 20 L Anion Gap 10 Blood Urea Nitrogen 47 H Creatinine 5.24 H Est Glomerular Filtrat Rate mL/min 13 L Glucose Level 108 Calcium Level 8.4 Phosphorus Level 5.4 H Magnesium Level 2.1 Urine Color YELLOW Urine Clarity SLIGHTLY CLOUDY A Urine pH 5.0 Urine Specific [place] 1.012 Urine Ketones NEGATIVE Urine Nitrite NEGATIVE Urine Bilirubin NEGATIVE Urine Urobilinogen NEGATIVE Urine Leukocyte Esterase NEGATIVE Urine Microscopic RBC 1 Urine Microscopic WBC 4 Urine Bacteria FEW A Urine Hemoglobin NEGATIVE Urine Random Creatinine 132.10 Urine Random Sodium 41 Urine Glucose 1+ H Urine Total Protein 449.0 H Medications Medication Current Medications Ondansetron HCl (Zofran Inj) 4 mg Q6H PRN IV NAUSEA AND/OR VOMITING Last administered on 07/17/18 07:56; Admin Dose 4 MG; Start 07/17/18 at 05:30 Nitroglycerin (Nitroglycerin (Sl Tab) 0.4 Mg) 1 tab Q5M PRN SL CHEST PAIN Last administered on 07/17/18 06:37; Admin Dose 1 TAB; Start 07/17/18 at 05:30 Acetaminophen (Tylenol Liquid) 650 mg Q6H PRN PO PAIN LEVEL 1-3 OR FEVER Last administered on 07/17/18 06:37; Admin Dose 650 MG; Start 07/17/18 at 05:30 Famotidine (Pepcid Iv) 20 mg DAILY IV Last administered on 07/18/18 08:40; Admin Dose 20 MG; Start 07/17/18 at 09:00 Heparin Sodium (Porcine) (Heparin (5000 Units/1ml)) 5,000 unit Q12 SC Last adm inistered on 07/18/18 08:42; Admin Dose 5,000 UNIT; Start 07/17/18 at 09:00 Nicardipine HCl 25 mg/Sodium Chloride 250 ml @ 50 mls/hr PER PROTOCOL IV ; Start 07/17/18 at 05:30 Hydralazine HCl (Apresoline) 75 mg Q8 PO Last administered on 07/18/18 13:22; Admin Dose 75 MG; Start 07/17/18 at 06:00 Labetalol HCl (Normodyne) 400 mg TID PO Last administered on 07/18/18 14:50; Admin Dose 400 MG; Start 07/17/18 at 05:30 Nifedipine (Procardia Xl) 60 mg BID PO Last administered on 07/18/18 08:40; A dmin Dose 60 MG; Start 07/17/18 at 05:31 Multivitamins 10 ml/Thiamine HCl 100 mg/Folic Acid 1 mg/Sodium Chloride 1,011.2 ml @ 125 mls/ hr DAILY@09 IVPB Last administered on 07/18/18 08:50; Admin Do se 125 MLS/HR; Start 07/17/18 at 09:00 Lorazepam (Ativan) 2 mg Q1H PRN IV ETOH W/D; Start 07/17/18 at 07:30 Chlordiazepoxide (Librium) 100 mg Q8H PO Last administered on 07/18/18at 15:45; Admin Dose 100 MG; Start 07/17/18 at 08:00 ASTER DRAKE July 18, 2018 17:43
[2018-07-18] MEDS: KETOROLAC 15 MG INJ IV PRN (22:12)
[2018-07-19] VITALS (11 sets, daily range): BP systolic 133–156; BP diastolic 79–90; PULSE 67–97; RESP 16–20
[2018-07-19] MEDS: CHLORDIAZEPOXIDE 25 MG CAP PO SCH ×3 (00:23→16:00)
--- NOTE | 2018-07-19 09:23 | PN ---
DATE: 07/19/2018 SUBJECTIVE: The patient had a long conversation with the patient this morning about possibility of i nitiating hemodialysis. The patient agrees to start dialysis as he is describing intermittent episod es of uremic symptoms at home. The patient described these symptoms worsening. No other events note d. No hemoptysis, hematemesis or hematochezia. OBJECTIVE: VITAL SIGNS: Blood pressure is 156/90, respirations 18, pulse 78, temperature 98.0. HEENT: Head is normocephalic. NECK: Supple. HEART: Regular rate. LUNGS: Show diminished breath sounds at the base. ABDOMEN: Soft, nontender to palpation without rebound or guarding. EXTREMITIES: Negative for clubbing, cyanosis, no edema. DERMATOLOGIC: No rashes. MUSCULOSKELETAL: No joint effusion. NEUROLOGIC: No change in exam. MEDICATIONS: Reviewed. LABORATORY DATA: Reviewed. ASSESSMENT AND PLAN: 1. Nonoliguric acute kidney injury on chronic kidney disease stage IV/V, now likely end-stage renal disease. The patient has overt uremic symptoms of nausea, vomiting and fatigue. We will therefore i nitiate hemodialysis. Plan is for Perm-A-Cath placement once access is obtained. The patient will b e started on dialysis. We will also arrange outpatient hemodialysis per case management. 2. Hypertensive urgency. Continue current blood pressure regimen. Continue ultrafiltration with he modialysis once access is obtained. 3. Anemia. Monitor hemoglobin and hematocrit levels. Continue Epogen. 4. Mineral bone disorder. Continue to monitor calcium and phosphorus levels. 5. Hypokalemia, improved. 6. Systemic inflammatory response syndrome. Continue to monitor. 7. Viral overload. Continue medical management. Continue diuretic therapy. Anticipate ultrafiltra tion with dialysis. 8. Obesity. Continue dietary modification. Dictated By: SOPHIA COLIN DO NR/NTS Conf#: [id number] DID#: [id number] CC: THAI EVANS MD; ASTER DRAKE MD;*EndCC*
[2018-07-19] MEDS: FAMOTIDINE 20 MG TAB PO SCH (09:40)
[2018-07-19] MEDS: KETOROLAC 15 MG INJ IV PRN (09:40)
[2018-07-19] MEDS: MULTIVITAMINS 10 ML, THIAMINE 100 MG, FOLIC ACID 1 MG in SOD CHLORIDE 0.9% 1,000 ML IVPB SCH (09:40)
[2018-07-19] MEDS: NIFEdipine (XL) 60 MG TAB PO SCH ×2 (09:41→21:53)
[2018-07-19] MEDS: LABETALOL 200 MG TAB PO SCH ×3 (09:41→21:53)
[2018-07-19] MEDS: HEPARIN 5,000 UNIT/1 ML VIAL SC SCH (10:00)
--- NOTE | 2018-07-19 11:22 | PN ---
Date/Time of Note Date/Time of Note DATE: 07/19/18 TIME: 11:20 Assessment/Plan VTE Prophylaxis Risk score (from Nsg)>0 risk: 0 SCD applied (from Nsg): Yes Pharmacological prophylaxis: heparin Lines/Catheters IV Catheter Type (from Nrsg): Saline Lock Urinary Cath still in place: No Assessment/Plan Hospital Course SUBJECTIVE: Lying in bed, having mild headache. OBJECTIVE: Vital signs-see below PHYSICAL EXAM: Constitutional: Adequately built,not in acute distress. HEENT: Head atraumatic and normocephalic. Eyes: Extraocular muscles intact. Anicteric sclerae. Pupils equal bilaterally, reactive to light. NECK: Supple without lymph node. CHEST: Clear and good breath sounds equally. No wheezing. No rhonchi. HEART: S1, S2. Regular rate and rhythm. ABDOMEN: Soft/non tender with no rebound tenderness. Bowel sounds were present. EXTREMITIES: No cyanosis, clubbing or edema. NEUROLOGIC: Alert and oriented x3. No focal deficit. No sensory deficit. PSYCHOSOCIAL: No signs of depression. INTEGUMENTARY: No open wounds. ASSESSMENT AND PLAN:27 yo M w/ alcohol abuse,htn,ckd, here with headache.. EtOH abuse/withdrawal -Improved. -Switch to p.o. thiamine -wean off Librium Hypertensive emergency with noncompliance -BP has been stable. -Continue home labetalol, nifedipine and hydralazine Chronic kidney disease, progressed to ESRD -Plan is starting hemodialysis w/ this admission -CM to coordinate outpatient hemodialysis Obesity Lifestyle changes Anemia of CKD -On Epogen Headache -Likely attributed by hypertension. Continue NSAIDs/PRN opiates -Brain CT unremarkable Leukocytosis, likely reactive -Improving. No evidence to suggest infection. However, go ahead and obtain blood/urine cultures. Prophylaxis: Heparin DC planning: Plan is initiation of hemodialysis with this admission. Follow-up nephrology recommendations. Patient was seen in collaboration with Dr. Sanchez. Result Diagram: 07/19/1852607/19/18526 Results 24hrs Laboratory Tests Test 07/18/18 13:55 07/19/18 05:27 Urine Color YELLOW Urine Clarity SLIGHTLY CLOUDY A Urine pH 5.0 Urine Specific [place] 1.012 Urine Ketones NEGATIVE Urine Nitrite NEGATIVE Urine Bilirubin NEGATIVE Urine Urobilinogen NEGATIVE Urine Leukocyte Esterase NEGATIVE Urine Microscopic RBC 1 Urine Microscopic WBC 4 Urine Bacteria FEW A Urine Hemoglobin NEGATIVE Urine Random Creatinine 132.10 Urine Random Sodium 41 Urine Glucose 1+ H Urine Total Protein 449.0 H White Blood Count 15.8 H Red Blood Count 3.73 L Hemoglobin 9.9 L Hematocrit 31.5 L Mean Corpuscular Volume 84.5 Mean Corpuscular Hemoglobin 26.5 L Mean Corpuscular Hemoglobin Concent 31.4 L Red Cell Distribution Width 16.4 H Platelet Count 336 Mean Platelet Volume 10.7 H Immature Granulocytes % 0.500 H Neutrophils % 76.8 Lymphocytes % 9.2 L Monocytes % 5.9 Eosinophils % 7.0 Basophils % 0.6 Nucleated Red Blood Cells % 0.0 Immature Granulocytes # 0.080 H Neutrophils # 12.1 H Lymphocytes # 1.5 Monocytes # 0.9 Eosinophils # 1.1 H Basophils # 0.1 Nucleated Red Blood Cells # 0.0 Sodium Level 142 Potassium Level 3.7 Chloride Level 114 H Carbon Dioxide Level 21 Anion Gap 7 Blood Urea Nitrogen 45 H Creatinine 5.85 H Est Glomerular Filtrat Rate mL/min 12 L Glucose Level 105 Calcium Level 8.9 Phosphorus Level 5.2 H Magnesium Level 2.3 Exam/Review of Systems Exam Vitals Vital Signs Date Temp Pulse Resp B/P (MAP) Pulse Ox O2 O2 Flow FiO2 Time Delivery Rate 07/19/18 Room Air 09:18 07/19/18 94 09:00 07/19/18 98.0 18 156/90 97 07:21 (112) 07/17/18 2.0 12:00 Intake and Output 07/18/18 07/18/18 07/19/18 1515:00 23:00 07:00 IntakeIntake Total 400 ml OutputOutput Total 2 ml BalanceBalance 398 ml Results Results 24hrs Laboratory Tests Test 07/18/18 13:55 07/19/18 05:27 Urine Color YELLOW Urine Clarity SLIGHTLY CLOUDY A Urine pH 5.0 Urine Specific [place] 1.012 Urine Ketones NEGATIVE Urine Nitrite NEGATIVE Urine Bilirubin NEGATIVE Urine Urobilinogen NEGATIVE Urine Leukocyte Esterase NEGATIVE Urine Microscopic RBC 1 Urine Microscopic WBC 4 Urine Bacteria FEW A Urine Hemoglobin NEGATIVE Urine Random Creatinine 132.10 Urine Random Sodium 41 Urine Glucose 1+ H Urine Total Protein 449.0 H White Blood Count 15.8 H Red Blood Count 3.73 L Hemoglobin 9.9 L Hematocrit 31.5 L Mean Corpuscular Volume 84.5 Mean Corpuscular Hemoglobin 26.5 L Mean Corpuscular Hemoglobin Concent 31.4 L Red Cell Distribution Width 16.4 H Platelet Count 336 Mean Platelet Volume 10.7 H Immature Granulocytes % 0.500 H Neutrophils % 76.8 Lymphocytes % 9.2 L Monocytes % 5.9 Eosinophils % 7.0 Basophils % 0.6 Nucleated Red Blood Cells % 0.0 Immature Granulocytes # 0.080 H Neutrophils # 12.1 H Lymphocytes # 1.5 Monocytes # 0.9 Eosinophils # 1.1 H Basophils # 0.1 Nucleated Red Blood Cells # 0.0 Sodium Level 142 Potassium Level 3.7 Chloride Level 114 H Carbon Dioxide Level 21 Anion Gap 7 Blood Urea Nitrogen 45 H Creatinine 5.85 H Est Glomerular Filtrat Rate mL/min 12 L Glucose Level 105 Calcium Level 8.9 Phosphorus Level 5.2 H Magnesium Level 2.3 Medications Medication Current Medications Ondansetron HCl (Zofran Inj) 4 mg Q6H PRN IV NAUSEA AND/OR VOMITING Last administered on 07/17/18 07:56; Admin Dose 4 MG; Start 07/17/18 at 05:30 Nitroglycerin (Nitroglycerin (Sl Tab) 0.4 Mg) 1 tab Q5M PRN SL CHEST PAIN Last administered on 07/17/18 06:37; Admin Dose 1 TAB; Start 07/17/18 at 05:30 Acetaminophen (Tylenol Liquid) 650 mg Q6H PRN PO PAIN LEVEL 1-3 OR FEVER Last administered on 07/17/18 06:37; Admin Dose 650 MG; Start 07/17/18 at 05:30 Heparin Sodium (Porcine) (Heparin (5000 Units/1ml)) 5,000 unit Q12 SC Last administered on 07/19/18 10:00; Admin Dose 5,000 UNIT; Start 07/17/18 at 09:00 Hydralazine HCl (Apresoline) 75 mg Q8 PO Last administered on 07/19/18 06:23; Admin Dose 75 MG; Start 07/17/18 at 06:00 Labetalol HCl (Normodyne) 400 mg TID PO Last administered on 07/19/18 09:41; Admin Dose 400 MG; Start 07/17/18 at 05:30 Nifedipine (Procardia Xl) 60 mg BID PO Last administered on 07/19/18 09:41; Admin Dose 60 MG; Start 07/17/18 at 05:31 Multivitamins 10 ml/Thiamine HCl 100 mg/Folic Acid 1 mg/Sodium Chloride 1,011.2 ml @ 125 mls/ hr DAILY@09 IVPB Last administered on 07/19/18 09:40; Admin Dose 125 MLS/HR; Start 07/17/18 at 09:00 Lorazepam (Ativan) 2 mg Q1H PRN IV ETOH W/D; Start 07/17/18 at 07:30 Chlordiazepoxide (Librium) 100 mg Q8H PO Last administered on 07/19/18 09:40; Admin Dose 100 MG; Start 07/17/18 at 08:00 Ketorolac Tromethamine (Toradol) 15 mg Q6H PRN IV PAIN Last administered on 07/19/18 09:40; Admin Dose 15 MG; Start 07/18/18 at 22:00; Stop 07/21/18 at 21:59 Famotidine (Pepcid) 20 mg DAILY PO Last administered on 07/19/18 09:40; Admin Dose 20 MG; Start 07/19/18 at 09:00 MANINDER MCMANUS NP July 19, 2018 11:22
[2018-07-19] MEDS: THIAMINE 100 MG TAB PO SCH (12:59)
[2018-07-19] MEDS: HYDROCODONE/APAP (5/325) TAB PO PRN (13:00)
[2018-07-20] VITALS (17 sets, daily range): BP systolic 115–138; BP diastolic 67–86; PULSE 54–91; RESP 20–22
[2018-07-20] MEDS: LORAZEPAM 2 MG INJ IV PRN ×2 (00:23→12:12)
[2018-07-20] MEDS: CHLORDIAZEPOXIDE 25 MG CAP PO SCH ×4 (08:00→23:56)
[2018-07-20] MEDS: FAMOTIDINE 20 MG TAB PO SCH (08:56)
[2018-07-20] MEDS: NIFEdipine (XL) 60 MG TAB PO SCH ×2 (08:56→21:37)
[2018-07-20] MEDS: LABETALOL 200 MG TAB PO SCH ×3 (08:57→21:37)
[2018-07-20] MEDS: THIAMINE 100 MG TAB PO SCH (08:57)
--- NOTE | 2018-07-20 09:20 | PN ---
DATE: 07/20/2018 SUBJECTIVE: The patient remains hypertensive. The patient is pending Perm-A-Cath placement and for eventual initiation dialysis. No other events noted overnight. OBJECTIVE: VITAL SIGNS: Blood pressure is 125/82, respirations 20, pulse 89, temperature 98.4. HEENT: Head is normocephalic. NECK: Supple. HEART: Regular rate. LUNGS: Show diminished breath sounds at the base. ABDOMEN: Soft, nontender to palpation without rebound or guarding. EXTREMITIES: Negative for clubbing, cyanosis. Trace edema. DERMATOLOGIC: No rashes. MUSCULOSKELETAL: No joint effusion. NEUROLOGIC: No change in exam. MEDICATIONS: Reviewed. LABORATORY DATA: Reviewed. ASSESSMENT AND PLAN: 1. Nonoliguric acute kidney injury on top of chronic kidney disease stage IV/V, now likely end-stage renal disease. The patient is pending placement of Perm-A-Cath and will be initiated on hemodialysi s due to uremic symptoms. We will also arrange for outpatient hemodialysis per case management. 2. Hypertensive urgency, improved. Continue current blood pressure regimen. Continue anticipated u ltrafiltration with dialysis once access is obtained. 3. Anemia. Continue to monitor hemoglobin and hematocrit levels. Continue Epogen. We will check a n iron panel. 4. Mineral bone disorder, monitor calcium and phosphorus levels. 5. Hypokalemia, resolved. 6. Systemic inflammatory response syndrome. Continue to monitor. 7. Volume overload. Continue medical management. Continue diuretic therapy. 8. Obesity. 9. Sleep apnea. Continue CPAP. Dictated By: SOPHIA COLIN DO NR/NTS Conf#: [id number] DID#: [id number] CC: ASTER DRAKE MD; THAI EVANS MD;*EndCC*
--- NOTE | 2018-07-20 10:01 | PN ---
Date/Time of Note Date/Time of Note DATE: 07/20/18 TIME: 09:59 Assessment/Plan VTE Prophylaxis Risk score (from Ns)>0 risk: 0 SCD applied (from Ns): No SCD contraindicated: other Pharmacological prophylaxis: heparin Lines/Catheters IV [facility] Saline Lock Urinary Cath still in place: No Assessment/Plan Hospital Course SUBJECTIVE: No acute distress. No further headache. No fevers, chills. OBJECTIVE: Vital signs-see below PHYSICAL EXAM: Constitutional: Adequately built,not in acute distress. HEENT: Head atraumatic and normocephalic. Eyes: Extraocular muscles intact. Anicteric sclerae. Pupils equal bilaterally, reactive to light. NECK: Supple without lymph node. CHEST: Clear and good breath sounds equally. No wheezing. No rhonchi. HEART: S1, S2. Regular rate and rhythm. ABDOMEN: Soft/non tender with no rebound tenderness. Bowel sounds were present. EXTREMITIES: No cyanosis, clubbing or edema. NEUROLOGIC: Alert and oriented x3. No focal deficit. No sensory deficit. PSYCHOSOCIAL: No signs of depression. INTEGUMENTARY: No open wounds. ASSESSMENT AND PLAN:27 yo M w/ alcohol abuse,htn,ckd, here with headache.. EtOH abuse/withdrawal -Improved. -On p.o. thiamine -wean off Librium Hypertensive emergency with noncompliance - stable. -Continue home labetalol, nifedipine and hydralazine Chronic kidney disease, progressed to ESRD -For hemodialysis. Patient to get permacath today. -CM to coordinate outpatient hemodialysis Obesity Lifestyle changes Anemia of CKD -On Epogen Headache -Likely attributed by hypertension. -Now stable. Continue NSAIDs/PRN opiates -Brain CT unremarkable Leukocytosis, likely reactive -Improving. No evidence to suggest infection. -Follow-up cultures Prophylaxis: Heparin DC planning: Plan is initiation of hemodialysis today after permacath insertion. Follow nephrology recommendation. Case management to arrange outpatient hemodialysis in collaboration with Dr. Chavira. Patient was seen in collaboration with Dr. Sanchez. Result Diagram: 07/20/18 0456 07/20/18 0456 Results 24hrs Laboratory Tests Test 07/20/18 04:54 07/20/18 04:56 Hepatitis B Surface Antigen Pending Hepatitis B Core Total Antibody Pending Hepatitis C Antibody Pending White Blood Count 15.9 H Red Blood Count 3.62 L Hemoglobin 9.5 L Hematocrit 30.7 L Mean Corpuscular Volume 84.8 Mean Corpuscular Hemoglobin 26.2 L Mean Corpuscular Hemoglobin Concent 30.9 L Red Cell Distribution Width 16.4 H Platelet Count 353 Mean Platelet Volume 10.8 H Immature Granulocytes % 0.600 H Neutrophils % 77.2 H Lymphocytes % 6.8 L Monocytes % 6.5 Eosinophils % 8.3 H Basophils % 0.6 Nucleated Red Blood Cells % 0.0 Immature Granulocytes # 0.090 H Neutrophils # 12.3 H Lymphocytes # 1.1 Monocytes # 1.0 H Eosinophils # 1.3 H Basophils # 0.1 Nucleated Red Blood Cells # 0.0 Sodium Level 142 Potassium Level 4.2 Chloride Level 112 H Carbon Dioxide Level 22 Anion Gap 8 Blood Urea Nitrogen 51 H Creatinine 6.77 H Est Glomerular Filtrat Rate mL/min 10 L Glucose Level 120 Calcium Level 8.6 Phosphorus Level 7.4 #H Magnesium Level 2.3 Exam/Review of Systems Exam Vitals Vital Signs Date Temp Pulse Resp B/P (MAP) Pulse Ox O2 O2 Flow FiO2 Time Delivery Rate 07/20/18 91 08:35 07/20/18 98.4 20 125/82 92 08:28 (96) 07/20/18 30 05:37 07/19/18 Room Air 16:18 07/17/18 2.0 12:00 Intake and Output 07/19/18 07/19/18 07/20/18 1515:00 23:00 07:00 IntakeIntake Total 250 ml 2100 ml 1000 ml OutputOutput Total 1100 ml BalanceBalance 250 ml 1000 ml 1000 ml Results Results 24hrs Laboratory Tests Test 07/20/18 04:54 07/20/18 04:56 Hepatitis B Surface Antigen Pending Hepatitis B Core Total Antibody Pending Hepatitis C Antibody Pending White Blood Count 15.9 H Red Blood Count 3.62 L Hemoglobin 9.5 L Hematocrit 30.7 L Mean Corpuscular Volume 84.8 Mean Corpuscular Hemoglobin 26.2 L Mean Corpuscular Hemoglobin Concent 30.9 L Red Cell Distribution Width 16.4 H Platelet Count 353 Mean Platelet Volume 10.8 H Immature Granulocytes % 0.600 H Neutrophils % 77.2 H Lymphocytes % 6.8 L Monocytes % 6.5 Eosinophils % 8.3 H Basophils % 0.6 Nucleated Red Blood Cells % 0.0 Immature Granulocytes # 0.090 H Neutrophils # 12.3 H Lymphocytes # 1.1 Monocytes # 1.0 H Eosinophils # 1.3 H Basophils # 0.1 Nucleated Red Blood Cells # 0.0 Sodium Level 142 Potassium Level 4.2 Chloride Level 112 H Carbon Dioxide Level 22 Anion Gap 8 Blood Urea Nitrogen 51 H Creatinine 6.77 H Est Glomerular Filtrat Rate mL/min 10 L Glucose Level 120 Calcium Level 8.6 Phosphorus Level 7.4 #H Magnesium Level 2.3 Medications Medication Current Medications Ondansetron HCl (Zofran Inj) 4 mg Q6H PRN IV NAUSEA AND/OR VOMITING Last administered on 07/17/18 07:56; Admin Dose 4 MG; Start 07/17/18 at 05:30 Nitroglycerin (Nitroglycerin (Sl Tab) 0.4 Mg) 1 tab Q5M PRN SL CHEST PAIN Last administered on 07/17/18 06:37; Admin Dose 1 TAB; Start 07/17/18 at 05:30 Acetaminophen (Tylenol Liquid) 650 mg Q6H PRN PO PAIN LEVEL 1-3 OR FEVER Last administered on 07/17/18 06:37; Admin Dose 650 MG; Start 07/17/18 at 05:30 Hydralazine HCl (Apresoline) 75 mg Q8 PO Last administered on 07/19/18 21:53; Admin Dose 75 MG; Start 07/17/18 at 06:00 Labetalol HCl (Normodyne) 400 mg TID PO Last administered on 07/20/18 08:57; Admin Dose 400 MG; Start 07/17/18 at 05:30 Nifedipine (Procardia Xl) 60 mg BID PO Last administered on 07/20/18 08:56; Admin Dose 60 MG; Start 07/17/18 at 05:31 Famotidine (Pepcid) 20 mg DAILY PO Last administered on 07/20/18 08:56; Admin Dose 20 MG; Start 07/19/18 at 09:00 Acetaminophen/ Hydrocodone Bitart ([place] (5/325)) 1 tab Q4H PRN PO MODERATE PAIN LEVEL 4-6 Last administered on 07/19/18 13:00; Admin Dose 1 TAB; Start 07/19/18 at 11:30 Chlordiazepoxide (Librium) 50 mg Q8H PO ; Start 07/19/18 at 16:00 Thiamine HCl (Vitamin B1) 100 mg DAILY PO Last administered on 07/20/18at 08:57; Admin Dose 100 MG; Start 07/19/18 at 11:30 Heparin Sodium (Porcine) (Heparin (5000 Units/1ml)) 5,000 unit Q12 SC ; Start 07/21/18 at 09:00 Lorazepam (Ativan) 1 mg Q1H PRN IV CONTROL WITHDRAWAL SYMPTOMS Last administered on 07/20/18at 00:23; Admin Dose 1 MG; Start 07/19/18 at 22:30 Sevelamer Carbonate (Renvela) 800 mg WITH MEALS PO ; Start 07/20/18 at 12:00 MANINDER MCMANUS NP July 20, 2018 10:01
[2018-07-20] MEDS: SEVELAMER CARBONATE 800 MG TABLET PO SCH ×2 (12:12→17:38)
[2018-07-21] VITALS (34 sets, daily range): BP systolic 128–184; BP diastolic 45–116; PULSE 68–98; RESP 15–21
[2018-07-21] MEDS: LORAZEPAM 2 MG INJ IV PRN ×2 (03:14→23:59)
[2018-07-21] MEDS: SEVELAMER CARBONATE 800 MG TABLET PO SCH ×4 (08:00→18:00)
[2018-07-21] MEDS ORDERED: HEPARIN 5,000 UNIT/1 ML VIAL SC SCH (09:00)
[2018-07-21] MEDS: FAMOTIDINE 20 MG TAB PO SCH (10:06)
[2018-07-21] MEDS: NIFEdipine (XL) 60 MG TAB PO SCH ×2 (10:06→20:24)
[2018-07-21] MEDS: THIAMINE 100 MG TAB PO SCH (10:06)
[2018-07-21] MEDS: CHLORDIAZEPOXIDE 25 MG CAP PO SCH ×2 (10:07→16:00)
[2018-07-21] MEDS: LABETALOL 200 MG TAB PO SCH ×3 (10:07→20:25)
--- NOTE | 2018-07-21 10:14 | PN ---
Date/Time of Note Date/Time of Note DATE: 07/21/18 TIME: 10:13 Assessment/Plan VTE Prophylaxis Risk score (from Ns)>0 risk: 0 SCD applied (from Ns): No SCD contraindicated: other Pharmacological prophylaxis: heparin Lines/Catheters IV [facility] Saline Lock Urinary Cath still in place: No Assessment/Plan Hospital Course SUBJECTIVE: No acute overnight episodes. Patient is for permacath insertion today. OBJECTIVE: Vital signs-see below PHYSICAL EXAM: Constitutional: Adequately built,not in acute distress. HEENT: Head atraumatic and normocephalic. Eyes: Extraocular muscles intact. Anicteric sclerae. Pupils equal bilaterally, reactive to light. NECK: Supple without lymph node. CHEST: Clear and good breath sounds equally. No wheezing. No rhonchi. HEART: S1, S2. Regular rate and rhythm. ABDOMEN: Soft/non tender with no rebound tenderness. Bowel sounds were present. EXTREMITIES: No cyanosis, clubbing or edema. NEUROLOGIC: Alert and oriented x3. No focal deficit. No sensory deficit. PSYCHOSOCIAL: No signs of depression. INTEGUMENTARY: No open wounds. ASSESSMENT AND PLAN:27 yo M w/ alcohol abuse,htn,ckd, here with headache.. EtOH abuse/withdrawal -Improved. -On p.o. thiamine -wean off Librium Hypertensive emergency with noncompliance - stable. -Continue home labetalol, nifedipine and hydralazine Chronic kidney disease, progressed to ESRD -For hemodialysis. Patient to get permacath today. -CM to coordinate outpatient hemodialysis Obesity Lifestyle changes Anemia of CKD -On Epogen Headache -Likely attributed by hypertension. -Now stable. Continue NSAIDs/PRN opiates -Brain CT unremarkable Leukocytosis, likely reactive -Stable. Cultures negative. Patient is asymptomatic to suggest any superimposed infections. Prophylaxis: Heparin DC planning: Plan is initiation of hemodialysis today after permacath insertion. Follow nephrology recommendation. Case management to arrange outpatient hemodialysis in collaboration with Dr. Chavira. Downgrade to medical surgical floor Patient was seen in collaboration with Dr. Sanchez. Result Diagram: 07/21/18 0519 07/21/18 0519 Results 24hrs Laboratory Tests Test 07/21/18 05:19 White Blood Count 15.4 H Red Blood Count 3.38 L Hemoglobin 8.9 L Hematocrit 28.7 L Mean Corpuscular Volume 84.9 Mean Corpuscular Hemoglobin 26.3 L Mean Corpuscular Hemoglobin Concent 31.0 L Red Cell Distribution Width 16.3 H Platelet Count 332 Mean Platelet Volume 11.0 H Immature Granulocytes % 0.500 H Neutrophils % 72.6 Lymphocytes % 9.4 L Monocytes % 8.0 Eosinophils % 8.9 H Basophils % 0.6 Nucleated Red Blood Cells % 0.0 Immature Granulocytes # 0.070 H Neutrophils # 11.2 H Lymphocytes # 1.4 Monocytes # 1.2 H Eosinophils # 1.4 H Basophils # 0.1 Nucleated Red Blood Cells # 0.0 Sodium Level 141 Potassium Level 3.9 Chloride Level 111 H Carbon Dioxide Level 20 L Anion Gap 10 Blood Urea Nitrogen 54 H Creatinine 6.72 H Est Glomerular Filtrat Rate mL/min 10 L Glucose Level 98 Calcium Level 8.2 L Phosphorus Level 6.3 H Magnesium Level 2.2 Exam/Review of Systems Exam Vitals Vital Signs Date Temp Pulse Resp B/P (MAP) Pulse Ox O2 O2 Flow FiO2 Time Delivery Rate 07/21/18 86 08:28 07/21/18 98.2 20 138/88 96 Room Air 07:21 (105) 07/21/18 21 05:18 07/17/18 2.0 12:00 Intake and Output 07/20/18 07/20/18 07/21/18 1515:00 23:00 07:00 IntakeIntake Total 1200 ml 600 ml OutputOutput Total 400 ml BalanceBalance 800 ml 600 ml Results Results 24hrs Laboratory Tests Test 07/21/18 05:19 White Blood Count 15.4 H Red Blood Count 3.38 L Hemoglobin 8.9 L Hematocrit 28.7 L Mean Corpuscular Volume 84.9 Mean Corpuscular Hemoglobin 26.3 L Mean Corpuscular Hemoglobin Concent 31.0 L Red Cell Distribution Width 16.3 H Platelet Count 332 Mean Platelet Volume 11.0 H Immature Granulocytes % 0.500 H Neutrophils % 72.6 Lymphocytes % 9.4 L Monocytes % 8.0 Eosinophils % 8.9 H Basophils % 0.6 Nucleated Red Blood Cells % 0.0 Immature Granulocytes # 0.070 H Neutrophils # 11.2 H Lymphocytes # 1.4 Monocytes # 1.2 H Eosinophils # 1.4 H Basophils # 0.1 Nucleated Red Blood Cells # 0.0 Sodium Level 141 Potassium Level 3.9 Chloride Level 111 H Carbon Dioxide Level 20 L Anion Gap 10 Blood Urea Nitrogen 54 H Creatinine 6.72 H Est Glomerular Filtrat Rate mL/min 10 L Glucose Level 98 Calcium Level 8.2 L Phosphorus Level 6.3 H Magnesium Level 2.2 Medications Medication Current Medications Ondansetron HCl (Zofran Inj) 4 mg Q6H PRN IV NAUSEA AND/OR VOMITING Last admin istered on 07/17/18 07:56; Admin Dose 4 MG; Start 07/17/18 at 05:30 Nitroglycerin (Nitroglycerin (Sl Tab) 0.4 Mg) 1 tab Q5M PRN SL CHEST PAIN Last administered on 07/17/18 06:37; Admin Dose 1 TAB; Start 07/17/18 at 05:30 Acetaminophen (Tylenol Liquid) 650 mg Q6H PRN PO PAIN LEVEL 1-3 OR FEVER Last administered on 07/17/18 06:37; Admin Dose 650 MG; Start 07/17/18 at 05:30 Hydralazine HCl (Apresoline) 75 mg Q8 PO Last administered on 07/20/18 21:37; Admin Dose 75 MG; Start 07/17/18 at 06:00 Labetalol HCl (Normodyne) 400 mg TID PO Last administered on 07/21/18 10:07; Admin Dose 400 MG; Start 07/17/18 at 05:30 Nifedipine (Procardia Xl) 60 mg BID PO Last administered on 07/21/18 10:06; Admin Dose 60 MG; Start 07/17/18 at 05:31 Famotidine (Pepcid) 20 mg DAILY PO Last administered on 07/21/18 10:06; Admin Dose 20 MG; Start 07/19/18 at 09:00 Acetaminophen/ Hydrocodone Bitart ([place] (5/325)) 1 tab Q4H PRN PO MODERATE PAIN LEVEL 4-6 Last administered on 07/19/18 13:00; Admin Dose 1 TAB; Start 07/19/18 at 11:30 Thiamine HCl (Vitamin B1) 100 mg DAILY PO Last administered on 07/21/18 10:06; Admin Dose 100 MG; Start 07/19/18 at 11:30 Heparin Sodium (Porcine) (Heparin (5000 Units/1ml)) 5,000 unit Q12 SC ; Start 07/21/18 at 09:00 Lorazepam (Ativan) 1 mg Q1H PRN IV CONTROL WITHDRAWAL SYMPTOMS Last administered on 07/21/18at 03:14; Admin Dose 1 MG; Start 07/19/18 at 22:30 Sevelamer Carbonate (Renvela) 800 mg WITH MEALS PO Last administered on 07/20/18at 17:38; Admin Dose 800 MG; Start 07/20/18 at 12:00 Chlordiazepoxide (Librium) 25 mg Q8H PO Last administered on 07/21/18at 10:07; Admin Dose 25 MG; Start 07/20/18 at 16:00 MANINDER MCMANUS NP July 21, 2018 10:14
--- NOTE | 2018-07-21 10:26 | PN ---
DATE: 07/21/2018 SUBJECTIVE: The patient is stable, continues to have uremic symptoms, complaining about nausea, vomi ting. No other events noted. OBJECTIVE: VITAL SIGNS: Blood pressure is 128/85, respirations 20, pulse 83, temperature 98.2. HEENT: Head is normocephalic. NECK: Supple. HEART: Regular rate. LUNGS: Show diminished breath sounds at the base. ABDOMEN: Soft, nontender to palpation without rebound or guarding. EXTREMITIES: Negative for clubbing, cyanosis. Trace edema. DERMATOLOGIC: No rashes. MUSCULOSKELETAL: No joint effusion. NEUROLOGIC: No change in exam. MEDICATIONS: The patient's medications have been reviewed. LABORATORY DATA: Has been reviewed. ASSESSMENT AND PLAN: 1. Nonoliguric acute kidney injury on top of chronic kidney disease stage IV/V. The patient is now likely end-stage renal disease. The patient is pending Perm-A-Cath placement which should happen tod ay. Patient will be initiated on dialysis. Outpatient hemodialysis will be arranged per case manage ment. Anticipate daily dialysis for solute clearance and volume removal. 2. Hypertensive urgency, improved. Continue current blood pressure regimen. 3. Anemia. Monitor hemoglobin and hematocrit levels. Will give Epogen. 4. Mineral bone disorder, monitor calcium and phosphorus levels. 5. Hyperkalemia, resolved. 6. Systemic inflammatory response syndrome. Continue to monitor. No obvious evidence of infection. 7. Volume overload. Continue medical management. 8. Obesity. 9. Sleep apnea. Continue CPAP. Dictated By: SOPHIA BOYCE/AMELIE Conf#: [id number] DID#: [id number]
[2018-07-21] MEDS ORDERED: HEPARIN 1000 UNITS/ML 10 ML INJ ONE (12:55)
[2018-07-21] MEDS ORDERED: LIDOCAINE 2%/EPI 30 ML INJ ONE (12:56)
[2018-07-21] MEDS ORDERED: MIDAZOLAM 1 MG/ML 2 ML INJ ONE (13:04)
[2018-07-21] MEDS ORDERED: FENTAnyl 50 MCG/ML VIAL ONE (13:04)
[2018-07-21] MEDS ORDERED: PROPOFOL 20 ML ONE (13:04)
--- NOTE | 2018-07-21 13:07 | PREAC ---
Date/Time of Note Date/Time of Note DATE: 07/21/18 TIME: 13:05 Anesthesia Eval and Record Evaluation Time Pre-Procedure Interview DATE: 07/21/18 TIME: 13:05 Age 27 Sex male NPO: 8 hrs Preoperative diagnosis ESRD Planned procedure perm cath placement Past Medical History Past Medical History: Includes Cardio: HTN, CHF Renal: LUCIA, CKD Surgery & Anesthesia Issues No known issue Meds Anticoagulation: No Beta Mariaa within 24 hr: Yes Reason Beta Amriaa not given: Pt. not on B-Mariaa Active Scripts Hydralazine Hcl* (Apresoline*) 50 Mg Tab, 75 MG PO Q8 for 30 Days, #90 TAB 5 Refills Prov:MARTHA AVILA MD 03/19/18 Nifedipine (Procardia Xl) 60 Mg Tab.er.24, 60 MG PO BID for 60 Days, #120 TAB 5 Refills Prov:AMRTHA AVILA MD 03/19/18 Labetalol Hcl* (Labetalol Hcl*) 200 Mg Tablet, 400 MG PO TID for 60 Days, #120 TAB 5 Refills Prov:MARTHA AVILA MD 03/19/18 Current Medications Ondansetron HCl (Zofran Inj) 4 mg Q6H PRN IV NAUSEA AND/OR VOMITING Last administered on 07/17/18at 07:56; Admin Dose 4 MG; Start 07/17/18 at 05:30 Nitroglycerin (Nitroglycerin (Sl Tab) 0.4 Mg) 1 tab Q5M PRN SL CHEST PAIN Last administered on 07/17/18at 06:37; Admin Dose 1 TAB; Start 07/17/18 at 05:30 Acetaminophen (Tylenol Liquid) 650 mg Q6H PRN PO PAIN LEVEL 1-3 OR FEVER Last administered on 07/17/18at 06:37; Admin Dose 650 MG; Start 07/17/18 at 05:30 Hydralazine HCl (Apresoline) 75 mg Q8 PO Last administered on 07/20/18at 21:37; Admin Dose 75 MG; Start 07/17/18 at 06:00 Labetalol HCl (Normodyne) 400 mg TID PO Last administered on 07/21/18at 10:07; Admin Dose 400 MG; Start 07/17/18 at 05:30 Nifedipine (Procardia Xl) 60 mg BID PO Last administered on 07/21/18 10:06; Admin Dose 60 MG; Start 07/17/18 at 05:31 Famotidine (Pepcid) 20 mg DAILY PO Last administered on 07/21/18 10:06; Admin Dose 20 MG; Start 07/19/18 at 09:00 Acetaminophen/ Hydrocodone Bitart ([place] (5/325)) 1 tab Q4H PRN PO MODERATE PAIN LEVEL 4-6 Last administered on 07/19/18 13:00; Admin Dose 1 TAB; Start 07/19/18 at 11:30 Thiamine HCl (Vitamin B1) 100 mg DAILY PO Last administered on 07/21/18 10:06; Admin Dose 100 MG; Start 07/19/18 at 11:30 Heparin Sodium (Porcine) (Heparin (5000 Units/1ml)) 5,000 unit Q12 SC ; Start 07/21/18 at 09:00; Status Hold Lorazepam (Ativan) 1 mg Q1H PRN IV CONTROL WITHDRAWAL SYMPTOMS Last administered on 07/21/18 03:14; Admin Dose 1 MG; Start 07/19/18 at 22:30 Sevelamer Carbonate (Renvela) 800 mg WITH MEALS PO Last administered on 07/20/18 17:38; Admin Dose 800 MG; Start 07/20/18 at 12:00 Chlordiazepoxide (Librium) 25 mg Q8H PO Last administered on 07/21/18 10:07; Admin Dose 25 MG; Start 07/20/18 at 16:00 Meds reviewed: Yes Allergies Coded Allergies: No Known Allergies (Unverified Allergy, Unknown, 09/02/17) Allergies Reviewed: Yes Labs/Studies Labs Reviewed: Reviewed by anesthesiologist Result Diagram: 07/21/1851807/21/18518 Laboratory Tests 07/21/18 05:19 test: N/A Studies: ECG (sr), CXR (mild congestio, cardiomegally) Pre-procedure Exam Last vitals Vital Signs Date Temp Pulse Resp B/P (MAP) Pulse Ox O2 O2 Flow FiO2 Time Delivery Rate 07/21/18 86 12:12 07/21/18 98.1 20 137/86 98 Room Air 11:27 (103) 07/21/18 21 05:18 07/17/18 2.0 12:00 Airway: Adequate mouth opening Mallampati: Mallampati I Teeth: Normal Lung: Normal Heart: Normal ASA Physical Status ASA physical status: 3 Emergency: None Planned Anesthetic General/MAC: MAC Planned Pain Management Parenteral pain med Pre-operative Attestations Prior to commencing anesthesia and surgery, the patient was re-evaluated, there was verification of: *The patient's identity *The results of appropriate recent lab work and preoperative vital signs *The above evaluation not changing prior to induction *Anesthetic plan, risk benefits, alternative and complications discussed with patient/family; questions answered; patient/family understands, accepts and wishes to proceed. MELISSA MCKEON MD July 21, 2018 13:07
[2018-07-21] MEDS ORDERED: ONDANSETRON 4 MG INJ IV PRN (13:30)
[2018-07-21] MEDS ORDERED: morphine 2 MG INJ IV PRN ×3 (13:30)
[2018-07-21] MEDS ORDERED: LABETALOL HCL 20MG INJ ONE (14:03)
[2018-07-21] MEDS ORDERED: morphine 2 MG INJ IV STA (16:56)
[2018-07-21] MEDS: HYDROCODONE/APAP (5/325) TAB PO PRN (20:23)
[2018-07-21] MEDS: HEPARIN 1000 UNITS/ML 10 ML INJ CATHETER SCH (20:31)
[2018-07-22] VITALS (17 sets, daily range): BP systolic 132–176; BP diastolic 78–101; PULSE 76–103; RESP 16–24
--- NOTE | 2018-07-22 08:22 | PAC ---
Date/Time of Note Date/Time of Note DATE: 07/22/18 TIME: 08:22 Post-Anesthesia Notes Post-Anesthesia Note Last documented vital signs Vital Signs Date Temp Pulse Resp B/P (MAP) Pulse Ox O2 O2 Flow FiO2 Time Delivery Rate 07/22/18 97.8 82 24 132/78 89 07:21 (96) 07/22/18 21 05:17 07/21/18 Nasal 4.0 18:00 Cannula Activity: WNL Respiratory function: WNL Cardiovascular function: WNL Mental status: Baseline Pain reasonably controlled: Yes Hydration appropriate: Yes Nausea/Vomiting absent: No MELISSA MCKEON MD July 22, 2018 08:22
[2018-07-22] MEDS: NIFEdipine (XL) 60 MG TAB PO SCH ×2 (09:00→21:37)
[2018-07-22] MEDS: LABETALOL 200 MG TAB PO SCH ×2 (09:00→13:00)
[2018-07-22] MEDS: SEVELAMER CARBONATE 800 MG TABLET PO SCH ×3 (09:10→17:37)
[2018-07-22] MEDS: THIAMINE 100 MG TAB PO SCH (09:10)
[2018-07-22] MEDS: CHLORDIAZEPOXIDE 25 MG CAP PO SCH ×3 (09:11→17:37)
[2018-07-22] MEDS: FAMOTIDINE 20 MG TAB PO SCH (09:11)
[2018-07-22] MEDS: HYDROCODONE/APAP (5/325) TAB PO PRN ×3 (09:22→21:49)
--- NOTE | 2018-07-22 10:49 | PN ---
Date/Time of Note Date/Time of Note DATE: 07/22/18 TIME: 10:48 Assessment/Plan VTE Prophylaxis Risk score (from Ns)>0 risk: 1 SCD applied (from Ns): No SCD contraindicated: other Pharmacological prophylaxis: heparin Lines/Catheters IV [facility]ter [facility] (from [facility] Permacath Urinary Cath still in place: No Assessment/Plan Hospital Course SUBJECTIVE: No acute overnight episodes. OBJECTIVE: Vital signs-see below PHYSICAL EXAM: Constitutional: Adequately built,not in acute distress. HEENT: Head atraumatic and normocephalic. Eyes: Extraocular muscles intact. Anicteric sclerae. Pupils equal bilaterally, reactive to light. NECK: Supple without lymph node. CHEST: Clear and good breath sounds equally. No wheezing. No rhonchi. HEART: S1, S2. Regular rate and rhythm. ABDOMEN: Soft/non tender with no rebound tenderness. Bowel sounds were present. EXTREMITIES: No cyanosis, clubbing or edema. NEUROLOGIC: Alert and oriented x3. No focal deficit. No sensory deficit. PSYCHOSOCIAL: No signs of depression. INTEGUMENTARY: No open wounds. ASSESSMENT AND PLAN:27 yo M w/ alcohol abuse,htn,ckd, here with headache.. EtOH abuse/withdrawal -Improved. -On p.o. thiamine -wean off Librium Hypertensive emergency with noncompliance - stable. -Continue home labetalol, nifedipine and hydralazine Chronic kidney disease, progressed to ESRD -Status post permacath 07/21/2018. Nephrology managing hemodialysis. -CM to coordinate outpatient hemodialysis Obesity Lifestyle changes Anemia of CKD -On Epogen Headache -Likely attributed by hypertension. -Now stable. Continue NSAIDs/PRN opiates -Brain CT unremarkable GNR UTI -Start ceftriaxone and follow final cultures. Prophylaxis: Heparin DC planning: Follow up nephrology recommendation regarding hemodialysis schedules. Case management to arrange outpatient hemodialysis in collaboration with Dr. Chavira. Patient was seen in collaboration with Dr. Sanchez. Result Diagram: 07/22/18 0431 07/22/18 0431 Results 24hrs Laboratory Tests Test 07/22/18 04:31 White Blood Count 14.0 H Red Blood Count 3.35 L Hemoglobin 8.8 L Hematocrit 28.3 L Mean Corpuscular Volume 84.5 Mean Corpuscular Hemoglobin 26.3 L Mean Corpuscular Hemoglobin Concent 31.1 L Red Cell Distribution Width 16.2 H Platelet Count 353 Mean Platelet Volume 11.2 H Immature Granulocytes % 0.500 H Neutrophils % 69.5 Lymphocytes % 12.7 L Monocytes % 7.9 Eosinophils % 9.0 H Basophils % 0.4 Nucleated Red Blood Cells % 0.0 Immature Granulocytes # 0.070 H Neutrophils # 9.7 H Lymphocytes # 1.8 Monocytes # 1.1 H Eosinophils # 1.3 H Basophils # 0.1 Nucleated Red Blood Cells # 0.0 Sodium Level 143 Potassium Level 3.8 Chloride Level 108 Carbon Dioxide Level 26 Anion Gap 9 Blood Urea Nitrogen 40 #H Creatinine 5.60 H Est Glomerular Filtrat Rate mL/min 12 L Glucose Level 93 Calcium Level 8.1 L Phosphorus Level 6.0 H Magnesium Level 2.2 Exam/Review of Systems Exam Vitals Vital Signs Date Temp Pulse Resp B/P (MAP) Pulse Ox O2 O2 Flow FiO2 Time Delivery Rate 07/22/18 97.8 82 24 132/78 89 07:21 (96) 07/22/18 21 05:17 07/21/18 Nasal 4.0 18:00 Cannula Intake and Output 07/21/18 07/21/18 07/22/18 1515:00 23:00 07:00 IntakeIntake Total 120 ml OutputOutput Total 1400 ml BalanceBalance -1280 ml Results Results 24hrs Laboratory Tests Test 07/22/18 04:31 White Blood Count 14.0 H Red Blood Count 3.35 L Hemoglobin 8.8 L Hematocrit 28.3 L Mean Corpuscular Volume 84.5 Mean Corpuscular Hemoglobin 26.3 L Mean Corpuscular Hemoglobin Concent 31.1 L Red Cell Distribution Width 16.2 H Platelet Count 353 Mean Platelet Volume 11.2 H Immature Granulocytes % 0.500 H Neutrophils % 69.5 Lymphocytes % 12.7 L Monocytes % 7.9 Eosinophils % 9.0 H Basophils % 0.4 Nucleated Red Blood Cells % 0.0 Immature Granulocytes # 0.070 H Neutrophils # 9.7 H Lymphocytes # 1.8 Monocytes # 1.1 H Eosinophils # 1.3 H Basophils # 0.1 Nucleated Red Blood Cells # 0.0 Sodium Level 143 Potassium Level 3.8 Chloride Level 108 Carbon Dioxide Level 26 Anion Gap 9 Blood Urea Nitrogen 40 #H Creatinine 5.60 H Est Glomerular Filtrat Rate mL/min 12 L Glucose Level 93 Calcium Level 8.1 L Phosphorus Level 6.0 H Magnesium Level 2.2 Medications Medication Current Medications Ondansetron HCl (Zofran Inj) 4 mg Q6H PRN IV NAUSEA AND/OR VOMITING Last admi nistered on 07/17/18 07:56; Admin Dose 4 MG; Start 07/17/18 at 05:30 Nitroglycerin (Nitroglycerin (Sl Tab) 0.4 Mg) 1 tab Q5M PRN SL CHEST PAIN Last administered on 07/17/18 06:37; Admin Dose 1 TAB; Start 07/17/18 at 05:30 Acetaminophen (Tylenol Liquid) 650 mg Q6H PRN PO PAIN LEVEL 1-3 OR FEVER Last administered on 07/17/18 06:37; Admin Dose 650 MG; Start 07/17/18 at 05:30 Hydralazine HCl (Apresoline) 75 mg Q8 PO Last administered on 07/22/18 06:05; Admin Dose 75 MG; Start 07/17/18 at 06:00 Labetalol HCl (Normodyne) 400 mg TID PO Last administered on 07/21/18 20:25; Admin Dose 400 MG; Start 07/17/18 at 05:30 Nifedipine (Procardia Xl) 60 mg BID PO Last administered on 07/21/18 20:24; Admin Dose 60 MG; Start 07/17/18 at 05:31 Famotidine (Pepcid) 20 mg DAILY PO Last administered on 07/22/18 09:11; Admin Dose 20 MG; Start 07/19/18 at 09:00 Acetaminophen/ Hydrocodone Bitart ([place] (5/325)) 1 tab Q4H PRN PO MODERATE PAIN LEVEL 4-6 Last administered on 07/22/18 09:22; Admin Dose 1 TAB; Start 07/19/18 at 11:30 Thiamine HCl (Vitamin B1) 100 mg DAILY PO Last administered on 07/22/18 09:10; Admin Dose 100 MG; Start 07/19/18 at 11:30 Heparin Sodium (Porcine) (Heparin (5000 Units/1ml)) 5,000 unit Q12 SC ; Start 07/21/18 at 09:00; Status Hold Lorazepam (Ativan) 1 mg Q1H PRN IV CONTROL WITHDRAWAL SYMPTOMS Last administered on 07/21/18 23:59; Admin Dose 1 MG; Start 07/19/18 at 22:30 Sevelamer Carbonate (Renvela) 800 mg WITH MEALS PO Last administered on 07/22/18 09:10; Admin Dose 800 MG; Start 07/20/18 at 12:00 Chlordiazepoxide (Librium) 25 mg Q8H PO Last administered on 07/22/18 09:11; Admin Dose 25 MG; Start 07/20/18 at 16:00 Heparin Sodium (Porcine) (Heparin (1000 Units/ml)) 4,500 unit AFTER DIALYSIS CATHETER Last administered on 07/21/18at 20:31; Admin Dose 4,500 UNIT; Start 07/21/18 at 18:30 MANINDER MCMANUS NP July 22, 2018 10:49
--- NOTE | 2018-07-22 10:58 | PN ---
DATE: 07/22/2018 SUBJECTIVE: The patient had hemodialysis yesterday, tolerated well. No other events noted. OBJECTIVE: VITAL SIGNS: Blood pressure is 132/78, pulse 82, temperature 97.8. HEENT: Head is normocephalic. NECK: Supple. HEART: Regular rate. LUNGS: Show diminished breath sounds at the base. ABDOMEN: Soft, nontender to palpation without rebound or guarding. EXTREMITIES: Negative for clubbing, cyanosis, no edema. DERMATOLOGIC: No rashes. MUSCULOSKELETAL: No joint effusion. NEUROLOGIC: No change in exam. MEDICATIONS: The patient's medications have been reviewed. LABORATORY DATA: Reviewed. MEDICATIONS: Reviewed. ASSESSMENT AND PLAN: 1. Nonoliguric acute kidney injury on top of chronic kidney disease stage IV/V, now likely progresse d towards end-stage renal disease. The patient was initiated on hemodialysis yesterday. Anticipate dialysis again today and tomorrow. Outpatient hemodialysis is being arranged because of case managem ent. 2. Hypertension. Continue current blood pressure regimen. 3. Anemia. Monitor hemoglobin and hematocrit levels. We will give Epogen as needed. 4. Mineral bone disorder. Monitor calcium and phosphorus levels. 5. Hypokalemia, resolved. 6. Systemic inflammatory response syndrome. No evidence of infection. Continue to monitor. 7. Volume overload. Continue medical management. 8. Sleep apnea. Continue CPAP. 9. Obesity. Continue dietary modification. Dictated By: SOPHIA COLIN DO NR/NTS Conf#: [id number] DID#: [id number] CC: THAI EVANS MD; ASTER DRAKE MD;*End*
[2018-07-22] MEDS ORDERED: CEFTRIAXONE 500 MG in SOD CHLORIDE 0.9% 50 ML IVPB SCH (11:30)
[2018-07-22] MEDS: CEFTRIAXONE 1 GM/NS 50 ML IVPB SCH (13:17)
[2018-07-22] MEDS: HEPARIN 1000 UNITS/ML 10 ML INJ CATHETER SCH (18:34)
[2018-07-23] VITALS (24 sets, daily range): BP systolic 129–167; BP diastolic 73–107; PULSE 72–87; RESP 16–20
[2018-07-23] MEDS: LABETALOL 200 MG TAB PO SCH ×4 (01:27→22:20)
[2018-07-23] MEDS ORDERED: hydrALAzine 20 MG INJ IV ONE (04:30)
[2018-07-23] MEDS: FAMOTIDINE 20 MG TAB PO SCH (08:58)
[2018-07-23] MEDS: CHLORDIAZEPOXIDE 25 MG CAP PO SCH ×3 (08:58→16:08)
[2018-07-23] MEDS: SEVELAMER CARBONATE 800 MG TABLET PO SCH ×3 (08:58→17:33)
[2018-07-23] MEDS: THIAMINE 100 MG TAB PO SCH (08:58)
[2018-07-23] MEDS: NIFEdipine (XL) 60 MG TAB PO SCH ×2 (09:09→22:20)
[2018-07-23] MEDS: ONDANSETRON 4 MG INJ IV PRN (09:11)
[2018-07-23] MEDS: HYDROCODONE/APAP (5/325) TAB PO PRN (10:50)
--- NOTE | 2018-07-23 11:47 | PN ---
DATE: 07/23/2018 SUBJECTIVE: The patient had hemodialysis yesterday, tolerated well. Anticipate dialysis again today. No other events noted. OBJECTIVE: VITAL SIGNS: Blood pressure is 129/73, pulse 81, temperature 98.1. HEENT: Head is normocephalic. NECK: Supple. HEART: Regular rate. LUNGS: Show diminished breath sounds at the base. ABDOMEN: Soft, nontender to palpation without rebound or guarding. EXTREMITIES: Negative for clubbing, cyanosis, no edema. DERMATOLOGIC: No rashes. MUSCULOSKELETAL: No joint effusion. NEUROLOGIC: No change in exam. MEDICATIONS: Reviewed. LABORATORY DATA: Reviewed. ASSESSMENT AND PLAN: 1. Nonoliguric acute kidney injury on top of chronic kidney disease stage IV/V, now with likely progression towards end-stage renal disease. The patient has been initiated on dialysis and had received 2 sessions. Anticipate third session today. Outpatient hemodialysis is being arranged with case management at either [facility] or [facility]. 2. Hypertension. Continue current blood pressure regimen. 3. Anemia. Continue to monitor hemoglobin and hematocrit levels. Continue Epogen as needed. 4. Mineral bone disorder, monitor calcium and phosphorus levels. 5. Hypokalemia, resolved. 6. UTI. Continue antibiotics. Cultures reviewed 7. Volume overload, improving. Continue ultrafiltration with dialysis. Continue current blood pressure regimen. 8. Sleep apnea. Continue CPAP. 9. Obesity. Continue dietary modification. Dictated By: SOPHIA COLIN DO NR/NTS Conf#: [id number] DID#: [id number] CC: ASTER DRAKE MD; THAI EVANS MD;*EndCC* MTDD
--- NOTE | 2018-07-23 12:00 | PN ---
Date/Time of Note Date/Time of Note DATE: 07/23/18 TIME: 11:58 Assessment/Plan VTE Prophylaxis Risk score (from Nsg)>0 risk: 1 SCD applied (from Nsg): Yes Pharmacological prophylaxis: heparin Lines/Catheters IV Catheter Type (from Nrsg): Permacath Urinary Cath still in place: No Assessment/Plan Hospital Course SUBJECTIVE: No acute overnight episodes. Patient has been tolerating hemo dialysis treatments OBJECTIVE: Vital signs-see below PHYSICAL EXAM: Constitutional: Adequately built,not in acute distress. HEENT: Head atraumatic and normocephalic. Eyes: Extraocular muscles intact. Anicteric sclerae. Pupils equal bilaterally, reactive to light. NECK: Supple without lymph node. CHEST: Clear and good breath sounds equally. No wheezing. No rhonchi. HEART: S1, S2. Regular rate and rhythm. ABDOMEN: Soft/non tender with no rebound tenderness. Bowel sounds were present. EXTREMITIES: No cyanosis, clubbing or edema. NEUROLOGIC: Alert and oriented x3. No focal deficit. No sensory deficit. PSYCHOSOCIAL: No signs of depression. INTEGUMENTARY: No open wounds. ASSESSMENT AND PLAN:27 yo M w/ alcohol abuse,htn,ckd, here with headache.. EtOH abuse/withdrawal -Improved. -On p.o. thiamine -wean off Librium Hypertensive emergency with noncompliance - stable. -Continue home labetalol, nifedipine and hydralazine Chronic kidney disease, progressed to ESRD -Status post permacath 07/21/2018. Nephrology managing hemodialysis. Plan is 3 dialysis in a row. -CM to coordinate outpatient hemodialysis -Access: Right chest permacath Obesity Lifestyle changes Anemia of CKD -On Epogen Headache -Likely attributed by hypertension. -Now stable. Continue NSAIDs/PRN opiates -Brain CT unremarkable GNR UTI -Start ceftriaxone and follow final cultures. Prophylaxis: Heparin DC planning: Patient has got to dialysis in a row and plan for dialysis tomorrow. Case management to arrange outpatient hemodialysis in collaboration with Dr. Chavira. Clear DC in a.m. once dialysis is arranged. Patient was seen in collaboration with Dr. Sanchez. Result Diagram: 07/22/18 0431 07/22/18 0431 Results 24hrs Laboratory Tests Test 07/23/18 08:34 Iron Level 23 L Total Iron Binding Capacity 317 Percent Iron Saturation 7 L Ferritin 37.9 Exam/Review of Systems Exam Vitals Vital Signs Date Temp Pulse Resp B/P (MAP) Pulse Ox O2 O2 Flow FiO2 Time Delivery Rate 07/23/18 98.3 78 18 154/94 99 08:53 (114) 07/23/18 21 05:10 07/22/18 Room Air 16:40 07/21/18 4.0 18:00 Intake and Output 07/22/18 07/22/18 07/23/18 1515:00 23:00 07:00 IntakeIntake Total 790 ml 800 ml OutputOutput Total 1600 ml BalanceBalance 790 ml -800 ml Results Results 24hrs Laboratory Tests Test 07/23/18 08:34 Iron Level 23 L Total Iron Binding Capacity 317 Percent Iron Saturation 7 L Ferritin 37.9 Medications Medication Current Medications Ondansetron HCl (Zofran Inj) 4 mg Q6H PRN IV NAUSEA AND/OR VOMITING Last administered on 07/23/18 09:11; Admin Dose 4 MG; Start 07/17/18 at 05:30 Nitroglycerin (Nitroglycerin (Sl Tab) 0.4 Mg) 1 tab Q5M PRN SL CHEST PAIN Last administered on 07/17/18 06:37; Admin Dose 1 TAB; Start 07/17/18 at 05:30 Acetaminophen (Tylenol Liquid) 650 mg Q6H PRN PO PAIN LEVEL 1-3 OR FEVER Last administered on 07/17/18 06:37; Admin Dose 650 MG; Start 07/17/18 at 05:30 Hydralazine HCl (Apresoline) 75 mg Q8 PO Last administered on 07/22/18 21:37; Admin Dose 75 MG; Start 07/17/18 at 06:00 Labetalol HCl (Normodyne) 400 mg TID PO Last administered on 07/23/18 09:09; Admin Dose 400 MG; Start 07/17/18 at 05:30 Nifedipine (Procardia Xl) 60 mg BID PO Last administered on 07/23/18 09:09; Admin Dose 60 MG; Start 07/17/18 at 05:31 Famotidine (Pepcid) 20 mg DAILY PO Last administered on 07/23/18 08:58; Admin Dose 20 MG; Start 07/19/18 at 09:00 Acetaminophen/ Hydrocodone Bitart ([place] (5/325)) 1 tab Q4H PRN PO MODERATE PAIN LEVEL 4-6 Last administered on 07/23/18 10:50; Admin Dose 1 TAB; Start 07/19/18 at 11:30 Thiamine HCl (Vitamin B1) 100 mg DAILY PO Last administered on 07/23/18 08:58; Admin Dose 100 MG; Start 07/19/18 at 11:30 Heparin Sodium (Porcine) (Heparin (5000 Units/1ml)) 5,000 unit Q12 SC ; Start 07/21/18 at 09:00; Status Hold Lorazepam (Ativan) 1 mg Q1H PRN IV CONTROL WITHDRAWAL SYMPTOMS Last administered on 07/21/18 23:59; Admin Dose 1 MG; Start 07/19/18 at 22:30 Sevelamer Carbonate (Renvela) 800 mg WITH MEALS PO Last administered on 08:58; Admin Dose 800 MG; Start 07/20/18 at 12:00 Chlordiazepoxide (Librium) 25 mg Q8H PO Last administered on 07/23/18 08:58; Admin Dose 25 MG; Start 07/20/18 at 16:00 Heparin Sodium (Porcine) (Heparin (1000 Units/ml)) 4,500 unit AFTER DIALYSIS CATHETER Last administered on 07/22/18 18:34; Admin Dose 4,500 UNIT; Start 07/21/18 at 18:30 Ceftriaxone Sodium 50 ml @ 100 mls/hr Q24H IVPB Last administered on 07/22/18 13:17; Admin Dose 100 MLS/HR; Start 07/22/18 at 12:00 Epoetin Ernesto-epbx (Retacrit (Esrd)) 10,000 unit MoWeFr@1700 SC ; Start 07/23/18 at 17:00 MANINDER MCMANUS NP July 23, 2018 12:00
[2018-07-23] MEDS: CEFTRIAXONE 1 GM/NS 50 ML IVPB SCH (13:19)
[2018-07-23] MEDS ORDERED: EPOETIN ALFA (ESRD) 20,000 UNITS/ML VIAL SC SCH (17:00)
[2018-07-23] MEDS: EPOETIN ALFA-EPBX (ESRD) 10,000 UNIT/ML VIAL SC SCH (17:34)
[2018-07-23] MEDS: HEPARIN 1000 UNITS/ML 10 ML INJ CATHETER SCH (22:10)
[2018-07-24] VITALS (7 sets, daily range): BP systolic 143–152; BP diastolic 92–99; PULSE 64–89; RESP 16–18
[2018-07-24] MEDS: CHLORDIAZEPOXIDE 25 MG CAP PO SCH ×3 (00:26→20:35)
[2018-07-24] MEDS: LABETALOL 200 MG TAB PO SCH ×3 (09:27→20:34)
[2018-07-24] MEDS: SEVELAMER CARBONATE 800 MG TABLET PO SCH ×3 (09:27→17:45)
[2018-07-24] MEDS: THIAMINE 100 MG TAB PO SCH (09:27)
[2018-07-24] MEDS: NIFEdipine (XL) 60 MG TAB PO SCH ×2 (09:28→20:33)
[2018-07-24] MEDS: FAMOTIDINE 20 MG TAB PO SCH (09:28)
--- NOTE | 2018-07-24 11:52 | PN ---
Date/Time of Note Date/Time of Note DATE: 07/24/18 TIME: 11:49 Assessment/Plan VTE Prophylaxis Risk score (from Ns)>0 risk: 2 SCD applied (from Ns): Yes Pharmacological prophylaxis: heparin Lines/Catheters IV Catheter Type (from Nrs): Permacath Urinary Cath still in place: No Assessment/Plan Problems: (1) End stage renal disease Status: Chronic Comment: Attempting to arrange for patient to be able to go for outpatient hemodialysis. Most of his medical issues have come into line nicely. We are waiting to hear from his management that everything is set. In the meantime we will go ahead and finish up the treatment of the Serratia urinary tract infection, and the treatment of the iron deficiency anemia (2) Sepsis due to gram-negative UTI Status: Acute Comment: On appropriate antibiotics. At discharge can be converted over to oral Cipro renally dosed (3) Serratia infection Status: Acute Comment: As above. On appropriate antibiotics can be transitioned over to oral Cipro on discharge (4) Obstructive sleep apnea of adult Status: Chronic Comment: Continue with nocturnal BiPAP (5) Iron deficiency anemia due to chronic blood loss Status: Acute Comment: IV replacement therapy (6) Hypertensive disorder Status: Acute Comment: Fair control. Add in doxazosin at bedtime to help control Qualifiers: Hypertension type: essential hypertension Qualified Codes: I10 - Essential (primary) hypertension (7) Diastolic dysfunction Status: Chronic Comment: Get blood pressure under better control (8) S/P hemodialysis catheter insertion Onset Date: ~ 07/21/2018 Status: Acute Comment: Has appropriate access for dialysis Result Diagram: 07/22/18 0431 07/24/18 0428 Results 24hrs Laboratory Tests Test 07/24/18 04:28 Sodium Level 140 Potassium Level 3.7 Chloride Level 99 Carbon Dioxide Level 31 Anion Gap 10 Blood Urea Nitrogen 25 #H Creatinine 4.10 #H Est Glomerular Filtrat Rate mL/min 17 L Glucose Level 104 Calcium Level 8.5 Subjective 24 Hr Interval Summary Free Text/Dictation Patient reports she is doing well but is having pain from the site of the tunneled dialysis access catheter insertion. Constitutional: no complaints (No fevers chills or sweats) Respiratory: no complaints (Cough no wheezing no shortness of breath) Cardiovascular: no complaints Gastrointestinal: no complaints Neurologic: no complaints (No confusion no hallucinations no evidence of withdrawal or DTs) Exam/Review of Systems Exam Vitals Vital Signs Date Temp Pulse Resp B/P (MAP) Pulse Ox O2 O2 Flow FiO2 Time Delivery Rate 07/24/18 97.9 64 16 143/93 100 07:22 (110) 07/24/18 30 06:01 07/23/18 2.0 22:08 07/23/18 Nasal 22:03 Cannula Intake and Output 07/23/18 07/23/18 07/24/18 1515:00 23:00 07:00 IntakeIntake Total 290 ml 460 ml OutputOutput Total 1600 ml BalanceBalance 290 ml -1140 ml Constitutional: alert, oriented Respiratory: clear to auscultation, normal air movement Cardiovascular: regular rate and rhythm, nl pulses Gastrointestinal: soft, nl liver, spleen, non-tender Results Results 24hrs Laboratory Tests Test 07/24/18 04:28 Sodium Level 140 Potassium Level 3.7 Chloride Level 99 Carbon Dioxide Level 31 Anion Gap 10 Blood Urea Nitrogen 25 #H Creatinine 4.10 #H Est Glomerular Filtrat Rate mL/min 17 L Glucose Level 104 Calcium Level 8.5 Medications Medication Current Medications Ondansetron HCl (Zofran Inj) 4 mg Q6H PRN IV NAUSEA AND/OR VOMITING Last administered on 07/23/18 09:11; Admin Dose 4 MG; Start 07/17/18 at 05:30 Nitroglycerin (Nitroglycerin (Sl Tab) 0.4 Mg) 1 tab Q5M PRN SL CHEST PAIN Last administered on 07/17/18 06:37; Admin Dose 1 TAB; Start 07/17/18 at 05:30 Acetaminophen (Tylenol Liquid) 650 mg Q6H PRN PO PAIN LEVEL 1-3 OR FEVER Last administered on 07/17/18 06:37; Admin Dose 650 MG; Start 07/17/18 at 05:30 Hydralazine HCl (Apresoline) 75 mg Q8 PO Last administered on 07/24/18 05:42; Admin Dose 75 MG; Start 07/17/18 at 06:00 Labetalol HCl (Normodyne) 400 mg TID PO Last administered on 07/24/18 09:27; Admin Dose 400 MG; Start 07/17/18 at 05:30 Nifedipine (Procardia Xl) 60 mg BID PO Last administered on 07/24/18 09:28; Admin Dose 60 MG; Start 07/17/18 at 05:31 Famotidine (Pepcid) 20 mg DAILY PO Last administered on 07/24/18 09:28; Admin Dose 20 MG; Start 07/19/18 at 09:00 Acetaminophen/ Hydrocodone Bitart ([place] (5/325)) 1 tab Q4H PRN PO MODERATE PAIN LEVEL 4-6 Last administered on 07/23/18 10:50; Admin Dose 1 TAB; Start 07/19/18 at 11:30 Thiamine HCl (Vitamin B1) 100 mg DAILY PO Last administered on 07/24/18 09:27; Admin Dose 100 MG; Start 07/19/18 at 11:30 Heparin Sodium (Porcine) (Heparin (5000 Units/1ml)) 5,000 unit Q12 SC ; Start 07/21/18 at 09:00; Status Hold Lorazepam (Ativan) 1 mg Q1H PRN IV CONTROL WITHDRAWAL SYMPTOMS Last administ ered on 07/21/18 23:59; Admin Dose 1 MG; Start 07/19/18 at 22:30 Sevelamer Carbonate (Renvela) 800 mg WITH MEALS PO Last administered on 07/24/18 09:27; Admin Dose 800 MG; Start 07/20/18 at 12:00 Chlordiazepoxide (Librium) 25 mg Q8H PO Last administered on 07/24/18 09:26; Admin Dose 25 MG; Start 07/20/18 at 16:00 Heparin Sodium (Porcine) (Heparin (1000 Units/ml)) 4,500 unit AFTER DIALYSIS CATHETER Last administered on 07/23/18 22:10; Admin Dose 4,500 UNIT; Start 07/21/18 at 18:30 Ceftriaxone Sodium 50 ml @ 100 mls/hr Q24H IVPB Last administered on 07/23/18 13:19; Admin Dose 100 MLS/HR; Start 07/22/18 at 12:00; Stop 07/29/18 at 11:59 Epoetin Ernesto-epbx (Retacrit (Esrd)) 10,000 unit MoWeFr@1700 SC Last administered on 07/23/18 17:34; Admin Dose 10,000 UNIT; Start 07/23/18 at 17:00 Ferric Sodium Gluconate Complex 125 mg/Sodium Chloride 100 ml @ 100 mls/hr DAILY@1300 IVPB ; Start 07/24/18 at 13:00; Stop 07/26/18 at 13:59 NAI DENTON MD Jul 24, 2018 11:52
--- NOTE | 2018-07-24 12:33 | CONS ---
Assessment/Plan Assessment/Plan Hospital Course (Demo Recall) 1. Nonoliguric acute kidney injury on top of chronic kidney disease stage IV/V, now with likely progression towards end-stage renal disease. s/p 3 HD sessions. last hd yesterday. next hd tomorrow. Outpatient hemodialysis is being arranged with case management at either [facility] or [facility]. 2. Hypertension. Continue current blood pressure regimen. 3. Anemia. Continue to monitor hemoglobin and hematocrit levels. Continue Epogen as needed. 4. Mineral bone disorder, monitor calcium and phosphorus levels. 5. Hypokalemia, resolved. 6. UTI. Continue antibiotics. Cultures reviewed 7. Volume overload, improving. Continue ultrafiltration with dialysis. Continue current blood pressure regimen. 8. Sleep apnea. Continue CPAP. 9. Obesity. Continue dietary modification. Consultation Date/Type/Reason Admit Date/Time July 17, 2018 at 03:58 Initial Consult Date Date/Time of Note DATE: 07/24/18 TIME: 12:30 24 HR Interval Summary Free Text/Dictation s/p hd yesterday denies n/v d/w rn gen nad cv rrr pulm ctab abd soft, nd, nt +bs ext: no edema Exam/Review of Systems Exam Vitals Vital Signs Date Temp Pulse Resp B/P (MAP) Pulse Ox O2 O2 Flow FiO2 Time Delivery Rate 07/24/18 97.9 64 16 143/93 100 07:22 (110) 07/24/18 30 06:01 07/23/18 2.0 22:08 07/23/18 Nasal 22:03 Cannula Intake and Output 07/23/18 07/23/18 07/24/18 1515:00 23:00 07:00 IntakeIntake Total 290 ml 460 ml OutputOutput Total 1600 ml BalanceBalance 290 ml -1140 ml Results Result Diagram: 07/22/18 0431 07/24/18 0428 Results 24hrs Laboratory Tests Test 07/24/18 04:28 Sodium Level 140 Potassium Level 3.7 Chloride Level 99 Carbon Dioxide Level 31 Anion Gap 10 Blood Urea Nitrogen 25 #H Creatinine 4.10 #H Est Glomerular Filtrat Rate mL/min 17 L Glucose Level 104 Calcium Level 8.5 Medications Medication Current Medications Ondansetron HCl (Zofran Inj) 4 mg Q6H PRN IV NAUSEA AND/OR VOMITING Last administered on 07/23/18 09:11; Admin Dose 4 MG; Start 07/17/18 at 05:30 Nitroglycerin (Nitroglycerin (Sl Tab) 0.4 Mg) 1 tab Q5M PRN SL CHEST PAIN Last administered on 07/17/18 06:37; Admin Dose 1 TAB; Start 07/17/18 at 05:30 Acetaminophen (Tylenol Liquid) 650 mg Q6H PRN PO PAIN LEVEL 1-3 OR FEVER Last administered on 07/17/18 06:37; Admin Dose 650 MG; Start 07/17/18 at 05:30 Hydralazine HCl (Apresoline) 75 mg Q8 PO Last administered on 07/24/18 05:42; Admin Dose 75 MG; Start 07/17/18 at 06:00 Labetalol HCl (Normodyne) 400 mg TID PO Last administered on 07/24/18 09:27; Admin Dose 400 MG; Start 07/17/18 at 05:30 Nifedipine (Procardia Xl) 60 mg BID PO Last administered on 07/24/18 09:28; Admin Dose 60 MG; Start 07/17/18 at 05:31 Famotidine (Pepcid) 20 mg DAILY PO Last administered on 07/24/18 09:28; Admin Dose 20 MG; Start 07/19/18 at 09:00 Acetaminophen/ Hydrocodone Bitart ([place] (5/325)) 1 tab Q4H PRN PO MODERATE PAIN LEVEL 4-6 Last administered on 07/23/18 10:50; Admin Dose 1 TAB; Start 07/19/18 at 11:30 Thiamine HCl (Vitamin B1) 100 mg DAILY PO Last administered on 07/24/18 09:27; Admin Dose 100 MG; Start 07/19/18 at 11:30 Heparin Sodium (Porcine) (Heparin (5000 Units/1ml)) 5,000 unit Q12 SC ; Start 07/21/18 at 09:00; Status Hold Lorazepam (Ativan) 1 mg Q1H PRN IV CONTROL WITHDRAWAL SYMPTOMS Last administered on 07/21/18 23:59; Admin Dose 1 MG; Start 07/19/18 at 22:30 Sevelamer Carbonate (Renvela) 800 mg WITH MEALS PO Last administered on 07/24/18 09:27; Admin Dose 800 MG; Start 07/20/18 at 12:00 Heparin Sodium (Porcine) (Heparin (1000 Units/ml)) 4,500 unit AFTER DIALYSIS CATHETER Last administered on 07/23/18at 22:10; Admin Dose 4,500 UNIT; Start 07/21/18 at 18:30 Ceftriaxone Sodium 50 ml @ 100 mls/hr Q24H IVPB Last administered on 07/23/18at 13:19; Admin Dose 100 MLS/HR; Start 07/22/18 at 12:00; Stop 07/29/18 at 11:59 Epoetin Ernesto-epbx (Retacrit (Esrd)) 10,000 unit MoWeFr@1700 SC Last administered on 07/23/18at 17:34; Admin Dose 10,000 UNIT; Start 07/23/18 at 17:00 Ferric Sodium Gluconate Complex 125 mg/Sodium Chloride 100 ml @ 100 mls/hr DAILY@1300 IVPB ; Start 07/24/18 at 13:00; Stop 07/26/18 at 13:59 Chlordiazepoxide (Librium) 25 mg Q12 PO ; Start 07/24/18 at 21:00 Doxazosin Mesylate (Cardura) 2 mg HS PO ; Start 07/24/18 at 21:00 CLAUDINE HOWARD MD Jul 24, 2018 12:33
[2018-07-24] MEDS: HYDROCODONE/APAP (5/325) TAB PO PRN ×2 (13:51→22:25)
[2018-07-24] MEDS: CEFTRIAXONE 1 GM/NS 50 ML IVPB SCH (14:26)
[2018-07-24] MEDS: SOD FERRIC GLUC COMPLX 125 MG in SOD CHLORIDE 0.9% 100 ML IVPB SCH (17:36)
[2018-07-24] MEDS ORDERED: DOXAZOSIN 2 MG TAB PO SCH (21:00)
[2018-07-25] VITALS (18 sets, daily range): BP systolic 136–176; BP diastolic 79–115; PULSE 72–94; RESP 14–18
[2018-07-25] MEDS: NIFEdipine (XL) 60 MG TAB PO SCH ×3 (09:00→21:25)
[2018-07-25] MEDS: CHLORDIAZEPOXIDE 25 MG CAP PO SCH ×2 (09:00→21:24)
[2018-07-25] MEDS: LABETALOL 200 MG TAB PO SCH ×3 (09:00→21:26)
[2018-07-25] MEDS: FAMOTIDINE 20 MG TAB PO SCH (09:47)
[2018-07-25] MEDS: THIAMINE 100 MG TAB PO SCH (09:47)
[2018-07-25] MEDS: SEVELAMER CARBONATE 800 MG TABLET PO SCH ×3 (09:47→17:55)
--- NOTE | 2018-07-25 12:04 | CONS ---
Assessment/Plan Assessment/Plan Hospital Course (Demo Recall) 1. Nonoliguric acute kidney injury on top of chronic kidney disease stage IV/V, now with likely progression towards end-stage renal disease. s/p 3 HD sessions. HD today. Outpatient hemodialysis is being arranged with case management at either [facility] or [facility]. 2. Hypertension. Continue current blood pressure regimen. 3. Anemia. Continue to monitor hemoglobin and hematocrit levels. Continue Epogen as needed. 4. Mineral bone disorder, monitor calcium and phosphorus levels. 5. Hypokalemia, resolved. 6. UTI. Continue antibiotics. Cultures reviewed 7. Volume overload, improving. Continue ultrafiltration with dialysis. Continue current blood pressure regimen. 8. Sleep apnea. Continue CPAP. 9. Obesity. Continue dietary modification. Consultation Date/Type/Reason Admit Date/Time July 17, 2018 at 03:58 Initial Consult Date Date/Time of Note DATE: 07/25/18 TIME: 12:03 24 HR Interval Summary Free Text/Dictation denies shortness of breath or n/v d/w rn gen nad cv rrr pulm ctab abd soft, nd, nt +bs ext: no edema Exam/Review of Systems Exam Vitals Vital Signs Date Temp Pulse Resp B/P (MAP) Pulse Ox O2 O2 Flow FiO2 Time Delivery Rate 07/25/18 84 11:30 07/25/18 16 153/103 100 Room Air 09:15 (120) 07/25/18 98.0 07:21 07/24/18 30 06:01 07/23/18 2.0 22:08 Intake and Output 07/24/18 07/24/18 07/25/18 1515:00 23:00 07:00 IntakeIntake Total 600 ml 400 ml OutputOutput Total 100 ml BalanceBalance 500 ml 400 ml Results Result Diagram: 07/25/18 0436 07/25/18 0436 Results 24hrs Laboratory Tests Test 07/25/18 04:36 White Blood Count 12.6 H Red Blood Count 3.38 L Hemoglobin 8.7 L Hematocrit 28.8 L Mean Corpuscular Volume 85.2 Mean Corpuscular Hemoglobin 25.7 L Mean Corpuscular Hemoglobin Concent 30.2 L Red Cell Distribution Width 15.9 H Platelet Count 397 Mean Platelet Volume 10.5 H Immature Granulocytes % 0.600 H Neutrophils % 61.4 Lymphocytes % 17.9 Monocytes % 10.5 Eosinophils % 9.1 H Basophils % 0.5 Nucleated Red Blood Cells % 0.0 Immature Granulocytes # 0.080 H Neutrophils # 7.7 H Lymphocytes # 2.3 Monocytes # 1.3 H Eosinophils # 1.1 H Basophils # 0.1 Nucleated Red Blood Cells # 0.0 Sodium Level 142 Potassium Level 3.9 Chloride Level 104 Carbon Dioxide Level 29 Anion Gap 9 Blood Urea Nitrogen 32 H Creatinine 4.97 H Est Glomerular Filtrat Rate mL/min 14 L Glucose Level 94 Calcium Level 8.3 L Phosphorus Level 6.3 H Magnesium Level 2.3 Medications Medication Current Medications Ondansetron HCl (Zofran Inj) 4 mg Q6H PRN IV NAUSEA AND/OR VOMITING Last administered on 07/23/18 09:11; Admin Dose 4 MG; Start 07/17/18 at 05:30 Nitroglycerin (Nitroglycerin (Sl Tab) 0.4 Mg) 1 tab Q5M PRN SL CHEST PAIN Last administered on 07/17/18 06:37; Admin Dose 1 TAB; Start 07/17/18 at 05:30 Acetaminophen (Tylenol Liquid) 650 mg Q6H PRN PO PAIN LEVEL 1-3 OR FEVER Last administered on 07/17/18 06:37; Admin Dose 650 MG; Start 07/17/18 at 05:30 Hydralazine HCl (Apresoline) 75 mg Q8 PO Last administered on 07/25/18 06:45; Admin Dose 75 MG; Start 07/17/18 at 06:00 Labetalol HCl (Normodyne) 400 mg TID PO Last administered on 07/24/18 20:34; Admin Dose 400 MG; Start 07/17/18 at 05:30 Nifedipine (Procardia Xl) 60 mg BID PO Last administered on 07/24/18 20:33; Admin Dose 60 MG; Start 07/17/18 at 05:31 Famotidine (Pepcid) 20 mg DAILY PO Last administered on 07/25/18 09:47; Admin Dose 20 MG; Start 07/19/18 at 09:00 Acetaminophen/ Hydrocodone Bitart ([place] (5/325)) 1 tab Q4H PRN PO MODERATE PAIN LEVEL 4-6 Last administered on 07/24/18 22:25; Admin Dose 1 TAB; Start 07/19/18 at 11:30 Thiamine HCl (Vitamin B1) 100 mg DAILY PO Last administered on 07/25/18 09:47; Admin Dose 100 MG; Start 07/19/18 at 11:30 Heparin Sodium (Porcine) (Heparin (5000 Units/1ml)) 5,000 unit Q12 SC ; Start 07/21/18 at 09:00; Status Hold Lorazepam (Ativan) 1 mg Q1H PRN IV CONTROL WITHDRAWAL SYMPTOMS Last administered on 07/21/18 23:59; Admin Dose 1 MG; Start 07/19/18 at 22:30 Sevelamer Carbonate (Renvela) 800 mg WITH MEALS PO Last administered on 07/25/18 09:47; Admin Dose 800 MG; Start 07/20/18 at 12:00 Heparin Sodium (Porcine) (Heparin (1000 Units/ml)) 4,500 unit AFTER DIALYSIS CATHETER Last administered on 07/23/18 22:10; Admin Dose 4,500 UNIT; Start 07/21/18 at 18:30 Ceftriaxone Sodium 50 ml @ 100 mls/hr Q24H IVPB Last administered on 07/24/18 14:26; Admin Dose 100 MLS/HR; Start 07/22/18 at 12:00; Stop 07/29/18 at 11:59 Epoetin Ernesto-epbx (Retacrit (Esrd)) 10,000 unit MoWeFr@1700 SC Last administered on 07/23/18 17:34; Admin Dose 10,000 UNIT; Start 07/23/18 at 17:00 Ferric Sodium Gluconate Complex 125 mg/Sodium Chloride 100 ml @ 100 mls/hr DAILY@1300 IVPB Last administered on 07/24/18 17:36; Admin Dose 100 MLS/HR; Start 07/24/18 at 13:00; Stop 07/26/18 at 13:59 Chlordiazepoxide (Librium) 25 mg Q12 PO Last administered on 07/24/18 20:35; Admin Dose 25 MG; Start 07/24/18 at 21:00 Doxazosin Mesylate (Cardura) 2 mg HS PO Last administered on 07/24/18 20:34; Admin Dose 2 MG; Start 07/24/18 at 21:00 CLAUDINE HOWARD MD Jul 25, 2018 12:04
[2018-07-25] MEDS: HEPARIN 1000 UNITS/ML 10 ML INJ CATHETER SCH (12:10)
--- NOTE | 2018-07-25 12:18 | PN ---
Date/Time of Note Date/Time of Note DATE: 07/25/18 TIME: 12:16 Assessment/Plan VTE Prophylaxis Risk score (from [facility])>0 risk: 1 SCD applied (from [facility]): Yes SCD contraindicated: low risk/ambulating Pharmacological prophylaxis: heparin Pharm contraindication: low risk/ambulating Lines/Catheters IV [facility]from [facility] PERM -A -CATH Urinary Cath still in place: No Assessment/Plan Problems: (1) End stage renal disease Status: Chronic Comment: Receiving dialysis. At this time discharge is pending due to needing to have the dialysis arrangements completed. (2) Sepsis due to gram-negative UTI Status: Acute Comment: On appropriate antibiotic therapy. (3) Serratia infection Status: Acute Comment: On appropriate antibiotic therapy. Please note this can be switched to oral antibiotics at discharge (4) Hypertensive disorder Status: Acute Comment: Increased dosage of alpha blockade to help with blood pressure as well as urinary retention Qualifiers: Hypertension type: essential hypertension Qualified Codes: I10 - Essential (primary) hypertension (5) Diastolic dysfunction Status: Chronic Comment: Better blood pressure control for control of this feature (6) Obstructive sleep apnea of adult Status: Chronic Comment: Nocturnal BiPAP (7) Iron deficiency anemia due to chronic blood loss Status: Acute Comment: Continue replacement treatment. Ultimately outpatient work-up Result Diagram: 07/25/18 0436 07/25/18 0436 Results 24hrs Laboratory Tests Test 07/25/18 04:36 White Blood Count 12.6 H Red Blood Count 3.38 L Hemoglobin 8.7 L Hematocrit 28.8 L Mean Corpuscular Volume 85.2 Mean Corpuscular Hemoglobin 25.7 L Mean Corpuscular Hemoglobin Concent 30.2 L Red Cell Distribution Width 15.9 H Platelet Count 397 Mean Platelet Volume 10.5 H Immature Granulocytes % 0.600 H Neutrophils % 61.4 Lymphocytes % 17.9 Monocytes % 10.5 Eosinophils % 9.1 H Basophils % 0.5 Nucleated Red Blood Cells % 0.0 Immature Granulocytes # 0.080 H Neutrophils # 7.7 H Lymphocytes # 2.3 Monocytes # 1.3 H Eosinophils # 1.1 H Basophils # 0.1 Nucleated Red Blood Cells # 0.0 Sodium Level 142 Potassium Level 3.9 Chloride Level 104 Carbon Dioxide Level 29 Anion Gap 9 Blood Urea Nitrogen 32 H Creatinine 4.97 H Est Glomerular Filtrat Rate mL/min 14 L Glucose Level 94 Calcium Level 8.3 L Phosphorus Level 6.3 H Magnesium Level 2.3 Subjective 24 Hr Interval Summary Free Text/Dictation Patient is receiving hemodialysis at this time. Reports he is doing well. Since yesterday there been no episodes of chest pain shortness of breath or dizziness Constitutional: no complaints Respiratory: no complaints Cardiovascular: no complaints Gastrointestinal: no complaints Exam/Review of Systems Exam Vitals Vital Signs Date Temp Pulse Resp B/P (MAP) Pulse Ox O2 O2 Flow FiO2 Time Delivery Rate 07/25/18 82 12:00 07/25/18 16 153/103 100 Room Air 09:15 (120) 07/25/18 98.0 07:21 07/24/18 30 06:01 07/23/18 2.0 22:08 Intake and Output 07/24/18 07/24/18 07/25/18 1515:00 23:00 07:00 IntakeIntake Total 600 ml 400 ml OutputOutput Total 100 ml BalanceBalance 500 ml 400 ml Constitutional: alert, oriented Neck: supple, non-tender Respiratory: clear to auscultation, normal air movement Cardiovascular: regular rate and rhythm, nl pulses Results Results 24hrs Laboratory Tests Test 07/25/18 04:36 White Blood Count 12.6 H Red Blood Count 3.38 L Hemoglobin 8.7 L Hematocrit 28.8 L Mean Corpuscular Volume 85.2 Mean Corpuscular Hemoglobin 25.7 L Mean Corpuscular Hemoglobin Concent 30.2 L Red Cell Distribution Width 15.9 H Platelet Count 397 Mean Platelet Volume 10.5 H Immature Granulocytes % 0.600 H Neutrophils % 61.4 Lymphocytes % 17.9 Monocytes % 10.5 Eosinophils % 9.1 H Basophils % 0.5 Nucleated Red Blood Cells % 0.0 Immature Granulocytes # 0.080 H Neutrophils # 7.7 H Lymphocytes # 2.3 Monocytes # 1.3 H Eosinophils # 1.1 H Basophils # 0.1 Nucleated Red Blood Cells # 0.0 Sodium Level 142 Potassium Level 3.9 Chloride Level 104 Carbon Dioxide Level 29 Anion Gap 9 Blood Urea Nitrogen 32 H Creatinine 4.97 H Est Glomerular Filtrat Rate mL/min 14 L Glucose Level 94 Calcium Level 8.3 L Phosphorus Level 6.3 H Magnesium Level 2.3 Medications Medication Current Medications Ondansetron HCl (Zofran Inj) 4 mg Q6H PRN IV NAUSEA AND/OR VOMITING Last administered on 07/23/18 09:11; Admin Dose 4 MG; Start 07/17/18 at 05:30 Nitroglycerin (Nitroglycerin (Sl Tab) 0.4 Mg) 1 tab Q5M PRN SL CHEST PAIN Last administered on 07/17/18 06:37; Admin Dose 1 TAB; Start 07/17/18 at 05:30 Acetaminophen (Tylenol Liquid) 650 mg Q6H PRN PO PAIN LEVEL 1-3 OR FEVER Last administered on 07/17/18 06:37; Admin Dose 650 MG; Start 07/17/18 at 05:30 Hydralazine HCl (Apresoline) 75 mg Q8 PO Last administered on 07/25/18 06:45; Admin Dose 75 MG; Start 07/17/18 at 06:00 Labetalol HCl (Normodyne) 400 mg TID PO Last administered on 07/24/18 20:34; Admin Dose 400 MG; Start 07/17/18 at 05:30 Nifedipine (Procardia Xl) 60 mg BID PO Last administered on 07/24/18 20:33; Admin Dose 60 MG; Start 07/17/18 at 05:31 Famotidine (Pepcid) 20 mg DAILY PO Last administered on 07/25/18 09:47; Admin Dose 20 MG; Start 07/19/18 at 09:00 Acetaminophen/ Hydrocodone Bitart ([place] (5/325)) 1 tab Q4H PRN PO MODERATE PAIN LEVEL 4-6 Last administered on 07/24/18 22:25; Admin Dose 1 TAB; Start 07/19/18 at 11:30 Thiamine HCl (Vitamin B1) 100 mg DAILY PO Last administered on 07/25/18 09:47; Admin Dose 100 MG; Start 07/19/18 at 11:30 Heparin Sodium (Porcine) (Heparin (5000 Units/1ml)) 5,000 unit Q12 SC ; Start 07/21/18 at 09:00; Status Hold Lorazepam (Ativan) 1 mg Q1H PRN IV CONTROL WITHDRAWAL SYMPTOMS Last administered on 07/21/18 23:59; Admin Dose 1 MG; Start 07/19/18 at 22:30 Sevelamer Carbonate (Renvela) 800 mg WITH MEALS PO Last administered on 07/25/18 09:47; Admin Dose 800 MG; Start 07/20/18 at 12:00 Heparin Sodium (Porcine) (Heparin (1000 Units/ml)) 4,500 unit AFTER DIALYSIS CATHETER Last administered on 07/25/18 12:10; Admin Dose 4,500 UNIT; Start 07/21/18 at 18:30 Ceftriaxone Sodium 50 ml @ 100 mls/hr Q24H IVPB Last administered on 07/24/18 14:26; Admin Dose 100 MLS/HR; Start 07/22/18 at 12:00; Stop 07/29/18 at 11:59 Epoetin Ernesto-epbx (Retacrit (Esrd)) 10,000 unit MoWeFr@1700 SC Last administered on 07/23/18 17:34; Admin Dose 10,000 UNIT; Start 07/23/18 at 17:00 Ferric Sodium Gluconate Complex 125 mg/Sodium Chloride 100 ml @ 100 mls/hr DAILY@1300 IVPB Last administered on 07/24/18at 17:36; Admin Dose 100 MLS/HR; Start 07/24/18 at 13:00; Stop 07/26/18 at 13:59 Chlordiazepoxide (Librium) 25 mg Q12 PO Last administered on 07/24/18at 20:35; Admin Dose 25 MG; Start 07/24/18 at 21:00 Doxazosin Mesylate (Cardura) 4 mg HS PO ; Start 07/25/18 at 21:00 NAI DENTON MD Jul 25, 2018 12:18
[2018-07-25] MEDS: CEFTRIAXONE 1 GM/NS 50 ML IVPB SCH (13:26)
[2018-07-25] MEDS: LORAZEPAM 2 MG INJ IV PRN (13:35)
[2018-07-25] MEDS: SOD FERRIC GLUC COMPLX 125 MG in SOD CHLORIDE 0.9% 100 ML IVPB SCH (13:35)
[2018-07-25] MEDS: DOXAZOSIN 2 MG TAB PO SCH (21:26)
[2018-07-26] VITALS (9 sets, daily range): BP systolic 115–152; BP diastolic 53–86; PULSE 69–92; RESP 18
[2018-07-26] MEDS: SEVELAMER CARBONATE 800 MG TABLET PO SCH ×3 (09:38→18:39)
[2018-07-26] MEDS: FAMOTIDINE 20 MG TAB PO SCH (09:39)
[2018-07-26] MEDS: NIFEdipine (XL) 60 MG TAB PO SCH ×2 (09:39→21:39)
[2018-07-26] MEDS: LABETALOL 200 MG TAB PO SCH ×3 (09:39→21:36)
[2018-07-26] MEDS: THIAMINE 100 MG TAB PO SCH (09:39)
[2018-07-26] MEDS: CHLORDIAZEPOXIDE 25 MG CAP PO SCH (09:43)
--- NOTE | 2018-07-26 10:09 | PN ---
Date/Time of Note Date/Time of Note DATE: 07/26/18 TIME: 10:05 Assessment/Plan VTE Prophylaxis Risk score (from Ns)>0 risk: 4 SCD applied (from Ns): Yes Pharmacological prophylaxis: heparin Lines/Catheters IV Catheter Type (from Nrsg): Saline Lock Urinary Cath still in place: No Assessment/Plan Hospital Course SUBJECTIVE: No acute overnight episodes. OBJECTIVE: Vital signs-see below PHYSICAL EXAM: Constitutional: Adequately built,not in acute distress. HEENT: Head atraumatic and normocephalic. Eyes: Extraocular muscles intact. Anicteric sclerae. Pupils equal bilaterally, reactive to light. NECK: Supple without lymph node. CHEST: Clear and good breath sounds equally. No wheezing. No rhonchi. HEART: S1, S2. Regular rate and rhythm. ABDOMEN: Soft/non tender with no rebound tenderness. Bowel sounds were present. EXTREMITIES: No cyanosis, clubbing or edema. NEUROLOGIC: Alert and oriented x3. No focal deficit. No sensory deficit. PSYCHOSOCIAL: No signs of depression. INTEGUMENTARY: No open wounds. ACCESS:Left chest permacath ASSESSMENT AND PLAN:27 yo M w/ alcohol abuse,htn,ckd, here with headache.. EtOH abuse/withdrawal -stable -stop Librium -cont.PO thiamine Hypertensive emergency with noncompliance - stable. -On labetalol/nifedipine/hydralazine/cardura Chronic kidney disease, progressed to ESRD -Started HD W/THIS ADMIT -CM to coordinate outpatient hemodialysis -Access: Right chest permacath Obesity Lifestyle changes Anemia of CKD -On Epogen UTI -on appropriate agent Prophylaxis: Heparin DC planning:DC pending oupt HD confirmation Patient was seen in collaboration with Dr. Sanchez. Result Diagram: 07/25/18 0436 07/25/18 0436 Exam/Review of Systems Exam Vitals Vital Signs Date Temp Pulse Resp B/P (MAP) Pulse Ox O2 O2 Flow FiO2 Time Delivery Rate 07/26/18 98.3 82 18 117/69 100 Room Air 07:41 (85) 07/26/18 30 05:15 07/23/18 2.0 22:08 Intake and Output 07/25/18 07/25/18 07/26/18 1515:00 23:00 07:00 IntakeIntake Total 240 ml 470 ml 300 ml OutputOutput Total 3000 ml 450 ml BalanceBalance -2760 ml 20 ml 300 ml Medications Medication Current Medications Ondansetron HCl (Zofran Inj) 4 mg Q6H PRN IV NAUSEA AND/OR VOMITING Last administered on 07/23/18 09:11; Admin Dose 4 MG; Start 07/17/18 at 05:30 Nitroglycerin (Nitroglycerin (Sl Tab) 0.4 Mg) 1 tab Q5M PRN SL CHEST PAIN Last administered on 07/17/18 06:37; Admin Dose 1 TAB; Start 07/17/18 at 05:30 Acetaminophen (Tylenol Liquid) 650 mg Q6H PRN PO PAIN LEVEL 1-3 OR FEVER Last administered on 07/17/18 06:37; Admin Dose 650 MG; Start 07/17/18 at 05:30 Hydralazine HCl (Apresoline) 75 mg Q8 PO Last administered on 07/26/18 06:05; Admin Dose 75 MG; Start 07/17/18 at 06:00 Labetalol HCl (Normodyne) 400 mg TID PO Last administered on 07/26/18 09:39; Admin Dose 400 MG; Start 07/17/18 at 05:30 Nifedipine (Procardia Xl) 60 mg BID PO Last administered on 07/26/18 09:39; Admin Dose 60 MG; Start 07/17/18 at 05:31 Famotidine (Pepcid) 20 mg DAILY PO Last administered on 07/26/18 09:39; Admin Dose 20 MG; Start 07/19/18 at 09:00 Acetaminophen/ Hydrocodone Bitart ([place] (5/325)) 1 tab Q4H PRN PO MODERATE PAIN LEVEL 4-6 Last administered on 07/24/18 22:25; Admin Dose 1 TAB; Start 07/19/18 at 11:30 Thiamine HCl (Vitamin B1) 100 mg DAILY PO Last administered on 07/26/18 09:39; Admin Dose 100 MG; Start 07/19/18 at 11:30 Heparin Sodium (Porcine) (Heparin (5000 Units/1ml)) 5,000 unit Q12 SC ; Start 07/21/18 at 09:00; Status Hold Lorazepam (Ativan) 1 mg Q1H PRN IV CONTROL WITHDRAWAL SYMPTOMS Last administered on 07/25/18 13:35; Admin Dose 1 MG; Start 07/19/18 at 22:30 Sevelamer Carbonate (Renvela) 800 mg WITH MEALS PO Last administered on 07/26/18 09:38; Admin Dose 800 MG; Start 07/20/18 at 12:00 Heparin Sodium (Porcine) (Heparin (1000 Units/ml)) 4,500 unit AFTER DIALYSIS CATHETER Last administered on 07/25/18 12:10; Admin Dose 4,500 UNIT; Start 07/21/18 at 18:30 Ceftriaxone Sodium 50 ml @ 100 mls/hr Q24H IVPB Last administered on 07/25/18 13:26; Admin Dose 100 MLS/HR; Start 07/22/18 at 12:00; Stop 07/29/18 at 11:59 Epoetin Ernesto-epbx (Retacrit (Esrd)) 10,000 unit MoWeFr@1700 SC Last administered on 07/23/18 17:34; Admin Dose 10,000 UNIT; Start 07/23/18 at 17:00 Ferric Sodium Gluconate Complex 125 mg/Sodium Chloride 100 ml @ 100 mls/hr DAILY@1300 IVPB Last administered on 07/25/18 13:35; Admin Dose 100 MLS/HR; Start 07/24/18 at 13:00; Stop 07/26/18 at 13:59 Chlordiazepoxide (Librium) 25 mg Q12 PO Last administered on 07/26/18 09:43; Admin Dose 25 MG; Start 07/24/18 at 21:00 Doxazosin Mesylate (Cardura) 4 mg HS PO Last administered on 07/25/18 21:26; Admin Dose 4 MG; Start 07/25/18 at 21:00 MANINDER MCMANUS NP Jul 26, 2018 10:09
[2018-07-26] MEDS: CEFTRIAXONE 1 GM/NS 50 ML IVPB SCH (12:12)
[2018-07-26] MEDS: HYDROCODONE/APAP (5/325) TAB PO PRN (12:14)
[2018-07-26] MEDS: SOD FERRIC GLUC COMPLX 125 MG in SOD CHLORIDE 0.9% 100 ML IVPB SCH (14:11)
--- NOTE | 2018-07-26 14:22 | PN ---
DATE: 07/26/2018 SUBJECTIVE: The patient is stable. He is tolerating dialysis well. No other events noted. OBJECTIVE: VITAL SIGNS: Blood pressure is 117/69, respiration 18, pulse 82, temperature 98.3. HEENT: Head is normocephalic. NECK: Supple. HEART: Regular rate. LUNGS: Show diminished breath sounds at base. ABDOMEN: Soft, nontender to palpation without rebound or guarding. EXTREMITIES: Negative for clubbing, cyanosis. No edema. DERMATOLOGIC: No rashes. MUSCULOSKELETAL: No joint effusion. NEUROLOGIC: No change in exam. MEDICATIONS: Have been reviewed. LABORATORY DATA: Have been reviewed. ASSESSMENT AND PLAN: 1. Nonoliguric acute kidney injury on top of chronic kidney disease stage IV/V, now likely progresse d towards end-stage renal disease. The patient is currently on intermittent dialysis. We will plan for dialysis again tomorrow. Outpatient hemodialysis is being arranged at [facility] or [facility]. 2. Hypertension, improved. Continue current blood pressure regimen. Continue ultrafiltration dialy sis. 4. Anemia. Monitor hemoglobin and hematocrit levels. Continue Epogen. 5. Mineral bone disorder. Monitor calcium and phosphorus levels. 6. Urinary tract infection. The patient is completing antibiotic course. 7. Volume overload, improving. Continue ultrafiltration dialysis. 8. . 9. Obesity. Continue dietary modification. Dictated By: SOPHIA BOYCE/NTS Conf#: [id number] DID#: [id number] CC: ASTER DRAKE MD; THAI EVANS MD;*End*
[2018-07-26] MEDS: EPOETIN ALFA-EPBX (ESRD) 10,000 UNIT/ML VIAL SC SCH (18:40)
[2018-07-26] MEDS: DOXAZOSIN 2 MG TAB PO SCH (21:35)
[2018-07-27] VITALS (21 sets, daily range): BP systolic 118–160; BP diastolic 79–91; PULSE 72–95; RESP 16–18
[2018-07-27] MEDS: FAMOTIDINE 20 MG TAB PO SCH (08:28)
[2018-07-27] MEDS: THIAMINE 100 MG TAB PO SCH (08:28)
[2018-07-27] MEDS: SEVELAMER CARBONATE 800 MG TABLET PO SCH ×3 (08:28→17:58)
[2018-07-27] MEDS: LABETALOL 200 MG TAB PO SCH ×3 (09:44→21:20)
[2018-07-27] MEDS: NIFEdipine (XL) 60 MG TAB PO SCH ×2 (09:44→21:27)
--- NOTE | 2018-07-27 09:52 | PN ---
DATE: 07/27/2018 SUBJECTIVE: The patient is stable, no events overnight. No fevers, chills, nausea, or vomiting. OBJECTIVE: VITAL SIGNS: Blood pressure is 150/86, respirations 18, pulse 78, temperature 97.6. HEENT: Head is normocephalic. NECK: Supple. HEART: Regular rate. LUNGS: Show diminished breath sounds at the base. ABDOMEN: Soft, nontender to palpation without rebound or guarding. EXTREMITIES: Negative for clubbing, cyanosis, no edema. DERMATOLOGIC: No rashes. MUSCULOSKELETAL: No joint effusion. NEUROLOGIC: No change in exam. MEDICATIONS: Reviewed. LABORATORY DATA: Reviewed. IMAGING STUDIES: Reviewed. ASSESSMENT AND PLAN: 1. Nonoliguric acute kidney injury on top of chronic kidney disease stage IV/V, now likely progresse d towards end-stage renal disease. The patient currently is on intermittent dialysis. We will plan for dialysis again today. Outpatient hemodialysis is being arranged at either [facility] or [facility]. 2. Hypertension. Continue current blood pressure regimen. Continue ultrafiltration with dialysis. 3. Anemia. Continue to monitor hemoglobin and hematocrit levels. Continue Epogen. 4. Mineral bone disorder, monitor calcium and phosphorus levels. 5. Urinary tract infection. The patient is completing antibiotic course. 6. Volume overload, improving. Continue ultrafiltration with dialysis. 7. Sleep apnea. 8. Obesity. Dictated By: SOPHIA COLIN DO NR/NTS Conf#: [id number] DID#: [id number] CC: ASTER DRAKE MD; THAI EVANS MD;*EndCC*
--- NOTE | 2018-07-27 11:19 | PN ---
Date/Time of Note Date/Time of Note DATE: 07/27/18 TIME: 11:18 Assessment/Plan VTE Prophylaxis Risk score (from Nsg)>0 risk: 2 SCD applied (from Nsg): Yes Pharmacological prophylaxis: heparin Lines/Catheters IV Catheter Type (from Nrsg): permacath Urinary Cath still in place: No Assessment/Plan Hospital Course SUBJECTIVE: No acute overnight episodes. OBJECTIVE: Vital signs-see below PHYSICAL EXAM: Constitutional: Adequately built,not in acute distress. HEENT: Head atraumatic and normocephalic. Eyes: Extraocular muscles intact. Anicteric sclerae. Pupils equal bilaterally, reactive to light. NECK: Supple without lymph node. CHEST: Clear and good breath sounds equally. No wheezing. No rhonchi. HEART: S1, S2. Regular rate and rhythm. ABDOMEN: Soft/non tender with no rebound tenderness. Bowel sounds were present. EXTREMITIES: No cyanosis, clubbing or edema. NEUROLOGIC: Alert and oriented x3. No focal deficit. No sensory deficit. PSYCHOSOCIAL: No signs of depression. INTEGUMENTARY: No open wounds. ACCESS:Left chest permacath ASSESSMENT AND PLAN:27 yo M w/ alcohol abuse,htn,ckd, here with headache.. EtOH abuse/withdrawal -stable -stop Librium -cont.PO thiamine Hypertensive emergency with noncompliance - stable. -On labetalol/nifedipine/hydralazine/cardura Chronic kidney disease, progressed to ESRD -Started HD W/THIS ADMIT -CM to coordinate outpatient hemodialysis -Access: Right chest permacath Obesity Lifestyle changes Anemia of CKD -On Epogen UTI -on appropriate agent CHANO -PRN CPAP at sleep time -outpt pulmo f/u Obesity -Lifestyle changes advised Prophylaxis: Heparin DC planning:DC pending oupt HD confirmation Patient was seen in collaboration with Dr. Sanchez. Result Diagram: 07/27/18 0442 07/27/18 0442 Results 24hrs Laboratory Tests Test 07/27/18 04:42 White Blood Count 16.5 #H Red Blood Count 3.55 L Hemoglobin 9.2 L Hematocrit 30.8 L Mean Corpuscular Volume 86.8 Mean Corpuscular Hemoglobin 25.9 L Mean Corpuscular Hemoglobin Concent 29.9 L Red Cell Distribution Width 16.1 H Platelet Count 438 H Mean Platelet Volume 10.6 H Immature Granulocytes % 1.600 H Neutrophils % 62.7 Lymphocytes % 17.6 Monocytes % 9.9 Eosinophils % 7.5 H Basophils % 0.7 Nucleated Red Blood Cells % 0.2 H Immature Granulocytes # 0.260 H Neutrophils # 10.4 H Lymphocytes # 2.9 Monocytes # 1.6 H Eosinophils # 1.2 H Basophils # 0.1 Nucleated Red Blood Cells # 0.0 Sodium Level 143 Potassium Level 4.3 Chloride Level 107 Carbon Dioxide Level 28 Anion Gap 8 Blood Urea Nitrogen 35 H Creatinine 5.55 H Est Glomerular Filtrat Rate mL/min 12 L Glucose Level 86 Calcium Level 8.5 Exam/Review of Systems Exam Vitals Vital Signs Date Temp Pulse Resp B/P (MAP) Pulse Ox O2 O2 Flow FiO2 Time Delivery Rate 07/27/18 98.3 95 18 160/89 98 08:23 (112) 07/27/18 30 05:55 07/26/18 Room Air 14:49 07/23/18 2.0 22:08 Intake and Output 07/26/18 07/26/18 07/27/18 1515:00 23:00 07:00 IntakeIntake Total 290 ml 100 ml OutputOutput Total 900 ml BalanceBalance -610 ml 100 ml Results Results 24hrs Laboratory Tests Test 07/27/18 04:42 White Blood Count 16.5 #H Red Blood Count 3.55 L Hemoglobin 9.2 L Hematocrit 30.8 L Mean Corpuscular Volume 86.8 Mean Corpuscular Hemoglobin 25.9 L Mean Corpuscular Hemoglobin Concent 29.9 L Red Cell Distribution Width 16.1 H Platelet Count 438 H Mean Platelet Volume 10.6 H Immature Granulocytes % 1.600 H Neutrophils % 62.7 Lymphocytes % 17.6 Monocytes % 9.9 Eosinophils % 7.5 H Basophils % 0.7 Nucleated Red Blood Cells % 0.2 H Immature Granulocytes # 0.260 H Neutrophils # 10.4 H Lymphocytes # 2.9 Monocytes # 1.6 H Eosinophils # 1.2 H Basophils # 0.1 Nucleated Red Blood Cells # 0.0 Sodium Level 143 Potassium Level 4.3 Chloride Level 107 Carbon Dioxide Level 28 Anion Gap 8 Blood Urea Nitrogen 35 H Creatinine 5.55 H Est Glomerular Filtrat Rate mL/min 12 L Glucose Level 86 Calcium Level 8.5 Medications Medication Current Medications Ondansetron HCl (Zofran Inj) 4 mg Q6H PRN IV NAUSEA AND/OR VOMITING Last administered on 07/23/18 09:11; Admin Dose 4 MG; Start 07/17/18 at 05:30 Nitroglycerin (Nitroglycerin (Sl Tab) 0.4 Mg) 1 tab Q5M PRN SL CHEST PAIN Last administered on 07/17/18 06:37; Admin Dose 1 TAB; Start 07/17/18 at 05:30 Acetaminophen (Tylenol Liquid) 650 mg Q6H PRN PO PAIN LEVEL 1-3 OR FEVER Last administered on 07/17/18 06:37; Admin Dose 650 MG; Start 07/17/18 at 05:30 Hydralazine HCl (Apresoline) 75 mg Q8 PO Last administered on 07/27/18 05:25; Admin Dose 75 MG; Start 07/17/18 at 06:00 Labetalol HCl (Normodyne) 400 mg TID PO Last administered on 07/27/18 09:44; Admin Dose 400 MG; Start 07/17/18 at 05:30 Nifedipine (Procardia Xl) 60 mg BID PO Last administered on 07/27/18 09:44; Admin Dose 60 MG; Start 07/17/18 at 05:31 Famotidine (Pepcid) 20 mg DAILY PO Last administered on 07/27/18 08:28; Admin Dose 20 MG; Start 07/19/18 at 09:00 Acetaminophen/ Hydrocodone Bitart ([place] (5/325)) 1 tab Q4H PRN PO MODERATE PAIN LEVEL 4-6 Last administered on 07/26/18 12:14; Admin Dose 1 TAB; Start 07/19/18 at 11:30 Thiamine HCl (Vitamin B1) 100 mg DAILY PO Last administered on 07/27/18 08:28; Admin Dose 100 MG; Start 07/19/18 at 11:30 Heparin Sodium (Porcine) (Heparin (5000 Units/1ml)) 5,000 unit Q12 SC ; Start 07/21/18 at 09:00; Status Hold Lorazepam (Ativan) 1 mg Q1H PRN IV CONTROL WITHDRAWAL SYMPTOMS Last administered on 07/25/18 13:35; Admin Dose 1 MG; Start 07/19/18 at 22:30 Sevelamer Carbonate (Renvela) 800 mg WITH MEALS PO Last administered on 6/4/19at 08:28; Admin Dose 800 MG; Start 07/20/18 at 12:00 Heparin Sodium (Porcine) (Heparin (1000 Units/ml)) 4,500 unit AFTER DIALYSIS CATHETER Last administered on 07/25/18 12:10; Admin Dose 4,500 UNIT; Start 07/21/18 at 18:30 Ceftriaxone Sodium 50 ml @ 100 mls/hr Q24H IVPB Last administered on 07/26/18 12:12; Admin Dose 100 MLS/HR; Start 07/22/18 at 12:00; Stop 07/29/18 at 11:59 Epoetin Ernesto-epbx (Retacrit (Esrd)) 10,000 unit MoWeFr@1700 SC Last administered on 07/26/18 18:40; Admin Dose 10,000 UNIT; Start 07/23/18 at 17:00 Doxazosin Mesylate (Cardura) 4 mg HS PO Last administered on 07/26/18at 21:35; Admin Dose 4 MG; Start 07/25/18 at 21:00 MANINDER MCMANUS NP Jul 27, 2018 11:19
[2018-07-27] MEDS: CEFTRIAXONE 1 GM/NS 50 ML IVPB SCH (11:59)
[2018-07-27] MEDS: HEPARIN 1000 UNITS/ML 10 ML INJ CATHETER SCH (16:40)
[2018-07-27] MEDS: DOXAZOSIN 2 MG TAB PO SCH (21:22)
[2018-07-28 00:30] VITALS: PULSE 78
[2018-07-28 01:37] VITALS: BP 156/94; PULSE 77; RESP 18
[2018-07-28 03:00] VITALS: PULSE 76
[2018-07-28 04:50] VITALS: PULSE 75
[2018-07-28 05:37] VITALS: BP 141/87; PULSE 80; RESP 18
[2018-07-28 08:10] VITALS: BP 142/85; PULSE 81; RESP 20
[2018-07-28] MEDS: SEVELAMER CARBONATE 800 MG TABLET PO SCH (09:08)
[2018-07-28] MEDS: NIFEdipine (XL) 60 MG TAB PO SCH (09:09)
[2018-07-28] MEDS: THIAMINE 100 MG TAB PO SCH (09:09)
[2018-07-28] MEDS: FAMOTIDINE 20 MG TAB PO SCH (09:09)
[2018-07-28] MEDS: LABETALOL 200 MG TAB PO SCH (09:12)
--- NOTE | 2018-07-28 09:44 | PDOCDIS ---
Discharge Instructions CONDITION [id number] Patient Condition: [id number] Stable HOME CARE INSTRUCTIONS: [id number] Your diet recommendation is: [id number] renal diet ACTIVITY: [id number] Activity Restrictions: Orgsy4y Slowly Increase Activity Avoid heavy lifting [id number] Bathing Restrictions: Dobqh9y Shower FOLLOW UP/APPOINTMENTS Follow-up Plan You have been set up with [facility] chair time is Thursday, , Thursday at 5am; patient to come 1st time 30 minutes early to fill out forms and to bring 2 forms of ID patient of MANINDER Avila NP Jul 28, 2018 09:44
[2018-07-28] MEDS ORDERED: LABE200T25 PO (09:47)
[2018-07-28] MEDS ORDERED: DOXA2TAB61 PO (09:47)
[2018-07-28] MEDS ORDERED: THIA100T56 PO (09:47)
[2018-07-28] MEDS ORDERED: HYDR-3672 PO (09:47)
[2018-07-28] MEDS ORDERED: SEVE800T23 PO (09:47)
[2018-07-28] MEDS ORDERED: NIFE60TA2 PO (09:47)
[2018-07-28] MEDS ORDERED: CIPR500T4 PO (09:51)
--- NOTE | 2018-07-28 09:54 | DS ---
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 Patient was given alcohol withdrawal treatment with Librium, multivit rowan/thiamine supplementations and PRN benzodiazepine. He did not have any further symptoms and he was weaned off her medications. Patient was also noted with hypertensive emergency on arrival with his noncompliance. He was continued on blood pressure medications which he was supposed to take at home along with addition of Cardura with control of blood pressure. Patient was noted with his chronic kidney disease now progressed to end-stage renal disease requiring hemodialysis. Patient and family consented for dialysis and he underwent permacath insertion on right chest and was started on hemodialysis. Patient's renal function was monitored closely. He was also counseled on lifestyle changes for underlying obesity. He was given Epogen with hemodialysis treatment. Patient was also noted with a UTI for which he received appropriate treatment. He also required as needed CPAP at sleep time secondary to CHANO and recommended outpatient pulmonary follow-up. Patient's respiratory status remained stable with no requirement of supplemental oxygen. Patient is accepted to hemodialysis center for hemodialysis T// as scheduled. He is feeling back to baseline. His labs and vital signs stable. Patient with no further distress. He is very eager to be discharged home. Discharge medications were filed to pharmacy on file. Approximately 60-minute was spent on coordinating the discharge on this patient. Patient was seen in collaboration with Dr. Sanchez. Home Meds Active Scripts Ciprofloxacin Hcl* (Ciprofloxacin Hcl*) 500 Mg Tablet, 500 MG PO BID for 5 Days, #10 TAB Take medicine after hemodialysis on dialysis days. Prov:MCMANUS,MANINDER V. FABRICATING MACHINE OPERATOR 07/28/18 Thiamine* (Vitamin B-1*) 100 Mg Tablet, 100 MG PO DAILY, #30 TAB Prov:MCMANUS,MANINDER V. FABRICATING MACHINE OPERATOR 07/28/18 Sevelamer Carbonate (Sevelamer Carbonate) 800 Mg Tablet, 800 MG PO WITH MEALS, #90 TAB Prov:MANINDER MCMANUS NP 07/28/18 Doxazosin Mesylate* (Cardura*) 2 Mg Tablet, 4 MG PO HS, #30 TAB Prov:MANINDER MCMANUS NP 07/28/18 Hydralazine Hcl* (Apresoline*) 50 Mg Tab, 75 MG PO Q8 for 30 Days, #90 TAB 5 Refills Prov:MANINDER MCMANUS NP 07/28/18 Nifedipine (Procardia Xl) 60 Mg Tab.er.24, 60 MG PO BID for 60 Days, #120 TAB 5 Refills Prov:MANINDER MCMANUS NP 07/28/18 Labetalol Hcl* (Labetalol Hcl*) 200 Mg Tablet, 400 MG PO TID for 60 Days, #120 TAB 5 Refills Prov:MANINDER MCMANUS NP 07/28/18 Follow-up Plan You have been set up with [facility] chair time is Thursday, , Thursday at 5am; patient to come 1st time 30 minutes early to fill out forms and to bring 2 forms of ID patient of Dr. Chavira Primary Care Provider Not On Staff Doctor MANINDER MCMANUS NP Jul 28, 2018 09:54
--- NOTE | 2018-07-28 13:53 | PN ---
DATE: 07/28/2018 SUBJECTIVE: The patient is stable. No events overnight. OBJECTIVE: VITAL SIGNS: Blood pressure is 142/85, pulse 81, respiration 20, temperature 97.6. HEENT: Head is normocephalic. NECK: Supple. HEART: Regular rate. LUNGS: Show diminished breath sounds at the base. ABDOMEN: Soft, nontender to palpation. No rebound or guarding. EXTREMITIES: Negative for clubbing, cyanosis. No edema. DERMATOLOGIC: No rashes. MUSCULOSKELETAL: No joint effusion. NEUROLOGIC: No change in exam. MEDICATIONS: Have been reviewed. LABORATORY DATA: Have been reviewed. ASSESSMENT AND PLAN: 1. Nonoliguric acute kidney injury on top of chronic kidney disease stage IV/V, now likely progresse d towards end-stage renal disease. The patient is currently on intermittent dialysis. Outpatient di alysis has been arranged at [facility] on Thursday, , Thursday schedule with a 5-day . 2. Hypertension. Continue current blood pressure regimen. 3. Anemia. Monitor hemoglobin and hematocrit levels. Continue Epogen. 4. Mineral bone disorder. Monitor calcium and phosphorus levels. 5. Urinary tract infection. The patient is completing antibiotic course. 6. Volume overload, improving. 7. Sleep apnea. 8. Obesity. The patient is clear from renal standpoint for discharge once outpatient dialysis has been arranged. Dictated By: SOPHIA COLIN DO NR/NTS Conf#: [id number] DID#: [id number] CC: THAI EVANS MD; ASTER DRAKE MD;*End*
== END 2018-07-28 11:08 | disposition home or self-care (01) | DRG 871 ==
LOC: E/R 00:58 → ICU 03:58 → 6WM 07-18 12:55 → PP2 07-21 22:09 → 6WM 07-21 22:11 → MS1 07-21 23:10
PROVIDERS: ADMIT Internal Medicine; ATTEND Internal Medicine
PROC: 5A09357 Assistance with Respiratory Ventilation, Less than 24 Consecutive Hours, Continuous Positive Airway Pressure (ICD-10-PCS; 2018-07-19)
PROC: 0JH60XZ Insertion of Tunneled Vascular Access Device into Chest Subcutaneous Tissue and Fascia, Open Approach (ICD-10-PCS; principal; 2018-07-21)
PROC: 02H633Z Insertion of Infusion Device into Right Atrium, Percutaneous Approach (ICD-10-PCS; 2018-07-21)
PROC: 5A1D70Z Performance of Urinary Filtration, Intermittent, Less than 6 Hours Per Day (ICD-10-PCS; 2018-07-21)
DX: A41.9 Sepsis, unspecified organism (principal); N17.0 Acute kidney failure with tubular necrosis; I12.0 Hypertensive chronic kidney disease with stage 5 chronic kidney disease or end stage renal disease; I16.1 Hypertensive emergency; F10.239 Alcohol dependence with withdrawal, unspecified; N18.5 Chronic kidney disease, stage 5; N39.0 Urinary tract infection, site not specified; Z99.2 Dependence on renal dialysis; E66.9 Obesity, unspecified; Z68.34 Body mass index [BMI] 34.0-34.9, adult; E87.6 Hypokalemia; F12.10 Cannabis abuse, uncomplicated; Z91.14 Patient's other noncompliance with medication regimen; Z72.0 Tobacco use; D63.1 Anemia in chronic kidney disease; Y90.0 Blood alcohol level of less than 20 mg/100 ml; B96.89 Other specified bacterial agents as the cause of diseases classified elsewhere
CPT/HCPCS: 36415; 36558; 70450; 71045; 76942; 80048; 80307; 81001; 81003; 82043; 82728; 83540; 83735; 84100; 84155; 84300; 84484; 85025; 85610; 85730; 86704; 86706; 86709; 86803; 87081; 87086; 87340; 90935; 93005; 94660; 96374; C1750; J0360; J0696; J1644; J1885; J1940; J2060; J2250; J2270; J2405; J2916; J3010; J3411; J3480; J7030; Q4081; Q5105

== ENCOUNTER 2018-09-26 23:18 | Inpatient (IN) | payer OTHER ==
[~2018-09-26] VITALS: Ht 170.2 cm; Wt 94.6 kg
[~2018-09-26 23:18] MED LIST changes: +ACET325T33 PO; +CIPR500T4 PO; +DOXA2TAB61 PO; +LISI-471 PO; +SEVE800T23 PO; +SEVE800T7 PO; +THIA100T56 PO
[2018-09-27] VITALS (17 sets, daily range): BP systolic 139–165; BP diastolic 94–115; PULSE 69–96; RESP 14–18; Ht 170.2 cm; Wt 94.6 kg
[2018-09-27] MEDS ORDERED: NITROGLYCERIN 2% 1 GM OINT PKT TD STA (00:18)
[2018-09-27] MEDS ORDERED: ONDANSETRON 4 MG INJ IV STA (00:18)
[2018-09-27] MEDS ORDERED: morphine 4 MG/ML VIAL IV STA (00:18)
[2018-09-27] MEDS ORDERED: ASPIRIN 325 MG TAB PO STA (00:18)
[2018-09-27] MEDS ORDERED: hydrALAzine 20 MG INJ IV ONE ×2 (00:30→08:30)
[2018-09-27] MEDS ORDERED: NICARDipine HCL 30 MG CAPSULE PO ONE ×2 (00:30→03:00)
--- NOTE | 2018-09-27 02:48 | ERD ---
ER Documentation Chief Complaint Chief Complaint CHEST PAIN X1HR; DIALYSIS T-TH-SAT; LAST KNWN DIALYSIS SAT HPI This is a 28-year-old male who is on dialysis who is here for chest pain. He said that he had dialysis yesterday. He said today, about 3 hours prior to arrival began having some substernal chest pain that radiated to the right shoulder described as a pressure. He said he took his blood pressure at home around 8 PM and it was 170/110. Currently on exam now it is 240/141. He has mild shortness of breath no palpitations syncope no pain in his back or abdomen. He said he had a small heart attack 2 years ago due to hypertensive emergency, did not get a stent or any cardiovascular intervention. ROS All systems reviewed and are negative except as per history of present illness. Medications Home Meds Active Scripts Ciprofloxacin Hcl* (Ciprofloxacin Hcl*) 500 Mg Tablet, 500 MG PO BID for 5 Days, #10 TAB Take medicine after hemodialysis on dialysis days. Prov:MCMANUS,MANINDER V. ACADEMIC INTERVENTIONIST 07/28/18 Thiamine* (Vitamin B-1*) 100 Mg Tablet, 100 MG PO DAILY, #30 TAB Prov:MCMANUS,MANINDER V. ACADEMIC INTERVENTIONIST 07/28/18 Sevelamer Carbonate (Sevelamer Carbonate) 800 Mg Tablet, 800 MG PO WITH MEALS, #90 TAB Prov:MCMANUS,MANINDER V. ACADEMIC INTERVENTIONIST 07/28/18 Doxazosin Mesylate* (Cardura*) 2 Mg Tablet, 4 MG PO HS, #30 TAB Prov:MCMANUS,MANINDER V. ACADEMIC INTERVENTIONIST 07/28/18 Hydralazine Hcl* (Apresoline*) 50 Mg Tab, 75 MG PO Q8 for 30 Days, #90 TAB 5 Refills Prov:MCMANUS,MANINDER V. ACADEMIC INTERVENTIONIST 07/28/18 Nifedipine (Procardia Xl) 60 Mg Tab.er.24, 60 MG PO BID for 60 Days, #120 TAB 5 Refills Prov:MCMANUS,MANINDER V. ACADEMIC INTERVENTIONIST 07/28/18 Labetalol Hcl* (Labetalol Hcl*) 200 Mg Tablet, 400 MG PO TID for 60 Days, #120 TAB 5 Refills Prov:MCMANUS,MANINDER V. ACADEMIC INTERVENTIONIST 07/28/18 Allergies Allergies: Coded Allergies: No Known Allergies (Unverified Allergy, Unknown, 09/02/17) PMhx/Soc History of Surgery: Yes (DIALYSIS CATHETER PLACEMENT) Anesthesia Reaction: No Hx Neurological Disorder: No Hx Respiratory Disorders: No Hx Cardiac Disorders: Yes (CHF, HTN, [place]) Hx Psychiatric Problems: No Hx Miscellaneous Medical Probl: No Hx Alcohol Use: No Hx Substance Use: Yes (MARIJUANA) Hx Tobacco Use: No Smoking Status: Current some day smoker FmHx Family History: No coronary disease Physical Exam Vitals Vital Signs Date Temp Pulse Resp B/P (MAP) Pulse Ox O2 O2 Flow FiO2 Time Delivery Rate 09/27/18 98.1 108 20 179/112 98 Room Air 02:00 (134) 09/27/18 78 20 219/140 98 Room Air 00:00 (166) 09/26/18 98.7 105 22 205/138 98 23:20 (160) Physical Exam Const: Well-developed, well-nourished Head: Atraumatic, normocephalic Eyes: Normal Conjunctiva, PERRLA, EOMI, normal sclera, no nystagmus ENT: Normal External Ears, Nose and Mouth, moist mucus membranes. Neck: Full range of motion. No meningismus, no lymphadenopathy. Resp: Clear to auscultation bilaterally, no wheezing, rhonchi, rales Cardio: Regular rate and rhythm, no murmurs, S1 S2 present Abd: Soft, non tender x 4, non distended. Normal bowel sounds, no guarding or rebound, no pulsitile abdominal masses or bruits Skin: No petechiae or rashes, no ecchymosis , no maculopapular rash Back: No midline or flank tenderness Ext: No cyanosis, or edema, FROM x 4, normal inspection, neurovascularly intact x 4 Neur: Awake and alert, STR 5/5 x 4, sensation intact x 4, no focal findings, cerebellum intact Psych: Normal Mood and Affect Result Diagram: 09/27/18 0013 09/27/18 0013 Results 24 hrs Laboratory Tests Test 09/27/18 00:13 White Blood Count 12.9 10^3/ul Red Blood Count 4.75 10^6/ul Hemoglobin 12.4 g/dl Hematocrit 39.4 % Mean Corpuscular Volume 82.9 fl Mean Corpuscular Hemoglobin 26.1 pg Mean Corpuscular Hemoglobin Concent 31.5 g/dl Red Cell Distribution Width 16.3 % Platelet Count 427 10^3/UL Mean Platelet Volume 9.7 fl Immature Granulocytes % 0.500 % Neutrophils % 61.2 % Lymphocytes % 21.0 % Monocytes % 10.5 % Eosinophils % 6.0 % Basophils % 0.8 % Nucleated Red Blood Cells % 0.0 /100WBC Immature Granulocytes # 0.070 10^3/ul Neutrophils # 7.9 10^3/ul Lymphocytes # 2.7 10^3/ul Monocytes # 1.4 10^3/ul Eosinophils # 0.8 10^3/ul Basophils # 0.1 10^3/ul Nucleated Red Blood Cells # 0.0 10^3/ul Sodium Level 143 mmol/L Potassium Level 3.6 mmol/L Chloride Level 100 mmol/L Carbon Dioxide Level 28 mmol/L Anion Gap 15 Blood Urea Nitrogen 46 mg/dl Creatinine 8.05 mg/dl Est Glomerular Filtrat Rate mL/min 8 mL/min Glucose Level 101 mg/dl Calcium Level 8.6 mg/dl Troponin I 0.023 ng/ml Current Medications Medications Dose Sig/Lm Start Time Status Last (Trade) Ordered Route PRN Stop Time Admin Dose Reason Admin Aspirin 325 mg ONCE STAT 09/27/18 DC 09/27/18 (Aspirin) PO 00:18 09/27/18 00:30 00:20 1 inch ONCE STAT 09/27/18 DC 09/27/18 Nitroglycerin TD 00:18 09/27/18 00:31 00:20 (Nitroglyceri n 2% Oint) Morphine 4 mg ONCE STAT 09/27/18 DC 09/27/18 Sulfate IV 00:18 09/27/18 00:30 (morphine) 00:20 Ondansetron 4 mg ONCE STAT 09/27/18 DC 09/27/18 HCl (Zofran IV 00:18 09/27/18 00:30 Inj) 00:20 Hydralazine 10 mg ONCE ONCE 09/27/18 DC 09/27/18 HCl IV 00:30 09/27/18 00:32 (Apresoline) 00:31 Nicardipine 30 mg ONCE ONCE 09/27/18 DC 09/27/18 HCl PO 00:30 09/27/18 00:31 (Cardene) 00:31 Procedures/[place] [address] Radiology Main Line: [phone] DIAGNOSTIC IMAGING REPORT Patient: GERALD BLOOD : 1990 Age: 28 Sex: M MR #: [id number] DOS: 09/27/18 0018 Ordering MD: LOLA MARIA DO Location: E/R Room/Bed: PROCEDURE: Portable chest x-ray. CLINICAL INDICATION: Chest pain. TECHNIQUE: Portable AP view of the chest. COMPARISON: 03/28/2016. FINDINGS: A right central venous catheter terminates at the superior cavoatrial junction. No pulmonary edema or conolidation is identified. The cardiac silhouette is magnified. There is a small right pleural effusion. There is no pneumothorax. IMPRESSION: Right central venous catheter tip at the superior cavoatrial junction. Small right pleural effusion. RPTAT: HTAR .Edwin Clayton MD, MD Date Time Electronically viewed and signed by .Edwin Clayton MD, MD on 09/27/2018 01:33 .R/ CC: LOLA MARIA DO [id number] EKG: Rate/Rhythm: Normal Sinus Rhythm,NL intervals QRS, ST, QT: NORMAL NH, QRS, QT] Impression: NORMAL EKG Patient was given Cardene and hydralazine IV. The patient's blood pressure is 178/116 I will repeat the Cardene 30 mg p.o. Patient is having hypertensive chest pain. His blood pressure still a bit out of control. We will admit him to the hospital for cardiac rule out as well as blood pressure stabilization Departure Diagnosis: Primary Impression: Hypertensive urgency Additional Impression: Chest pain Chest pain type: unspecified Qualified Codes: R07.9 - Chest pain, unspecified Condition: Stable LOLA MARIA DO Sep 27, 2018 02:48
[2018-09-27] MEDS ORDERED: ONDANSETRON 4 MG INJ IV PRN (03:00)
[2018-09-27] MEDS ORDERED: ACETAMINOPHEN 325 MG TAB PO PRN (03:00)
[2018-09-27] MEDS ORDERED: NACL 0.9% 3 ML SYG IV SCH (10:00)
[2018-09-27] MEDS ORDERED: NITROGLYCERIN (SL) 0.4 MG TAB SL PRN (10:00)
[2018-09-27] MEDS ORDERED: hydrALAzine 20 MG INJ IV PRN ×2 (10:00→11:00)
--- NOTE | 2018-09-27 10:04 | HP ---
Date/Time of Note Date/Time of Note DATE: 09/27/18 TIME: 09:55 Assessment/Plan VTE Prophylaxis Pharmacological prophylaxis: heparin Lines/Catheters IV Catheter Type (from Nrsg): Saline Lock Assessment/Plan Assessment/Plan 1. Chest pain: Likely from demand ischemia from severely elevated blood pressure -1999 and completely resolved. -will rule out ACS -Telemetry admission -Serial troponin -2D echo -Consider cardiology consult positive troponin -Aspirin 2. Hypertensive urgency: BP better controlled -Adjust antihypertensives as needed -Patient was resistant hypertension. He presented with a blood pressure of 205/138. During last admission his blood pressure was 262/158 3. ESRD on HD: TTSat -Initiated during last hospitalization here 3 months ago -Nephrology consult in a.m. for dialysis 4. Leukocytosis: Suspect from stress-induced reaction Result Diagram: 09/27/18 0013 09/27/18 0013 Results 24hrs Laboratory Tests Test 09/27/18 00:13 White Blood Count 12.9 #H Red Blood Count 4.75 # Hemoglobin 12.4 #L Hematocrit 39.4 #L Mean Corpuscular Volume 82.9 Mean Corpuscular Hemoglobin 26.1 L Mean Corpuscular Hemoglobin Concent 31.5 L Red Cell Distribution Width 16.3 H Platelet Count 427 H Mean Platelet Volume 9.7 Immature Granulocytes % 0.500 H Neutrophils % 61.2 Lymphocytes % 21.0 Monocytes % 10.5 Eosinophils % 6.0 Basophils % 0.8 Nucleated Red Blood Cells % 0.0 Immature Granulocytes # 0.070 H Neutrophils # 7.9 H Lymphocytes # 2.7 Monocytes # 1.4 H Eosinophils # 0.8 H Basophils # 0.1 Nucleated Red Blood Cells # 0.0 Sodium Level 143 Potassium Level 3.6 Chloride Level 100 Carbon Dioxide Level 28 Anion Gap 15 H Blood Urea Nitrogen 46 H Creatinine 8.05 H Est Glomerular Filtrat Rate mL/min 8 L Glucose Level 101 Calcium Level 8.6 Troponin I 0.023 HPI/ROS Admit Date/Time Admit Date/Time Hx of Present Illness This is a 28-year-old obese male with a history of hypertension, ESRD on HD, alcohol abuse who presents the ER complaining of chest pain that started a few hours prior to arrival to the ER. Pain is located in the mid chest and also slightly left-sided and is nonradiating. Currently this has completely resolved. Reported intermittent shortness of breath. Also reported nausea but no vomiting. Denies diaphoresis. Patient reported his systolic blood pressure at home in the 170s. He did say that he has been compliant with his medication. Last dialysis was 2 days ago on Thursday. Patient was admitted by myself in June of this year and at that time he presented with a blood pressure of 262/158 and reported to me that he has been off of his blood pressure medications. Patient at that time was initiated on dialysis. His adult care manager is Dr. Chavira. During last hospitalization, patient was also treated for alcohol intoxication/withdrawal. When he presented to ER at this time, blood pressure was 205/138. First troponin negative. EKG without ST elevation or depression. h PMH/Family/Social Past Medical History Past Surgical Hx: other (see HPI) Family History Significant Family History: other (see HPI) Social History Alcohol Use: see history Smoking Status: see history Drug Use: see history Exam Constitutional: other (No acute Distress) Head: normocephalic, atraumatic Eyes: PERRL Respiratory: normal air movement Cardiovascular: nl pulses Gastrointestinal: soft Extremities: normal pulses Medications Current Medications Ondansetron HCl (Zofran Inj) 4 mg ER BRIDGE PRN IV NAUSEA/VOMITING; Start 09/27/18 at 03:00; Stop 09/28/18 at 02:59 Acetaminophen (Tylenol Tab) 650 mg ER BRIDGE PRN PO .MILD PAIN 1-3 OR TEMP; Start 09/27/18 at 03:00; Stop 09/28/18 at 02:59 IV Flush (NS 3 ml) 3 ml PER PROTOCOL IV ; Start 09/27/18 at 10:00; Status UNV Ondansetron HCl (Zofran Inj) 4 mg Q6H PRN IV NAUSEA/VOMITING; Start 09/27/18 at 10:00; Status UNV Aspirin (Aspirin) 81 mg DAILY PO ; Start 09/28/18 at 09:00; Status UNV Nitroglycerin (Nitroglycerin (Sl Tab) 0.4 Mg) 1 tab Q5M PRN SL .CHEST PAIN; Start 09/27/18 at 10:00; Status UNV Acetaminophen (Tylenol Tab) 650 mg Q6H PRN PO .PAIN 1-3 OR TEMP; Start 09/27/18 at 10:00; Status UNV Heparin Sodium (Porcine) (Heparin (5000 Units/1ml)) 5,000 unit Q12 SC ; Start 09/27/18 at 21:00; Status UNV Doxazosin Mesylate (Cardura) 4 mg HS PO ; Start 09/27/18 at 21:00; Status UNV Hydralazine HCl (Apresoline) 75 mg Q8 PO ; Start 09/27/18 at 14:00; Status UNV Labetalol HCl (Normodyne) 400 mg TID PO ; Start 09/27/18 at 13:00; Status UNV Nifedipine (Procardia Xl) 60 mg BID PO ; Start 09/27/18 at 10:00; Status UNV Sevelamer Carbonate (Renvela) 800 mg WITH MEALS PO ; Start 09/27/18 at 12:00; Status UNV Thiamine HCl (Vitamin B1) 100 mg DAILY PO ; Start 09/27/18 at 10:00; Status UNV Hydralazine HCl (Apresoline) 10 mg Q4H PRN IV SBP > 160; Start 09/27/18 at 10:00; Status UNV Coded Allergies: No Known Allergies (Unverified Allergy, Unknown, 09/27/18) Past Surgical History Past Surgical Hx: no surgical history Family History Significant Family History: no pertinent family hx Social History Smoking Status: Current some day smoker Exam/Review of Systems Vital Signs Vitals Vital Signs Date Temp Pulse Resp B/P (MAP) Pulse Ox O2 O2 Flow FiO2 Time Delivery Rate 09/27/18 98.2 105 16 155/112 98 Room Air 09:00 (126) THAI EVANS MD Sep 27, 2018 10:04
[2018-09-27] MEDS: LABETALOL 200 MG TAB PO SCH ×3 (10:43→21:24)
[2018-09-27] MEDS: NIFEdipine (XL) 60 MG TAB PO SCH ×2 (10:45→21:24)
[2018-09-27] MEDS: THIAMINE 100 MG TAB PO SCH (10:46)
[2018-09-27] MEDS: ACETAMINOPHEN 325 MG TAB PO PRN (11:52)
[2018-09-27] MEDS ORDERED: LABETALOL 200 MG TAB PO SCH (13:00)
[2018-09-27] MEDS: SEVELAMER CARBONATE 800 MG TABLET PO SCH ×2 (13:29→18:51)
--- NOTE | 2018-09-27 14:41 | CONS ---
DATE OF ADMISSION: 09/26/2018 DATE OF CONSULTATION: 09/27/2018 TYPE OF CONSULTATION: Nephrology. REASON FOR CONSULTATION: Endstage renal disease. REQUESTING PHYSICIAN: Robbie Cardozo MD HISTORY OF PRESENT ILLNESS: This is a 28-year-old male with a past medical history of end-stage dayan l disease on dialysis Thursday, , Thursday, access AV fistula. Patient's primary floor molder is Dr. Chavira. A history of hypertension, history of medical noncompliance, history of mineral bon e disorder, presents to [facility] Emergency Room with chest pain. The patient sta ramila that his last hemodialysis was Thursday. The patient reports his blood pressure at home being in the high 170s. He states that in the last 48 hours, his blood pressure increased despite the patien t taking his blood pressure medication. As a result, he came to the Emergency Room. Upon arrival, p sarah was hypertensive, systolic pressure of 200. The patient was given antihypertensive medication s in the Emergency Room. In terms of his renal history, as stated, patient is dialyzed at [facility], Thursday, , , access Perm-A-Cath. Last hemodialysis Thursday. PAST MEDICAL HISTORY: History of hypertension, history of end-stage renal disease, history of anemia and history of alcohol use. PAST SURGICAL HISTORY: Status post Perm-A-Cath placement. FAMILY HISTORY: No family history of kidney disease. SOCIAL HISTORY: History of alcohol use. ALLERGIES: HAVE BEEN REVIEWED. REVIEW OF SYSTEMS: A 14-point review of systems was conducted. Pertinent positives stated in the HP I, otherwise negative. PHYSICAL EXAMINATION: VITAL SIGNS: Blood pressure 160/108, respirations 16, pulse 103, temperature 98.0. HEENT: Head is normocephalic. NECK: Supple. HEART: Regular rate. LUNGS: Show diminished breath sounds at the base. ABDOMEN: Soft, nontender to palpation without rebound or guarding. EXTREMITIES: Negative for clubbing, cyanosis, no edema. DERMATOLOGIC: No rashes. MUSCULOSKELETAL: No joint effusion. NEUROLOGIC: No focal deficits. MEDICATIONS: Have been reviewed. LABORATORY DATA: Has been reviewed. IMAGING STUDIES: Have been reviewed. ASSESSMENT AND PLAN: This is a 28-year-old male who presents with: 1. End-stage renal disease. The patient is scheduled for hemodialysis today. We will dialyze for 3 hours, 4k bath, calcium 2.5, ultrafiltrate as tolerated. 2. Hypertensive urgency in part due to increased intravascular volume. Plan is for hemodialysis wit h goal to ultrafiltration 2 to 3 liters. 3. Anemia. Monitor hemoglobin and hematocrit levels. Will give Epogen as needed. 4. Mineral bone disorder, monitor calcium and phosphorus levels. Resume phos binders. 5. Chest pain, etiology is likely secondary to demand ischemia due to hypertension. The patient is being ruled out for acute coronary syndrome. Continue to check serial troponins. Continue aspirin. Follow up 2D echo. 6. Leukocytosis, etiology is likely secondary to systemic inflammatory response syndrome and stress demargination. No active evidence of infection. Thank you, Dr. Cardozo, for this interesting consult. It will be a pleasure to follow the patien t with you throughout the hospital course. Dictated By: SOPHIA CHAVIRA DO NR/NTS Conf#: [id number] DID#: [id number] CC: ROBBIE CARDOZO MD;*EndCC*
--- NOTE | 2018-09-27 15:11 | RADRPT ---
Echocardiogram Report Patient Name: GERALD BLOOD MPatient ID: [id number] : 1990 (28y )Study Date: 09/27/2018 11:28:03 AM Gender: MAccession #: [id number] Tech: Analy Platt TAM Location: [facility] Ref.Physician: THAI EVANS Height(Cm): BSA: Weight(Kg): Quality: AdequateOrder Physician: THAI EVANS Account #: Procedures: Echocardiographic Report: Transthoracic echocardiogram with complete 2D, M-Mode, and doppler examination. Indications: Chest Pain. Measurements: 2D/M Mode Doppler Measurement Value Normal Range Measurement Value Normal Range LVIDd 2D 4.4 [ 4.2 - 5.8 ] cm AV Peak Jaime 1.5 [ 100.0 - 170.0 ] cm/sec LVIDs 2D 3.0 [ 2.5 - 4.0 ] cm AV Peak PG 9.0 [ 2.0 - 9.0 ] mmHg LVPWd 2D 1.2 [ 0.6 - 1.0 ] cm LVOT Peak Jaime 1.1 [ 70.0 - 110.0 ] cm/sec IVSd 2D 1.1 [ 0.6 - 1.0 ] cm LVOT Peak PG 5.0 [ 2.0 - 6.0 ] mmHg AoR Diam 2D 3.0 [ 2.6 - 3.4 ] cm MV E Peak Jaime 0.9 [ 60.0 - 130.0 ] cm/sec EDV 2D 89.1 [ 62.0 - 150.0 ] ml MV A Peak Jaime 1.0 [ 100.0 - 120.0 ] cm/sec ESV 2D 34.4 [ 21.0 - 61.0 ] ml MV E/A 0.9 [ 0.8 - 1.5 ] ratio EF 2D 61.4 [ 52.0 - 72.0 ] percent MV Decel Time 144 [ 104 - 258 ] msec LA Dimen 2D 3.6 [ 3.0 - 4.0 ] cm Lat E` Jaime 0.1 [ 10.0 - 15.0 ] cm/sec Lateral E/E` 9.5 [ 1.0 - 2.0 ] ratio MV E/A 0.9 [ 0.8 - 1.5 ] ratio Findings: Left Ventricle: Normal left ventricular systolic function. Normal left ventricular cavity size. Mild concentric left ventricular hypertrophy. Ejection fraction is visually estimated at 65 %. Tissue Doppler/Mitral Doppler indices are consistent with impaired relaxation (Stage I diastolic dysfunction). Right Ventricle: Normal right ventricular size. Normal right ventricular systolic function. Left Atrium: The left atrium is normal in size. Right Atrium: The right atrium is normal in size. Mitral Valve: Normal appearance and function of the mitral valve with trace physiologic regurgitation. Aortic Valve: Normal appearance of the aortic valve. No significant aortic stenosis or insufficiency. Tricuspid Valve: Normal appearance and function of the tricuspid valve with trace physiologic regurgitation. Normal right ventricular systolic pressure. Pulmonic Valve: Normal pulmonic valve appearance. Pericardium: Normal pericardium with no significant pericardial effusion. Aorta: Normal aortic root. IVC: Normal size and normal respiratory collapse consistent with normal right atrial pressure. Conclusions: Normal left ventricular systolic function. Normal left ventricular cavity size. Mild concentric left ventricular hypertrophy. Ejection fraction is visually estimated at 65 %. Tissue Doppler/Mitral Doppler indices are consistent with impaired relaxation (Stage I diastolic dysfunction). Normal appearance and function of the mitral valve with trace physiologic regurgitation. Normal appearance of the aortic valve. No significant aortic stenosis or insufficiency. Normal appearance and function of the tricuspid valve with trace physiologic regurgitation. Normal right ventricular systolic pressure. Electronically Signed By: Ayo Palomares 2018-09-27 15:11:00 PDT
[2018-09-27] MEDS ORDERED: HEPARIN 1000 UNITS/ML 10 ML INJ CATHETER ONE (15:30)
--- NOTE | 2018-09-27 17:25 | PN ---
Date/Time of Note Date/Time of Note DATE: 09/27/18 TIME: 17:22 Assessment/Plan VTE Prophylaxis SCD contraindicated: low risk/ambulating Pharmacological prophylaxis: LMWH Pharm contraindication: low risk/ambulating Lines/Catheters IV Catheter Type (from Nrsg): Saline Lock Assessment/Plan Hospital Course Assessment and plan 1. Atypical chest pain rule out ACS. 2. Hypertensive urgency, stable advanced therapy 3. History of nonadherence 4. ESRD continue dialysis 5. Alcoholism, acute versus past? 6. CHANO risk consider outpatient testing 7. Anemia stable observe 8. Past tobacco Subjective: Events noted feels better once blood pressure improved Objective: Systolic still fluctuating Physical exam No pallor JVD Regular no murmur rub gallop Clear no tachypnea Bs+ nt nt no r r g; overweight No edema Result Diagram: 09/27/18 0013 09/27/18 0013 Results 24hrs Laboratory Tests Test 09/27/18 00:13 09/27/18 10:14 09/27/18 16:16 White Blood Count 12.9 #H Red Blood Count 4.75 # Hemoglobin 12.4 #L Hematocrit 39.4 #L Mean Corpuscular Volume 82.9 Mean Corpuscular Hemoglobin 26.1 L Mean Corpuscular Hemoglobin Concent 31.5 L Red Cell Distribution Width 16.3 H Platelet Count 427 H Mean Platelet Volume 9.7 Immature Granulocytes % 0.500 H Neutrophils % 61.2 Lymphocytes % 21.0 Monocytes % 10.5 Eosinophils % 6.0 Basophils % 0.8 Nucleated Red Blood Cells % 0.0 Immature Granulocytes # 0.070 H Neutrophils # 7.9 H Lymphocytes # 2.7 Monocytes # 1.4 H Eosinophils # 0.8 H Basophils # 0.1 Nucleated Red Blood Cells # 0.0 Sodium Level 143 Potassium Level 3.6 Chloride Level 100 Carbon Dioxide Level 28 Anion Gap 15 H Blood Urea Nitrogen 46 H Creatinine 8.05 H Est Glomerular Filtrat Rate mL/min 8 L Glucose Level 101 Calcium Level 8.6 Troponin I 0.023 0.021 0.017 Hepatitis B Surface Antigen NEGATIVE Creatine Kinase 188 178 Creatine Kinase Index 0.8 1.1 Creatinine Kinase MB (Mass) 1.59 1.88 Exam/Review of Systems Exam Vitals Vital Signs Date Temp Pulse Resp B/P (MAP) Pulse Ox O2 O2 Flow FiO2 Time Delivery Rate 09/27/18 77 17:05 09/27/18 20 144/111 99 Room Air 16:27 (122) 09/27/18 98.2 13:36 Results Results 24hrs Laboratory Tests Test 09/27/18 00:13 09/27/18 10:14 09/27/18 16:16 White Blood Count 12.9 #H Red Blood Count 4.75 # Hemoglobin 12.4 #L Hematocrit 39.4 #L Mean Corpuscular Volume 82.9 Mean Corpuscular Hemoglobin 26.1 L Mean Corpuscular Hemoglobin Concent 31.5 L Red Cell Distribution Width 16.3 H Platelet Count 427 H Mean Platelet Volume 9.7 Immature Granulocytes % 0.500 H Neutrophils % 61.2 Lymphocytes % 21.0 Monocytes % 10.5 Eosinophils % 6.0 Basophils % 0.8 Nucleated Red Blood Cells % 0.0 Immature Granulocytes # 0.070 H Neutrophils # 7.9 H Lymphocytes # 2.7 Monocytes # 1.4 H Eosinophils # 0.8 H Basophils # 0.1 Nucleated Red Blood Cells # 0.0 Sodium Level 143 Potassium Level 3.6 Chloride Level 100 Carbon Dioxide Level 28 Anion Gap 15 H Blood Urea Nitrogen 46 H Creatinine 8.05 H Est Glomerular Filtrat Rate mL/min 8 L Glucose Level 101 Calcium Level 8.6 Troponin I 0.023 0.021 0.017 Hepatitis B Surface Antigen NEGATIVE Creatine Kinase 188 178 Creatine Kinase Index 0.8 1.1 Creatinine Kinase MB (Mass) 1.59 1.88 Medications Medication Current Medications IV Flush (NS 3 ml) 3 ml PER PROTOCOL IV ; Start 09/27/18 at 10:00 Ondansetron HCl (Zofran Inj) 4 mg Q6H PRN IV NAUSEA/VOMITING; Start 09/27/18 at 10:00 Aspirin (Aspirin) 81 mg DAILY PO ; Start 09/28/18 at 09:00 Nitroglycerin (Nitroglycerin (Sl Tab) 0.4 Mg) 1 tab Q5M PRN SL .CHEST PAIN; Start 09/27/18 at 10:00 Acetaminophen (Tylenol Tab) 650 mg Q6H PRN PO .PAIN 1-3 OR TEMP Last administered on 09/27/18at 11:52; Admin Dose 650 MG; Start 09/27/18 at 10:00 Heparin Sodium (Porcine) (Heparin (5000 Units/1ml)) 5,000 unit Q12 SC ; Start 09/27/18 at 21:00 Doxazosin Mesylate (Cardura) 4 mg HS PO ; Start 09/27/18 at 21:00 Hydralazine HCl (Apresoline) 75 mg Q8 PO Last administered on 09/27/18at 10:44; Admin Dose 75 MG; Start 09/27/18 at 10:00 Nifedipine (Procardia Xl) 60 mg BID PO Last administered on 09/27/18at 10:45; Admin Dose 60 MG; Start 09/27/18 at 10:00 Sevelamer Carbonate (Renvela) 800 mg WITH MEALS PO Last administered on 09/27at 13:29; Admin Dose 800 MG; Start 09/27/18 at 12:00 Thiamine HCl (Vitamin B1) 100 mg DAILY PO Last administered on 09/27/18at 10:46; Admin Dose 100 MG; Start 09/27/18 at 10:00 Hydralazine HCl (Apresoline) 20 mg Q1H PRN IV SBP > 160; Start 09/27/18 at 11:00 Labetalol HCl (Normodyne) 400 mg TID PO Last administered on 09/27/18at 13:30; Admin Dose 400 MG; Start 09/27/18 at 10:30 Lisinopril (Zestril) 40 mg DAILY PO ; Start 09/28/18 at 09:00 YVON CARDOZO MD Sep 27, 2018 17:25
[2018-09-27] MEDS ORDERED: LORAZEPAM 2 MG INJ IV PRN (18:30)
[2018-09-27] MEDS: HEPARIN 5,000 UNIT/1 ML VIAL SC SCH (21:00)
[2018-09-27] MEDS: DOXAZOSIN 2 MG TAB PO SCH (22:35)
[2018-09-28] VITALS (25 sets, daily range): BP systolic 87–139; BP diastolic 52–97; PULSE 78–113; RESP 12–18
[2018-09-28] MEDS: HEPARIN 5,000 UNIT/1 ML VIAL SC SCH ×2 (09:00→22:09)
[2018-09-28] MEDS: ASPIRIN 81 MG TAB PO SCH (09:48)
[2018-09-28] MEDS: SEVELAMER CARBONATE 800 MG TABLET PO SCH ×3 (09:48→22:09)
[2018-09-28] MEDS: THIAMINE 100 MG TAB PO SCH (09:48)
[2018-09-28] MEDS: NIFEdipine (XL) 60 MG TAB PO SCH ×2 (09:49→21:00)
[2018-09-28] MEDS: LISINOPRIL 20 MG TAB PO SCH (09:49)
[2018-09-28] MEDS: LABETALOL 200 MG TAB PO SCH ×3 (09:49→21:00)
--- NOTE | 2018-09-28 09:55 | PN ---
DATE: 09/28/2018 SUBJECTIVE: The patient had hemodialysis yesterday, tolerated well. The patient is currently on BiP AP. No other events noted. OBJECTIVE: VITAL SIGNS: Blood pressure is 134/84, respirations 12, pulse 88, temperature 97.8. HEENT: Head is normocephalic. NECK: Supple. HEART: Regular rate. LUNGS: Show diminished breath sounds at the base. ABDOMEN: Soft, nontender to palpation without rebound or guarding. EXTREMITIES: Negative for clubbing, cyanosis. Trace edema. DERMATOLOGIC: No rashes. MUSCULOSKELETAL: No joint effusion. NEUROLOGIC: No focal deficits. MEDICATIONS: Have been reviewed. LABORATORY DATA: Have been reviewed. IMAGING STUDIES: Have been reviewed. ASSESSMENT AND PLAN: 1. End-stage renal disease. The patient is on dialysis Thursday, and Thursday. Plan is for dialysis again today. 2. Hypertension, improved. Continue ultrafiltration with dialysis. Continue current blood pressure regimen. 3. Anemia. Monitor hemoglobin and hematocrit levels. We will give Epogen as needed. 4. Mineral bone disorder. Monitor calcium and phosphorus levels. Resume phosphate binders. 5. Chest pain, etiology is likely due to demand ischemia. The patient's troponin has been negative. Continue to monitor. 6. Sleep apnea. Continue CPAP. 7. Leukocytosis, systemic inflammatory response syndrome. No obvious evidence of infection. Contin ue to monitor. Dictated By: SOPHIA COLIN DO NR/NTS Conf#: [id number] DID#: [id number] CC: SOPHIA COLIN DO; THAI EVANS MD;*EndCC*
--- NOTE | 2018-09-28 16:13 | PN ---
Date/Time of Note Date/Time of Note DATE: 09/28/18 TIME: 16:12 Assessment/Plan VTE Prophylaxis Risk score (from Nsg)>0 risk: 1 SCD applied (from Nsg): No SCD contraindicated: low risk/ambulating Pharmacological prophylaxis: LMWH Lines/Catheters IV Catheter Type (from Nrsg): Saline Lock Assessment/Plan Hospital Course A/P 1. Atypical chest pain ruled out ACS. home Thursday if okay with nephrology. 2. Hypertensive urgency, stable adjusting therapy 3. History of nonadherence 4. ESRD continue dialysis 5. Alcoholism, acute vs past? 6. CHANO risk consider outpatient testing 7. Anemia stable observe 8. Past tobacco S: 09/27 events noted feels better once blood pressure improved /6: No distress O: vss sr PE no pallor JVD Regular no mrg Clear no tachypnea Bs+ nt nt no r r g; overweight No edema Result Diagram: 09/28/18 1026 09/28/18 1026 Results 24hrs Laboratory Tests Test 09/27/18 16:16 09/28/18 10:26 Creatine Kinase 178 Creatine Kinase Index 1.1 Creatinine Kinase MB (Mass) 1.88 Troponin I 0.017 White Blood Count 12.9 H Red Blood Count 5.43 Hemoglobin 14.0 Hematocrit 45.2 Mean Corpuscular Volume 83.2 Mean Corpuscular Hemoglobin 25.8 L Mean Corpuscular Hemoglobin Concent 31.0 L Red Cell Distribution Width 16.6 H Platelet Count 495 H Mean Platelet Volume 10.3 Immature Granulocytes % 0.500 H Neutrophils % 75.8 Lymphocytes % 12.9 L Monocytes % 5.0 Eosinophils % 5.0 Basophils % 0.8 Nucleated Red Blood Cells % 0.0 Immature Granulocytes # 0.070 H Neutrophils # 9.8 H Lymphocytes # 1.7 Monocytes # 0.6 Eosinophils # 0.6 H Basophils # 0.1 Nucleated Red Blood Cells # 0.0 Sodium Level 141 Potassium Level 4.2 Chloride Level 101 Carbon Dioxide Level 24 Anion Gap 16 H Blood Urea Nitrogen 36 H Creatinine 8.14 H Est Glomerular Filtrat Rate mL/min 8 L Glucose Level 108 Calcium Level 9.7 Phosphorus Level 6.2 H Magnesium Level 2.2 Total Bilirubin 0.5 Direct Bilirubin 0.00 Indirect Bilirubin 0.5 Aspartate Amino Transf (AST/SGOT) 20 Alanine Aminotransferase (ALT/SGPT) 28 Alkaline Phosphatase 123 H Total Protein 9.2 H Albumin 4.8 Globulin 4.40 H Albumin/Globulin Ratio 1.09 Exam/Review of Systems Exam Vitals Vital Signs Date Temp Pulse Resp B/P (MAP) Pulse Ox O2 O2 Flow FiO2 Time Delivery Rate 09/28/18 98.5 83 16 116/55 98 15:08 (75) 09/28/18 30 05:15 09/28/18 CPAP 04:12 Intake and Output 09/27/18 09/27/18 09/28/18 1515:00 23:00 07:00 IntakeIntake Total 300 ml 60 ml OutputOutput Total 2500 ml BalanceBalance -2200 ml 60 ml Results Results 24hrs Laboratory Tests Test 09/27/18 16:16 09/28/18 10:26 Creatine Kinase 178 Creatine Kinase Index 1.1 Creatinine Kinase MB (Mass) 1.88 Troponin I 0.017 White Blood Count 12.9 H Red Blood Count 5.43 Hemoglobin 14.0 Hematocrit 45.2 Mean Corpuscular Volume 83.2 Mean Corpuscular Hemoglobin 25.8 L Mean Corpuscular Hemoglobin Concent 31.0 L Red Cell Distribution Width 16.6 H Platelet Count 495 H Mean Platelet Volume 10.3 Immature Granulocytes % 0.500 H Neutrophils % 75.8 Lymphocytes % 12.9 L Monocytes % 5.0 Eosinophils % 5.0 Basophils % 0.8 Nucleated Red Blood Cells % 0.0 Immature Granulocytes # 0.070 H Neutrophils # 9.8 H Lymphocytes # 1.7 Monocytes # 0.6 Eosinophils # 0.6 H Basophils # 0.1 Nucleated Red Blood Cells # 0.0 Sodium Level 141 Potassium Level 4.2 Chloride Level 101 Carbon Dioxide Level 24 Anion Gap 16 H Blood Urea Nitrogen 36 H Creatinine 8.14 H Est Glomerular Filtrat Rate mL/min 8 L Glucose Level 108 Calcium Level 9.7 Phosphorus Level 6.2 H Magnesium Level 2.2 Total Bilirubin 0.5 Direct Bilirubin 0.00 Indirect Bilirubin 0.5 Aspartate Amino Transf (AST/SGOT) 20 Alanine Aminotransferase (ALT/SGPT) 28 Alkaline Phosphatase 123 H Total Protein 9.2 H Albumin 4.8 Globulin 4.40 H Albumin/Globulin Ratio 1.09 Medications Medication Current Medications IV Flush (NS 3 ml) 3 ml PER PROTOCOL IV ; Start 09/27/18 at 10:00 Ondansetron HCl (Zofran Inj) 4 mg Q6H PRN IV NAUSEA/VOMITING; Start 09/27/18 at 10:00 Aspirin (Aspirin) 81 mg DAILY PO Last administered on 09/28/18 09:48; Admin Dose 81 MG; Start 09/28/18 at 09:00 Nitroglycerin (Nitroglycerin (Sl Tab) 0.4 Mg) 1 tab Q5M PRN SL .CHEST PAIN; Start 09/27/18 at 10:00 Acetaminophen (Tylenol Tab) 650 mg Q6H PRN PO .PAIN 1-3 OR TEMP Last administered on 09/27/18 11:52; Admin Dose 650 MG; Start 09/27/18 at 10:00 Heparin Sodium (Porcine) (Heparin (5000 Units/1ml)) 5,000 unit Q12 SC ; Start 09/27/18 at 21:00 Doxazosin Mesylate (Cardura) 4 mg HS PO Last administered on 09/27/18 22:35; Admin Dose 4 MG; Start 09/27/18 at 21:00 Hydralazine HCl (Apresoline) 75 mg Q8 PO Last administered on 09/28/18 06:30; Admin Dose 75 MG; Start 09/27/18 at 10:00 Nifedipine (Procardia Xl) 60 mg BID PO Last administered on 09/28/18 09:49; Admin Dose 60 MG; Start 09/27/18 at 10:00 Sevelamer Carbonate (Renvela) 800 mg WITH MEALS PO Last administered on 09/28/18 12:22; Admin Dose 800 MG; Start 09/27/18 at 12:00 Thiamine HCl (Vitamin B1) 100 mg DAILY PO Last administered on 09/28/18 09:48; Admin Dose 100 MG; Start 09/27/18 at 10:00 Hydralazine HCl (Apresoline) 20 mg Q1H PRN IV SBP > 160 Last administered on 09/27/18 18:51; Admin Dose 20 MG; Start 09/27/18 at 11:00 Labetalol HCl (Normodyne) 400 mg TID PO Last administered on 09/28/18 09:49; Admin Dose 400 MG; Start 09/27/18 at 10:30 Lisinopril (Zestril) 40 mg DAILY PO Last administered on 8/6/19at 09:49; Admin Dose 40 MG; Start 09/28/18 at 09:00 Lorazepam (Ativan) 1 mg Q6 PRN IV AGITATION/ANXIETY; Start 09/27/18 at 18:30 YVON CARDOZO MD Sep 28, 2018 16:13
[2018-09-28] MEDS ORDERED: HEPARIN 1000 UNITS/ML 10 ML INJ CATHETER SCH (16:30)
[2018-09-28] MEDS: DOXAZOSIN 2 MG TAB PO SCH (21:00)
[2018-09-28] MEDS: ACETAMINOPHEN 325 MG TAB PO PRN (21:54)
[2018-09-29] VITALS (7 sets, daily range): BP systolic 107–110; BP diastolic 54–60; PULSE 73–89; RESP 13–18
[2018-09-29] MEDS: morphine 2 MG INJ IV PRN ×2 (01:56→08:36)
[2018-09-29] MEDS: ONDANSETRON 4 MG INJ IV PRN ×2 (02:00→09:43)
[2018-09-29] MEDS: ASPIRIN 81 MG TAB PO SCH (08:19)
[2018-09-29] MEDS: LABETALOL 200 MG TAB PO SCH ×2 (08:19→13:56)
[2018-09-29] MEDS: LISINOPRIL 20 MG TAB PO SCH (08:19)
[2018-09-29] MEDS: SEVELAMER CARBONATE 800 MG TABLET PO SCH ×2 (08:19→13:57)
[2018-09-29] MEDS: NIFEdipine (XL) 60 MG TAB PO SCH (08:19)
[2018-09-29] MEDS: HEPARIN 5,000 UNIT/1 ML VIAL SC SCH (08:20)
[2018-09-29] MEDS: THIAMINE 100 MG TAB PO SCH (08:20)
--- NOTE | 2018-09-29 10:08 | PN ---
DATE: 09/29/2018 SUBJECTIVE: The patient is stable, no events overnight. The patient had hemodialysis yesterday and tolerated it well. OBJECTIVE: VITAL SIGNS: Blood pressure is 107/54, respiration 18, pulse 77, temperature 99.0. HEENT: Head is normocephalic. NECK: Supple. HEART: Regular rate. LUNGS: Show diminished breath sounds at the base. ABDOMEN: Soft, nontender to palpation without rebound or guarding. EXTREMITIES: Negative for clubbing, cyanosis, no edema. DERMATOLOGIC: No rashes. MUSCULOSKELETAL: No joint effusion. NEUROLOGIC: No change in examination. MEDICATIONS: The patient's medications have been reviewed. LABORATORY DATA: Has been reviewed. IMAGING STUDIES: Have been reviewed. ASSESSMENT AND PLAN: 1. End-stage renal disease. The patient is on dialysis Thursday, , Thursday. Plan for hemod ialysis tomorrow. 2. Hypertension, improved. Continue ultrafiltration with dialysis. Continue current blood pressure regimen. 3. Anemia. Monitor H and H levels. 4. Mineral bone disorder. Monitor calcium and phosphorus levels. Continue phos binders. 5. Chest pain, resolved. 6. Sleep apnea. Continue CPAP. 7. SIRS. Continue to monitor. Dictated By: SOPHIA BOYCE/AMELIE Conf#: [id number] DID#: [id number] CC: THAI EVANS MD;*EndCC*
--- NOTE | 2018-09-29 10:22 | DS ---
Date/Time of Note Date/Time of Note DATE: 09/29/18 TIME: 10:18 Discharge Summary Admission/Discharge Info Admit Date/Time Sep 27, 2018 at 11:07 Discharge Date/Time Patient Condition: Stable Consults Dr Chavira Procedures Chest x-ray x-ray #1 No acute process 2D echo Conclusions: Normal left ventricular systolic function. Normal left ventricular cavity size. Mild concentric left ventricular hypertrophy. Ejection fraction is visually estimated at 65 %. Tissue Doppler/Mitral Doppler indices are consistent with impaired relaxation (Stage I diastolic dysfunction). Normal appearance and function of the mitral valve with trace physiologic regurgitation. Normal appearance of the aortic valve. No significant aortic stenosis or insufficiency. Normal appearance and function of the tricuspid valve with trace physiologic regurgitation. Normal right ventricular systolic pressure. Electronically Signed B Chest x-ray #2 No acute process Hx of Present Illness 28-year-old gentleman who is on dialysis admitted with chest pain. Hospital Course Hospital course Evaluated managed for atypical chest pain. Ruled out for acute coronary syndrome via enzymes EKG symptoms. Troponins & Cxr negative. Likely musculoskeletal or due to accelerated hypertension. Medications adjusted, patient is stable for for discharge. Treatment plan includes treating blood pressure: Low-salt diet, regular medicines, regular dialysis. Recommend he be tested for sleep apnea and discontinue alcohol. He had repeat chest pain today and if his second troponin is negative he can go home. A/P 1. Atypical chest pain ruled out ACS. home Thursday 2. Hypertensive urgency, stable adjusted therapy 3. History of nonadherence 4. ESRD continue dialysis 5. Alcoholism, acute vs past? 6. CHANO risk consider outpatient testing 7. Anemia stable observe 8. Past tobacco S: 8/5 events noted feels better once blood pressure improved /6: No distress 8/7: Chest pain at rest right-sided sharp no known aggravating or relieving factors. No associated diaphoresis syncope fever edema calf pain or productive cough. States similar pain for 2 weeks on and off. Denies any injury. This is likely musculoskeletal. EKG with early re-mona. Will obtain a second troponin. O: vss sr PE no pallor JVD Regular no mrg Clear no tachypnea fairly nontender Bs+ nt nt no r r g; overweight No edema Home Meds Active Scripts Hydralazine Hcl* (Apresoline*) 50 Mg Tab, 75 MG PO Q8 for 30 Days, #90 TAB 5 Refills Prov:MCMANUS,MANINDER V. TITLE PROCESSOR 07/28/18 Nifedipine (Procardia Xl) 60 Mg Tab.er.24, 60 MG PO BID for 60 Days, #120 TAB 5 Refills Prov:MCMANUS,MANINDER V. TITLE PROCESSOR 07/28/18 Labetalol Hcl* (Labetalol Hcl*) 200 Mg Tablet, 400 MG PO TID for 60 Days, #120 TAB 5 Refills Prov:MCMANUS,MANINDER V. TITLE PROCESSOR 07/28/18 Discontinued Scripts Ciprofloxacin Hcl* (Ciprofloxacin Hcl*) 500 Mg Tablet, 500 MG PO BID for 5 Days, #10 TAB Take medicine after hemodialysis on dialysis days. Prov:MCMANUS,AMNINDER V. TITLE PROCESSOR 07/28/18 Thiamine* (Vitamin B-1*) 100 Mg Tablet, 100 MG PO DAILY, #30 TAB Prov:MCMANUS,MANINDER V. TITLE PROCESSOR 07/28/18 Sevelamer Carbonate (Sevelamer Carbonate) 800 Mg Tablet, 800 MG PO WITH MEALS, #90 TAB Prov:MCMANUS,MANINDER V. TITLE PROCESSOR 07/28/18 Doxazosin Mesylate* (Cardura*) 2 Mg Tablet, 4 MG PO HS, #30 TAB Prov:MCMANUS,MANINDER V. TITLE PROCESSOR 07/28/18 Primary Care Provider Not On Staff Doctor Time spent on discharge: > 30 minutes Pending Labs Laboratory Tests Test 09/28/18 10:26 09/29/18 08:46 White Blood Count 12.9 10^3/ul (4.8-10.8) 20.3 10^3/ul (4.8-10.8) Red Blood Count 5.43 10^6/ul (4.70-6.10) 5.92 10^6/ul (4.70-6.10) Hemoglobin 14.0 g/dl (14.0-18.0) 15.2 g/dl (14.0-18.0) Hematocrit 45.2 % (42.0-52.0) 50.6 % (42.0-52.0) Mean Corpuscular Volume 83.2 fl (82.0-101.0) 85.5 fl (82.0-101.0) Mean Corpuscular 25.8 pg (29.0-33.0) 25.7 pg (29.0-33.0) Hemoglobin Mean Corpuscular 31.0 g/dl (32.0-37.0) 30.0 g/dl (32.0-37.0) Hemoglobin Concent Red Cell Distribution 16.6 % (11.5-14.5) 17.9 % (11.5-14.5) Width Platelet Count 495 10^3/UL (140-415) 498 10^3/UL (140-415) Mean Platelet Volume 10.3 fl (7.4-10.4) 10.0 fl (7.4-10.4) Immature Granulocytes % 0.500 % (0.001-0.429) 0.800 % (0.001-0.429) Neutrophils % 75.8 % (39.0-77.0) 79.8 % (39.0-77.0) Lymphocytes % 12.9 % (15.0-51.0) 8.1 % (15.0-51.0) Monocytes % 5.0 % (0.0-11.0) 8.3 % (0.0-11.0) Eosinophils % 5.0 % (0.0-7.0) 2.5 % (0.0-7.0) Basophils % 0.8 % (0.0-2.0) 0.5 % (0.0-2.0) Nucleated Red Blood Cells 0.0 /100WBC (0.0-0.0) 0.0 /100WBC (0.0-0.0) % Immature Granulocytes # 0.070 10^3/ul (0.0-0.031) 0.170 10^3/ul (0.0-0.031) Neutrophils # 9.8 10^3/ul (1.6-7.5) 16.2 10^3/ul (1.6-7.5) Lymphocytes # 1.7 10^3/ul (0.8-2.9) 1.7 10^3/ul (0.8-2.9) Monocytes # 0.6 10^3/ul (0.3-0.9) 1.7 10^3/ul (0.3-0.9) Eosinophils # 0.6 10^3/ul (0.0-0.5) 0.5 10^3/ul (0.0-0.5) Basophils # 0.1 10^3/ul (0.0-0.1) 0.1 10^3/ul (0.0-0.1) Nucleated Red Blood Cells 0.0 10^3/ul (0.0-0.0) 0.0 10^3/ul (0.0-0.0) # Sodium Level 141 mmol/L (135-144) 140 mmol/L (135-144) Potassium Level 4.2 mmol/L (3.5-5.1) 4.4 mmol/L (3.5-5.1) Chloride Level 101 mmol/L (97-110) 98 mmol/L (97-110) Carbon Dioxide Level 24 mmol/L (21-31) 24 mmol/L (21-31) Anion Gap 16 (5-13) 18 (5-13) Blood Urea Nitrogen 36 mg/dl (7-20) 29 mg/dl (7-20) Creatinine 8.14 mg/dl (0.61-1.24) 8.93 mg/dl (0.61-1.24) Est Glomerular Filtrat 8 mL/min (>60) 7 mL/min (>60) Rate mL/min Glucose Level 108 mg/dl (70-220) 135 mg/dl (70-220) Calcium Level 9.7 mg/dl (8.4-10.2) 10.5 mg/dl (8.4-10.2) Phosphorus Level 6.2 mg/dl (2.5-4.9) Magnesium Level 2.2 mg/dl (1.7-2.5) Total Bilirubin 0.5 mg/dl (0.2-1.3) Direct Bilirubin 0.00 mg/dl (0.00-0.20) Indirect Bilirubin 0.5 mg/dl (0-1.1) Aspartate Amino 20 IU/L (15-46) Transf (AST/SGOT) Alanine 28 IU/L (13-69) Aminotransferase (ALT/SGPT ) Alkaline Phosphatase 123 IU/L (42-121) Total Protein 9.2 g/dl (6.1-8.1) Albumin 4.8 g/dl (3.3-4.9) Globulin 4.40 g/dl (1.3-3.2) Albumin/Globulin Ratio 1.09 YVON CARDOZO MD Sep 29, 2018 10:22
--- NOTE | 2018-09-29 10:24 | PDOCDIS ---
Discharge Instructions CONDITION [id number] Patient Condition: [id number] Stable HOME CARE INSTRUCTIONS: [id number] Diet Instructions: [id number] Activity Restrictions: [id number] Slowly Increase Activity Do not Drive FOLLOW UP/APPOINTMENTS Follow-up Plan Dialysis as before Appointment primary and nephrology in 1 week Recommend he visit pulmonary for sleep study for possible sleep apnea YVON CARDOZO MD Sep 29, 2018 10:24
--- NOTE | 2018-09-29 12:19 | RADRPT ---
Vent Rate: 75 bpm RR Interval: 804 msec AK Interval: 142 msec QRS Duration: 88 msec QT Interval: 434 msec QTC Interval: 484 msec P-R-T Treichlers: 39 - 87 - 92 degrees Sinus rhythm...normal P axis, V-rate 50- 99 ST elev, probable normal early repol pattern...ST elevation, age<55 Electronically Signed By: Akhil Minor
== END 2018-09-29 18:00 | disposition home or self-care (01) | DRG 304 ==
LOC: E/R 23:18 → TEL 09-27 11:07 → EDBEDREQ 09-27 13:01 → E/R 09-27 18:03
PROVIDERS: ADMIT Internal Medicine; ATTEND Internal Medicine
PROC: 5A1D70Z Performance of Urinary Filtration, Intermittent, Less than 6 Hours Per Day (ICD-10-PCS; principal; 2018-09-27)
PROC: 5A09357 Assistance with Respiratory Ventilation, Less than 24 Consecutive Hours, Continuous Positive Airway Pressure (ICD-10-PCS; 2018-09-27)
DX: I16.0 Hypertensive urgency (principal); N18.6 End stage renal disease; R65.10 Systemic inflammatory response syndrome (SIRS) of non-infectious origin without acute organ dysfunction; R07.89 Other chest pain; I13.2 Hypertensive heart and chronic kidney disease with heart failure and with stage 5 chronic kidney disease, or end stage renal disease; I50.9 Heart failure, unspecified; F17.200 Nicotine dependence, unspecified, uncomplicated; I25.2 Old myocardial infarction; D64.9 Anemia, unspecified; F10.20 Alcohol dependence, uncomplicated; G47.33 Obstructive sleep apnea (adult) (pediatric); Z99.2 Dependence on renal dialysis; Z91.19 Patient's noncompliance with other medical treatment and regimen
CPT/HCPCS: 36415; 71045; 80048; 80053; 82550; 82553; 83690; 83735; 84100; 84484; 85025; 87081; 87340; 90935; 93005; 93306; 94660; 96374; 96375; J0360; J1644; J2270; J2405